=== PATIENT | female | born 1945 | race Caucasian/White ===

== ENCOUNTER 2023-09-01 14:15 | Inpatient (IN) | payer MEDICARE, SELFPAY ==
[2023-09-01] VITALS (35 sets, daily range): BP systolic 90–123; BP diastolic 51–78; PULSE 104–129; RESP 15–32; TEMP 36.8–37.9; O2SAT 91–100; BMI 27.5; BMI 28.1
--- NOTE | 2023-09-01 14:30 | ECG_ITS ---
[facility] Test Date: 2023-09-01 Pat Name: ADRIENNE MORALEZ Department: Room: [facility] [place] [facility] Gender: Female Call Out Clerk: : 1945 Requested By: 1030 Order Number: [id number] Reading MD: ARABELLA BOBBY Measurements Intervals [place] Rate: 125 P: 90 VA: 136 QRS: 92 QRSD: 90 T: 82 QT: 292 QTc: 366 Interpretive Statements 1120 Sinus tachycardia [address] depression, inferolateral ischemia can't be excluded 7102 Moderate right axis deviation 0102 ARTIFACT PRESENT 9150 abnormal ECG Electronically Signed On 09-02-2023 6:50:10 EST by ARABELLA BOBBY
--- NOTE | 2023-09-01 14:39 | XR_ITS ---
The [address] [address] Patient Name: ADRIENNE MORALEZ MRN: [id number] date: 1945 Sex: F Assigned Patient Location: ER Current Patient Location: ER Accession/Order Number: [id number] Exam Date: 09/01/2023 15:25 Report Date: 09/01/2023 15:47 At the request of: RAMANA LAN Procedure: XR chest 1V EXAMINATION: XR chest 1V 09/01/2023 12:44 PM PST HISTORY: Fever, shortness of breath TECHNIQUE: Single frontal view of the chest acquired. COMPARISONS: Chest CT 08/26/2022 and chest x-ray 04/10/2021 FINDINGS: Lines/tubes/other: Central venous catheter terminating in the mid one third of the SVC. Heart and mediastinum: Stable. Bones: No acute osseous abnormality. Lungs: Chronic cavitation in the left apex. Moderate opacification of the left mid to upper lung appears mildly worse. Pleura: There is no significant pleural effusion or pneumothorax. Other: None. XR/XR chest 1V IMPRESSION: 1. Suspected worsening moderate opacification of the left lung. Recommend CT of the chest with contrast for further evaluation. 2. Chronic left apical cavitation. Electronically authenticated by: LUPIS ALVES Date: 09/01/2023 15:47
--- NOTE | 2023-09-01 14:42 | ED.SOB1 ---
HPI - SOB/Dyspnea General Chief Complaint: Shortness of Breath/Dyspnea Stated Complaint: CHEST PRESSURE/FLUID Time Seen by Provider: 09/01/23 14:33 Source: patient Mode of arrival: Wheelchair Limitations: no limitations History of Present Illness HPI Narrative: 77-year-old female presents to the emergency department for shortness of breath. She has not felt well for a month but the past 3 days has been much worse. She developed a fever and a cough. She has been coughing up some white phlegm. No hemoptysis. She has a history of COPD and continues to smoke. She is not complaining of chest pain to me. Related Data Allergies Allergy/AdvReac Type Severity Reaction Status Date / Time No Known Drug Allergies Allergy Verified 09/01/23 14:30 Review of Systems ROS Narrative A ten point review of systems is negative except as noted above. PFSH PFSH Social History Smoking status: Heavy tobacco smoker Exam Narrative Exam Narrative: Nurses note and vital signs reviewed and patient is not hypoxic. General: The patient appears mildly dyspneic. Skin: Warm, dry, no pallor noted. There is no rash noted. Head: Normocephalic, atraumatic Eye: Normal conjunctiva, no drainage Ears, Nose, Mouth, and Throat: oral mucosa is moist. Nares patent. Cardiovascular: Regular Rate and Rhythm, tachycardia Respiratory: Bilateral rhonchi present, breath sounds are equal Back: non-tender GI: Soft and nontender Musculoskeletal: The patient has no evidence of calf tenderness, no pitting edema, symmetrical pulses noted bilaterally Neurological: A&O, normal speech Psychiatric: Cooperative Constitutional Vital Signs, click to edit/add: Last Vital Signs Temp 100.3 F 09/01/23 14:30 Pulse 113 H 09/01/23 15:30 Resp 27 H 09/01/23 15:30 BP 123/78 09/01/23 14:25 Pulse Ox 98 09/01/23 15:03 O2 Del Method Nasal Cannula 09/01/23 15:03 O2 Flow Rate 3 09/01/23 15:03 Course Vital Signs Vital signs: Vital Signs Pulse Rate 125 H 09/01/23 14:25 Respiratory Rate 32 H 09/01/23 14:25 Blood Pressure 123/78 09/01/23 14:25 Pulse Oximetry 91 L 09/01/23 14:25 Oxygen Delivery Method Nasal Cannula 09/01/23 14:25 Oxygen Delivery Flow Rate 2 09/01/23 14:25 Temperature 100.3 F 09/01/23 14:30 Pulse Rate 113 H 09/01/23 15:30 Respiratory Rate 27 H 09/01/23 15:30 Blood Pressure 123/78 09/01/23 14:25 Pulse Oximetry 98 09/01/23 15:03 Oxygen Delivery Method Nasal Cannula 09/01/23 15:03 Oxygen Delivery Flow Rate 3 09/01/23 15:03 MDM - SOB/Dyspnea MDM Narrative Medical decision making narrative: Chest x-ray per radiologist suggest pneumonia. She has an elevated WBC and negative COVID and influenza test. Blood cultures were obtained and she was given IV Rocephin and Zithromax. She is hemodynamically stable and is being admitted. Findings are discussed with the patient. Differential Diagnosis Differential diagnosis: Likely acute exacerbation of chronic obstructive airways disease, community acquired pneumonia and other (COVID, influenza) Lab Data Attestation: I reviewed the patient's lab results. Labs: Lab Results 09/01/23 09/01/23 Range/Units 14:58 15:02 WBC 20.6 H (4.0-11.0) 10^3/uL RBC 3.83 L (4.20-5.40) 10^6/uL Hgb 10.8 L (12.0-16.0) g/dL Hct 34.3 L (36.0-48.0) % MCV 89.6 (81.0-99.0) fL MCH 28.2 (26.7-34.0) pg MCHC 31.5 (29.9-35.2) g/dL RDW 13.6 (11.0-15.0) % Plt Count 317 (150-450) 10^3/uL MPV 9.9 (9.5-13.5) fL Neut % (Auto) 86.2 H (43.0-75.0) % Lymph % (Auto) 6.0 L (20.5-60.0) % [place] % (Auto) 6.6 (1.7-12.0) % Eos % (Auto) 0.2 L (0.9-7.0) % Baso % (Auto) 0.3 (0.2-2.0) % Neut # (Auto) 17.8 H (1.4-6.5) 10^3/uL Lymph # (Auto) 1.2 (1.2-3.8) 10^3/uL [place] # (Auto) 1.4 H (0.3-0.8) 10^3/uL Eos # (Auto) 0.0 (0.0-0.7) 10^3/uL Baso # (Auto) 0.1 (0.0-0.1) 10^3/uL Abs Immat Gran (auto) 0.14 H (0.00-0.03) 10^3/uL Imm/Tot Granulo (auto) 0.7 H (0.0-0.5) % Sodium 138 (136-145) mmol/L Potassium 3.8 (3.5-5.1) mmol/L Chloride 101 (98-107) mmol/L Carbon Dioxide 29.1 (21.0-32.0) mmol/L Anion Gap 11.7 BUN 15.0 (7.0-18.0) mg/dL Creatinine 0.59 (0.55-1.02) mg/dL Est GFR ( Amer) >60 (>=60) Est GFR (Non-Af Amer) >60 (>=60) BUN/Creatinine Ratio 25.4 Glucose 161 H (74-106) mg/dL Lactate 1.1 (0.4-2.0) mmol/L Calcium 8.8 (8.5-10.1) mg/dL Total Bilirubin 0.6 (0.2-1.0) mg/dL AST 20 (15-37) U/L ALT 24 (14-59) U/L Alkaline Phosphatase 106 (46-116) U/L Troponin I High Sens 9.5 (4.0-51.3) pg/mL Total Protein 7.3 (6.4-8.2) g/dL Albumin 2.7 L (3.4-5.0) g/dL Globulin 4.6 g/dL Albumin/Globulin Ratio 0.6 Procalcitonin 0.06 (0.00-0.50) ng/mL Adenovirus (PCR) Not detected (NOT DETECTE) C. pneumoniae DNA (PCR) Not detected (NOT DETECTE) Coronavirus Type OC43 Not detected (NOT DETECTE) Coronavirus Type HKU1 Not detected (NOT DETECTE) Coronavirus Type 229E Not detected (NOT DETECTE) Coronavirus Type NL63 Not detected (NOT DETECTE) Human Metapneumovir PCR Not detected (NOT DETECTE) M. pneumoniae (PCR) Not detected (NOT DETECTE) Parainfluenza PCR Not detected (NOT DETECTE) Parainfluenza 2 (PCR) Not detected (NOT DETECTE) Parainfluenza 3 (PCR) Not detected (NOT DETECTE) Parainfluenza 4 (PCR) Not detected (NOT DETECTE) RSV (RT-PCR) Not detected (NOT DETECTE) Entero/Rhino (PCR) Not detected (NOT DETECTE) SARS-CoV-2 (PCR) Not detected (NOT DETECTE) Bordetella pertussis (PCR) Not detected (NOT DETECTE) B parapertussis DNA PCR Not detected (NOT DETECTE) Influenza Type A (PCR) Not detected (NOT DETECTE) Influenza Type B (PCR) Not detected (NOT DETECTE) Imaging Data Chest x-ray: Radiologist's impression: ITS Impressions Chest X-Ray 09/01/23 14:39 IMPRESSION: 1. Suspected worsening moderate opacification of the left lung. Recommend CT of the chest with contrast for further evaluation. 2. Chronic left apical cavitation. Electronically authenticated by: LUPIS ALVES Date: 09/01/2023 15:47 Discharge Plan Discharge Chief Complaint: Shortness of Breath/Dyspnea Clinical Impression: Pneumonia Patient Disposition: Admitted As Inpatient Time of Disposition Decision: 16:28 Condition: Fair
[2023-09-01] MEDS: ALBUTEROL SULFATE 2.5 MG/3 ML VIAL NEB IH (14:58)
[2023-09-01 15:15] LABS: Adenovirus NOT DETECTED (NOT DETECTE); Bordetella parapertussis NOT DETECTED (NOT DETECTE); Coronavirus 229E NOT DETECTED (NOT DETECTE); Coronavirus HKU1 NOT DETECTED (NOT DETECTE); Coronavirus NL63 NOT DETECTED (NOT DETECTE); Coronavirus OC43 NOT DETECTED (NOT DETECTE); Human Metapneumovirus NOT DETECTED (NOT DETECTE); Human Rhinovirus/Enterovirus NOT DETECTED (NOT DETECTE); Influenza A NOT DETECTED (NOT DETECTE); Influenza B NOT DETECTED (NOT DETECTE); Parainfluenza Virus 1 NOT DETECTED (NOT DETECTE); Parainfluenza Virus 2 NOT DETECTED (NOT DETECTE); Parainfluenza Virus 3 NOT DETECTED (NOT DETECTE); Parainfluenza Virus 4 NOT DETECTED (NOT DETECTE); Respiratory Syncytial Virus NOT DETECTED (NOT DETECTE); SARS-CoV-2 NOT DETECTED (NOT DETECTE)
[2023-09-01 15:16] LABS: Mycoplasma pneumoniae NOT DETECTED (NOT DETECTE)
[2023-09-01 15:20] LABS: Basophils Absolute Auto 0.1 10^3/uL (0.0-0.1); Basophils Percent Auto 0.3 % (0.2-2.0); Eosinophils Percent Auto 0.2 % (0.9-7.0); Hematocrit 34.3 % (36.0-48.0); Hemoglobin 10.8 g/dL (12.0-16.0); Immature Granulocytes Abs Auto 0.14 10^3/uL (0.00-0.03); Immature Granulocytes Pct Auto 0.7 % (0.0-0.5); Lymphocytes Absolute Auto 1.2 10^3/uL (1.2-3.8); Mean Corpuscular HGB Conc 31.5 g/dL (29.9-35.2); Mean Corpuscular Hemoglobin 28.2 pg (26.7-34.0); Mean Corpuscular Volume 89.6 fL (81.0-99.0); Mean Platelet Volume 9.9 fL (9.5-13.5); Monocytes Absolute Auto 1.4 10^3/uL (0.3-0.8); Monocytes Percent Auto 6.6 % (1.7-12.0); Neutrophils Absolute Auto 17.8 10^3/uL (1.4-6.5); Neutrophils Percent Auto 86.2 % (43.0-75.0); Platelet Count 317 10^3/uL (150-450); Red Blood Count 3.83 10^6/uL (4.20-5.40); Red Cell Distribution Width 13.6 % (11.0-15.0); White Blood Count 20.6 10^3/uL (4.0-11.0)
[2023-09-01] MEDS: METHYLPREDNISOLONE SOD SUCC PF 125 MG/2 ML VIAL IVP (15:22)
[2023-09-01 15:40] LABS: Lactate/Lactic Acid 1.1 mmol/L (0.4-2.0)
[2023-09-01 15:46] LABS: Alanine Aminotransferase 24 U/L (14-59); Albumin Globulin Ratio 0.6; Albumin Level 2.7 g/dL (3.4-5.0); Alkaline Phosphatase 106 U/L (46-116); Anion Gap 11.7; Aspartate Amino Transferase 20 U/L (15-37); BUN Creatinine Ratio 25.4; Bilirubin Total 0.6 mg/dL (0.2-1.0); Calcium 8.8 mg/dL (8.5-10.1); Carbon Dioxide 29.1 mmol/L (21.0-32.0); Chloride 101 mmol/L (98-107); Estimated GFR (African America >60 (>=60); Estimated GFR (Non-African Ame >60 (>=60); Globulin 4.6 g/dL; Glucose 161 mg/dL (74-106); Potassium 3.8 mmol/L (3.5-5.1); Sodium 138 mmol/L (136-145); Total Protein 7.3 g/dL (6.4-8.2); Troponin I High Sensitivity 9.5 pg/mL (4.0-51.3)
[2023-09-01 16:22] LABS: PROCALCITONIN 0.06 ng/mL (0.00-0.50)
--- NOTE | 2023-09-01 17:03 | P.HP_ITS ---
<Statement entered by Tay Pierce MD - 09/02/23 19:00> This documentation has been reviewed and approved. Patient seen and examined this morning. Agree with input and findings provided by nurse practitioner. 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 She also reports low- grade temperatures with a Tmax of 100.3 on Thursday evening, 3 days of worsening cough productive of mostly clear sputum, and severe shortness of breath with activity. She reports she normally uses her home O2 only with activity and is able to maintain her sats at rest on room air 93 to 94%. Today when attempting to ambulate to the bathroom her O2 sat dropped to 86% even while on O2 supplementation at 2 L and she presented to the ED for further evaluation. Workup in the ED revealed leukocytosis (20.6 with a left shift), hyperglycemia (161), with all other labs unremarkable including lactic acid and and troponin I. A respiratory panel was negative. Chest x-ray revealed worsening moderate opacities of the left lung and a CT of the chest with contrast was recommended for further evaluation. It also noted a chronic left apical cavitary lesion. Despite breathing treatments the patient remains very dyspneic and she is being admitted as an inpatient to the hospitalist service for community-acquired pneumonia and acute COPD exacerbation with acute on chronic respiratory failure. At the time of my exam the patient is sitting up on the ED cart. She is essentially tripoding and her work of breathing is significant. She is able to complete 5 word sentences but abdominal accessory muscle use is noted as well as pursed lip breathing. On exam her lung sounds are very tight with extremely poor air exchange noted and some scattered and expiratory wheezing. We will continue to treat for CAP with Rocephin and azithromycin and for COPD exacerbation with Solu-Medrol, scheduled DuoNebs and Pulmicort nebs; guaifenesin, and OPEP for sputum mobilization. We will consult Dr. Morin as he is this patient's biomechanical engineer and we appreciate his assistance with her care. Review of Systems ROS Status of ROS 10 or more systems reviewed and unremark able except as noted in history and below PFSH PFS Medical History (Updated 09/01/23 @ 18:45 by Daja Chacko RN) Cataract ?H26.9 - Unspecified cataract (ICD-10) Hyperlipidemia ?E78.5 - Hyperlipidemia, unspecified (ICD-10) COPD (chronic obstructive pulmonary disease) ?J44.9 - Chronic obstructive pulmonary disease, unspecified (ICD-10) Hypertension ?I10 - Essential (primary) hypertension (ICD-10) Surgical History (Updated 09/01/23 @ 18:45 by Daja Chacko RN) Hx of cholecystectomy ?Z90.49 - Acquired absence of other specified parts of digestive tract (ICD- 10) History of heart artery stent ?Z95.5 - Presence of coronary angioplasty implant and graft (ICD-10) Family History (Updated 09/01/23 @ 18:46 by Daja Chacko RN) Grandfather Family history of cancer Grandmother Family history of diabetes mellitus Father Family history of hypertension Family history of stroke Social History (Updated 09/01/23 @ 18:47 by Daja Chacko RN) Within the past year, how often did you have a drink containing alcohol: never Score interpretation: A score less than 3 is consistent with normal alcohol consumption. Smoking status: Heavy tobacco smoker Non-prescribed substance use: denies use Highest level of school completed/degree received: high school graduate Meds Home Medications and Allergies Home Medications Medication Instructions Recorded Confirmed Type albuterol sulfate 2.5 mg/3 mL 2.5 mg inhalation Q6H PRN 09/01/23 09/01/23 History (0.083 %) solution for nebulization shortness of breath or wheezing albuterol sulfate 90 mcg/actuation 2 puff inhalation Q4H PRN 09/01/23 09/01/23 History aerosol inhaler shortness of breath or wheezing amlodipine 5 mg tablet 5 mg PO DAILY 09/01/23 09/01/23 History aspirin 81 mg tablet,delayed 81 mg PO DAILY 09/01/23 09/01/23 History release (Adult Low Dose Aspirin) budesonide 160 mcg-glycopyr 9 2 inh inhalation .twice daily 09/01/23 09/01/23 History mcg-formot 4.8 mcg/actuation HFA inhaler (Breztri Aerosphere) clopidogrel 75 mg tablet 75 mg PO DAILY 09/01/23 09/01/23 History fexofenadine 180 mg tablet 180 mg PO DAILY 09/01/23 09/01/23 History (Marcie Allergy) metoprolol tartrate 25 mg tablet 12.5 mg PO Q12H 09/01/23 09/01/23 History wefdjkqe-ndm-hwroj acid 0.4 1 tab PO DAILY 09/01/23 09/01/23 History mg-lycopene 300 mcg-lutein 250 mcg tablet (Centrum Silver) prednisone 10 mg tablet 10 mg PO DAILY 09/01/23 09/01/23 History simvastatin 20 mg tablet 20 mg PO .QHS 09/01/23 09/01/23 History Allergies Allergy/AdvReac Type Severity Reaction Status Date / Time No Known Drug Allergies Allergy Verified 09/01/23 14:30 Exam Constitutional Vital Signs, click to edit/add: Last Vital Signs Temp 99.6 F 09/01/23 16:49 Pulse 108 H 09/01/23 16:50 Resp 22 09/01/23 16:50 BP 117/69 09/01/23 16:30 Pulse Ox 95 09/01/23 16:50 O2 Del Method Nasal Cannula 09/01/23 15:03 O2 Flow Rate 3 09/01/23 15:03 Common normals: no apparent distress, oriented x3, alert and well nourished General appearance: cooperative Orientation/consciousness: Yes awake [facility] Common normals: normocephalic, head/scalp atraumatic, hearing grossly normal bilaterally, external nose normal and moist oral mucous membranes Eye Common normals: PERRL, EOMs intact bilaterally, conjunctivae normal and no scleral icterus Alignment: alignment normal Eyelid: eyelids normal Neck & C-Spine Common normals: full ROM, supple and no JVD Chest Common normals: inspection of chest normal Chest: symmetrical chest wall rise Respiratory Common normals: no retractions Effort & inspection: tachypneic, pursed lip breathing, labored, uses accessory muscles, tripod positioning and prolonged expiratory phase Auscultation: wheezes (Scattered throughout) expiratory wheezes and diminished lung sounds (Very tight; poor air exchange) Cardio Common normals: no JVD, regular rhythm, S1 normal heart sound, S2 normal heart sound, no gallops, no clicks, no murmurs, no rub and peripheral pulses 2+ throughout Rate: tachycardic (Mild, 100-110) GI Common normals: Normal to inspection, nondistended, normoactive bowel sounds present, soft to palpation, non-tender, no hepatosplenomegaly, no masses and no bruits Bladder/kidney exam: bladder normal to palpation Back & Pelvis Common normals: thoracic and lumbar spine normal to inspection Extremity Common normals: normal capillary refill General: normal exam except as noted and edema (Trace bilat insteps); no cyanosis Neuro Larissa Coma Scale: GCS not evaluated Common normals: CN's II-XII intact bilaterally, moves all extremities, no focal motor deficits and no sensory deficits noted Speech: speech normal Motor exam: strength 5/5 throughout Psych Common normals: mental status grossly normal, thought process normal, affect normal and activity/motor behavior normal Results Labs Labs: Short CBC 09/01/23 Range/Units 14:58 WBC 20.6 H (4.0-11.0) 10^3/uL Hgb 10.8 L (12.0-16.0) g/dL Hct 34.3 L (36.0-48.0) % Plt Count 317 (150-450) 10^3/uL BMP 09/01/23 14:58 Sodium 138 Potassium 3.8 Chloride 101 Carbon Dioxide 29.1 BUN 15.0 Creatinine 0.59 Glucose 161 H Calcium 8.8 Liver Function 09/01/23 Range/Units 14:58 Total Bilirubin 0.6 (0.2-1.0) mg/dL AST 20 (15-37) U/L ALT 24 (14-59) U/L Alkaline Phosphatase 106 (46-116) U/L Albumin 2.7 L (3.4-5.0) g/dL Pulse Oximetry Attestation: I have reviewed the pertinent pulse oximetry results. Assessment and Plan Assessment and Plan (1) Pneumonia: Assessment and Plan: ACUTE * Adm inpatient * I expect this patient's stay to cross 2 midnights and require medically necessary hospital care * L side opacity on CXR - suspect acute infiltrate * Continue IVPB Rocephin/Azithromycin for now for CAP coverage. * Low threshold to broaden coverage pending clinical course and pulmonology recommendations * Duonebs q4h scheduled, PRN albuterol nebs * Guaifenisen BID/OPEP for sputum mobilization * Obtain sputum culture sample if possible * CT chest per radiology recommendation to further characterize her worsening L opacification * C/S Dr Morin, biomechanical engineer - we appreciate his assistance with this pt's care * CBC, CMP daily (2) Acute exacerbation of chronic obstructive pulmonary disease (COPD): Assessment and Plan: ACUTE * Solumedrol 125 x 1 in ED, then 80 mg q6h * Defer to pulmonology if higher doses are indicated * Hold home PO prednisone for now * Scheduled and PRN breathing tx as above * Pulmicort nebs BID * O2 as needed to keep sats above 90%, low threshold to consider Vapotherm d/t pt's significantly increased WOB * Dr Morin c/s as above (3) Acute and chronic respiratory failure: Assessment and Plan: ACUTE * Pt uses O2 at 2L only w/ activity at baseline. On RA at rest * Requiring 2-3 L continuously in ED and pt's WOB remains exaggerated and dyspneic * O2 to keep sats above 90% - consider vapotherm pending clinical course (4) Hyperlipidemia: Assessment and Plan: CHRONIC * Continue home statin (5) Hypertension: Assessment and Plan: CHRONIC * Hold home amlodipine for now d/t soft BPs * Continue home metoprolol d/t mild tachycardia, but w/ parameters to hold for SBP < 110 or HR < 55
[2023-09-01] MEDS: ACETAMINOPHEN 325 MG TABLET 650 MG PO (17:19)
[2023-09-01] MEDS: CEFTRIAXONE 1,000 MG in 0.9 % SODIUM CHLORIDE 50 ML 100 MG IV (17:27)
[2023-09-01] MEDS: AZITHROMYCIN 500 MG in 0.9 % SODIUM CHLORIDE 250 ML 250 MG IV (18:56)
[2023-09-01] MEDS: IPRATROPIUM/ALBUTEROL SULFATE 3 ML AMPUL.NEB IH ×2 (19:54→23:31)
--- NOTE | 2023-09-01 19:54 | RESP.RT ---
decreased down to 2L. pt wears 2L at home.
[2023-09-01] MEDS: GUAIFENESIN 600 MG TAB.ER.12H PO (21:45)
[2023-09-01] MEDS: METHYLPREDNISOLONE SOD SUCC PF 125 MG/2 ML VIAL 80 MG IVP (21:45)
[2023-09-01] MEDS: ENOXAPARIN SODIUM 40 MG/0.4 ML SYRINGE SUBQ (21:45)
[2023-09-01] MEDS: BUDESONIDE 0.5 MG/2 ML AMPULE NEB IH (23:30)
[2023-09-01 23:39] LABS: Bilirubin Urine NEGATIVE (NEGATIVE); Blood Urine TRACE-I (NEGATIVE); Clarity Urine CLEAR (CLEAR); Color Urine YELLOW (YELLOW); Glucose Urine UA >=1000 mg/dL (NEGATIVE); Ketones Urine 15 mg/dL (NEGATIVE); Leukocyte Esterase Urine NEGATIVE (NEGATIVE); Nitrite Urine NEGATIVE (NEGATIVE); Protein Urine TRACE mg/dL (NEG/TRACE); Specific Gravity Urine 1.015 (1.005-1.025); Urobilinogen Urine 0.2 EU/dL (0.2-1.0); pH Urine 5.5 (5.0-9.0)
[2023-09-01 23:50] LABS: Urine Microscopic Indicated YES
--- NOTE | 2023-09-01 23:50 | RESP.RT ---
PEP not done at this time. Pt SOB and coughing.
[2023-09-01 23:54] LABS: Bacteria Urine NONE SEEN #/HPF (NONE SEEN); Mucus Urine NONE SEEN (NONE SEEN); RBC Urine 0-2 #/HPF (0-2); Squamous Epithelial Cell Urine NONE SEEN #/LPF (NONE/RARE); WBC Urine NONE SEEN #/HPF (NONE SEEN)
[2023-09-01 23:55] LABS: Cast Seen? NONE SEEN #/LPF (NONE SEEN); Crystals Seen? None Seen #/HPF (None Seen)
[2023-09-02] VITALS (22 sets, daily range): BP systolic 104–111; BP diastolic 57–67; PULSE 87–130; RESP 14–22; TEMP 36.3–36.5; O2SAT 92–97
[2023-09-02] MEDS: METHYLPREDNISOLONE SOD SUCC PF 125 MG/2 ML VIAL 80 MG IVP ×4 (01:30→21:03)
[2023-09-02] MEDS: IPRATROPIUM/ALBUTEROL SULFATE 3 ML AMPUL.NEB IH ×2 (03:16→08:22)
--- NOTE | 2023-09-02 05:36 | PC.NURSE ---
Radiologist on floor to take patient for MRI. Patient is refusing to have test done states I can not lay flat for that long, and Dr. Morin doesn't need it anyway:. Explained to patient about the importance of the test. Several attempts to get patient to do test with no success. Dr. Olivier notified.
[2023-09-02 06:04] LABS: Basophils Percent Auto 0.2 % (0.2-2.0); Hemoglobin 9.7 g/dL (12.0-16.0); Immature Granulocytes Abs Auto 0.07 10^3/uL (0.00-0.03); Immature Granulocytes Pct Auto 0.5 % (0.0-0.5); Lymphocytes Absolute Auto 0.3 10^3/uL (1.2-3.8); Lymphocytes Percent Auto 1.7 % (20.5-60.0); Mean Corpuscular HGB Conc 30.3 g/dL (29.9-35.2); Mean Corpuscular Hemoglobin 27.6 pg (26.7-34.0); Mean Corpuscular Volume 91.2 fL (81.0-99.0); Mean Platelet Volume 9.8 fL (9.5-13.5); Monocytes Absolute Auto 0.4 10^3/uL (0.3-0.8); Monocytes Percent Auto 2.5 % (1.7-12.0); Neutrophils Absolute Auto 14.4 10^3/uL (1.4-6.5); Neutrophils Percent Auto 95.1 % (43.0-75.0); Platelet Count 297 10^3/uL (150-450); Red Blood Count 3.51 10^6/uL (4.20-5.40); Red Cell Distribution Width 13.4 % (11.0-15.0); White Blood Count 15.1 10^3/uL (4.0-11.0)
[2023-09-02 06:17] LABS: Alanine Aminotransferase 25 U/L (14-59); Albumin Globulin Ratio 0.5; Albumin Level 2.4 g/dL (3.4-5.0); Alkaline Phosphatase 100 U/L (46-116); Anion Gap 14.1; Aspartate Amino Transferase 17 U/L (15-37); Bilirubin Total 0.3 mg/dL (0.2-1.0); Calcium 8.9 mg/dL (8.5-10.1); Chloride 105 mmol/L (98-107); Estimated GFR (African America >60 (>=60); Estimated GFR (Non-African Ame >60 (>=60); Globulin 4.5 g/dL; Glucose 220 mg/dL (74-106); Potassium 3.1 mmol/L (3.5-5.1); Sodium 143 mmol/L (136-145); Total Protein 6.9 g/dL (6.4-8.2)
--- NOTE | 2023-09-02 06:58 | P.PLCN_ITS ---
History of Present Illness History of Present Illness Consult date: 09/02/23 Requesting physician: Laura Barros Reason for consult: pneumonia Chief complaint: CHEST PRESSURE/FLUID, Pneumonia Narrative: 77yo female, well known to me, presents to [facility] ER 09/01/2023 after ~1 week of worsening dyspnea. CXR done in ER suggested infiltrates in the left lung. Chest CT was recommended, but patient initially refused. After I suggested getting t he chest CT, she had it done. She has a significant pulmonary history, with her last outpatient visit 06/16/2023. 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 Waldrop). The remnant mass degraded to a cavitary lesion, in which an Aspergilloma developed. She was started on itraconazole 07/23/2022, but despite treatment for nearly 5 months, the Asp ergilloma increased in size. She was referred to thoracic surgery (Dr. Segovia @ [facility]). The location was technically difficult, and given her poor pulmonary function, she was not a candidate for lobectomy. A Clagett window axillary approach was suggested, but that procedure would cause significant morbidity, requiring rib resection and likely chronic wound that would require daily wound care (e.g. packing, etc.). The patient felt the risks were too high and refused surgery. After a long discussion with her in the office 01/13/2023, she stated her main goals of treatment were to not to suffer. Alternative therapy with voriconazole was also discussed, but the she declined this option as well. She previously made her wishes known to me that if she were to decline rapidly, she was open to Hospice care. I completed an order for DNR-CCA No Intubation in the office that date (which is on file @ [facility]). Based on her goals and wishes, treatment was shifted more towards palliative treatment. With her severe centrilobular emphysema, we began daily prednisone therapy. It helped some @ 5mg, but it was later increased to 10mg based on symptom control. Review of Systems ROS Status of ROS 10 or more systems reviewed and unremark able except as noted in history and below (Fatigue, dyspnea, productive cough without hemoptysis) [facility] Medical History (Updated 09/01/23 @ 18:45 by Daja Chacko RN) Cataract ?H26.9 - Unspecified cataract (ICD-10) Hyperlipidemia ?E78.5 - Hyperlipidemia, unspecified (ICD-10) COPD (chronic obstructive pulmonary disease) ?J44.9 - Chronic obstructive pulmonary disease, unspecified (ICD-10) Hypertension ?I10 - Essential (primary) hypertension (ICD-10) Surgical History (Updated 09/01/23 @ 18:45 by Daja Chacko RN) Hx of cholecystectomy ?Z90.49 - Acquired absence of other specified parts of digestive tract (ICD- 10) History of heart artery stent ?Z95.5 - Presence of coronary angioplasty implant and graft (ICD-10) Family History (Updated 09/01/23 @ 18:46 by Daja Chacko, RN) Grandfather Family history of cancer Grandmother Family history of diabetes mellitus Father Family history of hypertension Family history of stroke Social History (Updated 09/01/23 @ 18:47 by Daja Chacko, RN) Within the past year, how often did you have a drink containing alcohol: never Score interpretation: A score less than 3 is consistent with normal alcohol consumption. Smoking status: Heavy tobacco smoker Non-prescribed substance use: denies use Highest level of school completed/degree received: high school graduate Meds Home Medications and Allergies Home Medications Medication Instructions Recorded Confirmed Type albuterol sulfate 2.5 mg/3 mL 2.5 mg inhalation Q6H PRN 09/01/23 09/01/23 History (0.083 %) solution for nebulization shortness of breath or wheezing albuterol sulfate 90 mcg/actuation 2 puff inhalation Q4H PRN 09/01/23 09/01/23 History aerosol inhaler shortness of breath or wheezing amlodipine 5 mg tablet 5 mg PO DAILY 09/01/23 09/01/23 History aspirin 81 mg tablet,delayed 81 mg PO DAILY 09/01/23 09/01/23 History release (Adult Low Dose Aspirin) budesonide 160 mcg-glycopyr 9 2 inh inhalation .twice daily 09/01/23 09/01/23 History mcg-formot 4.8 mcg/actuation HFA inhaler (Breztri Aerosphere) clopidogrel 75 mg tablet 75 mg PO DAILY 09/01/23 09/01/23 History fexofenadine 180 mg tablet 180 mg PO DAILY 09/01/23 09/01/23 History (Marcie Allergy) metoprolol tartrate 25 mg tablet 12.5 mg PO Q12H 09/01/23 09/01/23 History dtctwyfk-uge-[id number] acid 0.4 1 tab PO DAILY 09/01/23 09/01/23 History mg-lycopene 300 mcg-lutein 250 mcg tablet (Centrum Silver) prednisone 10 mg tablet 10 mg PO DAILY 09/01/23 09/01/23 History simvastatin 20 mg tablet 20 mg PO .QHS 09/01/23 09/01/23 History Allergies Allergy/AdvReac Type Severity Reaction Status Date / Time No Known Drug Allergies Allergy Verified 09/01/23 14:30 Exam Constitutional Vital Signs, click to edit/add: Last Vital Signs Temp 98.2 F 09/01/23 21:29 Pulse 87 09/02/23 06:00 Resp 20 09/02/23 04:58 BP 111/67 09/02/23 04:58 Pulse Ox 95 09/02/23 04:58 O2 Del Method Nasal Cannula 09/02/23 04:58 O2 Flow Rate 3 09/02/23 04:58 Documenting provider has reviewed patient's vital signs: yes General appearance: ill appearing chronically HENMT Other: Upper dentures, no candidiasis. Developing mild brumfield facies secondary to chronic prednisone use. Chest Other: Prominent dextroscoliosis Respiratory Other: Mildly increased work of breathing (which patient already has to a degree at baseline). Crackles in the left lung, more in the base. No significant wheezes. Cardio Rate: tachycardic Rhythm: regular rhythm GI Inspection: normal to inspection Extremity Common normals: no clubbing, cyanosis or edema Neuro Sensorium/orientation: awake and alert Psych Attitude: calm and engaged Activity/motor behavior: appropriate eye contact Results Laboratory Findings Abnormal lab findings: Abnormal Labs 09/01/23 09/01/23 09/02/23 14:58 23:25 05:40 WBC 20.6 H 15.1 H RBC 3.83 L 3.51 L Hgb 10.8 L 9.7 L Hct 34.3 L 32.0 L Neut % (Auto) 86.2 H 95.1 H Lymph % (Auto) 6.0 L 1.7 L Eos % (Auto) 0.2 L 0.0 L Neut # (Auto) 17.8 H 14.4 H Lymph # (Auto) 0.3 L Kenton # (Auto) 1.4 H Abs Immat Gran (auto) 0.14 H 0.07 H Imm/Tot Granulo (auto) 0.7 H Potassium 3.1 L Glucose 161 H 220 H Albumin 2.7 L 2.4 L Urine Glucose (UA) >=1000 A Urine Ketones [address] scan - chest: report reviewed and image reviewed Results Metabolic Panel: Sodium 143 mmol/L (136-145) 09/02/23 05:40 Potassium 3.1 mmol/L (3.5-5.1) L 09/02/23 05:40 Chloride 105 mmol/L (98-107) 09/02/23 05:40 Carbon Dioxide 27.0 mmol/L (21.0-32.0) 09/02/23 05:40 Anion Gap 14.1 09/02/23 05:40 Calcium 8.9 mg/dL (8.5-10.1) 09/02/23 05:40 Glucose 220 mg/dL (74-106) H 09/02/23 05:40 BUN 17.0 mg/dL (7.0-18.0) 09/02/23 05:40 Creatinine 0.63 mg/dL (0.55-1.02) 09/02/23 05:40 BUN/Creatinine Ratio 27.0 09/02/23 05:40 Total Protein 6.9 g/dL (6.4-8.2) 09/02/23 05:40 Albumin 2.4 g/dL (3.4-5.0) L 09/02/23 05:40 Globulin 4.5 g/dL 09/02/23 05:40 Albumin/Globulin Ratio 0.5 09/02/23 05:40 AST 17 U/L (15-37) 09/02/23 05:40 ALT 25 U/L (14-59) 09/02/23 05:40 Alkaline Phosphatase 100 U/L (46-116) 09/02/23 05:40 Total Bilirubin 0.3 mg/dL (0.2-1.0) 09/02/23 05:40 Assessment and Plan Assessment and Plan (1) Pneumonia: Assessment and Plan: 1. Pneumonia. No identifiable cause. Respiratory panel negative. I would treat her as simply community acquired pneumonia. I believe this is working as her WBC has decreased already. Suggest continuing current antibiotic regimen as prescribed. 2. Sepsis. Secondary to #1. WBC 20.6 and RR 32 on initial presentation to [facility] ER. 3. Acute exacerbation of COPD. Patient has centrilobular emphysema with moderate/severe obstruction (FEV1 50% based on PFT 01/17/2021). A daughter is a respiratory therapist and asking for Vapotherm for work of breathing. She does not require it for oxygenation. There is no evidence of hypercapnia (HCO3- 27). Can try it for now, but if patient voices discomfort, I have a low threshold to discontinue it. 4. OBIE cavitary lesion. Secondary to treated limited stage small cell lung carcinoma. Follows with Dr. Waldrop outpatient. The cavitary lesion is continuing to increase in size. Suspect more due to natural progression opposed to ongoing neoplasm. Biggest risk discussed would be massive hemoptysis if it invades vasculature. As in HPI, patient refused surgical option for treatment. 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 Failed itraconazole, refused voriconazole. Does not appear massively increased in size compared to prior imaging. 6. Chronic hypoxic respiratory failure. Baseline O2 is 2L/min ATC. Doing okay on 3L/min. 7 Bronchiectasis. Incidental finding in the past. 8. Tobacco abuse. Contributing factor to emphysema. Continues to smoke despite multiple pulmonary issues. She has voiced in the past no desire to stop despite acknowledging the risks. 9. Alpha-1 antitrypsin abnormal carrier. MS genotype - this does not contribute to emphysema. 10. Dextroscoliosis. Moderately severe deformity, may be contributing to a pulmonary restriction. 11. Coronary artery disease. Coronary stents: RCA x4 and LAD x1 on 07/16/2018. 12. Chronic oral steroid treatment. She has developed a left cataract, worsening with chronic prednisone. She voiced acceptance of risks of steroids as she breathes better with them. Developing brumfield facies with chronic use.
--- NOTE | 2023-09-02 08:00 | CT_ITS ---
[address] [address] Patient Name: ADRIENNE MORALEZ MRN: [id number] date: 1945 Sex: F Assigned Patient Location: [place] Current Patient Location: Accession/Order Number: [id number] Exam Date: 09/02/2023 08:48 Report Date: 09/02/2023 09:36 At the request of: ALEM BOYKIN Procedure: CT chest w con EXAM: CT chest w con HISTORY: SOB, poorly defined opacities on CXR COMPARISON: 08/26/2022 TECHNIQUE: Axial CT images were obtained of the chest with intravenous contrast. Multiplanar reconstructions were performed. CHEST FINDINGS: Lungs/Pleura: There has been an interval increase in size in the large thick walled cavitary lesion in the left lung apex which measures 8.5 x 5.3 cm and previously measured 6.6 x 5.4 cm. There are airspace opacities present surrounding the cavitary lesion throughout the left lower lobe. A small airspace opacity is present in the right lower lobe. There is a stable pulmonary nodule in the right lower lobe measuring 4 mm on image 49. Extensive emphysematous disease is present. No pleural effusion or pneumothorax. Cardiovascular: The heart is normal in size. Extensive coronary artery calcifications are present. A right chest port is present with the catheter tip in the superior vena cava. There are moderate to severe atherosclerotic calcifications in the visualized aorta. Pericardium: No effusion. Mediastinum: Unremarkable. Lymph Nodes: No lymph node enlargement by CT size criteria. Bones: No acute osseous abnormality. Significant dextroscoliosis is present in the thoracic spine. Soft tissues: Unremarkable. Upper Abdomen: Thickening of the left adrenal gland measuring 3.[address]/CT chest w con IMPRESSION: 1. A large known cavitary lesion in the left lung apex has increased in size, possibly due to pneumonia or malignancy. 2. Pulmonary airspace opacity centered about the cavitary lesion, likely due to pneumonia. 3. Small focal airspace opacity in the right lower lobe. 4. Severe emphysematous disease. 5. Stable pulmonary nodule in the right lower lobe. 6. Extensive coronary artery calcification. Electronically authenticated by: STUART ALEXIS Date: 09/02/2023 09:36
[2023-09-02] MEDS: LORAZEPAM 2 MG/ML 1 ML VIAL 0.5 MG IV (08:23)
[2023-09-02 09:08] LABS: Reticulocyte Pct Auto 1.63 % (0.60-3.10)
[2023-09-02 09:12] LABS: Percent Iron Saturation 2.7 %
--- NOTE | 2023-09-02 09:47 | CM.NOTE ---
Rounds made with Dr. Pierce, pt going down for CT chest this AM for further evaluation. Pt does use home oxygen @2L [place] through [facility].
[2023-09-02] MEDS: POTASSIUM CHLORIDE 10 MEQ ER TABLET 40 MEQ PO ×2 (09:55→16:47)
[2023-09-02] MEDS: PREDNISONE 10 MG TABLET PO (09:55)
[2023-09-02] MEDS: ASPIRIN 81 MG TABLET.DR PO (09:55)
[2023-09-02] MEDS: CLOPIDOGREL BISULFATE 75 MG TABLET PO (09:56)
[2023-09-02] MEDS: GUAIFENESIN 600 MG TAB.ER.12H PO ×2 (09:56→21:03)
--- NOTE | 2023-09-02 09:58 | CM.NOTE ---
Important Message From Medicare discussed with pt, pt verbalizes understanding and signs paper. Original given to pt and copy placed on pt's chart.
--- NOTE | 2023-09-02 10:17 | P.PN_ITS ---
<Statement entered by Tay Pierce MD - 09/02/23 19:04> This documentation has been reviewed and approved. Previous input and diagnoses provided by nurse practitioner. Patient was seen and evaluated in her room this morning. At the diagnosis Hypokalemia-monitor daily and supplement as necessary Iron deficiency anemia but significantly down today, consider occult blood Hyperglycemia-insulin sliding scale Moderate protein calorie malnutrition With significant dyspnea, check BNP Progress Note: Subjective Subjective Interval history: 09/12/23 1005 The patient is currently resting in bed visiting with family. Her work of breathing continues to be worse than baseline, but is improved since admission last night. The patient confirms that she feels a little better. She is able to complete 5-7 word sentences but continues to use abdominal accessory muscles. Her family is requesting the use of Vapotherm as it may alleviate her work of breathing some. After discussion with Dr. Morin, we will trial Vapotherm O2 delivery and monitor her response. The patient was able to tolerate a CT of the chest this morning after receiving an anxiolytic. CT chest reveals worsening cavitary lesion with surrounding opacifications suspicious for pneumonia. As the patient is improving with her current regimen, we will continue with CAP coverage, scheduled breathing treatments, and high-dose IV steroids. We will convert her breathing treatments to levalbuterol due to her persistent tachycardia. Exam Constitutional Vital Signs, click to edit/add: Last Vital Signs Temp 98.2 F 09/01/23 21:29 Pulse 120 H 09/02/23 10:01 Resp 20 09/02/23 04:58 BP 111/67 09/02/23 04:58 Pulse Ox 93 L 09/02/23 08:23 O2 Del Method Nasal Cannula 09/02/23 08:23 O2 Flow Rate 2 09/02/23 08:23 Common normals: no apparent distress, oriented x3 and alert General appearance: cooperative Orientation/consciousness: Yes awake HENMA Common normals: normocephalic, head/scalp atraumatic and hearing grossly normal bilaterally Eye Common normals: PERRL, EOMs intact bilaterally, conjunctivae normal and no scleral icterus General eye: normal appearance of both eyes Chest Common normals: inspection of chest normal Chest: symmetrical chest wall rise Respiratory Effort & inspection: tachypneic (mild), pursed lip breathing (intermittent), uses accessory muscles and prolonged expiratory phase Auscultation: wheezes (EE scattered throughout. Improved air exchange) and diminished lung sounds (BLL, R>L) Cardio Common normals: regular rhythm, S1 normal heart sound, S2 normal heart sound, no murmurs and peripheral pulses 2+ throughout Rate: tachycardic (100-120) GI Common normals: Normal to inspection, nondistended, normoactive bowel sounds present, soft to palpation, non-tender and no hepatosplenomegaly Bladder/kidney exam: bladder normal to palpation Extremity Common normals: normal to inspection and no calf tenderness General: no clubbing, no cyanosis and no edema Neuro Common normals: CN's II-XII intact bilaterally, moves all extremities, no focal motor deficits and no sensory deficits noted Psych Common normals: mental status grossly normal Progress Note: Objective Labs Labs: Short CBC 09/01/23 09/02/23 Range/Units 14:58 05:40 WBC 20.6 H 15.1 H (4.0-11.0) 10^3/uL Hgb 10.8 L 9.7 L (12.0-16.0) g/dL Hct 34.3 L 32.0 L (36.0-48.0) % Plt Count 317 297 (150-450) 10^3/uL BMP 09/01/23 09/02/23 14:58 05:40 Sodium 138 143 Potassium 3.8 3.1 L Chloride 101 105 Carbon Dioxide 29.1 27.0 BUN 15.0 17.0 Creatinine 0.59 0.63 Glucose 161 H 220 H Calcium 8.8 8.9 Liver Function 09/01/23 09/02/23 Range/Units 14:58 05:40 Total Bilirubin 0.6 0.3 (0.2-1.0) mg/dL AST 20 17 (15-37) U/L ALT 24 25 (14-59) U/L Alkaline Phosphatase 106 100 (46-116) U/L Albumin 2.7 L 2.4 L (3.4-5.0) g/dL Urine 09/01/23 Range/Units 23:25 Urine Color Yellow (YELLOW) Urine Clarity Clear (CLEAR) Urine pH 5.5 (5.0-9.0) Ur Specific Deane 1.015 (1.005-1.025) Urine Protein Trace (NEG/TRACE) mg/dL Urine Glucose (UA) >=1000 A (NEGATIVE) mg/dL Imaging CT scan - chest: Attestation: I have reviewed the pertinent imaging results. Radiologist's impression: IMPRESSION: 1. A large known cavitary lesion in the left lung apex has increased in size, possibly due to pneumonia or malignancy. 2. Pulmonary airspace opacity centered about the cavitary lesion, likely due to pneumonia. 3. Small focal airspace opacity in the right lower lobe. 4. Severe emphysematous disease. 5. Stable pulmonary nodule in the right lower lobe. 6. Extensive coronary artery calcification. Progress Note: A&P Assessment and Plan (1) Pneumonia: Assessment and Plan: ACUTE * Improving slowly * Remained afebrile overnight * O2 sats stable on 2L at rest this morning - 93% (Usually does not require O2 supplementation at rest) * L side opacity on CXR 09/01/23 - suspect acute infiltrate * Continue IVPB Rocephin/Azithromycin for CAP coverage. * Per Dr Morin, OK to continue CAP coverage * Change Duonebs q4h scheduled to levalbuterol/ipratropium, and PRN albuterol nebs to levalbuterol d/t tachycardia * Continue Guaifenisen BID/OPEP for sputum mobilization * Obtain sputum culture sample if possible - none to date * CT chest per radiology recommendation completed this morning * Worsening cavitary lesion noted w/ surrounding opacifications consistent w/ pneumonia * C/S Dr Morin, dairy supplies sales representative - we appreciate his assistance with this pt's care * CBC, CMP daily (2) Acute exacerbation of chronic obstructive pulmonary disease (COPD): Assessment and Plan: ACUTE * Continue Solumedrol 80 mg q6h * Defer to pulmonology if higher doses are indicated * Hold home PO prednisone for now * Scheduled and PRN breathing tx as above * Pulmicort nebs BID * O2 as needed to keep sats above 90%, * Trial Vapotherm to assist with pt's increased WOB * Dr Morin c/s as above (3) Acute and chronic respiratory failure: Assessment and Plan: ACUTE * Pt uses O2 at 2L only w/ activity at baseline. On RA at rest * Requiring 2L continuously today, increased WOB persists but is improving * O2 to keep sats above 90% - see above (4) Sinus tachycardia: Assessment and Plan: ACUTE * Likely multifactorial - dyspnea, hypoxia, albuterol tx stimulation effect, steroid administration, anxiety * Continue home BB as long as BP allows * Change albuterol breathing txs to levalbuterol * Tele monitoring (5) Hypokalemia: Assessment and Plan: ACUTE * K+ 3.1 today * Unclear etiology, but likely d/t frequent albuterol administration * Pt is not on any K+ wasting diuretic * KCL 40 meq PO q6h x 2 doses (6) Anemia: Assessment and Plan: ACUTE * Unclear etiology * Anemia at baseline, but slightly worse today * No evidence of active bleeding or hemoptysis * Check stool for occult bleeding * Iron studies - suspect baseline iron deficiency. * Pt is on a multivite w/ iron at home (7) Hyperlipidemia: Assessment and Plan: CHRONIC * Continue home statin (8) Hypertension: Assessment and Plan: CHRONIC * Hold home amlodipine for now d/t soft BPs * Continue home metoprolol d/t mild tachycardia, but w/ parameters to hold for SBP < 110 or HR < 55
[2023-09-02 11:40] LABS: Glucometer 264 mg/dL (74-106)
[2023-09-02] MEDS: INSULIN ASPART 300 UNIT/3 ML PEN SUBQ ×3 (11:48→22:15)
[2023-09-02] MEDS: IPRATROPIUM BROMIDE 0.5 MG/2.5 ML VIAL.NEB IH ×3 (11:58→23:26)
[2023-09-02] MEDS: LEVALBUTEROL HCL 1.25 MG/3 ML VIAL NEB IH ×3 (11:59→23:26)
[2023-09-02] MEDS: BUDESONIDE 0.5 MG/2 ML AMPULE NEB IH ×2 (12:00→23:26)
[2023-09-02 16:44] LABS: Glucometer 219 mg/dL (74-106)
[2023-09-02] MEDS: CEFTRIAXONE 1,000 MG in 0.9 % SODIUM CHLORIDE 50 ML 100 MG IV (16:48)
[2023-09-02] MEDS: AZITHROMYCIN 500 MG in 0.9 % SODIUM CHLORIDE 250 ML 250 MG IV (17:20)
[2023-09-02] MEDS: ATORVASTATIN CALCIUM 10 MG TABLET PO (21:03)
[2023-09-02] MEDS: ENOXAPARIN SODIUM 40 MG/0.4 ML SYRINGE SUBQ (21:05)
[2023-09-02 22:22] LABS: Glucometer 161 mg/dL (74-106)
[2023-09-03] VITALS (20 sets, daily range): BP systolic 99–130; BP diastolic 55–73; PULSE 89–124; RESP 15–24; TEMP 36.7–37; O2SAT 92–97
[2023-09-03] MEDS: METHYLPREDNISOLONE SOD SUCC PF 125 MG/2 ML VIAL 80 MG IVP ×4 (01:55→22:21)
[2023-09-03] MEDS: LEVALBUTEROL HCL 1.25 MG/3 ML VIAL NEB IH ×4 (04:21→22:51)
[2023-09-03] MEDS: IPRATROPIUM BROMIDE 0.5 MG/2.5 ML VIAL.NEB IH ×4 (04:22→22:51)
[2023-09-03 06:04] LABS: Basophils Percent Auto 0.2 % (0.2-2.0); Hematocrit 31.7 % (36.0-48.0); Hemoglobin 9.6 g/dL (12.0-16.0); Immature Granulocytes Abs Auto 0.19 10^3/uL (0.00-0.03); Immature Granulocytes Pct Auto 1.1 % (0.0-0.5); Lymphocytes Absolute Auto 0.4 10^3/uL (1.2-3.8); Mean Corpuscular HGB Conc 30.3 g/dL (29.9-35.2); Mean Corpuscular Hemoglobin 27.8 pg (26.7-34.0); Mean Corpuscular Volume 91.9 fL (81.0-99.0); Mean Platelet Volume 9.6 fL (9.5-13.5); Monocytes Absolute Auto 1.2 10^3/uL (0.3-0.8); Monocytes Percent Auto 6.6 % (1.7-12.0); Neutrophils Absolute Auto 16.1 10^3/uL (1.4-6.5); Neutrophils Percent Auto 90.1 % (43.0-75.0); Platelet Count 327 10^3/uL (150-450); Red Blood Count 3.45 10^6/uL (4.20-5.40); Red Cell Distribution Width 13.6 % (11.0-15.0); White Blood Count 17.8 10^3/uL (4.0-11.0)
[2023-09-03 06:25] LABS: Alanine Aminotransferase 27 U/L (14-59); Albumin Globulin Ratio 0.5; Albumin Level 2.2 g/dL (3.4-5.0); Alkaline Phosphatase 99 U/L (46-116); Anion Gap 11.3; Aspartate Amino Transferase 18 U/L (15-37); BUN Creatinine Ratio 38.9; Bilirubin Total 0.2 mg/dL (0.2-1.0); Calcium 8.9 mg/dL (8.5-10.1); Carbon Dioxide 29.7 mmol/L (21.0-32.0); Chloride 112 mmol/L (98-107); Estimated GFR (African America >60 (>=60); Estimated GFR (Non-African Ame >60 (>=60); Globulin 4.4 g/dL; Glucose 184 mg/dL (74-106); Sodium 149 mmol/L (136-145); Total Protein 6.6 g/dL (6.4-8.2)
--- NOTE | 2023-09-03 07:27 | PM.PLPN ---
Progress Note: A&P Assessment and Plan (1) Pneumonia: Assessment and Plan: 1. Pneumonia. Clinically appears to be improving. Continue current antibiotics. 2. Sepsis. Secondary to #1. Supportive care. 3. Acute exacerbation of COPD. Continue bronchodilators, steroids. I do not feel that Vapotherm is helping patient clinically. Patient herself does not feel any benefit. Will transition back to traditional nasal cannula and see how she does. She is not a known CO2 retainer, so it is not critical that she remain on it. 4. OBIE cavitary lesion. Secondary to treated limited stage small cell lung carcinoma. Continues to increase in size. Patient elected for no further treatment. 5. Aspergilloma. Patient elected no further treatment. 6. Chronic hypoxic respiratory failure. Continue O2. 7 Bronchiectasis. Incidental finding in the past. 8. Tobacco abuse. Patient does not wish to stop smoking despite years of counseling. 9. Alpha-1 antitrypsin abnormal carrier. MS genotype - this does not contribute to emphysema. 10. Dextroscoliosis. Moderately severe deformity, may be contributing to a pulmonary restriction. 11. Coronary artery disease. Coronary stents: RCA x4 and LAD x1 on 07/16/2018. 12. Chronic oral steroid treatment. Plan Patient may F/U with me outpatient after discharge. Subjective Subjective Interval history: States she feels slightly better than yesterday. Using PEP as directed. Still gets winded getting up and moving around. Was placed on Vapotherm as an attempt to improve work of breathing, but she does not feel it is of any benefit over a traditional nasal cannula. No new issues. Exam Constitutional Vital Signs, click to edit/add: Last Vital Signs Temp 98.4 F 09/03/23 04:36 Pulse 92 H 09/03/23 06:00 Resp 18 09/03/23 04:36 BP 130/70 09/03/23 04:36 Pulse Ox 95 09/03/23 04:22 O2 Del Method Vapotherm 09/03/23 04:36 O2 Flow Rate 40 09/03/23 04:36 FiO2 30 09/03/23 04:36 Documenting provider has reviewed patient's vital signs: yes HENMT Other: Wearing Vapotherm nasal cannula Chest Other: Dextroscoliosis Respiratory Other: Crackles, some wheezes. Does not appear as dyspneic as yesterday. Cardio Rate: regular rate Rhythm: regular rhythm GI Inspection: normal to inspection Extremity Common normals: no clubbing, cyanosis or edema Neuro Sensorium/orientation: awake and alert Psych Appearance: grossly normal Attitude: calm
[2023-09-03] MEDS: MULTIVITAMIN TABLET 1 TAB PO (09:01)
[2023-09-03] MEDS: METOPROLOL TARTRATE 25 MG TABLET 12.5 MG PO ×2 (09:01→22:22)
[2023-09-03] MEDS: ASPIRIN 81 MG TABLET.DR PO (09:01)
[2023-09-03] MEDS: CLOPIDOGREL BISULFATE 75 MG TABLET PO (09:02)
[2023-09-03] MEDS: GUAIFENESIN 600 MG TAB.ER.12H PO ×2 (09:02→22:21)
[2023-09-03] MEDS: CETIRIZINE HCL 10 MG TABLET PO (09:03)
[2023-09-03] MEDS: INSULIN ASPART 300 UNIT/3 ML PEN SUBQ ×3 (09:04→22:22)
--- NOTE | 2023-09-03 09:12 | RESP.RT ---
Placed on nasal cannula per Dr. Morin
[2023-09-03] MEDS: BUDESONIDE 0.5 MG/2 ML AMPULE NEB IH ×2 (10:45→22:51)
[2023-09-03 11:35] LABS: Glucometer 154 mg/dL (74-106)
--- NOTE | 2023-09-03 12:04 | CM.NOTE ---
Rounds made with Dr. Stanton. Still with [facility]ALL. No plan for discharge today.
--- NOTE | 2023-09-03 13:19 | P.PN_ITS ---
<Statement entered by Brad Stanton MD - 09/03/23 21:32> Patient seen and examined, agree with assessment and plan below. Continued SOB with exertion but slowly improving. Mild cough. Decreased BS. Afebrile. Diagnosis: 1. Pneumonia 2. Sepsis 3. Acute exacerbation of COPD 4. Acute on chronic hypoxic respiratory failure 5. HTN 6. CAD Progress Note: Subjective Subjective Interval history: 09/02/23 1012 The pt is resting in bed visiting with her spouse. She is able to lie flat today but continues to exhibit increased WOB from her baseline. Vapotherm did not substantially improve her work of breathing and has been d/c'd. Very slow improvement, not yet back to baseline O2 delivery or work of breathing. Disposition: Likely d/c in 24-48 hrs pending clinical course Exam Constitutional Vital Signs, click to edit/add: Last Vital Signs Temp 98.4 F 09/03/23 04:36 Pulse 110 H 09/03/23 11:59 Resp 18 09/03/23 08:00 BP 130/70 09/03/23 04:36 Pulse Ox 96 09/03/23 10:52 O2 Del Method Nasal Cannula 09/03/23 10:52 O2 Flow Rate 3 09/03/23 10:52 FiO2 30 09/03/23 04:36 Common normals: no apparent distress, oriented x3 and alert Orientation/consciousness: Yes awake HENNC Common normals: normocephalic, head/scalp atraumatic and hearing grossly normal bilaterally Head and scalp: normocephalic and atraumatic Eye Common normals: PERRL, EOMs intact bilaterally, conjunctivae normal and no scleral icterus General eye: normal appearance of both eyes Conjunctiva: conjunctiva(e) normal Pupil: PERRL Chest Common normals: inspection of chest normal Chest: symmetrical chest wall rise Respiratory Common normals: no retractions Effort & inspection: labored (Improving), uses accessory muscles (Mild) and prolonged expiratory phase Auscultation: diminished lung sounds (Diminished throughout, tight) Cardio Common normals: regular rhythm, S1 normal heart sound, S2 normal heart sound, no murmurs and peripheral pulses 2+ throughout Rate: tachycardic (100-105) Rhythm: regular rhythm Heart sounds: S1 normal and S2 normal Peripheral pulses: pulses 2+ throughout GI Common normals: soft to palpation, non-tender and no hepatosplenomegaly Bladder/kidney exam: bladder normal to palpation Extremity Common normals: normal to inspection and no calf tenderness General: no clubbing, no cyanosis and no edema Neuro [place] Coma Scale: GCS not evaluated Common normals: CN's II-XII intact bilaterally, moves all extremities, no focal motor deficits and no sensory deficits noted Psych Common normals: mental status grossly normal Progress Note: Objective Labs Labs: Short CBC 09/03/23 09/03/23 Range/Units 03:08 05:32 WBC Cancelled 17.8 H Hgb Cancelled 9.6 L Hct Cancelled 31.7 L Plt Count Cancelled 327 BMP 09/03/23 05:32 Sodium 149 H Potassium 4.0 Chloride 112 H Carbon Dioxide 29.7 BUN 21.0 H Creatinine 0.54 L Glucose 184 H Calcium 8.9 Liver Function 09/03/23 Range/Units 05:32 Total Bilirubin 0.2 (0.2-1.0) mg/dL AST 18 (15-37) U/L ALT 27 (14-59) U/L Alkaline Phosphatase 99 (46-116) U/L Albumin 2.2 L (3.4-5.0) g/dL Progress Note: A&P Assessment and Plan (1) Pneumonia: Assessment and Plan: ACUTE * Improving slowly * Remains afebrile * O2 sats stable on 3L at rest this morning - 93% (Usually does not require O2 supplementation at rest) * Continue IVPB Rocephin/Azithromycin for CAP coverage. * Per Dr Morin, ALEXANDRA to continue CAP coverage * Likely D/C on PO Levaquin (monotherapy) x 7 days (Total ~ 10 day course) * Leukocytosis trending up - suspect 2/2 high dose IVP steroid administration, clinically improving otherwise * Continue scheduled levalbuterol/ipratropium q6h, and PRN levalbuterol nebs * Continue Guaifenisen BID/OPEP for sputum mobilization * Obtain sputum culture sample if possible - pending * CT chest - 09/02/23 * Worsening cavitary lesion noted w/ surrounding opacifications consistent w/ pneumonia * C/S Dr Morin, clipper and turner - we appreciate his assistance with this pt's care * CBC, CMP daily (2) Acute exacerbation of chronic obstructive pulmonary disease (COPD): Assessment and Plan: ACUTE * Continue Solumedrol 80 mg q6h * Hold home PO prednisone for now, resume after discharge once prednisone taper is completed * Scheduled and PRN breathing tx as above * Pulmicort nebs BID * O2 as needed to keep sats above 90% * Vapotherm D/C'd per Dr Morin * Dr Morin c/s as above (3) Acute on chronic hypoxic respiratory failure: Assessment and Plan: ACUTE * Pt uses O2 at 2L only w/ activity at baseline. On RA at rest * Requiring 2-3L continuously, increased WOB and tachypnea persist but are slowly improving * O2 to keep sats above 90% - see above (4) Anemia: Assessment and Plan: ACUTE * Anemia at baseline, but slightly worse since admission * No evidence of active bleeding or hemoptysis * Check stool for occult bleeding - pending collection * Iron studies 09/02/23 * Retic - WNL * Iron - 7.0 (low) * TIBC - WNL * % Sat - 2.7 * Ferritin - WNL * Start ferrous sulfate 325mg TID (5) Hypokalemia: Assessment and Plan: ACUTE * Resolved (6) Sinus tachycardia: Assessment and Plan: ACUTE * Improving * Likely multifactorial - dyspnea, hypoxia, albuterol tx stimulation effect, steroid administration, anxiety * Continue home BB as long as BP allows * Continue levalbuterol breathing tx substitution for albuterol * Low dose xanax PRN for anxiety d/t dyspnea/nicotine cravings * Tele monitoring (7) Hyperlipidemia: Assessment and Plan: CHRONIC * Continue home statin (8) Hypertension: Assessment and Plan: CHRONIC * Continue to hold home amlodipine for now d/t soft BPs on admisson - slowly improving * Plan to resume at discharge * Continue home metoprolol d/t mild tachycardia, but w/ parameters to hold for SBP < 110 or HR < 55 (9) Tobacco abuse: Assessment and Plan: CHRONIC * Pt does not want to pursue tobacco cessation despite adverse respiratory effects * Refuses Nicoderm patch * PRN Xanax for nicotine cravings
--- NOTE | 2023-09-03 13:19 | PM.PN ---
Progress Note: Subjective Subjective Interval history: 09/02/23 1012 The pt is resting in bed visiting with her spouse. She is able to lie flat today but continues to exhibit increased WOB from her baseline. Vapotherm did not substantially improve her work of breathing and has been d/c'd. Very slow improvement, not yet back to baseline O2 delivery or work of breathing. Disposition: Likely d/c in 24-48 hrs pending clinical course Exam Constitutional Vital Signs, click to edit/add: Last Vital Signs Temp 98.4 F 09/03/23 04:36 Pulse 110 H 09/03/23 11:59 Resp 18 09/03/23 08:00 BP 130/70 09/03/23 04:36 Pulse Ox 96 09/03/23 10:52 O2 Del Method Nasal Cannula 09/03/23 10:52 O2 Flow Rate 3 09/03/23 10:52 FiO2 30 09/03/23 04:36 Common normals: no apparent distress, oriented x3 and alert Orientation/consciousness: Yes awake HENMT Common normals: normocephalic, head/scalp atraumatic and hearing grossly normal bilaterally Head and scalp: normocephalic and atraumatic Eye Common normals: PERRL, EOMs intact bilaterally, conjunctivae normal and no scleral icterus General eye: normal appearance of both eyes Conjunctiva: conjunctiva(e) normal Pupil: PERRL Chest Common normals: inspection of chest normal Chest: symmetrical chest wall rise Respiratory Common normals: no retractions Effort & inspection: labored (Improving), uses accessory muscles (Mild) and prolonged expiratory phase Auscultation: diminished lung sounds (Diminished throughout, tight) Cardio Common normals: regular rhythm, S1 normal heart sound, S2 normal heart sound, no murmurs and peripheral pulses 2+ throughout Rate: tachycardic (100-105) Rhythm: regular rhythm Heart sounds: S1 normal and S2 normal Peripheral pulses: pulses 2+ throughout GI Common normals: soft to palpation, non-tender and no hepatosplenomegaly Bladder/kidney exam: bladder normal to palpation Extremity Common normals: normal to inspection and no calf tenderness General: no clubbing, no cyanosis and no edema Neuro [place] Coma Scale: GCS not evaluated Common normals: CN's II-XII intact bilaterally, moves all extremities, no focal motor deficits and no sensory deficits noted Psych Common normals: mental status grossly normal Progress Note: Objective Labs Labs: Short CBC 09/03/23 09/03/23 Range/Units 03:08 05:32 WBC Cancelled 17.8 H Hgb Cancelled 9.6 L Hct Cancelled 31.7 L Plt Count Cancelled 327 BMP 09/03/23 05:32 Sodium 149 H Potassium 4.0 Chloride 112 H Carbon Dioxide 29.7 BUN 21.0 H Creatinine 0.54 L Glucose 184 H Calcium 8.9 Liver Function 09/03/23 Range/Units 05:32 Total Bilirubin 0.2 (0.2-1.0) mg/dL AST 18 (15-37) U/L ALT 27 (14-59) U/L Alkaline Phosphatase 99 (46-116) U/L Albumin 2.2 L (3.4-5.0) g/dL Progress Note: A&P Assessment and Plan (1) Pneumonia: Assessment and Plan: ACUTE Improving slowly Remains afebrile O2 sats stable on 3L at rest this morning - 93% (Usually does not require O2 supplementation at rest) Continue IVPB Rocephin/Azithromycin for CAP coverage. Per Dr Morin, [place] to continue CAP coverage Likely D/C on PO Levaquin (monotherapy) x 7 days (Total ~ 10 day course) Leukocytosis trending up - suspect 2/2 high dose IVP steroid administration, clinically improving otherwise Continue scheduled levalbuterol/ipratropium q6h, and PRN levalbuterol nebs Continue Guaifenisen BID/OPEP for sputum mobilization Obtain sputum culture sample if possible - pending CT chest - 09/02/23 Worsening cavitary lesion noted w/ surrounding opacifications consistent w/ pneumonia C/S Dr Morin, temporary administrative assistant - we appreciate his assistance with this pt's care CBC, CMP daily (2) Acute exacerbation of chronic obstructive pulmonary disease (COPD): Assessment and Plan: ACUTE Continue Solumedrol 80 mg q6h Hold home PO prednisone for now, resume after discharge once prednisone taper is completed Scheduled and PRN breathing tx as above Pulmicort nebs BID O2 as needed to keep sats above 90% Vapotherm D/C'd per Dr Patience Morin c/s as above (3) Acute on chronic hypoxic respiratory failure: Assessment and Plan: ACUTE Pt uses O2 at 2L only w/ activity at baseline. On RA at rest Requiring 2-3L continuously, increased WOB and tachypnea persist but are slowly improving O2 to keep sats above 90% - see above (4) Anemia: Assessment and Plan: ACUTE Anemia at baseline, but slightly worse since admission No evidence of active bleeding or hemoptysis Check stool for occult bleeding - pending collection Iron studies 09/02/23 Retic - WNL Iron - 7.0 (low) TIBC - WNL % Sat - 2.7 Ferritin - WNL Start ferrous sulfate 325mg TID (5) Hypokalemia: Assessment and Plan: ACUTE Resolved (6) Sinus tachycardia: Assessment and Plan: ACUTE Improving Likely multifactorial - dyspnea, hypoxia, albuterol tx stimulation effect, steroid administration, anxiety Continue home BB as long as BP allows Continue levalbuterol breathing tx substitution for albuterol Low dose xanax PRN for anxiety d/t dyspnea/nicotine cravings Tele monitoring (7) Hyperlipidemia: Assessment and Plan: CHRONIC Continue home statin (8) Hypertension: Assessment and Plan: CHRONIC Continue to hold home amlodipine for now d/t soft BPs on admisson - slowly improving Plan to resume at discharge Continue home metoprolol d/t mild tachycardia, but w/ parameters to hold for SBP < 110 or HR < 55 (9) Tobacco abuse: Assessment and Plan: CHRONIC Pt does not want to pursue tobacco cessation despite adverse respiratory effects Refuses Nicoderm patch PRN Xanax for nicotine cravings
[2023-09-03] MEDS: FERROUS SULFATE 325 MG TABLET PO ×2 (15:31→22:22)
[2023-09-03] MEDS: ALPRAZOLAM 0.25 MG TABLET PO ×2 (15:31→22:22)
[2023-09-03] MEDS: CEFTRIAXONE 1,000 MG in 0.9 % SODIUM CHLORIDE 50 ML 100 MG IV (16:11)
[2023-09-03 16:15] LABS: Glucometer 184 mg/dL (74-106)
[2023-09-03] MEDS: AZITHROMYCIN 500 MG in 0.9 % SODIUM CHLORIDE 250 ML 250 MG IV (17:32)
[2023-09-03 21:27] LABS: Glucometer 228 mg/dL (74-106)
[2023-09-03] MEDS: ENOXAPARIN SODIUM 40 MG/0.4 ML SYRINGE SUBQ (22:21)
[2023-09-03] MEDS: ATORVASTATIN CALCIUM 10 MG TABLET PO (22:22)
[2023-09-04] VITALS (20 sets, daily range): BP systolic 103–139; BP diastolic 61–75; PULSE 86–132; RESP 18–22; TEMP 36.6–36.8; O2SAT 90–96
[2023-09-04] MEDS: METHYLPREDNISOLONE SOD SUCC PF 125 MG/2 ML VIAL 80 MG IVP ×4 (03:03→21:55)
[2023-09-04] MEDS: LEVALBUTEROL HCL 1.25 MG/3 ML VIAL NEB IH ×4 (04:18→23:02)
[2023-09-04] MEDS: IPRATROPIUM BROMIDE 0.5 MG/2.5 ML VIAL.NEB IH ×4 (04:18→23:02)
[2023-09-04 05:13] LABS: Basophils Percent Auto 0.2 % (0.2-2.0); Hemoglobin 10.4 g/dL (12.0-16.0); Immature Granulocytes Abs Auto 0.08 10^3/uL (0.00-0.03); Immature Granulocytes Pct Auto 0.5 % (0.0-0.5); Lymphocytes Absolute Auto 0.7 10^3/uL (1.2-3.8); Lymphocytes Percent Auto 4.5 % (20.5-60.0); Mean Corpuscular HGB Conc 29.7 g/dL (29.9-35.2); Mean Corpuscular Hemoglobin 27.8 pg (26.7-34.0); Mean Corpuscular Volume 93.6 fL (81.0-99.0); Mean Platelet Volume 9.9 fL (9.5-13.5); Monocytes Absolute Auto 0.7 10^3/uL (0.3-0.8); Monocytes Percent Auto 4.3 % (1.7-12.0); Neutrophils Absolute Auto 13.8 10^3/uL (1.4-6.5); Neutrophils Percent Auto 90.5 % (43.0-75.0); Platelet Count 349 10^3/uL (150-450); Red Blood Count 3.74 10^6/uL (4.20-5.40); Red Cell Distribution Width 13.6 % (11.0-15.0); White Blood Count 15.3 10^3/uL (4.0-11.0)
[2023-09-04 05:58] LABS: Alanine Aminotransferase 32 U/L (14-59); Albumin Globulin Ratio 0.5; Albumin Level 2.5 g/dL (3.4-5.0); Alkaline Phosphatase 111 U/L (46-116); Anion Gap 12.4; Aspartate Amino Transferase 14 U/L (15-37); BUN Creatinine Ratio 47.5; Bilirubin Total 0.2 mg/dL (0.2-1.0); Calcium 9.3 mg/dL (8.5-10.1); Carbon Dioxide 29.2 mmol/L (21.0-32.0); Chloride 110 mmol/L (98-107); Estimated GFR (African America >60 (>=60); Estimated GFR (Non-African Ame >60 (>=60); Globulin 4.7 g/dL; Glucose 179 mg/dL (74-106); Potassium 3.6 mmol/L (3.5-5.1); Sodium 148 mmol/L (136-145); Total Protein 7.2 g/dL (6.4-8.2)
[2023-09-04] MEDS: FERROUS SULFATE 325 MG TABLET PO ×3 (06:15→22:08)
[2023-09-04 07:50] LABS: Glucometer 193 mg/dL (74-106)
[2023-09-04] MEDS: INSULIN ASPART 300 UNIT/3 ML PEN SUBQ ×4 (08:20→22:08)
[2023-09-04] MEDS: MULTIVITAMIN TABLET 1 TAB PO (08:23)
[2023-09-04] MEDS: METOPROLOL TARTRATE 25 MG TABLET 12.5 MG PO ×2 (08:23→20:35)
[2023-09-04] MEDS: CETIRIZINE HCL 10 MG TABLET PO (08:23)
[2023-09-04] MEDS: CLOPIDOGREL BISULFATE 75 MG TABLET PO (08:24)
[2023-09-04] MEDS: GUAIFENESIN 600 MG TAB.ER.12H PO ×2 (08:24→20:35)
[2023-09-04] MEDS: ASPIRIN 81 MG TABLET.DR PO (08:25)
--- NOTE | 2023-09-04 10:59 | CM.NOTE ---
Rounds made with Dr. Stanton, pt will have PT and OT evaluation today. No discharge today. Case Management will follow for discharge needs.
[2023-09-04 11:39] LABS: Glucometer 201 mg/dL (74-106)
[2023-09-04] MEDS: BUDESONIDE 0.5 MG/2 ML AMPULE NEB IH ×2 (11:40→23:02)
--- NOTE | 2023-09-04 12:26 | PM.PN ---
Progress Note: Subjective Subjective Interval history: Patient slowly improving. Continues to have SOB and fatigue with activity. Continues to get winded with exertion but recovering quicker. Continued cough and scant sputum. Afebrile. Normal appetite and no emesis or diarrhea. No chest pain or palpitations. Afebrile. Exam Constitutional Vital Signs, click to edit/add: Last Vital Signs Temp 97.8 F 09/04/23 06:00 Pulse 98 H 09/04/23 11:51 Resp 22 09/04/23 08:00 BP 103/61 09/04/23 06:00 Pulse Ox 96 09/04/23 11:42 O2 Del Method Nasal Cannula 09/04/23 11:42 O2 Flow Rate 2 09/04/23 11:42 FiO2 30 09/03/23 04:36 Documenting provider has reviewed patient's vital signs: yes Common normals: no apparent distress, oriented x3 and alert HENMT Common normals: normocephalic Eye Common normals: PERRL and EOMs intact bilaterally Respiratory Auscultation: wheezes and diminished lung sounds Cardio Common normals: regular rate, regular rhythm, no gallops, no murmurs and no rub GI Common normals: Normal to inspection, nondistended, normoactive bowel sounds present and non-tender Extremity Common normals: no pedal edema Progress Note: Objective Labs Labs: Short CBC 09/04/23 Range/Units 04:53 WBC 15.3 H (4.0-11.0) 10^3/uL Hgb 10.4 L (12.0-16.0) g/dL Hct 35.0 L (36.0-48.0) % Plt Count 349 (150-450) 10^3/uL BMP 09/04/23 04:53 Sodium 148 H Potassium 3.6 Chloride 110 H Carbon Dioxide 29.2 BUN 28.0 H Creatinine 0.59 Glucose 179 H Calcium 9.3 Liver Function 09/04/23 Range/Units 04:53 Total Bilirubin 0.2 (0.2-1.0) mg/dL AST 14 L (15-37) U/L ALT 32 (14-59) U/L Alkaline Phosphatase 111 (46-116) U/L Albumin 2.5 L (3.4-5.0) g/dL Progress Note: A&P Assessment and Plan (1) Pneumonia: (2) Sepsis: (3) Acute exacerbation of chronic obstructive pulmonary disease (COPD): (4) Acute on chronic hypoxic respiratory failure: (5) Hypertension: (6) CAD (coronary artery disease): Plan Patient slowly improving and continue antibiotics, steroids, and breathing treatments. Wean oxygen as tolerated and continue PEP. Increase ambulation. If continues to improve possibly home in next 1-2 days.
[2023-09-04 16:23] LABS: Glucometer 285 mg/dL (74-106)
--- NOTE | 2023-09-04 16:32 | CM.NOTE ---
Discussed with pt regarding PT recommendations and pt is in agreement for HH services. Pt given Medicare. Gov 5 star rating list and would like to try [address] services. Referral sent to [address]
[2023-09-04] MEDS: AZITHROMYCIN 500 MG in 0.9 % SODIUM CHLORIDE 250 ML 250 MG IV (17:03)
--- NOTE | 2023-09-04 17:11 | CM.NOTE ---
Called [facility] to see if they could accept pt, they will have to call back. [facility] given [facility] number to contact.
[2023-09-04] MEDS: CEFTRIAXONE 1,000 MG in 0.9 % SODIUM CHLORIDE 50 ML 100 MG IV (17:55)
[2023-09-04] MEDS: ENOXAPARIN SODIUM 40 MG/0.4 ML SYRINGE SUBQ (20:35)
[2023-09-04 21:46] LABS: Glucometer 196 mg/dL (74-106)
[2023-09-04] MEDS: ATORVASTATIN CALCIUM 10 MG TABLET PO (22:08)
[2023-09-05] VITALS (18 sets, daily range): BP systolic 108–137; BP diastolic 60–75; PULSE 74–138; RESP 16–24; TEMP 36.7–36.9; O2SAT 90–97
[2023-09-05] MEDS: METHYLPREDNISOLONE SOD SUCC PF 125 MG/2 ML VIAL 80 MG IVP ×4 (03:29→22:18)
[2023-09-05] MEDS: LEVALBUTEROL HCL 1.25 MG/3 ML VIAL NEB IH ×4 (04:02→22:00)
[2023-09-05] MEDS: IPRATROPIUM BROMIDE 0.5 MG/2.5 ML VIAL.NEB IH ×4 (04:03→22:00)
[2023-09-05] MEDS: FERROUS SULFATE 325 MG TABLET PO ×3 (05:22→21:01)
[2023-09-05 05:36] LABS: Basophils Percent Auto 0.2 % (0.2-2.0); Hemoglobin 9.7 g/dL (12.0-16.0); Immature Granulocytes Abs Auto 0.08 10^3/uL (0.00-0.03); Immature Granulocytes Pct Auto 0.6 % (0.0-0.5); Lymphocytes Absolute Auto 0.7 10^3/uL (1.2-3.8); Lymphocytes Percent Auto 4.8 % (20.5-60.0); Mean Corpuscular HGB Conc 30.3 g/dL (29.9-35.2); Mean Corpuscular Hemoglobin 28.2 pg (26.7-34.0); Mean Platelet Volume 9.9 fL (9.5-13.5); Monocytes Absolute Auto 0.8 10^3/uL (0.3-0.8); Monocytes Percent Auto 6.2 % (1.7-12.0); Neutrophils Absolute Auto 11.9 10^3/uL (1.4-6.5); Neutrophils Percent Auto 88.2 % (43.0-75.0); Platelet Count 323 10^3/uL (150-450); Red Blood Count 3.44 10^6/uL (4.20-5.40); Red Cell Distribution Width 13.6 % (11.0-15.0); White Blood Count 13.5 10^3/uL (4.0-11.0)
[2023-09-05 05:54] LABS: Alanine Aminotransferase 28 U/L (14-59); Albumin Globulin Ratio 0.5; Albumin Level 2.1 g/dL (3.4-5.0); Alkaline Phosphatase 94 U/L (46-116); Anion Gap 10.8; Aspartate Amino Transferase 15 U/L (15-37); BUN Creatinine Ratio 56.9; Bilirubin Total 0.2 mg/dL (0.2-1.0); Calcium 8.6 mg/dL (8.5-10.1); Carbon Dioxide 29.6 mmol/L (21.0-32.0); Chloride 108 mmol/L (98-107); Estimated GFR (African America >60 (>=60); Estimated GFR (Non-African Ame >60 (>=60); Globulin 4.1 g/dL; Glucose 187 mg/dL (74-106); Potassium 3.4 mmol/L (3.5-5.1); Sodium 145 mmol/L (136-145); Total Protein 6.2 g/dL (6.4-8.2)
[2023-09-05 07:28] LABS: Glucometer 203 mg/dL (74-106)
[2023-09-05] MEDS: INSULIN ASPART 300 UNIT/3 ML PEN SUBQ ×4 (08:24→21:01)
[2023-09-05] MEDS: METOPROLOL TARTRATE 25 MG TABLET 12.5 MG PO ×2 (08:25→21:00)
[2023-09-05] MEDS: CETIRIZINE HCL 10 MG TABLET PO (08:25)
[2023-09-05] MEDS: GUAIFENESIN 600 MG TAB.ER.12H PO ×2 (08:25→21:00)
[2023-09-05] MEDS: MULTIVITAMIN TABLET 1 TAB PO (08:25)
[2023-09-05] MEDS: ASPIRIN 81 MG TABLET.DR PO (08:25)
[2023-09-05] MEDS: CLOPIDOGREL BISULFATE 75 MG TABLET PO (08:25)
--- NOTE | 2023-09-05 10:03 | PT.DAILY ---
Physical Therapy Daily Note PT Daily Note/Assess Start: 09/05/23 09:50 Freq: Status: Active Protocol: Document 09/05/23 09:50 [id number] (Rec: 09/05/23 10:03 [id number]) Physical Therapy Daily Note/Assessment Time In/Time Out Time In 08:25 Time Out 08:47 Subjective Subjective Patient states she is not sure how much she will be able to do as she has been up for awhile and has worn herself out. Patient agreeable to participate as much as she can . Daughter present during treatment. Patient on 2L 02. Therapeutic Exercise Time Therapeutic Exercise Minutes (minutes) 10 Therapeutic Exercise Units 1 Therapeutic Exercise Treatment Therapeutic Exercise Treatment Patient performed seated ther ex to MESHA LE for AROM and isometrics to increase functional strength for FACT. Patient required 2 therapeutic rest breaks due to dyspenia. During ther ex 89% 02 with HR 117. Therapeutic Activity Time Therapeutic Activity Minutes (minutes) 11 Therapeutic Activity Units 1 Therapeutic Activity Treatment Chair Transfer Ability Contact Guard Assist Therapeutic Activity Comments Sit to stand CGA +1, patient ambulated ~20 feet to bathroom with MIGRANT LEADER, slow pace and flexed posture with 02 sat 81% & HR 121. Patient utilized bathroom AL. Patient ambulated ~20 with MIGRANT LEADER to chair, 02 sat 82% & HR 119. Patient postures with elbows leaning on knees when not walking. VC 's to breath in through the nose and out through the mouth . 02 sats recover to 90% & HR 17 after resting. Call garcia placed beside patient. Total Physical Therapy Time Total Therapy Minutes 21 Total Physical Therapy Units 2 Summary Daily Note Summary Patient with increased ambulation distance this date, 02 sats drop with functional mobility and recover. Patient would benefit from HH upon discharge.
[2023-09-05] MEDS: BUDESONIDE 0.5 MG/2 ML AMPULE NEB IH ×2 (11:07→22:00)
[2023-09-05 11:15] LABS: Glucometer 159 mg/dL (74-106)
[2023-09-05] MEDS: LEVOFLOXACIN IN DEXTROSE 5 % 750 MG/150 ML IV.SOLN 100 MG IV (11:29)
[2023-09-05] MEDS: 0.9 % SODIUM CHLORIDE 250 ML 10 ML IV (11:30)
--- NOTE | 2023-09-05 11:56 | PM.PN ---
Progress Note: Subjective Subjective Interval history: Patient slow to improve. Continues to have SOB and fatigue with activity. Continues to get winded with exertion but recovering quicker. Continued cough and sputum. At times appears to have labored breathing. Afebrile. Normal appetite and no emesis or diarrhea. No chest pain or palpitations. Sputum culture showed P. aeruginosa. Exam Constitutional Vital Signs, click to edit/add: Last Vital Signs Temp 98.1 F 09/05/23 05:24 Pulse 75 09/05/23 10:00 Resp 18 09/05/23 05:24 BP 108/60 09/05/23 05:24 Pulse Ox 96 09/05/23 11:09 O2 Del Method Nasal Cannula 09/05/23 11:09 O2 Flow Rate 3 09/05/23 11:09 FiO2 30 09/03/23 04:36 Documenting provider has reviewed patient's vital signs: yes Common normals: no apparent distress, oriented x3 and alert HENMT Common normals: normocephalic Eye Common normals: PERRL and EOMs intact bilaterally Respiratory Auscultation: wheezes and diminished lung sounds Cardio Common normals: regular rate, regular rhythm, no gallops, no murmurs and no rub GI Common normals: Normal to inspection, nondistended, normoactive bowel sounds present and non-tender Extremity Common normals: no pedal edema Progress Note: Objective Labs Labs: Short CBC 09/05/23 Range/Units 05:17 WBC 13.5 H (4.0-11.0) 10^3/uL Hgb 9.7 L (12.0-16.0) g/dL Hct 32.0 L (36.0-48.0) % Plt Count 323 (150-450) 10^3/uL BMP 09/05/23 05:17 Sodium 145 Potassium 3.4 L Chloride 108 H Carbon Dioxide 29.6 BUN 29.0 H Creatinine 0.51 L Glucose 187 H Calcium 8.6 Liver Function 09/05/23 Range/Units 05:17 Total Bilirubin 0.2 (0.2-1.0) mg/dL AST 15 (15-37) U/L ALT 28 (14-59) U/L Alkaline Phosphatase 94 (46-116) U/L Albumin 2.1 L (3.4-5.0) g/dL Progress Note: A&P Assessment and Plan (1) Pneumonia: (2) Sepsis: (3) Acute exacerbation of chronic obstructive pulmonary disease (COPD): (4) Acute on chronic hypoxic respiratory failure: (5) Hypertension: (6) CAD (coronary artery disease): Plan Sputum culture showed pneumonia due to P. aeruginosa and stop zithromax. Add levaquin and continue Rocephin. Continue steroids and breathing treatments. Wean O2 as tolerated and continue PEP. Increase ambulation. Possible discharge in am.
[2023-09-05 16:04] LABS: Glucometer 228 mg/dL (74-106)
[2023-09-05] MEDS: CEFTRIAXONE 1,000 MG in 0.9 % SODIUM CHLORIDE 50 ML 100 MG IV (16:45)
[2023-09-05] MEDS: ENOXAPARIN SODIUM 40 MG/0.4 ML SYRINGE SUBQ (21:00)
[2023-09-05] MEDS: ATORVASTATIN CALCIUM 10 MG TABLET PO (21:00)
[2023-09-05 21:03] LABS: Glucometer 167 mg/dL (74-106)
[2023-09-05] MEDS: ACETAMINOPHEN 500 MG TABLET 1000 MG PO (21:22)
[2023-09-06] VITALS (10 sets, daily range): BP systolic 115; BP diastolic 57; PULSE 67–102; RESP 18; TEMP 36.7; O2SAT 91–98
[2023-09-06] MEDS: IPRATROPIUM BROMIDE 0.5 MG/2.5 ML VIAL.NEB IH ×2 (04:21→11:27)
[2023-09-06] MEDS: LEVALBUTEROL HCL 1.25 MG/3 ML VIAL NEB IH ×2 (04:21→11:27)
[2023-09-06] MEDS: FERROUS SULFATE 325 MG TABLET PO ×2 (04:34→05:05)
[2023-09-06] MEDS: METHYLPREDNISOLONE SOD SUCC PF 125 MG/2 ML VIAL 80 MG IVP ×2 (04:34→08:49)
--- NOTE | 2023-09-06 05:00 | XR_ITS ---
The [address] [address] Patient Name: ADRIENNE MORALEZ MRN: [id number] date: 1945 Sex: F Assigned Patient Location: Current Patient Location: Accession/Order Number: [id number] Exam Date: 09/06/2023 04:45 Report Date: 09/06/2023 08:24 At the request of: SERVANDO MACEDO Procedure: XR chest 1V EXAM: XR chest 1V HISTORY: Pneumonia; technologist notes state severe shortness of breath this morning and history of COPD, hypertension and lung carcinoma. COMPARISON: Portable chest radiograph dated 09/01/2023. TECHNIQUE: AP erect portable chest radiograph. FINDINGS: Stable right jugular central venous Mediport extending into the superior vena cava. Stable mild enlargement of the cardiac silhouette and stable moderate atheromatous calcifications at the aortic arch. Stable volume loss left chest. Stable irregular densities extending from the left hilum to the left upper chest with associated pleural thickening and cavitation at the left lung apex most likely is secondary to the patient's known lung carcinoma. There is no new consolidation or infiltrate. There is mild atelectatic density at the left lung base and blunting of the left lateral costophrenic angle. There is no pulmonary vascular congestion. There is no pneumothorax. The bony structures are osteopenic. There is severe dextroscoliosis of the thoracic spine. XR/XR chest 1V IMPRESSION: Stable right jugular central venous Mediport extending into the superior vena cava. Stable volume loss left chest. Stable irregular densities extending from the left hilum to the left upper chest with associated pleural thickening and cavitation at the left lung apex which most likely is secondary to the patient's known lung carcinoma. There is no new consolidation or infiltrate. There is mild atelectatic density at the left lung base and blunting of the left lateral costophrenic angle. Electronically authenticated by: NINFA SHAH Date: 09/06/2023 08:24
[2023-09-06 06:09] LABS: Basophils Absolute Auto 0.1 10^3/uL (0.0-0.1); Basophils Percent Auto 0.3 % (0.2-2.0); Hematocrit 32.8 % (36.0-48.0); Immature Granulocytes Abs Auto 0.18 10^3/uL (0.00-0.03); Immature Granulocytes Pct Auto 1.2 % (0.0-0.5); Lymphocytes Absolute Auto 0.8 10^3/uL (1.2-3.8); Lymphocytes Percent Auto 5.2 % (20.5-60.0); Mean Corpuscular HGB Conc 30.5 g/dL (29.9-35.2); Mean Corpuscular Hemoglobin 27.6 pg (26.7-34.0); Mean Corpuscular Volume 90.6 fL (81.0-99.0); Mean Platelet Volume 10.2 fL (9.5-13.5); Monocytes Absolute Auto 0.6 10^3/uL (0.3-0.8); Monocytes Percent Auto 4.1 % (1.7-12.0); Neutrophils Absolute Auto 13.1 10^3/uL (1.4-6.5); Neutrophils Percent Auto 89.2 % (43.0-75.0); Platelet Count 314 10^3/uL (150-450); Red Blood Count 3.62 10^6/uL (4.20-5.40); Red Cell Distribution Width 13.5 % (11.0-15.0); White Blood Count 14.6 10^3/uL (4.0-11.0)
[2023-09-06 06:27] LABS: Alanine Aminotransferase 28 U/L (14-59); Albumin Globulin Ratio 0.5; Alkaline Phosphatase 89 U/L (46-116); Anion Gap 9.7; Aspartate Amino Transferase 13 U/L (15-37); BUN Creatinine Ratio 53.1; Bilirubin Total 0.2 mg/dL (0.2-1.0); Calcium 8.7 mg/dL (8.5-10.1); Carbon Dioxide 33.5 mmol/L (21.0-32.0); Chloride 106 mmol/L (98-107); Estimated GFR (African America >60 (>=60); Estimated GFR (Non-African Ame >60 (>=60); Glucose 197 mg/dL (74-106); Potassium 3.2 mmol/L (3.5-5.1); Sodium 146 mmol/L (136-145)
[2023-09-06 07:54] LABS: Glucometer 181 mg/dL (74-106)
[2023-09-06] MEDS: ASPIRIN 81 MG TABLET.DR PO (08:46)
[2023-09-06] MEDS: METOPROLOL TARTRATE 25 MG TABLET 12.5 MG PO (08:46)
[2023-09-06] MEDS: GUAIFENESIN 600 MG TAB.ER.12H PO (08:46)
[2023-09-06] MEDS: CLOPIDOGREL BISULFATE 75 MG TABLET PO (08:46)
[2023-09-06] MEDS: CETIRIZINE HCL 10 MG TABLET PO (08:46)
[2023-09-06] MEDS: MULTIVITAMIN TABLET 1 TAB PO (08:46)
[2023-09-06] MEDS: INSULIN ASPART 300 UNIT/3 ML PEN SUBQ ×2 (08:46→11:32)
[2023-09-06 11:08] LABS: Glucometer 191 mg/dL (74-106)
[2023-09-06] MEDS: BUDESONIDE 0.5 MG/2 ML AMPULE NEB IH (11:27)
--- NOTE | 2023-09-06 12:27 | PM.DS1 ---
DS: Providers Provider Date of admission: 09/01/23 17:34 Primary care physician: ANNIE SAL Consults: 09/02/23 06:00 Consult to Pulmonology Routine Consulting Provider: Jose De Jesus Morin Reason for consultation: COPD exac, CAP, Ac on Chron resp failure Has provider been notified: No 09/04/23 Occupational Therapy Eval and Treat Routine Reason for consultation: weakness Physical Therapy Eval and Treat Routine Reason for consultation: weakness DS: Diagnosis Discharge Diagnosis (1) Pneumonia: (2) Sepsis: (3) Acute exacerbation of chronic obstructive pulmonary disease (COPD): (4) Acute on chronic hypoxic respiratory failure: (5) Hypertension: (6) CAD (coronary artery disease): DS: Summary Hospital Course Hospital Course: Reason for admission: See ER note and H&P for details. 77 y/o female to ER with SOB. History of COPD and on home oxygen. Increased symptoms for several days. Frequent cough and sputum. SOB worse and to ER. WBC 20.6 and temp 100.3. CXR showed pneumonia and admitted. Hospital course: Starte rocphin and zithromax for pneumonia. Added solu-medrol and DuoNeb for COPD. Resumed home medication. Pulmonology consulted. Slowly improved in hospital. Remained on supplemental oxygen. Breath sounds slowly improved and WBC decreased. Sputum culture showed pneumonia due to pseudomonas and stopped zithromax. Started levaquin. Patient continued to improve and closer to baseline. Discharged home in stable condition. Take levaquin x 7 days and prednisone taper. Resume home medication as directed. Follow up with pulmonology as scheduled. Time Spent with Patient Time attestation: Total time spent providing and/or coordinating discharge services: Exam Constitutional Vital Signs, click to edit/add: Last Vital Signs Temp 98.0 F 09/06/23 04:35 Pulse 101 H 09/06/23 12:00 Resp 18 09/06/23 04:35 BP 115/57 09/06/23 04:35 Pulse Ox 94 L 09/06/23 11:28 O2 Del Method Nasal Cannula 09/06/23 11:28 O2 Flow Rate 3 09/06/23 11:28 FiO2 30 09/03/23 04:36 Documenting provider has reviewed patient's vital signs: yes Common normals: no apparent distress, oriented x3 and alert HENMT Common normals: normocephalic Eye Common normals: PERRL and EOMs intact bilaterally Respiratory Auscultation: wheezes and diminished lung sounds Cardio Common normals: regular rate, regular rhythm, no gallops, no murmurs and no rub GI Common normals: Normal to inspection, nondistended, normoactive bowel sounds present and non-tender Extremity Common normals: no pedal edema DS: Data Data Completed and Pending Labs on day of discharge: Labs from last 24 hours 09/06/23 09/06/23 09/06/23 11:07 07:53 05:55 WBC 14.6 H RBC 3.62 L Hgb 10.0 L Hct 32.8 L MCV 90.6 MCH 27.6 MCHC 30.5 RDW 13.5 Plt Count 314 MPV 10.2 Neut % (Auto) 89.2 H Lymph % (Auto) 5.2 L [place] % (Auto) 4.1 Eos % (Auto) 0.0 L Baso % (Auto) 0.3 Neut # (Auto) 13.1 H Lymph # (Auto) 0.8 L [place] # (Auto) 0.6 Eos # (Auto) 0.0 Baso # (Auto) 0.1 Abs Immat Gran (auto) 0.18 H Imm/Tot Granulo (auto) 1.2 H Sodium 146 H Potassium 3.2 L Chloride 106 Carbon Dioxide 33.5 H Anion Gap 9.7 BUN 26.0 H Creatinine 0.49 L Est GFR ( Amer) >60 Est GFR (Non-Af Amer) >60 BUN/Creatinine Ratio 53.1 Glucose 197 H Calcium 8.7 Total Bilirubin 0.2 AST 13 L ALT 28 Alkaline Phosphatase 89 Total Protein 6.0 L Albumin 2.0 L Globulin 4.0 Albumin/Globulin Ratio 0.5 POC Glucose 191 H 181 H 09/05/23 09/05/23 21:01 16:03 WBC RBC Hgb Hct MCV MCH MCHC RDW Plt Count MPV Neut % (Auto) Lymph % (Auto) [place] % (Auto) Eos % (Auto) Baso % (Auto) Neut # (Auto) Lymph # (Auto) [place] # (Auto) Eos # (Auto) Baso # (Auto) Abs Immat Gran (auto) Imm/Tot Granulo (auto) Sodium Potassium Chloride Carbon Dioxide Anion Gap BUN Creatinine Est GFR ( Amer) Est GFR (Non-Af Amer) BUN/Creatinine Ratio Glucose Calcium Total Bilirubin AST ALT Alkaline Phosphatase Total Protein Albumin Globulin Albumin/Globulin Ratio POC Glucose 167 H 228 H Preliminary micro results at discharge 09/01/23 15:06 - Preliminary Blood NO GROWTH AT 36-48 HOURS. FINAL TO FOLLOW. 09/01/23 15:00 Blood Culture Result 1 - Preliminary Blood NO GROWTH AT 36-48 HOURS. FINAL TO FOLLOW. Discharge Plan Discharge Disposition: Home, Self-Care Condition: Fair Discharge Medications: New prednisone 10 mg tablet See Rx Instructions .ROUTE .COMPLEX Qty: 63 0RF Rx Instructions: 4 tabs daily x 7 days, then 3 tabs daily x 7 days, then 2 tabs daily x 7 days, then STOP Resume usual daily prednisone levofloxacin 750 mg tablet 750 mg PO DAILY 7 Days Qty: 7 0RF Continued metoprolol tartrate 25 mg tablet 12.5 mg PO Q12H albuterol sulfate 2.5 mg /3 mL (0.083 %) solution for nebulization 2.5 mg inhalation Q6H PRN (Reason: shortness of breath or wheezing) clopidogrel 75 mg tablet 75 mg PO DAILY amlodipine 5 mg tablet 5 mg PO DAILY albuterol sulfate 90 mcg/actuation HFA aerosol inhaler 2 puff INHALATION Q4H PRN (Reason: shortness of breath or wheezing) Breztri Aerosphere 160-9-4.8 mcg/actuation HFA aerosol inhaler 2 inh INHALATION .twice daily simvastatin 20 mg tablet 20 mg PO .QHS aspirin [Adult Low Dose Aspirin] 81 mg tablet,delayed release (DR/EC) 81 mg PO DAILY fexofenadine [Marcie Allergy] 180 mg tablet 180 mg PO DAILY Centrum Silver 0.4 mg-300 mcg- 250 mcg tablet 1 tab PO DAILY Held prednisone 10 mg tablet 10 mg PO DAILY Hold Instructions: Hold until prednisone taper is completed, then resume daily Activity: increase activity as tolerated Diet: advance to your usual diet Forms: Portal Instructions
--- NOTE | 2023-09-17 10:33 | CM.DCFOLLOWU ---
Person spoke with: patient How are you feeling? much better How is your pain? no pain Did you understand your discharge instructions? yes Do you have any questions about your discharge instructions? no Were you given any prescriptions at discharge? yes Were you able to get your prescriptions filled? yes Do you understand how to take your medications as ordered? yes Do you have any questions about your follow up appointment and do you plan to keep your follow up appointment? no questions, left message for PCP, advised to continue to try and call Is there anything else that you would like to discuss? Did ask patient if she was sent home with home health, she stated she decided she did not want it. Questions/Comments/Concerns/Other: N/A
== END 2023-09-06 13:02 | disposition home or self-care (01) | DRG 871 ==
LOC: ER 16:30 → MS 17:44
PROVIDERS: Family Medicine; Admitting Provider Family Medicine; Emergency Provider Emergency Medicine; PCP Family Medicine; Visit Provider Nurse Practitioner
DX: A41.9 Sepsis, unspecified organism (principal); J15.1 Pneumonia due to Pseudomonas; J96.20 Acute and chronic respiratory failure, unspecified whether with hypoxia or hypercapnia; J44.0 Chronic obstructive pulmonary disease with (acute) lower respiratory infection; J44.1 Chronic obstructive pulmonary disease with (acute) exacerbation; E44.0 Moderate protein-calorie malnutrition; B44.1 Other pulmonary aspergillosis; C34.12 Malignant neoplasm of upper lobe, left bronchus or lung; Z66 Do not resuscitate; E87.6 Hypokalemia; J43.2 Centrilobular emphysema; I25.10 Atherosclerotic heart disease of native coronary artery without angina pectoris; M41.80 Other forms of scoliosis, site unspecified; R73.9 Hyperglycemia, unspecified; Z99.81 Dependence on supplemental oxygen; F17.210 Nicotine dependence, cigarettes, uncomplicated; Z20.822 Contact with and (suspected) exposure to COVID-19; E78.5 Hyperlipidemia, unspecified; I10 Essential (primary) hypertension; Z95.5 Presence of coronary angioplasty implant and graft; D64.9 Anemia, unspecified; Z83.3 Family history of diabetes mellitus; Z82.49 Family history of ischemic heart disease and other diseases of the circulatory system; Z82.3 Family history of stroke; Z79.82 Long term (current) use of aspirin; Z79.899 Other long term (current) drug therapy; Z79.02 Long term (current) use of antithrombotics/antiplatelets; Z79.52 Long term (current) use of systemic steroids; Z14.8 Genetic carrier of other disease; Z68.28 Body mass index [BMI] 28.0-28.9, adult
CPT/HCPCS: 0202U; 36415; 71045; 71260; 80053; 81001; 82728; 82948; 83540; 83550; 83605; 83880; 84145; 84484; 85025; 87040; 87070; 87150; 87186; 87205; 87804; 87811; 93005; 94640; 94667; 94668; 94761; 94799; 96365; 96366; 96367; 96368; 96372; 96375; 96376; 97110; 97161; 97165; 97530; 99285; J0456; J2930; Q9967

== ENCOUNTER 2024-01-05 13:40 | Inpatient (IN) | payer MEDICARE, SELFPAY ==
[2024-01-05] VITALS (41 sets, daily range): BP systolic 98–149; BP diastolic 50–89; PULSE 89–110; TEMP 36.3–36.9; O2SAT 92–100; BMI 28.3
--- NOTE | 2024-01-05 13:56 | ED.SOB1 ---
HPI - SOB/Dyspnea General Chief Complaint: Shortness of Breath/Dyspnea Stated Complaint: SHORTNESS OF BREATH/ BACK PAIN Time Seen by Provider: 01/05/24 13:44 Source: patient and family Mode of arrival: Wheelchair Limitations: no limitations History of Present Illness HPI Narrative: This patient is here for shortness of breath. She has chronic hypoxemia and end-stage COPD. She is a DNR. 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 She said she was too fatigued to use a nebulizer at home. She takes prednisone 10 mg daily. She has not been on any antibiotics. She does not think she is running a fever at home. She has not had any left-sided chest pain nausea vomiting or diarrhea for. She does have coronary stents. She was admitted to this hospital in August with pneumonia. She has not had any purulent sputum. She states she always has a little bit of swelling of her legs. Has not had nausea vomiting or diaphoresis. Related Data Home Medications ?Medication ?Instructions ?Recorded ?Confirmed albuterol sulfate 2.5 mg/3 mL 2.5 mg inhalation Q6H PRN 09/01/23 09/01/23 (0.083 %) solution for nebulization shortness of breath or wheezing albuterol sulfate 90 mcg/actuation 2 puff inhalation Q4H PRN 09/01/23 09/01/23 aerosol inhaler shortness of breath or wheezing amlodipine 5 mg tablet 5 mg PO DAILY 09/01/23 09/01/23 aspirin 81 mg tablet,delayed 81 mg PO DAILY 09/01/23 09/01/23 release (Adult Low Dose Aspirin) budesonide 160 mcg-glycopyr 9 2 inh inhalation .twice daily 09/01/23 09/01/23 mcg-formot 4.8 mcg/actuation HFA inhaler (Breztri Aerosphere) clopidogrel 75 mg tablet 75 mg PO DAILY 09/01/23 09/01/23 fexofenadine 180 mg tablet 180 mg PO DAILY 09/01/23 09/01/23 (Marcie Allergy) metoprolol tartrate 25 mg tablet 12.5 mg PO Q12H 09/01/23 09/01/23 [id number] acid 0.4 1 tab PO DAILY 09/01/23 09/01/23 mg-lycopene 300 mcg-lutein 250 mcg tablet (Centrum Silver) prednisone 10 mg tablet 10 mg PO DAILY 09/01/23 09/01/23 simvastatin 20 mg tablet 20 mg PO .QHS 09/01/23 09/01/23 Previous Rx's ?Medication ?Instructions ?Recorded levofloxacin 750 mg tablet 750 mg PO DAILY 7 days #7 tabs 09/03/23 prednisone 10 mg tablet See Rx Instructions .Route 09/03/23 .COMPLEX #63 tabs Allergies Allergy/AdvReac Type Severity Reaction Status Date / Time No Known Drug Allergies Allergy Verified 09/01/23 14:30 [facility] Medical History (Updated 01/05/24 @ 16:36 by Rene Oscar MD) CAD (coronary artery disease) ?I25.10 - Atherosclerotic heart disease of [place] coronary artery without angina pectoris (ICD-10) Acute on chronic hypoxic respiratory failure ?J96.21 - Acute and chronic respiratory failure with hypoxia (ICD-10) Hypertension ?I10 - Essential (primary) hypertension (ICD-10) Anemia ?D64.9 - Anemia, unspecified (ICD-10) Hypokalemia ?E87.6 - Hypokalemia (ICD-10) Sinus tachycardia ?R00.0 - Tachycardia, unspecified (ICD-10) Steroid-dependent chronic obstructive pulmonary disease ?J44.9 - Chronic obstructive pulmonary disease, unspecified (ICD-10) ?Z92.241 - Personal history of systemic steroid therapy (ICD-10) Dextroscoliosis ?M41.80 - Other forms of scoliosis, site unspecified (ICD-10) Tobacco abuse ?Z72.0 - Tobacco use (ICD-10) Bronchiectasis ?J47.9 - Bronchiectasis, uncomplicated (ICD-10) 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 - Other pulmonary aspergillosis (ICD-10) Pulmonary cavitary lesion ?J98.4 - Other disorders of lung (ICD-10) Acute and chronic respiratory failure ?J96.20 - Acute and chronic respiratory failure, unspecified whether with hypoxia or hypercapnia (ICD-10) Cataract ?H26.9 - Unspecified cataract (ICD-10) Hyperlipidemia ?E78.5 - Hyperlipidemia, unspecified (ICD-10) COPD (chronic obstructive pulmonary disease) ?J44.9 - Chronic obstructive pulmonary disease, unspecified (ICD-10) Surgical History (Updated 09/01/23 @ 18:45 by Daja Chacko RN) Hx of cholecystectomy ?Z90.49 - Acquired absence of other specified parts of digestive tract (ICD-10) History of heart artery stent ?Z95.5 - Presence of coronary angioplasty implant and graft (ICD-10) Family History (Updated 09/01/23 @ 18:46 by Daja Chacko RN) Grandfather Family history of cancer Grandmother Family history of diabetes mellitus Father Family history of hypertension Family history of stroke Social History (Updated 09/01/23 @ 18:47 by Daja Chacko RN) Within the past year, how often did you have a drink containing alcohol: never Score interpretation: A score less than 3 is consistent with normal alcohol consumption. Smoking status: Heavy tobacco smoker Non-prescribed substance use: denies use Highest level of school completed/degree received: high school graduate Exam Narrative Exam Narrative: She is awake alert modestly dyspneic very stoic moderately tachypneic. 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 Her lungs had scattered rhonchi bilaterally with some expiratory bronchial spasm. Heart rate and rhythm were regular borderline tachycardia with a rate approximately 90-93. Did not hear a heart murmur. She is not having any chest heaviness or discomfort just shortness of breath. Skin and integument were normal with no petechiae or purpura. Neck shows no evidence of JVD. ENT examination shows no focus of infection. She has no abdominal pain or discomfort. She does have chronic 1-2+ lower leg edema that is not new. There is no erythema or evidence of phlebitis. Constitutional Vital Signs, click to edit/add: Last Vital Signs Temp 98.5 F 01/05/24 13:48 Pulse 99 H 01/05/24 13:48 Resp 28 H 01/05/24 13:48 BP 149/89 H 01/05/24 13:48 Pulse Ox 95 01/05/24 13:48 O2 Del Method Nasal Cannula 01/05/24 13:48 O2 Flow Rate 3 01/05/24 13:48 Course Vital Signs Vital signs: Vital Signs Temperature 98.5 F 01/05/24 13:48 Pulse Rate 99 H 01/05/24 13:48 Respiratory Rate 28 H 01/05/24 13:48 Blood Pressure 149/89 H 01/05/24 13:48 Pulse Oximetry 95 01/05/24 13:48 Oxygen Delivery Method Nasal Cannula 01/05/24 13:48 Oxygen Delivery Flow Rate 3 01/05/24 13:48 Temperature 98.5 F 01/05/24 13:48 Pulse Rate 99 H 01/05/24 13:48 Respiratory Rate 28 H 01/05/24 13:48 Blood Pressure 149/89 H 01/05/24 13:48 Pulse Oximetry 95 01/05/24 13:48 Oxygen Delivery Method Nasal Cannula 01/05/24 13:48 Oxygen Delivery Flow Rate 3 01/05/24 13:48 MDM - SOB/Dyspnea MDM Narrative Medical decision making narrative: This patient was treated aggressively with [id number] nebulizers and intravenous Solu-Medrol. The patient's white blood cell count is elevated. The initial chest x-ray interpretation suggest new infiltrates. All of her because her D-dimer was elevated we did a CT scan and it was not suggestive of infectious infiltrates on the radiologist report. The radiologist is no longer present to have a discussion with this. So at this time the patient feels substantially better but with her history of severe COPD and possible new infiltrates I felt to be prudent to have her stay overnight. We will start her on some Rocephin blood cultures have been done. I believe lactate levels have been done as well. Case will be discussed with the hospitalist Discharge Plan Discharge Chief Complaint: Shortness of Breath/Dyspnea Clinical Impression: Acute infective exacerbation of chronic obstructive airway disease Patient Disposition: Admitted as Observation Time of Disposition Decision: 16:36 Prescriptions / Home Meds: No Action metoprolol tartrate 25 mg tablet 12.5 mg PO Q12H prednisone 10 mg tablet 10 mg PO DAILY Hold Instructions: Hold until prednisone taper is completed, then resume daily albuterol sulfate 2.5 mg /3 mL (0.083 %) solution for nebulization 2.5 mg inhalation Q6H PRN (Reason: shortness of breath or wheezing) clopidogrel 75 mg tablet 75 mg PO DAILY amlodipine 5 mg tablet 5 mg PO DAILY albuterol sulfate 90 mcg/actuation HFA aerosol inhaler 2 puff INHALATION Q4H PRN (Reason: shortness of breath or wheezing) Breztri Aerosphere 160-9-4.8 mcg/actuation HFA aerosol inhaler 2 inh INHALATION .twice daily simvastatin 20 mg tablet 20 mg PO .QHS aspirin [Adult Low Dose Aspirin] 81 mg tablet,delayed release (DR/EC) 81 mg PO DAILY fexofenadine [Marcie Allergy] 180 mg tablet 180 mg PO DAILY Centrum Silver 0.4 mg-300 mcg- 250 mcg tablet 1 tab PO DAILY prednisone 10 mg tablet See Rx Instructions .ROUTE .COMPLEX Qty: 63 0RF Rx Instructions: 4 tabs daily x 7 days, then 3 tabs daily x 7 days, then 2 tabs daily x 7 days, then STOP Resume usual daily prednisone levofloxacin 750 mg tablet 750 mg PO DAILY 7 Days Qty: 7 0RF Print Language: Pashto Referrals: ANNIE SAL [Primary Care Provider] - 1 week
--- NOTE | 2024-01-05 14:03 | ECG_ITS ---
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
--- NOTE | 2024-01-05 14:03 | XR_ITS ---
The [address] [address] Patient Name: ADRIENNE MORALEZ MRN: [id number] date: 1945 Sex: F Assigned Patient Location: ED.MAIN Current Patient Location: ER Accession/Order Number: [id number] Exam Date: 01/05/2024 14:30 Report Date: 01/05/2024 15:03 At the request of: CLIFF EISENBERG Procedure: XR chest 1V EXAMINATION: XR chest 1V HISTORY: Dyspnea COMPARISON: XR chest 09/06/2023 FINDINGS: LUNGS: Stable left lung volume loss and scarring/mass within upper left hemithorax. New opacities and stranding within right lung base, left lung apex, and right midlung. VASCULATURE: No increased pulmonary vasculature. PLEURA: No pneumothorax, effusion, or pleural thickening. CARDIAC: Stable cardiomegaly. Marked atherosclerotic disease of aortic arch. MEDIASTINUM: No visible mass or adenopathy. BONES: No appreciable bone lesion. Stable scoliosis. OTHER: Stable Port-A-Cath. XR/XR chest 1V IMPRESSION: 1. New, moderate bilateral pulmonary infiltrates; pulmonary edema versus atelectasis versus multifocal pneumonia. 2. Grossly stable left upper lung changes/scarring/neoplasm. Electronically authenticated by: LOU STYLES Date: 01/05/2024 15:03
[2024-01-05] MEDS: IPRATROPIUM/ALBUTEROL SULFATE 3 ML AMPUL.NEB IH ×2 (14:14→23:12)
[2024-01-05 14:24] LABS: PCO2 VBG 42.4 mmHg (40.0-52.0); pH VBG 7.481 (7.330-7.430)
[2024-01-05 14:25] LABS: Basophils Absolute Auto 0.1 10^3/uL (0.0-0.1); Basophils Percent Auto 0.3 % (0.2-2.0); Eosinophils Percent Auto 0.1 % (0.9-7.0); Hematocrit 37.5 % (36.0-48.0); Hemoglobin 11.7 g/dL (12.0-16.0); Immature Granulocytes Pct Auto 0.5 % (0.0-0.5); Lymphocytes Absolute Auto 1.4 10^3/uL (1.2-3.8); Lymphocytes Percent Auto 6.2 % (20.5-60.0); Mean Corpuscular HGB Conc 31.2 g/dL (29.9-35.2); Mean Corpuscular Hemoglobin 27.9 pg (26.7-34.0); Mean Corpuscular Volume 89.3 fL (81.0-99.0); Mean Platelet Volume 9.7 fL (9.5-13.5); Monocytes Absolute Auto 1.3 10^3/uL (0.3-0.8); Monocytes Percent Auto 5.7 % (1.7-12.0); Neutrophils Absolute Auto 19.1 10^3/uL (1.4-6.5); Neutrophils Percent Auto 87.2 % (43.0-75.0); Platelet Count 364 10^3/uL (150-450); Red Cell Distribution Width 13.8 % (11.0-15.0); White Blood Count 21.9 10^3/uL (4.0-11.0)
[2024-01-05] MEDS: METHYLPREDNISOLONE SOD SUCC PF 125 MG/2 ML VIAL IVP (14:25)
[2024-01-05 14:48] LABS: Alanine Aminotransferase 21 U/L (14-59); Albumin Globulin Ratio 0.8; Albumin Level 3.3 g/dL (3.4-5.0); Alkaline Phosphatase 120 U/L (46-116); Anion Gap 9.6; Aspartate Amino Transferase 12 U/L (15-37); BUN Creatinine Ratio 29.5; Bilirubin Total 0.3 mg/dL (0.2-1.0); Calcium 9.7 mg/dL (8.5-10.1); Carbon Dioxide 32.2 mmol/L (21.0-32.0); Chloride 103 mmol/L (98-107); Estimated GFR (African America >60 (>=60); Estimated GFR (Non-African Ame >60 (>=60); Globulin 4.2 g/dL; Glucose 154 mg/dL (74-106); Potassium 3.8 mmol/L (3.5-5.1); Sodium 141 mmol/L (136-145); Total Protein 7.5 g/dL (6.4-8.2); Troponin I High Sensitivity 9.8 pg/mL (4.0-51.3)
[2024-01-05 14:51] LABS: D Dimer 1.75 mg/L FEU (<=0.59)
--- NOTE | 2024-01-05 14:54 | CT_ITS ---
[address] [address] Patient Name: ADRIENNE MORALEZ MRN: [id number] date: 1945 Sex: F Assigned Patient Location: ER Current Patient Location: ER Accession/Order Number: [id number] Exam Date: 01/05/2024 15:14 Report Date: 01/05/2024 15:53 At the request of: CLIFF EISENBERG Procedure: CT angio chest EXAMINATION: CT angio chest HISTORY: Shortness of breath elevated D-dimer COMPARISON: CT chest 09/02/2023 TECHNIQUE: Multi-planar CT images were created with IV contrast. Axial, Coronal, and Sagittal images. Dose reduction techniques were achieved by using automated exposure control and/or adjustment of mA and/or kV according to patient size and/or use of iterative reconstruction technique. 3-D reconstruction was performed on a separate workstation. FINDINGS: VASCULATURE: No pulmonary embolism or abnormal opacity. LUNGS: Stable large left apical cavitary lesion in fibrotic/scarring changes within left upper lobe. Left lung volume loss with shift of mediastinum into the left hemithorax. Marked emphysematous changes bilaterally. PLEURA: No mass, effusion, or pneumothorax. ALTAF: No mass or adenopathy. MEDIASTINUM: No mass or adenopathy. CARDIAC: No enlargement, pericardial effusion, or pericardial thickening. AORTA: No aneurysm or dissection. CHEST WALL: No mass or axillary adenopathy. BONES: No bone lesion or fracture. LIMITED ABDOMEN: Left Adreniform hypertrophy. Limited images of the upper abdomen. OTHER: Negative. CT/CT angio chest IMPRESSION: 1. No pulmonary embolism. 2. Stable chronic left lung changes and bilateral marked emphysematous changes. 3. Suspect mild bilateral atelectasis versus pulmonary edema. Electronically authenticated by: LOU STYLES Date: 01/05/2024 15:53
[2024-01-05] MEDS: ALBUTEROL SULFATE 2.5 MG/3 ML VIAL NEB IH ×2 (15:29→19:47)
[2024-01-05] MEDS: CEFTRIAXONE 1,000 MG in 0.9 % SODIUM CHLORIDE 50 ML 100 MG IV (16:18)
[2024-01-05 16:32] LABS: Lactate/Lactic Acid 1.2 mmol/L (0.4-2.0)
--- OUTSIDE RECORDS SUMMARY | 2024-01-05 18:13 | XMS_ITS | CCD ---
Author Organization [facility] Care Team Providers Care Charge Nurse Name Role Phone PHYSICIAN, DEFAULT Unavailable Unavailable PHYSICIAN, DEFAULT Unavailable Unavailable TRABOULMISSY MOURHAF Unavailable Unavailable FARAS, ANNIE Unavailable Unavailable KIRNUS, ROMMEL Unavailable Unavailable KIRNUS, ROMMEL Unavailable Unavailable FARAS ANNIE Unavailable Unavailable Annie Sal Primary Care Provider Nate Roldan Attending Provider Mckenna Waldrop Attending Provider Annie Sal Primary Care Provider [phone] Annie Sal Attending Provider Mckenna Waldrop Attending Provider Isi Saltt Unavailable Annie Sal R Unavailable Timothy PETERSON, Maki Olivares Unavailable [phone] Mckenna Waldrop MD Unavailable Meera Snigh PA-C Unavailable Annie Sal Primary Care Provider DO Annie Sal Primary Care Provider DO Annie aSl Attending Provider Unavailable Unavailable Von Mart II Referring Unavailable Von Mart II Attending Unavailable Annie Sal Primary Care Unavailable Timothy PETERSON, Maki Olivares Unavailable [phone] Mckenna Waldrop MD Unavailable [phone] Samantha PA-C, Meera M Unavailable [phone] Annie Sal Primary Care Provider Timothy PETERSON, Maki Olivares Unavailable Benjie JUNG, Mckenna Unavailable Samantha WILLOUGHBY, Meera M Unavailable [phone] Annie Sal Primary Care Provider Samsa DO, Ollie P Unavailable [phone] Antwon Law Unavailable SAMSA ., OLLIE Attending Unavailable JONELLE, DR VALENCIA Primary Care Unavailable SAMSA ., OLLIE Consulting Unavailable SAMSA ., OLLIE Admitting Unavailable SAMSA ., OLLIE Attending Unavailable JONELLE, DR VALENCIA Primary Care Unavailable SAMSA ., OLLIE Consulting Unavailable SAMSA ., OLLIE Admitting Unavailable NNAMDI REDDY Consulting Unavailable DOMENICO CHOWDHURY Consulting Unavailable SAMSA ., OLLIE Admitting Unavailable SAMSA ., OLLIE Attending Unavailable JONELLE, DR VALENCIA Primary Care Unavailable SAMSA ., OLLIE Consulting Unavailable Samsa DO, Ollie P Unavailable DO Annie Sal Primary Care Provider DO Annie Sal Attending Provider Timothy PETERSON, Maki Olivares Unavailable Antwon Law MD Unavailable Annie Sal DO Primary Care Provider [phone] VON MART Attending Unavailable ANNIE SAL Primary Care Unavailable Jonelle, DO Valencia Primary Care Provider [phone] DO Annie Sal Attending Provider ANNIE SAL Primary Care Unavailable DOMENICO HARDING Referring Unavailable FARASANNIE Primary Care Unavailable DOMENICO HARDING Attending Unavailable DOMENICO HARDING Referring Unavailable FARASANNIE Primary Care Unavailable MCKENNA WALDROP Referring Unavailable KARAMLOU, MCKENNA Referring Unavailable KUNS, ANNIE SMILEY Primary Care Unavailable KUNS, ANNIE SMILEY Primary Care Unavailable KARAMLOU, MCKENNA Attending Unavailable KARAMLOU, MCKENNA Referring Unavailable KUNS, ANNIE SMILEY Primary Care Unavailable KARAMLOU, MCKENNA Referring Unavailable KUNS, ANNIE SMILEY Primary Care Unavailable KARAMLOU, MCKENNA Attending Unavailable KARAMLOU, MCKENNA Referring Unavailable KUNS, ANNIE SMILEY Primary Care Unavailable DOMENICO HARDING Referring Unavailable Kuns, Annie Admitting Unavailable Kuns, Annie Primary Care Unavailable Kuns, Annie Attending Unavailable Kuns, Annie Primary Care Unavailable Kuns, Annie Attending Unavailable Kuns, Annie Admitting Unavailable Kuns, Annei Primary Care Unavailable Kuns, Annie Attending Unavailable Kuns, Annie Admitting Unavailable Kuns, DO Annie Primary Care Provider Kuns, DO Annie Attending Provider Kuns, DO Annie Primary Care Provider Kuns, DO Annie Attending Provider Unavailable Unavailable Unavailable Allergies Allergy Classification Reported Allergen(s) Allergy Type Date of Onset Reaction(s) Facility (4 sources) Pollen Propensity to adverse reactions Unknown Text A Cab Other (2 sources) Pollen; Translations: [POLLEN EXTRACTS] Propensity to adverse reactions to drug (disorder) 0 [facility] Repository Medications Current Medications Medication Drug Class(es) Dates Sig (Normalized) Sig (Original) [id number] 200 actuat albuterol 0.09 mg/actuat metered dose inhaler (20 sources) beta2-Adrenergic Agonist Start: 10-05-2023 take 1 puff(s) by inhalation every six hours Albuterol Sulfate Active 2 PUFF INHALATION Every 6 hours October 05, 2023 12:00am Start: 06-22-2018 take 2.5 mg by inhal ation every four hours Albuterol Sulfate Active 2.5 MG INHALATION Q4H June 22, 2018 1:00am Start: 08-13-2012 Albuterol Sulf ate (2.5 MG/3ML) 0.083% 3 ml as needed Inhalation every 4 hrs prn Jul, Active take 2.5 mg by inhal ation every six hours as needed albuterol 2.5 mg /3 mL (0.083 %) nebulizer solution Take 3 mL (2.5 mg) by nebulization every 6 hours if needed. 0 Active Albuterol Sulfat e (2.5 MG/3ML) 0.083% Inhalation Nebulization Solution USE 1 UNIT DOSE EVERY 4-6 HOURS NEEDED FOR WHEEZING . Quantity: 0 Refills: 0 Ordered: 07-Apr-2022 DO Active take 2 puff(s) by in halation every six hours as needed Albuterol Sulfate HFA 108 (90 Base) MCG/ACT 2 puffs as needed Inhalation every 6 hrs Active Albuterol Sulfat e (2.5 MG/3ML) 0.083% Inhalation Nebulization Solution Quantity: 0 Refills: 0 Ordered: 30-Jun-2018 DO Active take 2 puff(s) by in halation every six hours as needed Albuterol Sulfate HFA 108 (90 Base) MCG/ACT 2 puffs as needed Inhalation every 6 hrs Active Comment on above: 2.5 mg. amLODIPine 5 mg oral tablet (20 sources) Dihydropyridine Calcium Channel Daniella Start: take 5 mg by mouth once daily Amlodipine Active 5 MG PO Daily June 22, 2018 1:00am Norvasc TABS Arjun ntity: 0 Refills: 0 Ordered: 30-Jun-2018 DO Active Comment on above: Take 5 mg by mouth o nce daily. Aspir-81 81 MG (4 sources) take 1 tablet by mouth once daily Aspir-81 81 MG 1 tablet Orally Once a day Active aspirin 81 mg delayed release oral tablet (20 sources) Platelet Aggregation Inhibitor, Nonsteroidal Anti-inflammatory Drug Start: 10-05-2023 take 81 mg by mouth once daily Aspirin Active 81 MG PO Daily October 05, 2023 12:00am Start: 06-22-2018 aspirin, enter ic coated (ASPIRIN, ENTERIC COATED) 81 mg EC tablet Take by mouth at bedtime as needed. 0 06/22/2018 Active Start: 06-22-2018 End: 10-05-2023 take 81 mg by mouth once daily Aspirin Discontinued 81 MG PO Daily June 22, 2018 1:00am October 05, 2023 5:28pm Aspirin TABS Arjun ntity: 0 Refills: 0 Ordered: 30-Jun-2018 DO Active Comment on above: Take by mouth at bed time as needed. clopidogrel 75 mg oral tablet (20 sources) P2Y12 Platelet Inhibitor Start: 06-22-2018 take 75 mg by mouth once daily Clopidogrel Active 75 MG PO Daily June 22, 2018 1:00am Plavix TABS Stephen tity: 0 Refills: 0 Ordered: 30-Jun-2018 DO Active Comment on above: Take 75 mg by mouth once daily. enteric contrast (will be provided with radiology test) (1 source) Start: 02-05-20 End: 02-06-20 enteric contrast (will be provided with radiology test) For CT CHESTABD/PEL W IVCON Routine order Administer, As Directed One Time Only, via Oral, Rectal, both Oral and Rectal, Enteric Tube, Stoma or Indwelling Catheter, Enteric Contrast as designated per enteric contrast guidelines 1 Each 0 02/04/2022 02/05/2022 Active Comment on above: For CT CHESTABD/PEL W IVCON Routine order Administer, As Directed One Time Only, via Oral, Rectal, both Oral and Rectal, Enteric Tube, Stoma or Indwelling Catheter, Enteric Contrast as designated per enteric contrast guidelines ferrous sulfate 324 mg delayed release oral tablet (3 sources) Start: 10-06-19 24 take 324 mg by mouth once daily Ferrous Sulfate Active 324 MG PO Daily October 06, 2023 12:00am fexofenadine hydrochloride 180 mg oral tablet (20 sources) Histamine-1 Receptor Antagonist Start: 10-24-19 10 take 1 tablet by mouth once daily Fexofenadine (Marcie Allergy) 180 mg Tablet Active 180 MG PO Daily June 22, 2018 1:00am Comment on above: 180 mg. LORazepam 0.5 mg oral tablet (3 sources) Benzodiazepine Start: 10-06-19 24 take 1 tablet by mouth three times daily Lorazepam (Ativan) 0.5 mg tablet Active 0.5 MG PO Three times daily 24 7 October 06, 2023 12:00am Rqiscuvr-Lda-Jpcb-Fa- Lutein (Centrum Silver Women) 8 mg iron-400 mcg-300 mcg Tablet (4 sources) Start: 06-22-20 18 take 1 tablet by mouth once daily Szkubmpb-Uvo-Isfn-Fa -Lutein (Centrum Silver Women) 8 mg iron-400 mcg-300 mcg Tablet Active 1 TAB PO Daily June 22, 2018 8:40am Start: 06-22-2018 take 1 tablet by chayito th once daily Usnlvupl-Auz-Fqsz-Fa-Lutein (Centrum Sylvie anthony Women) 8 mg iron-400 mcg-300 mcg Tablet Active 1 TAB PO Daily June 22, 2018 7:40am Start: 06-22-2018 take 1 tablet by chayito th once daily Klmvomfh-Zzs-Ogeb-Fa-Lutein (Centrum Sylvie anthony Women) 8 mg iron-400 mcg-300 mcg Tablet Active 1 TAB PO Daily June 22, 2018 1:00am Rzbubbhw-Ivv-Pmhv-Fa-Vit K-Lut (Centrum Silver Women) 8 mg iron-400 mcg-300 mcg Tablet (5 sources) Start: 06-22-2018 take 1 tablet by mouth once daily Xmepbmbl-Jmx-Yyaf-Fa-Vit K-Lut (Centrum Silver Women) 8 mg iron-400 mcg-300 mcg Tablet Active 1 TAB PO Daily June 22, 2018 12:00am Start: 06-22-2018 take 1 tablet by chayito th once daily Meqekjye-Akz-Hqmq-Fa-Vit K-Lut (Centrum Silver Women) 8 mg iron-400 mcg-300 mcg Tablet Active 1 TAB PO Daily June 22, 2018 1:00am Multivitamin preparation (4 sources) Multivitamin Ora lly Active Oxygen (3 sources) Start: 4 Oxygen Active 0 .ROUTE October 05, 2023 12:00am 2L PM and PRN during the day Oxygen 2 liters pm and prn day (4 sources) Oxygen 2 liters pm and prn day at night and during the day prn Active prednisoLONE 10 mg disintegrating oral tablet (1 source) Corticosteroid prednisoLONE ODT (OrapRED ODT) 10 mg disintegrating tablet Take 5 mg by mouth once daily. 0 Active predniSONE 5 mg oral tablet (20 sources) Start: 4 take 1 tablet by mouth once daily Prednisone Active 10 MG PO Daily October 06, 2023 2:10pm FreeTextSi tablet Orally Once a day; Note: Source Status: Continue; Provider: Dr. Morin Start: 10-05-2023 End: 10-06-2023 take 1 tablet by mouth once daily Prednisone Discontinued 5 MG PO Daily October 05, 2023 12:00am October 06, 2023 2:10pm FreeTextSi tablet Orally Once a day; Note: Source Status: Continue; Provider: Dr. Morin Start: 05-23-2021 predniSONE (DE LTASONE) 5 mg tablet simvastatin 20 mg oral tablet (20 sources) HMG-CoA Reductase Inhibitor Start: 06-22-2018 take 20 mg by mouth once daily Simvastatin Active 20 MG PO Daily June 22, 2018 1:00am take 1 tablet by chayito th once daily at bedtime simvastatin (ZOCOR) 10 mg tablet Take 10 mg by mouth daily at bedtime. 0 Active Zocor TABS Quant ity: 0 Refills: 0 Ordered: 30-Jun-2018 DO Active Comment on above: Take 20 mg by mouth once daily. Take 10 mg by mouth daily at bedtime. Completed/Discontinued Medications Medication Drug Class(es) Dates Sig (Normalized) Sig (Original) acetaminophen 300 mg / codeine phosphate 30 mg oral tablet (9 sources) Opioid Agonist Start: 09-27-2019 End: 10-05-2023 take 1 tablet by mouth every six hours Acetaminophen-Code ine (Tylenol-Codeine #3) 300-30 mg tablet Discontinued 1 TAB PO Q6H 10 3 September 27, 2019 12:00am October 05, 2023 5:28pm Budesonide / formoterol (19 sources) Corticosteroid, beta2-Adrenergic Agonist Start: 06-22-2018 budesonide-formote rol (SYMBICORT) 160-4.5 mcg/actuation inhaler Budesonide-Formote rol Active 2 PUFF INHALATION Twice daily June 22, 2018 8:40am 0 06/22/2018 Active Start: 06-22-2018 take 1 puff(s) by in halation twice daily Budesonide-Formoterol Active 2 PUFF INHALATION Twice daily June 22, 2018 8:40am Start: 06-22-2018 take 1 puff(s) by in halation twice daily Budesonide-Formoterol Active 2 PUFF INHALATION Twice daily June 22, 2018 7:40am Start: 06-22-2018 take 1 puff(s) by in halation twice daily Budesonide-Formoterol Active 2 PUFF INHALATION Twice daily June 22, 2018 12:00am Start: 06-22-2018 take 1 puff(s) by in halation twice daily Budesonide-Formoterol Active 2 PUFF INHALATION Twice daily June 22, 2018 1:00am Symbicort 160-4. 5 MCG/ACT Inhalation Aerosol Quantity: 0 Refills: 0 Ordered: 30-Jun-2018 DO Active Comment on above: Budesonide-Formotero l Active 2 PUFF INHALATION Twice daily June 22, 2018 8:40am 120 actuat budesonide 0.16 mg/actuat / formoterol fumarate 0.0048 mg/actuat / glycopyrrolate 0.009 mg/actuat metered dose inhaler (20 sources) Corticosteroid, beta2-Adrenergic Agonist Start: BREZTRI AEROSPHERE 160-9-4.8 mcg/actuation HFA aerosol inhaler take 2 puff(s) by in halation twice daily yhgtdinefx-brvuxjsv-nczycwrbrg (Breztri Aerosphere) 160-9-4.8 mcg/actuation HFA aerosol inhaler Inhale 2 puffs 2 times a day. 0 Active take 2 puff(s) by in halation twice daily Breztri Aerosphere 160-9-4.8 MCG/ACT 2 p uffs Inhalation Twice a day Active Centrum TABS (9 sources) Centrum TABS LLOYD E 1 TABLET DAILY. Quantity: 0 Refills: 0 Ordered: 07-Apr-2022 DO Active Centrum TABS Arjun ntity: 0 Refills: 0 Ordered: 30-Jun-2018 DO Active itraconazole 100 mg oral capsule (5 sources) Azole Antifungal Start: 08-19-2022 End: 04-15-2023 itraconazole (SPORANOX) 100 mg capsule take 2 capsules by m outh every twelve hours Itraconazole 100 MG 2 capsule after a me al Orally BID Active iv contrast (will be provide d with radiology test) (13 sources) Start: 04-15-2023 End: 04-16-2023 iv contrast (will be provide d with radiology test) Indications: History of lung cancer , Aspergilloma (HCC) CT Chest W -Inject, intravenously, once for 1 dose.No IV access, insert saline lock prior to the beginning of sedation, infusion, injection of imaging exam. Discontinue saline lock post exam. If Pt. has a central line or IVAD, may access for administration according to line specific nursing protocol. Once exam is complete flush line and de-access according to line specific nursing protocol in the CT contrast administration guidelines link. 1 Each 0 04/15/2023 04/16/2023 Start: 09-02-2022 End: 09-03-2022 iv contrast (will be provide d with radiology test) Indications: Malignant neoplasm of unspecified part of unspecified bronchus or lung (HCC) CT Chest W -Inject, intravenously, once for 1 dose.No IV access, insert saline lock prior to the beginning of sedation, infusion, injection of imaging exam. Discontinue saline lock post exam. If Pt. has a central line or IVAD, may access for administration according to line specific nursing protocol. Once exam is complete flush line and de-access according to line specific nursing protocol in the CT contrast administration guidelines link. 1 Each 0 09/02/2022 09/03/2022 Active Start: 06-10-2022 End: 06-11-2022 iv contrast (will be provide d with radiology test) CT Chest W -Inject, intravenously, once for 1 dose.No IV access, insert saline lock prior to the beginning of sedation, infusion, injection of imaging exam. Discontinue saline lock post exam. If Pt. has a central line or IVAD, may access for administration according to line specific nursing protocol. Once exam is complete flush line and de-access according to line specific nursing protocol in the CT contrast administration guidelines link. 1 Each 0 06/10/2022 06/11/2022 Active Start: 10-01-2021 iv contrast (w ill be provided with radiology test) CT ABD/PEL -Inject, intravenously, once for 1 dose.No IV access, insert saline lock prior to the beginning of sedation, infusion, injection of imaging exam. Discontinue saline lock post exam. If Pt. has a central line or IVAD, may access for administration according to line specific nursing protocol. Once exam is complete flush line and de-access according to line specific nursing protocol in the CT contrast administration guidelines link. 1 Each 0 10/01/2021 Active Start: 10-01-2021 iv contrast (w ill be provided with radiology test) CT Chest W -Inject, intravenously, once for 1 dose.No IV access, insert saline lock prior to the beginning of sedation, infusion, injection of imaging exam. Discontinue saline lock post exam. If Pt. has a central line or IVAD, may access for administration according to line specific nursing protocol. Once exam is complete flush line and de-access according to line specific nursing protocol in the CT contrast administration guidelines link. 1 Each 0 10/01/2021 Active Comment on above: CT ABD/PEL -Inject, intravenously, once for 1 dose.No IV access, insert saline lock prior to the beginning of sedation, infusion, injection of imaging exam. Discontinue saline lock post exam. If Pt. has a central line or IVAD, may access for administration according to line specific nursing protocol. Once exam is complete flush line and de-access according to line specific nursing protocol in the CT contrast administration guidelines link. CT Chest W -Inject, intravenously, once for 1 dose.No IV access, insert saline lock prior to the beginning of sedation, infusion, injection of imaging exam. Discontinue saline lock post exam. If Pt. has a central line or IVAD, may access for administration according to line specific nursing protocol. Once exam is complete flush line and de-access according to line specific nursing protocol in the CT contrast administration guidelines link. metoprolol tartrate 25 mg oral tablet (20 sources) beta-Adrenergic Daniella Start: 4 End: 4 take 37.5 mg by mouth twice daily Metoprolol Tartrate Discontinued 37.5 MG PO Twice daily October 05, 2023 5:28pm October 06, 2023 2:07pm Start: 01-27-2022 take 0.5 tablet by m outh twice daily metoprolol tartrate (Lopressor) 25 mg tablet Take 0.5 tablets (12.5 mg) by mouth 2 times a day. 0 01/27/2022 Active Start: 08-29-2019 metoprolol tar trate, short acting, (LOPRESSOR) 25 mg tablet TAKE 1 2 (ONE HALF) TABLET BY MOUTH TWICE DAILY 0 08/29/2019 Active Start: 06-22-2018 End: 10-05-2023 take 12.5 mg by mouth twice daily Metoprolol Tartrate Active 12.5 MG PO Twice daily October 06, 2023 2:07pm take 5.5 tablets by mouth twice daily at mealtime Metoprolol Tartrate 25 MG 11/ tablet with food Orally Twice a day Active Metoprolol Tartr ate TABS Quantity: 0 Refills: 0 Ordered: 30-Jun-2018 DO Active Comment on above: TAKE 1 2 (ONE HALF) TABLET BY MOUTH TWICE DAILY Problems Active Problems Problem Classification Problem Date Documented Da te Episodic/Chronic Anxiety disorders (6 sources) Anxiety; Translations: [Anxiety disorder, unspecified] 10-06-2023 Chronic Cancer of bronchus; lung (20 sources) Primary malignant neoplasm of lung; Translations: [Malignant neoplasm of unspecified part of unspecified bronchus or lung] Onset: 09-28-2019 Chronic Cancer of bronchus; lung (2 sources) Personal history of other malignant neoplasm of bronchus and lung; Translations: [History of malignant neoplasm of thoracic cavity structure] Onset: 06-29-2022 04-15-2023 Episodic Chronic obstructive pulmonary disease and bronchiectasis (20 sources) Chronic obstructive lung disease; Translations: [Chronic obstructive pulmonary disease, unspecified] Onset: 01-15-2022 Resolved: 01-15-2022 Chronic Coronary atherosclerosis and other heart disease (14 sources) Coronary arteriosclerosis; Translations: [Coronary atherosclerosis of unspecified type of vessel, [place] or graft] Onset: 06-29-2022 04-22-2023 Chronic Coronary atherosclerosis and other heart disease (2 sources) Coronary angioplasty status; Translations: [Coronary angioplasty status] Onset: 03-13-2023 Episodic Coronary atherosclerosis and other heart disease (1 source) Coronary atherosclerosis and other heart disease Onset: 04-21-2018 Deficiency and other anemia (5 sources) Anemia, unspecified; Translations: [Anemia, unspecified] Onset: 10-07-2023 10-06-2023 Episodic Deficiency and other anemia (3 sources) Anemia; Translations: [Anemia, unspecified] 10-06-2023 Episodic Disorders of lipid metabolism (18 sources) Hyperlipidemia; Translations: [Hyperlipidemia, unspecified] Onset: 01-15-2022 Resolved: 01-15-2022 Chronic Diverticulosis and diverticulitis (7 sources) Diverticular disease of colon; Translations: [Diverticulosis of intestine, part unspecified, without perforation or abscess without bleeding] 10-05-2023 Chronic Essential hypertension (16 sources) Hypertensive disorder; Translations: [Essential (primary) hypertension] Onset: 03-13-2023 04-22-2023 Chronic Essential hypertension (1 source) Essential hypertension Onset: 04-21-2018 Occlusion or stenosis of precerebral arteries (14 sources) Carotid artery stenosis; Translations: [Occlusion and stenosis of unspecified carotid artery] Onset: 01-15-2022 Resolved: 01-15-2022 Chronic Other acquired deformities (1 source) Other forms of scoliosis, site unspecified; Translations: [OTHER FORMS SCOLIOSIS SITE UNS] Onset: 06-29-2022 Chronic Other and ill-defined heart disease (3 sources) Heart disease; Translations: [Heart disease, unspecified] 10-05-2023 Chronic Other and ill-defined heart disease (1 source) Heart disease, unspecified; Translations: [Heart disease, unspecified] 12-09-2023 Chronic Other and unspecified benign neoplasm (1 source) Benign neoplasm, unspecified site; Translations: [Benign neoplasm of unspecified site] Episodic Other and unspecified benign neoplasm (1 source) Adenoma of left adrenal gland; Translations: [Benign neoplasm of left adrenal gland] Episodic Other circulatory disease (6 sources) Carotid bruit; Translations: [Other symptoms involving cardiovascular system] Onset: 03-13-2023 03-13-2023 Episodic Other gastrointestinal disorders (8 sources) Stool DNA-based colorectal cancer screening positive; Translations: [Other fecal abnormalities] 11-29-2018 Episodic Other lower respiratory disease (1 source) Shortness of breath; Translations: [Shortness of breath] Onset: 04-21-2018 Episodic Other lower respiratory disease (6 sources) Dyspnea on exertion; Translations: [Shortness of breath] Onset: 03-13-2023 03-13-2023 Episodic Other nutritional; endocrine; and metabolic disorders (5 sources) Overweight in adulthood with body mass index of 25 or more but less than 30; Translations: [Overweight] Episodic Respiratory failure; insufficiency; arrest (adult) (16 sources) Dependence on supplemental oxygen; Translations: [Dependence on supplemental oxygen] Onset: 06-29-2022 2022 Chronic Substance-related disorders (17 sources) Nicotine dependence; Translations: [Nicotine dependence, unspecified, uncomplicated] Onset: 06-29-2022 04-22-2023 Chronic Comment on above: 5 cigarettes per day ; Thyroid disorders (7 sources) Hypothyroidism; Translations: [Hypothyroidism, unspecified] 10-05-2023 Chronic Unclassified (2 sources) Abnormal result of other cardiovascular function study / R94.39(ICD-9) Onset: 05-25-2018 Unclassified (2 sources) Shortness of breath / R06.02(ICD-9) Onset: 04-21-2018 Unclassified (1 source) Occlusion and stenosis of bilateral carotid arteries / I65.23(ICD-9) Onset: 04-21-2018 Unclassified (1 source) Tobacco use / Z72.0(ICD-9) Onset: 04-21-2018 Unclassified (1 source) CONTACT W/AND (SUSP) EXPOS COVID-19; Translations: [CONTACT W/AND (SUSP) EXPOS COVID-19] Onset: 06-21-2022 Past or Other Problems Problem Classification Problem Date Documented Date Episodic/Chronic Mycoses (10 sources) Aspergillosis, unspecified; Translations: [Aspergilloma] Onset: 10-01-2022 Episodic Other aftercare (1 source) longterm (current) use of anticoagulants; Translations: [PENITENTIARY CURRNT USE ANTICOAGULANTS] Onset: 06-29-2022 Episodic Other aftercare (1 source) Other running instructor (current) drug therapy; Translations: [OTH PENITENTIARY CURRENT DRUG THERAPY] Onset: 06-29-2022 Episodic Other aftercare (1 source) 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) use of inhaled steroids; Translations: [PENITENTIARY USE OF INHALED STEROIDS] Onset: 06-29-2022 Episodic Other lower respiratory disease (5 sources) Other disorders of lung; Translations: [OTHER DISORDERS OF LUNG] Onset: 06-19-2022 Episodic Other lower respiratory disease (3 sources) Cavitation of lung; Translations: [Other disorders of lung] Onset: 2022 2022 Episodic Other screening for suspected conditions (not mental disorders or infectious disease) (3 sources) Abnormal result of other cardiovascular function study; Translations: [Stool DNA-based colorectal cancer screening positive] Onset: 05-25-2018 Resolved: 01-15-2022 Episodic Other upper respiratory disease (1 source) Other specified disorders of nose and nasal sinuses Onset: 03-25-2022 Resolved: 03-25-2022 Episodic Other upper respiratory disease (1 source) Other diseases of larynx; Translations: [OTHER DISEASES OF LARYNX] Onset: 06-29-2022 Episodic Residual codes; unclassified (1 source) Asymptomatic menopausal state Onset: 01-15-2022 Resolved: 01-15-2022 Episodic Unclassified (1 source) Onset: 04-22-2023 04-22-2023 Results Test Name Value Interpretation Reference Range Facility Alanine aminotransferase [En zymatic activity/volume] in Serum or PlasmaOrdered By: Annie Sal on 10-07-2023 ALT [Catalytic activity/Vol] 16 U/L 7-52 [facility] Albumin [Mass/volume] in Ser um or Plasma by Bromocresol green (BCG) dye binding methoOrdered By: Annie Sal on 10-07-2023 Albumin BCG dye [Mass/Vol] 4.1 g/dL 3.5-5.7 [facility] Alkaline phosphatase [Enzyma tic activity/volume] in Serum or PlasmaOrdered By: Annie Sal on 10-07-2023 ALP [Catalytic activity/Vol] 86 U/L 34-104 [facility] Aspartate aminotransferase [ Enzymatic activity/volume] in Serum or PlasmaOrdered By: Annie Sal on 10-07-2023 AST [Catalytic activity/Vol] 16 U/L 13-39 [facility] Basophils Auto (Bld) [#/Vol] Ordered By: Annie Sal on 10-07-2023 Basophils (Bld) [#/Vol] 0.1 10*3/uL 0.0-0.2 [facility] Basophils/100 WBC Auto (Bld) Ordered By: Annie Sal on 10-07-2023 Basophils/100 WBC (Bld) 0.5 % . F [facility] Bilirubin.total [Mass/volume ] in Serum or PlasmaOrdered By: Annie Sal on 10-07-2023 Bilirubin [Mass/Vol] 0.5 mg/dL 0.3-1.0 [facility] Calcium [Mass/volume] in Ser um or PlasmaOrdered By: Annie Sal on 10-07-2023 Calcium [Mass/Vol] 9.0 mg/dL 8.6-10.3 [facility] Carbon dioxide, total [Moles /volume] in Serum or PlasmaOrdered By: Annie Sal on 10-07-2023 CO2 [Moles/Vol] 32.8 mmol/L 21.0-31.0 [facility] Chloride [Moles/volume] in S radha or PlasmaOrdered By: Annie Sal on 10-07-2023 Chloride [Moles/Vol] 100 mmol/L 98-107 [facility] Complete Blood Count Auto Di ffon 10-07-2023 Basophils (Bld) [#/Vol] 0.1 10*3/uL Normal 0.0-0.2 [facility] Comment on above: Result Comment: PERF ORMED BY: [place] [address] PATHOLOGIST CHEMICAL PROCESS OPERATOR KIAH COOPER M.D. Performed By: #### F ER, CMP, CBC #### [facility] [address] Basophils/100 WBC (Bld) 0.5 % Normal . F [facility] Comment on above: Performed By: #### F ER, CMP, CBC #### [facility] [address] Eosinophils (Bld) [#/Vol] 0.0 10*3/uL Normal 0.0-0.45 [facility] Comment on above: Performed By: #### F ER, CMP, CBC #### [facility] [address] [place] [address] [place] Eosinophils/100 WBC (Bld) 0.4 % Normal . [facility] Comment on above: Performed By: #### F ER, CMP, CBC #### [facility] [address] [place] [address] [place] Erythrocyte distribution width (RBC) [Ratio] 16.6 % High 11.9-15.3 [facility] Comment on above: Performed By: #### F ER, CMP, CBC #### [facility] [address] [place] [address] [place] Hematocrit (Bld) [Volume fraction] 36.0 % Normal 34.0-46.4 [facility] Comment on above: Performed By: #### F ER, CMP, CBC #### [facility] [address] [place] [address] [place] Hemoglobin (Bld) [Mass/Vol] 11.6 g/dL Low 11.8-15.4 [facility] Comment on above: Performed By: #### F ER, CMP, CBC #### [facility] [address] [place] [address] [place] Lymphocytes (Bld) [#/Vol] 4.1 10*3/uL Normal 1.00-4.8 [facility] Comment on above: Performed By: #### F ER, CMP, CBC #### [facility] [address] Lymphocytes/100 WBC (Bld) 35.0 % Normal . [facility] Comment on above: Performed By: #### F ER, CMP, CBC #### [facility] [address] MCH (RBC) [Entitic mass] 28.1 pg Normal 24.7-34.3 [facility] Comment on above: Performed By: #### F ER, CMP, CBC #### [facility] [address] MCV (RBC) [Entitic vol] 87.3 fL Normal 80-100 [facility] Comment on above: Performed By: #### F ER, CMP, CBC #### [facility] [address] Mean Corpuscular HGB Conc 32.2 g/dL Normal 32.0-35.0 [facility] Comment on above: Performed By: #### F ER, CMP, CBC #### [facility] [address] [place] [address] [place] Monocytes (Bld) [#/Vol] 1.0 10*3/uL High 0.0-0.8 [facility] Comment on above: Performed By: #### F ER, CMP, CBC #### [facility] [address] [place] [address] [place] Monocytes/100 WBC (Bld) 8.9 % Normal . [facility] Comment on above: Performed By: #### F ER, CMP, CBC #### [facility] [address] [place] [address] [place] Neutrophils (Bld) [#/Vol] 6.5 10*3/uL Normal 1.8-7.7 [facility] Comment on above: Performed By: #### F ER, CMP, CBC #### [facility] [address] Neutrophils/100 WBC (Bld) 55.2 % Normal . [facility] Comment on above: Performed By: #### F ER, CMP, CBC #### [facility] [address] NRBC% 0.1 /100{WBC} Normal 0-0.5 [facility] Comment on above: Performed By: #### F ER, CMP, CBC #### [facility] [address] Platelet mean volume (Bld) [Entitic vol] 7.6 fL Normal 6.3-10.7 [facility] Comment on above: Performed By: #### F ER, CMP, CBC #### [address] Platelets (Bld) [#/Vol] 370 10*3/uL Normal 150-450 [facility] Comment on above: Performed By: #### F ER, CMP, CBC #### [address] RBC (Bld) [#/Vol] 4.12 10*6/uL Normal 3.60-5.00 [facility] Comment on above: Performed By: #### F ER, CMP, CBC #### [address] WBC (Bld) [#/Vol] 11.7 10*3/uL High 3.8-11.6 [facility] Comment on above: Performed By: #### F ER, CMP, CBC #### [address] Comprehensive Metabolic Pane trixie 10-07-2023 Albumin [Mass/Vol] 4.1 g/dL Normal 3.5-5.7 [facility] Comment on above: Performed By: #### F ER, CMP, CBC #### [address] Albumin/Globulin [Mass ratio] 1.7 {ratio} Normal [facility] Comment on above: Performed By: #### F ER, CMP, CBC #### [facility] [address] ALP [Catalytic activity/Vol] 86 U/L Normal 34-104 [facility] Comment on above: Performed By: #### F ER, CMP, CBC #### [facility] [address] ALT [Catalytic activity/Vol] 16 U/L Normal 7-52 [facility] Comment on above: Performed By: #### F ER, CMP, CBC #### [facility] [address] Anion gap [Moles/Vol] 11.3 mmol/L Normal 6.0-15.0 [facility] Comment on above: Performed By: #### F ER, CMP, CBC #### [facility] [address] AST [Catalytic activity/Vol] 16 U/L Normal 13-39 [facility] Comment on above: Performed By: #### F ER, CMP, CBC #### [facility] [address] Bilirubin [Mass/Vol] 0.5 mg/dL Normal 0.3-1.0 [facility] Comment on above: Performed By: #### F ER, CMP, CBC #### [facility] [address] Calcium [Mass/Vol] 9.0 mg/dL Normal 8.6-10.3 [facility] Comment on above: Performed By: #### F ER, CMP, CBC #### [facility] [address] [place] [address] [place] Chloride [Moles/Vol] 100 mmol/L Normal 98-107 [facility] Comment on above: Performed By: #### F ER, CMP, CBC #### [facility] [address] CO2 [Moles/Vol] 32.8 mmol/L High 21.0-31.0 [facility] Comment on above: Performed By: #### F ER, CMP, CBC #### [facility] [address] Creatinine [Mass/Vol] 0.51 mg/dL Low 0.60-1.20 [facility] Comment on above: Performed By: #### F ER, CMP, CBC #### [facility] [address] [place] [address] [place] GFR/1.73 sq M.predicted MDRD (S/P/Bld) [Vol rate/Area] mL/min/{1.73_m2} Normal [facility] Comment on above: Performed By: #### F ER, CMP, CBC #### [facility] [address] Globulin (S) [Mass/Vol] 2.4 g/dL Normal [facility] Comment on above: Performed By: #### F ER, CMP, CBC #### [facility] [address] Glucose [Mass/Vol] 91 mg/dL Normal 70-100 [facility] Comment on above: Result Comment: [place] Glucose Reference Range is dependent on time and content of last meal. Glucose of more than 200 mg/dL in a nonstressed, ambulatory subject supports the diagnosis of Diabetes Mellitus. ADA recommended reference range Performed By: #### F ER, CMP, CBC #### [facility] [address] [place] [address] [place] Potassium [Moles/Vol] 4.1 mmol/L Normal 3.5-5.1 [facility] Comment on above: Performed By: #### F ER, CMP, CBC #### [facility] [address] [place] [id number] [place] Protein [Mass/Vol] 6.5 g/dL Normal 6.4-8.9 [facility] Comment on above: Performed By: #### F ER, CMP, CBC #### [facility] [address] [place] [address] [place] Sodium [Moles/Vol] 140 mmol/L Normal 136-145 [facility] Comment on above: Performed By: #### F ER, CMP, CBC #### [facility] [address] Urea nitrogen [Mass/Vol] 13 mg/dL Normal 7-25 [facility] Comment on above: Performed By: #### F ER, CMP, CBC #### [facility] [address] [place] [address] [place] Creatinine [Mass/volume] in Serum or PlasmaOrdered By: Annie Sal on 10-07-2023 Creatinine [Mass/Vol] 0.51 mg/dL 0.60-1.20 [facility] Eosinophils Auto (Bld) [#/Vo l]Ordered By: nAnie Sal on 10-07-2023 Eosinophils (Bld) [#/Vol] 0.0 10*3/uL 0.0-0.45 [facility] Eosinophils/100 WBC Auto (Bl d)Ordered By: Annie Sal on 10-07-2023 Eosinophils/100 WBC (Bld) 0.4 % . [facility] Erythrocyte distribution wid th Auto (RBC) [Ratio]Ordered By: Annie Sal on 10-07-2023 Erythrocyte distribution width (RBC) [Ratio] 16.6 % 11.9-15.3 [facility] Ferritinon 10-07-2023 Ferritin [Mass/Vol] 71.6 ng/mL Normal 11.0-306.8 [facility] Comment on above: Result Comment: PERF ORMED BY: [place] [address] PATHOLOGIST CHEMICAL PROCESS OPERATOR KIAH COOPER M.D. Performed By: #### F ER, CMP, CBC #### [facility] [address] [place] [address] [place] Ferritin [Mass/volume] in Se rum or PlasmaOrdered By: Annie Sal on 10-07-2023 Ferritin [Mass/Vol] 71.6 ng/mL 11.0-306.8 [facility] Globulin Calc (S) [Mass/Vol] Ordered By: Annie Sal on 10-07-2023 Globulin (S) [Mass/Vol] 2.4 g/dL F [facility] Glucose [Mass/volume] in Ser um or PlasmaOrdered By: Annie Sal on 10-07-2023 Glucose [Mass/Vol] 91 mg/dL 70-100 [facility] Comment on above: ADA recommended refe rence rangeRandom Glucose Reference Range is dependent on time and content of last meal. Glucose of more than 200 mg/dL in a nonstressed, ambulatory subject supports the diagnosis of Diabetes Mellitus. Hematocrit Auto (Bld) [Volum e fraction]Ordered By: Annie Sal on 10-07-2023 Hematocrit (Bld) [Volume fraction] 36.0 % 34.0-46.4 [facility] Hemoglobin [Mass/volume] in BloodOrdered By: Annie Sal on 10-07-2023 Hemoglobin (Bld) [Mass/Vol] 11.6 g/dL 11.8-15.4 [facility] Leukocytes [#/volume] correc adriel for nucleated erythrocytes in Blood by Automated counOrdered By: Annie Sal on 10-07-2023 WBC corrected for nucl RBC Auto (Bld) [#/Vol] 11.7 10*3/uL 3.8-11.6 [facility] Lymphocytes Auto (Bld) [#/Vo l]Ordered By: Annie Sal on 10-07-2023 Lymphocytes (Bld) [#/Vol] 4.1 10*3/uL 1.00-4.8 [facility] Lymphocytes/100 WBC Auto (Bl d)Ordered By: Annie Sal on 10-07-2023 Lymphocytes/100 WBC (Bld) 35.0 % . [facility] MCH Auto (RBC) [Entitic mass ]Ordered By: Annie Sal on 10-07-2023 MCH (RBC) [Entitic mass] 28.1 pg 24.7-34.3 [facility] MCHC Auto (RBC) [Mass/Vol]Or dered By: Annie Sal on 10-07-2023 MCHC (RBC) [Mass/Vol] 32.2 g/dL 32.0-35.0 [facility] MCV Auto (RBC) [Entitic vol] Ordered By: Annie Sal on 10-07-2023 MCV (RBC) [Entitic vol] 87.3 fL 80-100 [facility] Monocytes Auto (Bld) [#/Vol] Ordered By: Annie Sal on 10-07-2023 Monocytes (Bld) [#/Vol] 1.0 10*3/uL 0.0-0.8 [facility] Monocytes/100 WBC Auto (Bld) Ordered By: Annie Sal on 10-07-2023 Monocytes/100 WBC (Bld) 8.9 % . F [facility] Neutrophils Auto (Bld) [#/Vo l]Ordered By: Annie Sal on 10-07-2023 Neutrophils (Bld) [#/Vol] 6.5 10*3/uL 1.8-7.7 [facility] Neutrophils/100 WBC Auto (Bl d)Ordered By: Annie Sal on 10-07-2023 Neutrophils/100 WBC (Bld) 55.2 % . [facility] No Panel InformationOrdered By: Annie Sal on 10-07-2023 Estimated GFR (CKD-EPI) > 60.0 mL/Min [facility] Creatinine Clearance (Chem N/A [facility] Nucleated erythrocytes [Pres ence] in Blood by Automated countOrdered By: Annie Sal on 10-07-2023 Nucleated RBC Auto Ql (Bld) 0.1 /100{WBC} 0-0.5 [facility] Platelet mean volume Auto (B ld) [Entitic vol]Ordered By: Annie Sal on 10-07-2023 Platelet mean volume (Bld) [Entitic vol] 7.6 fL 6.3-10.7 [facility] Platelets Auto (Bld) [#/Vol] Ordered By: Annie Sal on 10-07-2023 Platelets (Bld) [#/Vol] 370 10*3/uL 150-450 [facility] Potassium [Moles/volume] in Serum or PlasmaOrdered By: Annie Sal on 10-07-2023 Potassium [Moles/Vol] 4.1 mmol/L 3.5-5.1 [facility] Protein [Mass/volume] in Ser um or PlasmaOrdered By: Annie Sal on 10-07-2023 Protein [Mass/Vol] 6.5 g/dL 6.4-8.9 [facility] RBC Auto (Bld) [#/Vol]Ordere d By: Annie Sal on 10-07-2023 RBC (Bld) [#/Vol] 4.12 10*6/uL 3.60-5.00 [facility] Serum or plasma albumin/glob ulin mass ratioOrdered By: Annie Sal on 10-07-2023 Albumin/Globulin [Mass ratio] 1.7 {ratio} [facility] Serum or plasma anion gap de terminationOrdered By: Annie Sal on 10-07-2023 Anion gap [Moles/Vol] 11.3 mmol/L 6.0-15.0 [facility] Sodium [Moles/volume] in Ser um or PlasmaOrdered By: Annie Sal on 10-07-2023 Sodium [Moles/Vol] 140 mmol/L 136-145 [facility] Urea nitrogen [Mass/volume] in Serum or PlasmaOrdered By: Annie Sal on 10-07-2023 Urea nitrogen [Mass/Vol] 13 mg/dL 7-25 [facility] WBC Auto (Bld) [#/Vol]Ordere d By: Annie Sal on 10-07-2023 WBC (Bld) [#/Vol] 11.7 10*3/uL 3.8-11.6 [facility] CNPTrinh 09-17-2023 NIKKY Telephone (HEMASA) DAYLIN BURTON ([id number]) 1945 F Date Time Provider Department 09/17/23 MAKI AGUIRRE During your visit today, we recorded the following information about you: Maki Aguirre RN 09/17/2023 1:47 PM Signed Call received from pt stating she would like to cancel all of her upcoming appointments. Pt states she'd just like to ride it out from here and not do any more treatments. PSS: please cancel appointments KRISTEN Morris Pss, Nora 09/17/2023 1:54 PM Signed Patients appointments have been cancelled. Nora Ray Pss Allergies As of Date: 09/17/2023 Noted Allergy Reaction POLLEN EXTRACTS 09/12/2019 16 - Unknown Date Reviewed: 04/15/2023 Reviewed by: Mckenna Waldrop MD - Fully Assessed Reason for Visit: Care Coordination [9606] Cmt: Clinical update Prescriptions as of 09/29/2023 - simvastatin (ZOCOR) 10 mg tablet Take 10 mg by mouth daily at bedtime. - aspirin, enteric coated (ASPIRIN, ENTERIC COATED) 81 mg EC tablet Take by mouth at bedtime as needed. - budesonide-formoterol (SYMBICORT) 160-4.5 mcg/actuation inhaler Budesonide-Formoterol Active 2 PUFF INHALATION Twice daily June 22, 2018 8:40am - predniSONE (DELTASONE) 5 mg tablet - BREZTRI AEROSPHERE 160-9-4.8 mcg/actuation HFA aerosol inhaler - albuterol (PROVENTIL) 2.5 mg /3 mL (0.083 %) nebulizer solution 2.5 mg. - fexofenadine ER (MARCIE) 180 mg tablet 180 mg. - amLODIPine (NORVASC) 5 mg tablet Take 5 mg by mouth once daily. - clopidogrel (PLAVIX) 75 mg tablet Take 75 mg by mouth once daily. 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 Bronchiectasis without complication (HCC) [J47.*2022 Chronic hypoxemic respiratory failure (HCC) [J9*2022 Encounter Status:Closed by MAKI AGUIRRE on 09/29/23 Normal [facility] Basophils Auto (Bld) [#/Vol] on 09-06-2023 Basophils (Bld) [#/Vol] 0.1 10 3/uL 0.0-0.1 [facility] Basophils/100 WBC Auto (Bld) on 09-06-2023 Basophils/100 WBC (Bld) 0.3 % 0.2-2.0 F [facility] Eosinophils/100 WBC Auto (Bl d)on 09-06-2023 Eosinophils/100 WBC (Bld) 0.0 % 0.9-7.0 [facility] Erythrocyte distribution wid th Auto (RBC) [Ratio]on 09-06-2023 Erythrocyte distribution width (RBC) [Ratio] 13.5 % 11.0-15.0 [facility] Estimated glomerular filtrat ion rate (GFR) non- Americanon 09-06-2023 GFR/1.73 sq M.predicted among non-blacks MDRD (S/P/Bld) [Vol rate/Area] mL/min/{1.73_m2} >=60 [facility] Globulin Calc (S) [Mass/Vol] on 09-06-2023 Globulin (S) [Mass/Vol] 4.0 g/dL F [facility] Hematocrit Auto (Bld) [Volum e fraction]on 09-06-2023 Hematocrit (Bld) [Volume fraction] 32.8 % 36.0-48.0 [facility] Hemoglobin [Mass/volume] in Bloodon 09-06-2023 Hemoglobin (Bld) [Mass/Vol] 10.0 g/dL 12.0-16.0 [facility] Laboratory - Chemistry and C hemistry - challengeon 09-06-2023 Albumin [Mass/Vol] 2.0 g/dL 3.4-5.0 [facility] ALP [Catalytic activity/Vol] 89 U/L 46-116 [facility] ALT [Catalytic activity/Vol] 28 U/L 14-59 [facility] AST [Catalytic activity/Vol] 13 U/L 15-37 [facility] Bilirubin [Mass/Vol] 0.2 mg/dL 0.2-1.0 [facility] Calcium [Mass/Vol] 8.7 mg/dL 8.5-10.1 [facility] Chloride [Moles/Vol] 106 mmol/L 98-107 [facility] CO2 [Moles/Vol] 33.5 mmol/L 21.0-32.0 [facility] Creatinine [Mass/Vol] 0.49 mg/dL 0.55-1.02 [facility] GFR/1.73 sq M.predicted MDRD (S/P/Bld) [Vol rate/Area] mL/min/{1.73_m2} >=60 [facility] Glucose [Mass/Vol] 197 mg/dL 74-106 [facility] Potassium [Moles/Vol] 3.2 mmol/L 3.5-5.1 [facility] Protein [Mass/Vol] 6.0 g/dL 6.4-8.2 [facility] Sodium [Moles/Vol] 146 mmol/L 136-145 [facility] Urea nitrogen [Mass/Vol] 26.0 mg/dL 7.0-18.0 [facility] Urea nitrogen/Creatinine [Mass ratio] 53.1 mg/mg [facility] - Hematology and Cell countson 09-06-2023 Immature granulocytes/100 WBC (Bld) 1.2 % 0.0-0.5 [facility] Leukocytes [#/volume] correc adriel for nucleated erythrocytes in Blood by Automated counon 09-06-2023 WBC corrected for nucl RBC Auto (Bld) [#/Vol] 14.6 10 3/uL 4.0-11.0 [facility] Lymphocytes Auto (Bld) [#/Vo l]on 09-06-2023 Lymphocytes (Bld) [#/Vol] 0.8 10 3/uL 1.2-3.8 [facility] Lymphocytes/100 WBC Auto (Bl d)on 09-06-2023 Lymphocytes/100 WBC (Bld) 5.2 % 20.5-60.0 [facility] MCH Auto (RBC) [Entitic mass ]on 09-06-2023 MCH (RBC) [Entitic mass] 27.6 pg 26.7-34.0 [facility] MCHC Auto (RBC) [Mass/Vol]on 09-06-2023 MCHC (RBC) [Mass/Vol] 30.5 g/dL 29.9-35.2 [facility] MCV Auto (RBC) [Entitic vol] on 09-06-2023 MCV (RBC) [Entitic vol] 90.6 fL 81.0-99.0 [facility] Monocytes Auto (Bld) [#/Vol] on 09-06-2023 Monocytes (Bld) [#/Vol] 0.6 10 3/uL 0.3-0.8 [facility] Monocytes/100 WBC Auto (Bld) on 09-06-2023 Monocytes/100 WBC (Bld) 4.1 % 1.7-12.0 [facility] Neutrophils Auto (Bld) [#/Vo l]on 09-06-2023 Neutrophils (Bld) [#/Vol] 13.1 10 3/uL 1.4-6.5 [facility] Neutrophils/100 WBC Auto (Bl d)on 09-06-2023 Neutrophils/100 WBC (Bld) 89.2 % 43.0-75.0 [facility] No Panel Informationon 09-06 Eosinophils # (Auto) 0.0 10 3/uL 0.0-0.7 [facility] Immature Granulocyte # (Auto) 0.18 10 3/uL 0.00-0.03 [facility] Platelet mean volume Auto (B ld) [Entitic vol]on 09-06-2023 Platelet mean volume (Bld) [Entitic vol] 10.2 fL 9.5-13.5 [facility] Platelets Auto (Bld) [#/Vol] on 09-06-2023 Platelets (Bld) [#/Vol] 314 10 3/uL 150-450 [facility] RBC Auto (Bld) [#/Vol]on RBC (Bld) [#/Vol] 3.62 10 6/uL 4.20-5.40 [facility] Serum or plasma albumin/glob ulin mass ratioon 09-06-2023 Albumin/Globulin [Mass ratio] 0.5 {ratio} [facility] Serum or plasma anion gap de terminationon 09-06-2023 Anion gap [Moles/Vol] 9.7 mmol/L [facility] Basophils Auto (Bld) [#/Vol] on 09-05-2023 Basophils (Bld) [#/Vol] 0.0 10 3/uL 0.0-0.1 [facility] Basophils/100 WBC Auto (Bld) on 09-05-2023 Basophils/100 WBC (Bld) 0.2 % 0.2-2.0 [facility] Eosinophils/100 WBC Auto (Bl d)on 09-05-2023 Eosinophils/100 WBC (Bld) 0.0 % 0.9-7.0 [facility] Erythrocyte distribution wid th Auto (RBC) [Ratio]on 09-05-2023 Erythrocyte distribution width (RBC) [Ratio] 13.6 % 11.0-15.0 [facility] Estimated glomerular filtrat ion rate (GFR) non- Americanon 09-05-2023 GFR/1.73 sq M.predicted among non-blacks MDRD (S/P/Bld) [Vol rate/Area] mL/min/{1.73_m2} >=60 [facility] Globulin Calc (S) [Mass/Vol] on 09-05-2023 Globulin (S) [Mass/Vol] 4.1 g/dL F [facility] Hematocrit Auto (Bld) [Volum e fraction]on 09-05-2023 Hematocrit (Bld) [Volume fraction] 32.0 % 36.0-48.0 [facility] Hemoglobin [Mass/volume] in Bloodon 09-05-2023 Hemoglobin (Bld) [Mass/Vol] 9.7 g/dL 12.0-16.0 [facility] - Chemistry and C hemistry - challengeon 09-05-2023 Albumin [Mass/Vol] 2.1 g/dL 3.4-5.0 [facility] ALP [Catalytic activity/Vol] 94 U/L 46-116 [facility] ALT [Catalytic activity/Vol] 28 U/L 14-59 [facility] AST [Catalytic activity/Vol] 15 U/L 15-37 [facility] Bilirubin [Mass/Vol] 0.2 mg/dL 0.2-1.0 [facility] Calcium [Mass/Vol] 8.6 mg/dL 8.5-10.1 [facility] Chloride [Moles/Vol] 108 mmol/L 98-107 [facility] CO2 [Moles/Vol] 29.6 mmol/L 21.0-32.0 [facility] Creatinine [Mass/Vol] 0.51 mg/dL 0.55-1.02 [facility] GFR/1.73 sq M.predicted MDRD (S/P/Bld) [Vol rate/Area] mL/min/{1.73_m2} >=60 [facility] Glucose [Mass/Vol] 187 mg/dL 74-106 [facility] Potassium [Moles/Vol] 3.4 mmol/L 3.5-5.1 [facility] Protein [Mass/Vol] 6.2 g/dL 6.4-8.2 [facility] Sodium [Moles/Vol] 145 mmol/L 136-145 [facility] Urea nitrogen [Mass/Vol] 29.0 mg/dL 7.0-18.0 [facility] Urea nitrogen/Creatinine [Mass ratio] 56.9 mg/mg [facility] - Hematology and Cell countson 09-05-2023 Immature granulocytes/100 WBC (Bld) 0.6 % 0.0-0.5 [facility] Leukocytes [#/volume] correc adriel for nucleated erythrocytes in Blood by Automated counon 09-05-2023 WBC corrected for nucl RBC Auto (Bld) [#/Vol] 13.5 10 3/uL 4.0-11.0 [facility] Lymphocytes Auto (Bld) [#/Vo l]on 09-05-2023 Lymphocytes (Bld) [#/Vol] 0.7 10 3/uL 1.2-3.8 [facility] Lymphocytes/100 WBC Auto (Bl d)on 09-05-2023 Lymphocytes/100 WBC (Bld) 4.8 % 20.5-60.0 [facility] MCH Auto (RBC) [Entitic mass ]on 09-05-2023 MCH (RBC) [Entitic mass] 28.2 pg 26.7-34.0 [facility] MCHC Auto (RBC) [Mass/Vol]on 09-05-2023 MCHC (RBC) [Mass/Vol] 30.3 g/dL 29.9-35.2 [facility] MCV Auto (RBC) [Entitic vol] on 09-05-2023 MCV (RBC) [Entitic vol] 93.0 fL 81.0-99.0 [facility] Monocytes Auto (Bld) [#/Vol] on 09-05-2023 Monocytes (Bld) [#/Vol] 0.8 10 3/uL 0.3-0.8 [facility] Monocytes/100 WBC Auto (Bld) on 09-05-2023 Monocytes/100 WBC (Bld) 6.2 % 1.7-12.0 [facility] [facility] Neutrophils Auto (Bld) [#/Vo l]on 09-05-2023 Neutrophils (Bld) [#/Vol] 11.9 10 3/uL 1.4-6.5 [facility] Neutrophils/100 WBC Auto (Bl d)on 09-05-2023 Neutrophils/100 WBC (Bld) 88.2 % 43.0-75.0 [facility] No Panel Informationon 09-05 Eosinophils # (Auto) 0.0 10 3/uL 0.0-0.7 [facility] Immature Granulocyte # (Auto) 0.08 10 3/uL 0.00-0.03 [facility] Platelet mean volume Auto (B ld) [Entitic vol]on 09-05-2023 Platelet mean volume (Bld) [Entitic vol] 9.9 fL 9.5-13.5 [facility] Platelets Auto (Bld) [#/Vol] on 09-05-2023 Platelets (Bld) [#/Vol] 323 10 3/uL 150-450 [facility] RBC Auto (Bld) [#/Vol]on RBC (Bld) [#/Vol] 3.44 10 6/uL 4.20-5.40 [facility] Serum or plasma albumin/glob ulin mass ratioon 09-05-2023 Albumin/Globulin [Mass ratio] 0.5 {ratio} [facility] Serum or plasma anion gap de terminationon 09-05-2023 Anion gap [Moles/Vol] 10.8 mmol/L [facility] Basophils Auto (Bld) [#/Vol] on 09-04-2023 Basophils (Bld) [#/Vol] 0.0 10 3/uL 0.0-0.1 [facility] Basophils/100 WBC Auto (Bld) on 09-04-2023 Basophils/100 WBC (Bld) 0.2 % 0.2-2.0 F [facility] Eosinophils/100 WBC Auto (Bl d)on 09-04-2023 Eosinophils/100 WBC (Bld) 0.0 % 0.9-7.0 [facility] Erythrocyte distribution wid th Auto (RBC) [Ratio]on 09-04-2023 Erythrocyte distribution width (RBC) [Ratio] 13.6 % 11.0-15.0 [facility] Estimated glomerular filtrat ion rate (GFR) non- Americanon 09-04-2023 GFR/1.73 sq M.predicted among non-blacks MDRD (S/P/Bld) [Vol rate/Area] mL/min/{1.73_m2} >=60 [facility] Globulin Calc (S) [Mass/Vol] on 09-04-2023 Globulin (S) [Mass/Vol] 4.7 g/dL F [facility] Hematocrit Auto (Bld) [Volum e fraction]on 09-04-2023 Hematocrit (Bld) [Volume fraction] 35.0 % 36.0-48.0 [facility] Hemoglobin [Mass/volume] in Bloodon 09-04-2023 Hemoglobin (Bld) [Mass/Vol] 10.4 g/dL 12.0-16.0 [facility] Laboratory - Chemistry and C hemistry - challengeon 09-04-2023 Albumin [Mass/Vol] 2.5 g/dL 3.4-5.0 [facility] ALP [Catalytic activity/Vol] 111 U/L 46-116 [facility] ALT [Catalytic activity/Vol] 32 U/L 14-59 [facility] AST [Catalytic activity/Vol] 14 U/L 15-37 [facility] Bilirubin [Mass/Vol] 0.2 mg/dL 0.2-1.0 [facility] Calcium [Mass/Vol] 9.3 mg/dL 8.5-10.1 [facility] Chloride [Moles/Vol] 110 mmol/L 98-107 [facility] CO2 [Moles/Vol] 29.2 mmol/L 21.0-32.0 [facility] Creatinine [Mass/Vol] 0.59 mg/dL 0.55-1.02 [facility] GFR/1.73 sq M.predicted MDRD (S/P/Bld) [Vol rate/Area] mL/min/{1.73_m2} >=60 [facility] Glucose [Mass/Vol] 179 mg/dL 74-106 [facility] Natriuretic peptide B (Bld) [Mass/Vol] 2230.0 pg/mL <=1800.0 [facility] Comment on above: RESULTS CALLED TO RACHNA KHANNA RN @BY Monica Bowens at 0646 Potassium [Moles/Vol] 3.6 mmol/L 3.5-5.1 [facility] Protein [Mass/Vol] 7.2 g/dL 6.4-8.2 [facility] Sodium [Moles/Vol] 148 mmol/L 136-145 [facility] Urea nitrogen [Mass/Vol] 28.0 mg/dL 7.0-18.0 [facility] Urea nitrogen/Creatinine [Mass ratio] 47.5 mg/mg [facility] Laboratory - Hematology and Cell countson 09-04-2023 Immature granulocytes/100 WBC (Bld) 0.5 % 0.0-0.5 [facility] Leukocytes [#/volume] correc adriel for nucleated erythrocytes in Blood by Automated counon 09-04-2023 WBC corrected for nucl RBC Auto (Bld) [#/Vol] 15.3 10 3/uL 4.0-11.0 [facility] Lymphocytes Auto (Bld) [#/Vo l]on 09-04-2023 Lymphocytes (Bld) [#/Vol] 0.7 10 3/uL 1.2-3.8 [facility] Lymphocytes/100 WBC Auto (Bl d)on 09-04-2023 Lymphocytes/100 WBC (Bld) 4.5 % 20.5-60.0 [facility] MCH Auto (RBC) [Entitic mass ]on 09-04-2023 MCH (RBC) [Entitic mass] 27.8 pg 26.7-34.0 [facility] MCHC Auto (RBC) [Mass/Vol]on 09-04-2023 MCHC (RBC) [Mass/Vol] 29.7 g/dL 29.9-35.2 [facility] MCV Auto (RBC) [Entitic vol] on 09-04-2023 MCV (RBC) [Entitic vol] 93.6 fL 81.0-99.0 F [facility] Monocytes Auto (Bld) [#/Vol] on 09-04-2023 Monocytes (Bld) [#/Vol] 0.7 10 3/uL 0.3-0.8 [facility] Monocytes/100 WBC Auto (Bld) on 09-04-2023 Monocytes/100 WBC (Bld) 4.3 % 1.7-12.0 F [facility] Neutrophils Auto (Bld) [#/Vo l]on 09-04-2023 Neutrophils (Bld) [#/Vol] 13.8 10 3/uL 1.4-6.5 [facility] Neutrophils/100 WBC Auto (Bl d)on 09-04-2023 Neutrophils/100 WBC (Bld) 90.5 % 43.0-75.0 [facility] No Panel Informationon 09-04 Eosinophils # (Auto) 0.0 10 3/uL 0.0-0.7 [facility] Immature Granulocyte # (Auto) 0.08 10 3/uL 0.00-0.03 [facility] Platelet mean volume Auto (B ld) [Entitic vol]on 09-04-2023 Platelet mean volume (Bld) [Entitic vol] 9.9 fL 9.5-13.5 [facility] Platelets Auto (Bld) [#/Vol] on 09-04-2023 Platelets (Bld) [#/Vol] 349 10 3/uL 150-450 [facility] RBC Auto (Bld) [#/Vol]on RBC (Bld) [#/Vol] 3.74 10 6/uL 4.20-5.40 [facility] Serum or plasma albumin/glob ulin mass ratioon 09-04-2023 Albumin/Globulin [Mass ratio] 0.5 {ratio} [facility] Serum or plasma anion gap de terminationon 09-04-2023 Anion gap [Moles/Vol] 12.4 mmol/L [facility] Basophils Auto (Bld) [#/Vol] on 09-03-2023 Basophils (Bld) [#/Vol] 0.0 10 3/uL 0.0-0.1 [facility] Basophils/100 WBC Auto (Bld) on 09-03-2023 Basophils/100 WBC (Bld) 0.2 % 0.2-2.0 F [facility] Eosinophils/100 WBC Auto (Bl d)on 09-03-2023 Eosinophils/100 WBC (Bld) 0.0 % 0.9-7.0 [facility] Erythrocyte distribution wid th Auto (RBC) [Ratio]on 09-03-2023 Erythrocyte distribution width (RBC) [Ratio] 13.6 % 11.0-15.0 [facility] Estimated glomerular filtrat ion rate (GFR) non- Americanon 09-03-2023 GFR/1.73 sq M.predicted among non-blacks MDRD (S/P/Bld) [Vol rate/Area] mL/min/{1.73_m2} >=60 [facility] Globulin Calc (S) [Mass/Vol] on 09-03-2023 Globulin (S) [Mass/Vol] 4.4 g/dL F [facility] Hematocrit Auto (Bld) [Volum e fraction]on 09-03-2023 Hematocrit (Bld) [Volume fraction] 31.7 % 36.0-48.0 [facility] Hemoglobin [Mass/volume] in Bloodon 09-03-2023 Hemoglobin (Bld) [Mass/Vol] 9.6 g/dL 12.0-16.0 [facility] Laboratory - Chemistry and C hemistry - challengeon 09-03-2023 Albumin [Mass/Vol] 2.2 g/dL 3.4-5.0 [facility] ALP [Catalytic activity/Vol] 99 U/L 46-116 [facility] ALT [Catalytic activity/Vol] 27 U/L 14-59 [facility] AST [Catalytic activity/Vol] 18 U/L 15-37 [facility] Bilirubin [Mass/Vol] 0.2 mg/dL 0.2-1.0 [facility] Calcium [Mass/Vol] 8.9 mg/dL 8.5-10.1 [facility] Chloride [Moles/Vol] 112 mmol/L 98-107 [facility] CO2 [Moles/Vol] 29.7 mmol/L 21.0-32.0 [facility] Creatinine [Mass/Vol] 0.54 mg/dL 0.55-1.02 [facility] GFR/1.73 sq M.predicted MDRD (S/P/Bld) [Vol rate/Area] mL/min/{1.73_m2} >=60 [facility] Glucose [Mass/Vol] 184 mg/dL 74-106 [facility] Natriuretic peptide B (Bld) [Mass/Vol] 1838.0 pg/mL <=1800.0 [facility] Comment on above: RESULTS CALLED TO REBEKAH GLASER RN @BY Monica Bowens at 0640 Potassium [Moles/Vol] 4.0 mmol/L 3.5-5.1 [facility] Protein [Mass/Vol] 6.6 g/dL 6.4-8.2 [facility] Sodium [Moles/Vol] 149 mmol/L 136-145 [facility] Urea nitrogen [Mass/Vol] 21.0 mg/dL 7.0-18.0 [facility] Urea nitrogen/Creatinine [Mass ratio] 38.9 mg/mg [facility] Laboratory - Hematology and Cell countson 09-03-2023 Immature granulocytes/100 WBC (Bld) 1.1 % 0.0-0.5 [facility] - Microbiology an d Antimicrobial susceptibilityOrdered By: Annie Sal on 09-03-2023 Microscopic observation Gram stain Nom (Unsp spec) [facility] Leukocytes [#/volume] correc adriel for nucleated erythrocytes in Blood by Automated counon 09-03-2023 WBC corrected for nucl RBC Auto (Bld) [#/Vol] 17.8 10 3/uL 4.0-11.0 [facility] Lymphocytes Auto (Bld) [#/Vo l]on 09-03-2023 Lymphocytes (Bld) [#/Vol] 0.4 10 3/uL 1.2-3.8 [facility] Lymphocytes/100 WBC Auto (Bl d)on 09-03-2023 Lymphocytes/100 WBC (Bld) 2.0 % 20.5-60.0 [facility] MCH Auto (RBC) [Entitic mass ]on 09-03-2023 MCH (RBC) [Entitic mass] 27.8 pg 26.7-34.0 [facility] MCHC Auto (RBC) [Mass/Vol]on 09-03-2023 MCHC (RBC) [Mass/Vol] 30.3 g/dL 29.9-35.2 [facility] MCV Auto (RBC) [Entitic vol] on 09-03-2023 MCV (RBC) [Entitic vol] 91.9 fL 81.0-99.0 F [facility] Monocytes Auto (Bld) [#/Vol] on 09-03-2023 Monocytes (Bld) [#/Vol] 1.2 10 3/uL 0.3-0.8 [facility] Monocytes/100 WBC Auto (Bld) on 09-03-2023 Monocytes/100 WBC (Bld) 6.6 % 1.7-12.0 F [facility] Neutrophils Auto (Bld) [#/Vo l]on 09-03-2023 Neutrophils (Bld) [#/Vol] 16.1 10 3/uL 1.4-6.5 [facility] Neutrophils/100 WBC Auto (Bl d)on 09-03-2023 Neutrophils/100 WBC (Bld) 90.1 % 43.0-75.0 [facility] No Panel Informationon 09-03 Eosinophils # (Auto) 0.0 10 3/uL 0.0-0.7 [facility] Immature Granulocyte # (Auto) 0.19 10 3/uL 0.00-0.03 [facility] Platelet mean volume Auto (B ld) [Entitic vol]on 09-03-2023 Platelet mean volume (Bld) [Entitic vol] 9.6 fL 9.5-13.5 [facility] Platelets Auto (Bld) [#/Vol] on 09-03-2023 Platelets (Bld) [#/Vol] 327 10 3/uL 150-450 [facility] RBC Auto (Bld) [#/Vol]on RBC (Bld) [#/Vol] 3.45 10 6/uL 4.20-5.40 [facility] Serum or plasma albumin/glob ulin mass ratioon 09-03-2023 Albumin/Globulin [Mass ratio] 0.5 {ratio} [facility] Serum or plasma anion gap de terminationon 09-03-2023 Anion gap [Moles/Vol] 11.3 mmol/L Fi [facility] Basophils Auto (Bld) [#/Vol] on 09-02-2023 Basophils (Bld) [#/Vol] 0.0 10 3/uL 0.0-0.1 [facility] Basophils/100 WBC Auto (Bld) on 09-02-2023 Basophils/100 WBC (Bld) 0.2 % 0.2-2.0 [facility] Eosinophils/100 WBC Auto (Bl d)on 09-02-2023 Eosinophils/100 WBC (Bld) 0.0 % 0.9-7.0 [facility] Erythrocyte distribution wid th Auto (RBC) [Ratio]on 09-02-2023 Erythrocyte distribution width (RBC) [Ratio] 13.4 % 11.0-15.0 [facility] Estimated glomerular filtrat ion rate (GFR) non- Americanon 09-02-2023 GFR/1.73 sq M.predicted among non-blacks MDRD (S/P/Bld) [Vol rate/Area] mL/min/{1.73_m2} >=60 [facility] Globulin Calc (S) [Mass/Vol] on 09-02-2023 Globulin (S) [Mass/Vol] 4.5 g/dL F [facility] Hematocrit Auto (Bld) [Volum e fraction]on 09-02-2023 Hematocrit (Bld) [Volume fraction] 32.0 % 36.0-48.0 [facility] Hemoglobin [Mass/volume] in Bloodon 09-02-2023 Hemoglobin (Bld) [Mass/Vol] 9.7 g/dL 12.0-16.0 [facility] Laboratory - Chemistry and C hemistry - challengeon 09-02-2023 Albumin [Mass/Vol] 2.4 g/dL 3.4-5.0 [facility] ALP [Catalytic activity/Vol] 100 U/L 46-116 [facility] ALT [Catalytic activity/Vol] 25 U/L 14-59 [facility] AST [Catalytic activity/Vol] 17 U/L 15-37 [facility] Bilirubin [Mass/Vol] 0.3 mg/dL 0.2-1.0 [facility] Calcium [Mass/Vol] 8.9 mg/dL 8.5-10.1 [facility] Chloride [Moles/Vol] 105 mmol/L 98-107 [facility] CO2 [Moles/Vol] 27.0 mmol/L 21.0-32.0 [facility] Creatinine [Mass/Vol] 0.63 mg/dL 0.55-1.02 [facility] GFR/1.73 sq M.predicted MDRD (S/P/Bld) [Vol rate/Area] mL/min/{1.73_m2} >=60 [facility] Glucose [Mass/Vol] 220 mg/dL 74-106 [facility] Natriuretic peptide B (Bld) [Mass/Vol] 994.0 pg/mL <=1800.0 [facility] Potassium [Moles/Vol] 3.1 mmol/L 3.5-5.1 [facility] Protein [Mass/Vol] 6.9 g/dL 6.4-8.2 [facility] Sodium [Moles/Vol] 143 mmol/L 136-145 [facility] Urea nitrogen [Mass/Vol] 17.0 mg/dL 7.0-18.0 [facility] Urea nitrogen/Creatinine [Mass ratio] 27.0 mg/mg [facility] Laboratory - Hematology and Cell countson 09-02-2023 Immature granulocytes/100 WBC (Bld) 0.5 % 0.0-0.5 [facility] Leukocytes [#/volume] correc adriel for nucleated erythrocytes in Blood by Automated counon 09-02-2023 WBC corrected for nucl RBC Auto (Bld) [#/Vol] 15.1 10 3/uL 4.0-11.0 [facility] Lymphocytes Auto (Bld) [#/Vo l]on 09-02-2023 Lymphocytes (Bld) [#/Vol] 0.3 10 3/uL 1.2-3.8 [facility] Lymphocytes/100 WBC Auto (Bl d)on 09-02-2023 Lymphocytes/100 WBC (Bld) 1.7 % 20.5-60.0 [facility] MCH Auto (RBC) [Entitic mass ]on 09-02-2023 MCH (RBC) [Entitic mass] 27.6 pg 26.7-34.0 [facility] MCHC Auto (RBC) [Mass/Vol]on 09-02-2023 MCHC (RBC) [Mass/Vol] 30.3 g/dL 29.9-35.2 [facility] MCV Auto (RBC) [Entitic vol] on 09-02-2023 MCV (RBC) [Entitic vol] 91.2 fL 81.0-99.0 F [facility] Monocytes Auto (Bld) [#/Vol] on 09-02-2023 Monocytes (Bld) [#/Vol] 0.4 10 3/uL 0.3-0.8 [facility] Monocytes/100 WBC Auto (Bld) on 09-02-2023 Monocytes/100 WBC (Bld) 2.5 % 1.7-12.0 F [facility] Neutrophils Auto (Bld) [#/Vo l]on 09-02-2023 Neutrophils (Bld) [#/Vol] 14.4 10 3/uL 1.4-6.5 [facility] Neutrophils/100 WBC Auto (Bl d)on 09-02-2023 Neutrophils/100 WBC (Bld) 95.1 % 43.0-75.0 [facility] No Panel Informationon 09-02 Eosinophils # (Auto) 0.0 10 3/uL 0.0-0.7 [facility] Immature Granulocyte # (Auto) 0.07 10 3/uL 0.00-0.03 [facility] Platelet mean volume Auto (B ld) [Entitic vol]on 09-02-2023 Platelet mean volume (Bld) [Entitic vol] 9.8 fL 9.5-13.5 [facility] Platelets Auto (Bld) [#/Vol] on 09-02-2023 Platelets (Bld) [#/Vol] 297 10 3/uL 150-450 [facility] RBC Auto (Bld) [#/Vol]on RBC (Bld) [#/Vol] 3.51 10 6/uL 4.20-5.40 [facility] Reticulocytes/100 RBC Auto ( Bld)on 09-02-2023 Reticulocytes/100 RBC (Bld) 1.63 % 0.60-3.10 [facility] Serum or plasma albumin/glob ulin mass ratioon 09-02-2023 Albumin/Globulin [Mass ratio] 0.5 {ratio} [facility] Serum or plasma anion gap de terminationon 09-02-2023 Anion gap [Moles/Vol] 14.1 mmol/L Fi [facility] Automated epithelial cells c ount in urine sediment (number/area)on 09-01-2023 Epithelial cells Auto (Urine sed) [#/Area] NONE SEEN #/LPF NONE/RARE [facility] Automated leukocytes count i n urine sediment (number/area)on 09-01-2023 WBC Auto (Urine sed) [#/Area] 0-2 #/HPF 0-2 [facility] Automated urine specific gra vity by refractometryon 09-01-2023 Specific gravity Refractometry automated (U) [Rel density] 1.015 1.005-1.025 [facility] Basophils Auto (Bld) [#/Vol] on 09-01-2023 Basophils (Bld) [#/Vol] 0.1 10 3/uL 0.0-0.1 [facility] Basophils/100 WBC Auto (Bld) on 09-01-2023 Basophils/100 WBC (Bld) 0.3 % 0.2-2.0 F [facility] Bilirubin Auto test strip (U ) [Mass/Vol]on 09-01-2023 Bilirubin (U) [Mass/Vol] Negative NEGATIVE [facility] Casts typing in urine sedime nt by light microscopyon 09-01-2023 Casts LM Nom (Urine sed) NONE SEEN #/LPF NONE SEEN [facility] Color Auto (U)on 09-01-2023 Color (U) YELLOW YELLOW [facility] Eosinophils/100 WBC Auto (Bl d)on 09-01-2023 Eosinophils/100 WBC (Bld) 0.2 % 0.9-7.0 [facility] Erythrocyte distribution wid th Auto (RBC) [Ratio]on 09-01-2023 Erythrocyte distribution width (RBC) [Ratio] 13.6 % 11.0-15.0 [facility] Estimated glomerular filtrat ion rate (GFR) non- Americanon 09-01-2023 GFR/1.73 sq M.predicted among non-blacks MDRD (S/P/Bld) [Vol rate/Area] mL/min/{1.73_m2} >=60 [facility] Globulin Calc (S) [Mass/Vol] on 09-01-2023 Globulin (S) [Mass/Vol] 4.6 g/dL F [facility] Hematocrit Auto (Bld) [Volum e fraction]on 09-01-2023 Hematocrit (Bld) [Volume fraction] 34.3 % 36.0-48.0 [facility] Hemoglobin [Mass/volume] in Bloodon 09-01-2023 Hemoglobin (Bld) [Mass/Vol] 10.8 g/dL 12.0-16.0 [facility] Iron binding capacity [Mass/ volume] in Serum or Plasmaon 09-01-2023 Iron binding capacity [Mass/Vol] 257.0 ug/dL 250.0-450.0 [facility] Iron saturation [Mass Fracti on] in Serum or Plasmaon 09-01-2023 Iron saturation [Mass fraction] 2.7 % [facility] Ketones Auto test strip (U) [Mass/Vol]on 09-01-2023 Ketones (U) [Mass/Vol] 15 mg/dL NEGATIVE Fi [facility] Laboratory - Chemistry and C hemistry - challengeon 09-01-2023 Albumin [Mass/Vol] 2.7 g/dL 3.4-5.0 [facility] ALP [Catalytic activity/Vol] 106 U/L 46-116 [facility] ALT [Catalytic activity/Vol] 24 U/L 14-59 [facility] AST [Catalytic activity/Vol] 20 U/L 15-37 [facility] Bilirubin [Mass/Vol] 0.6 mg/dL 0.2-1.0 [facility] Calcium [Mass/Vol] 8.8 mg/dL 8.5-10.1 [facility] Chloride [Moles/Vol] 101 mmol/L 98-107 [facility] CO2 [Moles/Vol] 29.1 mmol/L 21.0-32.0 [facility] Creatinine [Mass/Vol] 0.59 mg/dL 0.55-1.02 [facility] Ferritin [Mass/Vol] 191.0 ng/mL 8.0-252.0 [facility] GFR/1.73 sq M.predicted MDRD (S/P/Bld) [Vol rate/Area] mL/min/{1.73_m2} >=60 [facility] Glucose [Mass/Vol] 161 mg/dL 74-106 [facility] Iron [Mass/Vol] 7.0 ug/dL 50.0-170.0 [facility] Lactate [Moles/Vol] 1.1 mmol/L 0.4-2.0 [facility] Potassium [Moles/Vol] 3.8 mmol/L 3.5-5.1 [facility] Protein [Mass/Vol] 7.3 g/dL 6.4-8.2 [facility] Sodium [Moles/Vol] 138 mmol/L 136-145 [facility] Urea nitrogen [Mass/Vol] 15.0 mg/dL 7.0-18.0 [facility] Urea nitrogen/Creatinine [Mass ratio] 25.4 mg/mg [facility] Laboratory - Hematology and Cell countson 09-01-2023 Immature granulocytes/100 WBC (Bld) 0.7 % 0.0-0.5 [facility] - Microbiology an d Antimicrobial susceptibilityon 09-01-2023 SARS-CoV-2 (COVID-19) RNA ALE+probe Ql (Unsp spec) Not detected NOT DETECTE [facility] Leukocytes [#/volume] correc adriel for nucleated erythrocytes in Blood by Automated counon 09-01-2023 WBC corrected for nucl RBC Auto (Bld) [#/Vol] 20.6 10 3/uL 4.0-11.0 [facility] Lymphocytes Auto (Bld) [#/Vo l]on 09-01-2023 Lymphocytes (Bld) [#/Vol] 1.2 10 3/uL 1.2-3.8 [facility] Lymphocytes/100 WBC Auto (Bl d)on 09-01-2023 Lymphocytes/100 WBC (Bld) 6.0 % 20.5-60.0 [facility] MCH Auto (RBC) [Entitic mass ]on 09-01-2023 MCH (RBC) [Entitic mass] 28.2 pg 26.7-34.0 [facility] MCHC Auto (RBC) [Mass/Vol]on 09-01-2023 MCHC (RBC) [Mass/Vol] 31.5 g/dL 29.9-35.2 [facility] MCV Auto (RBC) [Entitic vol] on 09-01-2023 MCV (RBC) [Entitic vol] 89.6 fL 81.0-99.0 F [facility] Monocytes Auto (Bld) [#/Vol] on 09-01-2023 Monocytes (Bld) [#/Vol] 1.4 10 3/uL 0.3-0.8 [facility] Monocytes/100 WBC Auto (Bld) on 09-01-2023 Monocytes/100 WBC (Bld) 6.6 % 1.7-12.0 F [facility] Mucus LM Ql (Urine sed)on Mucus Ql (Urine sed) NONE SEEN NONE SEEN [facility] Neutrophils Auto (Bld) [#/Vo l]on 09-01-2023 Neutrophils (Bld) [#/Vol] 17.8 10 3/uL 1.4-6.5 [facility] Neutrophils/100 WBC Auto (Bl d)on 09-01-2023 Neutrophils/100 WBC (Bld) 86.2 % 43.0-75.0 [facility] No Panel Informationon 09-01 Urine Microscopic Review YES [facility] Adenovirus (PCR) Not detected NOT DETECTE [facility] Bordetella parapertussis DNA (PCR) Not detected NOT DETECTE [facility] Bordetella pertussis (PCR)(Misc) Not detected NOT DETECTE [facility] Chlamydia pneumoniae DNA (PCR) Not detected NOT DETECTE [facility] Coronavirus Type 229E (PCR) Not detected NOT DETECTE [facility] Coronavirus Type HKU1 (PCR) Not detected NOT DETECTE [facility] Coronavirus Type NL63 (PCR) Not detected NOT DETECTE [facility] Coronavirus Type OC43 (PCR) Not detected NOT DETECTE [facility] Enterovirus/Rhinovirus (PCR) Not detected NOT DETECTE [facility] Human Metapneumovirus (PCR) Not detected NOT DETECTE [facility] Influenza A (PCR) Not detected NOT DETECTE [facility] Influenza Type B (RT-PCR) Not detected NOT DETECTE [facility] Mycoplasma pneumoniae (PCR) Not detected NOT DETECTE [facility] Parainfluenza Type 1 (PCR) Not detected NOT DETECTE [facility] Parainfluenza Type 2 (PCR) Not detected NOT DETECTE [facility] Parainfluenza Type 3 (PCR) Not detected NOT DETECTE [facility] Parainfluenza Type 4 (PCR) Not detected NOT DETECTE [facility] Respiratory Syncytial Virus (PCR) Not detected NOT DETECTE [facility] Eosinophils # (Auto) 0.0 10 3/uL 0.0-0.7 [facility] Immature Granulocyte # (Auto) 0.14 10 3/uL 0.00-0.03 [facility] Troponin I High Sensitivity 9.5 pg/mL 4.0-51.3 [facility] Comment on above: CUT-OFF POINTS HAVE BEEN ESTABLISHED BASED ON THE FOURTHUNIVERSAL DEFINITION OF MYOCARDIAL INFARCTION. THE UPPERREFERENCE LIMIT (URL) OF TROPONIN, DEFINED THE 99THPERCENTILE OF cTnI DISTRIBUTION IN A REFERENCE POPULATION,HAS BEEN CONFIRMED THE DECISION THRESHOLD FOR MIDIAGNOSIS.99TH PERCENTILE = 51.4 PG/MLNOTE: HIGH-SENSITIVITY TROPONIN ASSAY IS NOT INTENDED TO BEUSED IN ISOLATION BUT SHOULD BE INTERPRETED IN CONJUNCTIONWITH OTHER DIAGNOSTIC AND CLINICAL INFORMATION. No Panel InformationOrdered By: Annie Sal on 09-01-2023 Blood Culture 2 [facility] Blood Culture 1 [facility] Platelet mean volume Auto (B ld) [Entitic vol]on 09-01-2023 Platelet mean volume (Bld) [Entitic vol] 9.9 fL 9.5-13.5 [facility] Platelets Auto (Bld) [#/Vol] on 09-01-2023 Platelets (Bld) [#/Vol] 317 10 3/uL 150-450 [facility] Protein Auto test strip (U) [Mass/Vol]on 09-01-2023 Protein (U) [Mass/Vol] TRACE mg/dL NEG/TRACE F [facility] RBC Auto (Bld) [#/Vol]on RBC (Bld) [#/Vol] 3.83 10 6/uL 4.20-5.40 [facility] Serum or plasma albumin/glob ulin mass ratioon 09-01-2023 Albumin/Globulin [Mass ratio] 0.6 {ratio} [facility] Serum or plasma anion gap de terminationon 09-01-2023 Anion gap [Moles/Vol] 11.7 mmol/L [facility] Serum procalcitonin measurem enton 09-01-2023 Procalcitonin [Mass/Vol] 0.06 ng/mL 0.00-0.50 [facility] Specific gravity Auto test s trip (U) [Rel density]on 09-01-2023 Specific gravity (U) [Rel density] CLEAR CLEAR [facility] Urine bacteria detection by automated methodon 09-01-2023 Bacteria Auto Ql (U) NONE SEEN #/HPF NONE SEEN [facility] Urine glucose measurement by test strip (mass/volume)on 09-01-2023 Glucose Test strip (U) [Mass/Vol] >=1000 mg/dL NEGATIVE [facility] Urine hemoglobin detection b y automated test stripon 09-01-2023 Hemoglobin Auto test strip Ql (U) TRACE-I NEGATIVE [facility] Urine nitrite detection by a utomated test stripon 09-01-2023 Nitrite Auto test strip Ql (U) Negative NEGATIVE [facility] Urine sediment crystal ident ification by light microscopyon 09-01-2023 Crystals LM Nom (Urine sed) None Seen #/HPF None Seen [facility] Urine sediment leukocyte cou nt by microscopy (number/high power field)on 09-01-2023 WBC LM.HPF (Urine sed) [#/Area] NONE SEEN #/HPF NONE SEEN [facility] Urobilinogen Auto test strip (U) [Mass/Vol]on 09-01-2023 Urobilinogen Qn (U) 0.2 {Aranza'U}/dL 0.2-1.0 [facility] pH Auto test strip (U)on pH (U) 5.5 [pH] 5.0-9.0 [facility] Alanine aminotransferase [En zymatic activity/volume] in Serum or PlasmaOrdered By: Annie Sal on 08-13-2023 ALT [Catalytic activity/Vol] 15 U/L 7-52 [facility] Albumin [Mass/volume] in Ser um or Plasma by Bromocresol green (BCG) dye binding methoOrdered By: Annie Sal on 08-13-2023 Albumin BCG dye [Mass/Vol] 3.9 g/dL 3.5-5.7 [facility] Alkaline phosphatase [Enzyma tic activity/volume] in Serum or PlasmaOrdered By: Annie Sal on 08-13-2023 ALP [Catalytic activity/Vol] 102 U/L 34-104 [facility] Aspartate aminotransferase [ Enzymatic activity/volume] in Serum or PlasmaOrdered By: Annie Sal on 08-13-2023 AST [Catalytic activity/Vol] 13 U/L 13-39 [facility] Basophils Auto (Bld) [#/Vol] Ordered By: Annie Sal on 08-13-2023 Basophils (Bld) [#/Vol] 0.1 10*3/uL 0.0-0.2 [facility] Basophils/100 WBC Auto (Bld) Ordered By: Annie Sal on 08-13-2023 Basophils/100 WBC (Bld) 0.6 % . [facility] Bilirubin.total [Mass/volume ] in Serum or PlasmaOrdered By: Annie Sal on 08-13-2023 Bilirubin [Mass/Vol] 0.4 mg/dL 0.3-1.0 [facility] Calcium [Mass/volume] in Ser um or PlasmaOrdered By: Annie Sal on 08-13-2023 Calcium [Mass/Vol] 9.4 mg/dL 8.6-10.3 [facility] Carbon dioxide, total [Moles /volume] in Serum or PlasmaOrdered By: Annie Sal on 08-13-2023 CO2 [Moles/Vol] 34.3 mmol/L 21.0-31.0 [facility] Chloride [Moles/volume] in S radha or PlasmaOrdered By: Annie Sal on 08-13-2023 Chloride [Moles/Vol] 98 mmol/L 98-107 [facility] Cholesterol [Mass/volume] in Serum or PlasmaOrdered By: Annie Sal on 08-13-2023 Cholesterol [Mass/Vol] 172 mg/dL 140-200 [facility] Comment on above: Chol less than 200 m g/dl low riskChol 201-239 mg/dl borderline riskChol 240 mg/dl and greater high risk Cholesterol in LDL Calc [Mas s/Vol]Ordered By: Annie Sal on 08-13-2023 Cholesterol in LDL [Mass/Vol] 67 mg/dL 0-100 [facility] Comment on above: LDL ATP III CLASSIFI CATIONLDL less than 100 mg/dL OptimalLDL 100-129 mg/dL Near or above optimalLDL 130-159 mg/dL Borderline highLDL 160-189 mg/dL HighLDL greater than 189 mg/dL Very high Cholesterol in VLDL Calc [Ma ss/Vol]Ordered By: Annie Sal on 08-13-2023 Cholesterol in VLDL [Mass/Vol] 19 mg/dL [facility] Complete Blood Count Auto Di ffon 08-13-2023 Basophils (Bld) [#/Vol] 0.1 10*3/uL Normal 0.0-0.2 [facility] Comment on above: Order Comment: Reaso n for Exam Hyperlipidemia Result Comment: PERF ORMED BY: [place] [address] PATHOLOGIST CHEMICAL PROCESS OPERATOR KIAH COOPER M.D. Performed By: #### C BC #### [facility] [address] [place] [address] Basophils/100 WBC (Bld) 0.6 % Normal . [facility] Comment on above: Order Comment: Reaso n for Exam Hyperlipidemia Performed By: #### C BC #### [facility] [address] [place] [address] [place] Eosinophils (Bld) [#/Vol] 0.1 10*3/uL Normal 0.0-0.45 [facility] Comment on above: Order Comment: Reaso n for Exam Hyperlipidemia Performed By: #### C BC #### [facility] [address] [place] [address] Eosinophils/100 WBC (Bld) 0.6 % Normal . [facility] Comment on above: Order Comment: Reaso n for Exam Hyperlipidemia Performed By: #### C BC #### [facility] [address] [place] [address] [place] Erythrocyte distribution width (RBC) [Ratio] 13.5 % Normal 11.9-15.3 [facility] Comment on above: Order Comment: Reaso n for Exam Hyperlipidemia Performed By: #### C BC #### [facility] [address] [place] [address] [place] Hematocrit (Bld) [Volume fraction] 35.8 % Normal 34.0-46.4 [facility] Comment on above: Order Comment: Reaso n for Exam Hyperlipidemia Performed By: #### C BC #### [address] Hemoglobin (Bld) [Mass/Vol] 11.7 g/dL Low 11.8-15.4 [facility] Comment on above: Order Comment: Reaso n for Exam Hyperlipidemia Performed By: #### C BC #### [address] Lymphocytes (Bld) [#/Vol] 3.1 10*3/uL Normal 1.00-4.8 [facility] Comment on above: Order Comment: Reaso n for Exam Hyperlipidemia Performed By: #### C BC #### [address] Lymphocytes/100 WBC (Bld) 18.5 % Normal . [facility] Comment on above: Order Comment: Reaso n for Exam Hyperlipidemia Performed By: #### C BC #### [address] MCH (RBC) [Entitic mass] 28.1 pg Normal 24.7-34.3 [facility] Comment on above: Order Comment: Reaso n for Exam Hyperlipidemia Performed By: #### C BC #### [address] MCV (RBC) [Entitic vol] 86.3 fL Normal 80-100 [facility] Comment on above: Order Comment: Reaso n for Exam Hyperlipidemia Performed By: #### C BC #### [address] Mean Corpuscular HGB Conc 32.6 g/dL Normal 32.0-35.0 [facility] Comment on above: Order Comment: Reaso n for Exam Hyperlipidemia Performed By: #### C BC #### [address] Monocytes (Bld) [#/Vol] 1.4 10*3/uL High 0.0-0.8 [facility] Comment on above: Order Comment: Reaso n for Exam Hyperlipidemia Performed By: #### C BC #### [address] [place] [address] [place] Monocytes/100 WBC (Bld) 8.6 % Normal . F [facility] Comment on above: Order Comment: Reaso n for Exam Hyperlipidemia Performed By: #### C BC #### [facility] [address] [id number] [place] Neutrophils (Bld) [#/Vol] 11.8 10*3/uL High 1.8-7.7 [facility] Comment on above: Order Comment: Reaso n for Exam Hyperlipidemia Performed By: #### C BC #### [facility] [address] [id number] [place] Neutrophils/100 WBC (Bld) 71.7 % Normal . [facility] Comment on above: Order Comment: Reaso n for Exam Hyperlipidemia Performed By: #### C BC #### [facility] [address] NRBC% 0.0 /100{WBC} Normal 0-0.5 [facility] Comment on above: Order Comment: Reaso n for Exam Hyperlipidemia Performed By: #### C BC #### [facility] [address] [place] [id number] [place] Platelet mean volume (Bld) [Entitic vol] 8.0 fL Normal 6.3-10.7 [facility] Comment on above: Order Comment: Reaso n for Exam Hyperlipidemia Performed By: #### C BC #### [facility] [address] [place] [address] [place] Platelets (Bld) [#/Vol] 439 10*3/uL Normal 150-450 [facility] Comment on above: Order Comment: Reaso n for Exam Hyperlipidemia Performed By: #### C BC #### [facility] [address] [place] [id number] [place] RBC (Bld) [#/Vol] 4.16 10*6/uL Normal 3.60-5.00 [facility] Comment on above: Order Comment: Reaso n for Exam Hyperlipidemia Performed By: #### C BC #### [facility] [address] [place] [id number] [place] WBC (Bld) [#/Vol] 16.5 10*3/uL High 3.8-11.6 [facility] Comment on above: Order Comment: Reaso n for Exam Hyperlipidemia Performed By: #### C BC #### [facility] [address] Comprehensive Metabolic Pane trixie 08-13-2023 Albumin [Mass/Vol] 3.9 g/dL Normal 3.5-5.7 [facility] Comment on above: Order Comment: Reaso n for Exam Hyperlipidemia;Abnormal kidney function Reason for Exam Hyperlipidemia Performed By: #### C MP, LIPID, TSH3 #### [facility] [address] Albumin/Globulin [Mass ratio] 1.3 {ratio} Normal [facility] Comment on above: Order Comment: Reaso n for Exam Hyperlipidemia;Abnormal kidney function Reason for Exam Hyperlipidemia Performed By: #### C MP, LIPID, TSH3 #### [facility] [address] ALP [Catalytic activity/Vol] 102 U/L Normal 34-104 [facility] Comment on above: Order Comment: Reaso n for Exam Hyperlipidemia;Abnormal kidney function Reason for Exam Hyperlipidemia Performed By: #### C MP, LIPID, TSH3 #### [facility] [address] ALT [Catalytic activity/Vol] 15 U/L Normal 7-52 [facility] Comment on above: Order Comment: Reaso n for Exam Hyperlipidemia;Abnormal kidney function Reason for Exam Hyperlipidemia Performed By: #### C MP, LIPID, TSH3 #### [facility] [address] Anion gap [Moles/Vol] 12.9 mmol/L Normal 6.0-15.0 [facility] Comment on above: Order Comment: Reaso n for Exam Hyperlipidemia;Abnormal kidney function Reason for Exam Hyperlipidemia Performed By: #### C MP, LIPID, TSH3 #### [facility] [address] [place] [id number] [facility] AST [Catalytic activity/Vol] 13 U/L Normal 13-39 [facility] Comment on above: Order Comment: Reaso n for Exam Hyperlipidemia;Abnormal kidney function Reason for Exam Hyperlipidemia Performed By: #### C MP, LIPID, TSH3 #### [facility] [address] Bilirubin [Mass/Vol] 0.4 mg/dL Normal 0.3-1.0 [facility] Comment on above: Order Comment: Reaso n for Exam Hyperlipidemia;Abnormal kidney function Reason for Exam Hyperlipidemia Performed By: #### C MP, LIPID, TSH3 #### [facility] [address] Calcium [Mass/Vol] 9.4 mg/dL Normal 8.6-10.3 [facility] Comment on above: Order Comment: Reaso n for Exam Hyperlipidemia;Abnormal kidney function Reason for Exam Hyperlipidemia Performed By: #### C MP, LIPID, TSH3 #### [facility] [address] Chloride [Moles/Vol] 98 mmol/L Normal 98-107 [facility] Comment on above: Order Comment: Reaso n for Exam Hyperlipidemia;Abnormal kidney function Reason for Exam Hyperlipidemia Performed By: #### C MP, LIPID, TSH3 #### [facility] [address] CO2 [Moles/Vol] 34.3 mmol/L High 21.0-31.0 [facility] Comment on above: Order Comment: Reaso n for Exam Hyperlipidemia;Abnormal kidney function Reason for Exam Hyperlipidemia Performed By: #### C MP, LIPID, TSH3 #### [facility] [address] [place] [address] [place] Creatinine [Mass/Vol] 0.57 mg/dL Low 0.60-1.20 [facility] Comment on above: Order Comment: Reaso n for Exam Hyperlipidemia;Abnormal kidney function Reason for Exam Hyperlipidemia Performed By: #### C MP, LIPID, TSH3 #### [facility] [address] [place] [id number] [place] GFR/1.73 sq M.predicted MDRD (S/P/Bld) [Vol rate/Area] mL/min/{1.73_m2} [facility] Comment on above: Order Comment: Reaso n for Exam Hyperlipidemia;Abnormal kidney function Reason for Exam Hyperlipidemia Performed By: #### C MP, LIPID, TSH3 #### [facility] [address] Globulin (S) [Mass/Vol] 3.1 g/dL Normal [facility] Comment on above: Order Comment: Reaso n for Exam Hyperlipidemia;Abnormal kidney function Reason for Exam Hyperlipidemia Performed By: #### C MP, LIPID, TSH3 #### [facility] [address] Glucose [Mass/Vol] 121 mg/dL High 70-100 [facility] Comment on above: Order Comment: Reaso n for Exam Hyperlipidemia;Abnormal kidney function Reason for Exam Hyperlipidemia Result Comment: [place] Glucose Reference Range is dependent on time and content of last meal. Glucose of more than 200 mg/dL in a nonstressed, ambulatory subject supports the diagnosis of Diabetes Mellitus. ADA recommended reference range Performed By: #### C MP, LIPID, TSH3 #### [address] Potassium [Moles/Vol] 4.2 mmol/L Normal 3.5-5.1 [facility] Comment on above: Order Comment: Reaso n for Exam Hyperlipidemia;Abnormal kidney function Reason for Exam Hyperlipidemia Performed By: #### C MP, LIPID, TSH3 #### [address] Protein [Mass/Vol] 7.0 g/dL Normal 6.4-8.9 [facility] Comment on above: Order Comment: Reaso n for Exam Hyperlipidemia;Abnormal kidney function Reason for Exam Hyperlipidemia Performed By: #### C MP, LIPID, TSH3 #### [facility] [address] [place] [address] [place] Sodium [Moles/Vol] 141 mmol/L Normal 136-145 [facility] Comment on above: Order Comment: Reaso n for Exam Hyperlipidemia;Abnormal kidney function Reason for Exam Hyperlipidemia Performed By: #### C MP, LIPID, TSH3 #### [address] Urea nitrogen [Mass/Vol] 11 mg/dL Normal 7-25 [facility] Comment on above: Order Comment: Reaso n for Exam Hyperlipidemia;Abnormal kidney function Reason for Exam Hyperlipidemia Performed By: #### C MP, LIPID, TSH3 #### [facility] [address] Creatinine [Mass/volume] in Serum or PlasmaOrdered By: Annie Sal on 08-13-2023 Creatinine [Mass/Vol] 0.57 mg/dL 0.60-1.20 [facility] Eosinophils Auto (Bld) [#/Vo l]Ordered By: Annie Sal on 08-13-2023 Eosinophils (Bld) [#/Vol] 0.1 10*3/uL 0.0-0.45 [facility] Eosinophils/100 WBC Auto (Bl d)Ordered By: Annie Sal on 08-13-2023 Eosinophils/100 WBC (Bld) 0.6 % . [facility] Erythrocyte distribution wid th Auto (RBC) [Ratio]Ordered By: Annie Sal on 08-13-2023 Erythrocyte distribution width (RBC) [Ratio] 13.5 % 11.9-15.3 [facility] Globulin Calc (S) [Mass/Vol] Ordered By: Annie Sal on 08-13-2023 Globulin (S) [Mass/Vol] 3.1 g/dL [facility] Glucose [Mass/volume] in Ser um or PlasmaOrdered By: Annie Sal on 08-13-2023 Glucose [Mass/Vol] 121 mg/dL 70-100 [facility] Comment on above: ADA recommended refe rence rangeRandom Glucose Reference Range is dependent on time and content of last meal. Glucose of more than 200 mg/dL in a nonstressed, ambulatory subject supports the diagnosis of Diabetes Mellitus. Hematocrit Auto (Bld) [Volum e fraction]Ordered By: Annie Sal on 08-13-2023 Hematocrit (Bld) [Volume fraction] 35.8 % 34.0-46.4 [facility] Hemoglobin [Mass/volume] in BloodOrdered By: Annie Sal on 08-13-2023 Hemoglobin (Bld) [Mass/Vol] 11.7 g/dL 11.8-15.4 [facility] Leukocytes [#/volume] correc adriel for nucleated erythrocytes in Blood by Automated counOrdered By: Annie Sal on 08-13-2023 WBC corrected for nucl RBC Auto (Bld) [#/Vol] 16.5 10*3/uL 3.8-11.6 [facility] Lipid Panelon 08-13-2023 Cholesterol [Mass/Vol] 172 mg/dL Normal 140-200 [facility] Comment on above: Order Comment: Reaso n for Exam Hyperlipidemia;Abnormal kidney function Reason for Exam Hyperlipidemia Result Comment: Chol less than 200 mg/dl low risk Chol 201-239 mg/dl borderline risk Chol 240 mg/dl and greater high risk Performed By: #### C MP, LIPID, TSH3 #### [facility] [address] [place] [id number] [facility] Cholesterol in HDL [Mass/Vol] 86 mg/dL Normal 23-92 [facility] Comment on above: Order Comment: Reaso n for Exam Hyperlipidemia;Abnormal kidney function Reason for Exam Hyperlipidemia Result Comment: HDL CHOL ATP-III CLASSIFICATION Cardiovascular Risk HDL > or equal to 60 mg/dL LOW HDL < 40 mg/dL HIGH Performed By: #### C MP, LIPID, TSH3 #### [facility] [address] [place] [id number] [place] Cholesterol.total/Diann sterol in HDL [Mass ratio] 2.0 {ratio} Normal <5.0 [facility] Comment on above: Order Comment: Reaso n for Exam Hyperlipidemia;Abnormal kidney function Reason for Exam Hyperlipidemia Performed By: #### C MP, LIPID, TSH3 #### [facility] [address] [place] [address] [place] LDL Cholesterol,Calculated 67 mg/dL Normal 0-100 [facility] Comment on above: Order Comment: Reaso n for Exam Hyperlipidemia;Abnormal kidney function Reason for Exam Hyperlipidemia Result Comment: LDL ATP III CLASSIFICATION LDL less than 100 mg/dL Optimal LDL 100-129 mg/dL Near or above optimal LDL 130-159 mg/dL Borderline high LDL 160-189 mg/dL High LDL greater than 189 mg/dL Very high Performed By: #### C MP, LIPID, TSH3 #### [facility] [address] Triglyceride w/Reflex 95 mg/dL Normal 0-149 [facility] Comment on above: Order Comment: Reaso n for Exam Hyperlipidemia;Abnormal kidney function Reason for Exam Hyperlipidemia Result Comment: TRIG ATP III CLASSIFICATION TRIG less than 150 mg/dL Normal TRIG 150-199 mg/dL Borderline high TRIG 200-500 mg/dL High TRIG greater than 500 mg/dL Very high Standard traceable to the Center for Disease Conrtrol and Prevention (CDC) test method. Performed By: #### C MP, LIPID, TSH3 #### [facility] [address] VLDL CHOLESTEROL 19 mg/dL Normal [facility] Comment on above: Order Comment: Reaso n for Exam Hyperlipidemia;Abnormal kidney function Reason for Exam Hyperlipidemia Performed By: #### C MP, LIPID, TSH3 #### [facility] [address] Lymphocytes Auto (Bld) [#/Vo l]Ordered By: Annie Sal on 08-13-2023 Lymphocytes (Bld) [#/Vol] 3.1 10*3/uL 1.00-4.8 [facility] Lymphocytes/100 WBC Auto (Bl d)Ordered By: Annie Sal on 08-13-2023 Lymphocytes/100 WBC (Bld) 18.5 % . [facility] MCH Auto (RBC) [Entitic mass ]Ordered By: Annie Sal on 08-13-2023 MCH (RBC) [Entitic mass] 28.1 pg 24.7-34.3 [facility] MCHC Auto (RBC) [Mass/Vol]Or dered By: Annie Sal on 08-13-2023 MCHC (RBC) [Mass/Vol] 32.6 g/dL 32.0-35.0 [facility] MCV Auto (RBC) [Entitic vol] Ordered By: Annie Sal on 08-13-2023 MCV (RBC) [Entitic vol] 86.3 fL 80-100 [facility] Monocytes Auto (Bld) [#/Vol] Ordered By: Annie Sal on 08-13-2023 Monocytes (Bld) [#/Vol] 1.4 10*3/uL 0.0-0.8 [facility] Monocytes/100 WBC Auto (Bld) Ordered By: Annie Sal on 08-13-2023 Monocytes/100 WBC (Bld) 8.6 % . [facility] Neutrophils Auto (Bld) [#/Vo l]Ordered By: Annie Sal on 08-13-2023 Neutrophils (Bld) [#/Vol] 11.8 10*3/uL 1.8-7.7 [facility] Neutrophils/100 WBC Auto (Bl d)Ordered By: Annie Sal on 08-13-2023 Neutrophils/100 WBC (Bld) 71.7 % . [facility] No Panel InformationOrdered By: Annie Sal on 08-13-2023 Estimated GFR (CKD-EPI) > 60.0 mL/Min [facility] Creatinine Clearance (Chem N/A [facility] Nucleated erythrocytes [Pres ence] in Blood by Automated countOrdered By: Annie Sal on 08-13-2023 Nucleated RBC Auto Ql (Bld) 0.0 /100{WBC} 0-0.5 [facility] Platelet mean volume Auto (B ld) [Entitic vol]Ordered By: Annie Sal on 08-13-2023 Platelet mean volume (Bld) [Entitic vol] 8.0 fL 6.3-10.7 [facility] Platelets Auto (Bld) [#/Vol] Ordered By: Annie Sal on 08-13-2023 Platelets (Bld) [#/Vol] 439 10*3/uL 150-450 [facility] Potassium [Moles/volume] in Serum or PlasmaOrdered By: Annie Sal on 08-13-2023 Potassium [Moles/Vol] 4.2 mmol/L 3.5-5.1 [facility] Protein [Mass/volume] in Ser um or PlasmaOrdered By: Annie Sal on 08-13-2023 Protein [Mass/Vol] 7.0 g/dL 6.4-8.9 [facility] RBC Auto (Bld) [#/Vol]Ordere d By: Annie Sal on 08-13-2023 RBC (Bld) [#/Vol] 4.16 10*6/uL 3.60-5.00 [facility] Serum or plasma albumin/glob ulin mass ratioOrdered By: Annie Sal on 08-13-2023 Albumin/Globulin [Mass ratio] 1.3 {ratio} [facility] Serum or plasma anion gap de terminationOrdered By: Annie Sal on 08-13-2023 Anion gap [Moles/Vol] 12.9 mmol/L 6.0-15.0 [facility] Serum or plasma high density lipoprotein (HDL) cholesterol measurementOrdered By: Annie Sal on 08-13-2023 Cholesterol in HDL [Mass/Vol] 86 mg/dL 23- [facility] Comment on above: HDL CHOL ATP-III CLA SSIFICATION Cardiovascular RiskHDL > or equal to 60 mg/dL LOWHDL < 40 mg/dL HIGH Serum or plasma total choles terol/high density lipoprotein (HDL) cholesterol mass ratOrdered By: Annie Sal on 08-13-2023 Cholesterol.total/Diann sterol in HDL [Mass ratio] 2.0 {ratio} <5.0 [facility] Sodium [Moles/volume] in Ser um or PlasmaOrdered By: Annie Sal on 08-13-2023 Sodium [Moles/Vol] 141 mmol/L 136-145 [facility] Thyroid Stimulating Hormoneo n 08-13-2023 TSH Qn 2.54 m[IU]/L Normal 0.45-5.33 [facility] Comment on above: Order Comment: Reaso n for Exam Hyperlipidemia;Abnormal kidney function Reason for Exam Hyperlipidemia Result Comment: PERF ORMED BY: [place] [address] PATHOLOGIST CHEMICAL PROCESS OPERATOR KIAH COOPER M.D. Performed By: #### F ER, CMP, CBC #### [address] Thyrotropin [Units/volume] i n Serum or PlasmaOrdered By: Annie Sal on 08-13-2023 TSH Qn 2.54 m[IU]/L 0.45-5.33 [facility] Triglyceride [Mass/volume] i n Serum or PlasmaOrdered By: Annie Sal on 08-13-2023 Triglyceride [Mass/Vol] 95 mg/dL 0-149 [facility] Comment on above: TRIG ATP III CLASSIF ICATIONTRIG less than 150 mg/dL NormalTRIG 150-199 mg/dL Borderline highTRIG 200-500 mg/dL High TRIG greater than 500 mg/dL Very highStandard traceable to the Center for Disease Conrtrol and Prevention (CDC) test method. Urea nitrogen [Mass/volume] in Serum or PlasmaOrdered By: Annie Sal on 08-13-2023 Urea nitrogen [Mass/Vol] 11 mg/dL 02-10 [facility] WBC Auto (Bld) [#/Vol]Ordere d By: Annie Sal on 08-13-2023 WBC (Bld) [#/Vol] 16.5 10*3/uL 3.8-11.6 [facility] CNOVSPon 04-15-2023 CNOVSP Visit (SP) Office ([place]) DAYLIN BURTON ([id number]) 1945 F Date Time Provider Department 04/15/23 2:30 PM MCKENNA WALDROP During your visit today, we recorded the following information about you: Temperature Pulse Respiration Blood pressure 98.1 degrees 92/minute 22/minute 145/66 Weight Height 70.7 kg 1.6 m Mckenna Waldrop MD 04/16/2023 3:04 PM Signed PATIENT NAME: Daylin Burton CLINIC NO.: [id number] ATTENDING PHYSICIAN: Mckenna Waldrop MD DATE OF SERVICE: April 15, 2023 Some of the elements of this note have been copied from my previous progress note dated 12/10/2022. All the information has been reviewed carefully. Dear Dr. Law, 0 here is an update on a follow up visit on female Daylin Burton at the clinic April 15, 2023 Diagnosis: 1. Limited stage small cell lung cancer diagnosed September 06, 2019 Treatment History: 1. Concurrent chemotherapy with carboplatin plus etoposide and radiation. Chemotherapy started October 03, 2019. Radiation started October 24, 2019 to December 06, 2019. Total 4 cycles of carboplatin and etoposide last on December 08, 2019. HPI: Daylin Burton is a 77 year old year old female here for follow up. Doing ok but baseline SOB and ongoing cough. Denies any hemoptysis. 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 PAST MEDICAL HISTORY Diagnosis Date COPD (chronic obstructive pulmonary disease) (HCC) Hypertension Lung cancer (HCC) 08/[address] Law Lung mass 08/[address] [place]-A-[address] in [address] 09/27/2019 Social History Tobacco Use Smoking status: Every Day Years: 56 Types: Cigarettes Smokeless tobacco: Never Tobacco comments: Pt smokes 4-6 a day Vaping Use Vaping Use: Never used Substance Use Topics Alcohol use: Never Drug use: Never FAMILY HISTORY Problem Relation Age of Onset Hypertension Mother Hypertension Father Stroke Father Breast Cancer Sister breast cancer at 50's other (Bladder Cancer) Sister other (Lung cancer) Brother Breast Cancer Sister breast cancer at 70's Cancer Sister Cervical Cancer Sister Cervical Cancer Sister other (Lymphoma) Brother Past medical, social and family history reviewed without any changes. REVIEW OF SYSTEMS GENERAL: No weight loss, malaise or fevers. No night sweats. HEENT: Negative for headaches, No changes in hearing or vision, no nose bleeds or other nasal problems. RESPIRATORY: Negative for cough, wheezing and shortness of breath CARDIOVASCULAR: Negative for chest pain, leg swelling and palpitations GI: Negative for abdominal discomfort, blood in stools or black stools and change in bowel habits : Negative for dysuria, frequency and incontinence MUSCULOSKELETAL: Negative for joint pain or swelling, back pain, and muscle pain. SKIN: Negative for lesions, rash, and itching. HEMATOLOGY/LYMPHOLOGY Negative for prolonged bleeding, bruising easily, and swollen nodes. NEURO: Negative for numbness or tingling of hands/feet. No weakness. PHYSICAL EXAMINATION: BP 145/66 Pulse 92 Temp (Src) 98.1 (Temporal) Resp 22 Ht 5' 2.992 (1.60m) Wt 155 lb 12.8 oz (70.7kg) SpO2 100% BMI 27.61 kg/(m2). Wt 68.5 kg (151 lb) BMI 25.91 kg/m2 Last 3 Encounter Wt Readings: Date: Wt: 09/28/2019 68.9 kg (151 lb 12.8 oz) 09/28/2019 68.5 kg (151 lb) 09/19/2019 68 kg (150 lb) General appearance:ECOG PERFORMANCE STATUS: 0- Fully active, able to carry on all pre-disease performance w/o restriction. Patient in NAD. Skin: Skin color, texture, turgor normal. No rashes or lesions. Eyes: Anicteric sclera. Pupils are equally round and reactive to light. Extraocular movements are intact. Lymph Nodes: No cervical, supraclavicular, axillary or inguinal adenopathy. Oropharynx: Lips, mucosa, and tongue normal. Back: No pain to percussion. Negative SLR test Lungs clear to auscultation, No wheezing or rhonchi Heart: RRR without murmur, gallop, or rubs. Abdomen soft, non-tender. No masses, organomegaly Extremities: No deformities. No edema Neuro: Gait and speech normal. Reflexes normal and symmetric. Muscular strength intact. Sensation grossly intact. Rectal: Deferred : Deferred LABS: Glucose (mg/dL) Date Value 12/03/2022 224 05/28/2021 126 Potassium (mmol/L) Date Value 12/03/2022 3.0 05/28/2021 4.2 Sodium (mmol/L) Date Value 12/03/2022 138 05/28/2021 137 Chloride (mmol/L) Date Value 12/03/2022 95 05/28/2021 102 CO2 (mmol/L) Date Value 12/03/2022 32 05/28/2021 25 Creatinine (mg/dL) Date Value 12/03/2022 0.47 05/28/2021 0.48 BUN (mg/dL) Date Value 12/03/2022 12 05/28/2021 11 Anion Gap (mmol/L) Date Value 12/03/2022 11 05/28/2021 10 Calcium (mg/dL) Date Value 05/28/2021 9.2 Calcium, Total (mg/dL) Date Value 12/03/2022 9.4 Protein, Total (g/d (more content not included)... Normal [facility] CT ABD/PEL W IVCONon 023 CT ABD/PEL W IVCON * * *Final Report* * * DATE OF EXAM: Apr 08 2023 1:07PM [facility] 0530 - CT ABD/PEL W IVCON / PROCEDURE REASON: Malignant neoplasm of unspecified part of unspecified bronchus or lung (HCC) * * * * Physician Interpretation * * * * RESULT: EXAMINATION: CT ABDOMEN AND PELVIS WITH IV CONTRAST CLINICAL HISTORY: History of small cell lung cancer. TECHNIQUE: CT of the abdomen and pelvis was performed using standard technique, scanning from just above the dome of the diaphragm to the symphysis pubis. MQ: CTAP_3 Contrast: IV: 145 ml of Omnipaque 300 Oral: 500 ml of Omni 240 10-25ml diluted with water CT Radiation dose: Integrated Dose-length product (DLP) for this visit = 841 mGy*cm. CT Dose Reduction Employed: Automated exposure control (AEC) COMPARISON: CT abdomen pelvis dated 05/27/2022 RESULT: Liver: Unremarkable. No mass. Biliary: Surgically absent gallbladder. In this setting, dilation of the common bile duct up to 1.3 cm and mild intrahepatic biliary ductal dilation is likely physiologic. The degree of dilation is unchanged from May 2022. Spleen: No mass. No splenomegaly. Pancreas: No mass or duct dilation. Adrenals: A 3.5 x 1.7 cm left adrenal nodule is not significantly changed from the previous CT. This nodule measures noncontrast CT density criteria for adrenal adenoma on a PET CT performed in September 2019. Mild thickening of the right adrenal gland is unchanged from previously. No new adrenal nodule identified. Kidneys: Unremarkable. GI tract: No dilation or wall thickening. A normal appendix is visualized. Lymph nodes: No abdominal or pelvic lymphadenopathy. Mesentery/Peritoneum: No ascites or mass. Retroperitoneum: No mass. Vasculature: - Abdominal aorta and iliac arteries: Significant calcified atherosclerotic disease noted involving a normal caliber abdominal aorta and the bilateral common iliac arteries. No aneurysm. - Celiac and SMA: Atherosclerotic calcifications at the origins. - Portal venous system (SMV, splenic vein, portal vein and branches): Patent. - Hepatic veins: Patent. Pelvis: No mass, ascites or fluid collection. The uterus and bilateral adnexa are unremarkable in CT appearance. Bones/Soft Tissues: No destructive skeletal lesion is present. Lower thorax: Please see the separate report for the concurrently obtained CT of the chest. Polishing Machine Operator Helper (topogram) images: No significant findings. IMPRESSION: 1. No CT evidence of metastatic disease in the abdomen or pelvis. Transcribe Date/Time: Apr 08 2023 3:37P Dictated by: JOAQUÍN BONILLA MD This examination was interpreted and the report reviewed and electronically signed by: JOAQUÍN BONILLA MD on Apr 08 2023 3:47PM EST Thank you for allowing us to participate in the care of your patient. Should there be any questions regarding this interpretation, please call [phone]. If you are unable to reach us at the number above, please feel free to contact [facility] at [phone]. [id number] N Normal [facility] CT CHEST W IVCONon 3 CT CHEST W IVCON * * *Final Report* * * DATE OF EXAM: Apr 08 2023 1:07PM [facility] 0539 - CT CHEST W IVCON / PROCEDURE REASON: Malignant neoplasm of unspecified part of unspecified bronchus or lung (HCC) * * * * Physician Interpretation * * * * RESULT: EXAMINATION: CHEST CT WITH CONTRAST CLINICAL HISTORY: Small cell lung cancer Technique: Spiral CT acquisition of the chest from the thoracic inlet to the upper abdomen following IV contrast. MQ: CTCW_6 Contrast: 145 mL Omnipaque [address] Radiation dose: Integrated Dose-length product (DLP) for this visit = 841 mGy*cm CT Dose Reduction Employed: Automated exposure control (AEC) Comparison: Previous chest CT dated 12/03/2022 RESULT: Limitations: None. Lines, tubes, and devices: Right-sided chest port terminates in the lower SVC. Lung parenchyma and airways: There is redemonstration of a dense sharply marginated opacity in the left upper lobe that is contiguous with the left hilum and directly abuts the pleural margin laterally and superiorly. This is compatible with stable posttreatment change. Within this area of posttreatment change, there is an unchanged 5.2 x 3.6 cm area of cavitation that contains lobulated intermediate density material dependently, for example see series 4 image 44. The appearance is unchanged from November 2022. A 1.0 x 0.7 cm nodule in the left upper lobe anteriorly on series 4 image 47 is unchanged. There is redemonstration of a few additional small solid nodules as follows: Vague 4 mm solid nodule in the right middle lobe on series 4 image 113. 3 mm solid nodule in the right lower lobe on series 4 image 118. 4 mm subpleural nodule along the left major fissure on series 4 image 123. No new pulmonary nodules or masses are identified. Unchanged moderate upper lung predominant emphysema noted. The central airways are patent. Pleural space: No pleural effusion. No pleural thickening. Lower neck, lymph nodes, and mediastinum: The imaged thyroid gland is normal. No lymphadenopathy in the supraclavicular, axillary, mediastinal, or hilar regions. Heart, pericardium, and thoracic vessels: The thoracic aorta and main pulmonary artery are normal in caliber. The cardiac chambers are normal in size. No coronary artery atherosclerotic calcifications are noted, although the study is not optimized for coronary assessment. No pericardial effusion or thickening. Bones and soft tissues: No destructive bone lesion. Chest wall is unremarkable. Moderate right convex thoracic scoliosis. Upper abdomen: See the separate report for the concurrently obtained CT of the abdomen/pelvis. Polishing Machine Operator Helper (topogram) images: No significant findings. IMPRESSION: 1. Stable-appearing posttreatment changes in the left upper lobe. Within the treated area of lung, there is again a 5.2 x 3.6 cm area of cavitation that contains nonspecific lobulated intermediate density material within it. The possibility of superinfection including fungal infection would remain a consideration. 2. A few solid nodules in the lungs measuring up to 1 cm in size are unchanged from November 2022. No new pulmonary nodules or masses are identified. 3. No CT evidence of new metastatic disease in the chest. Transcribe Date/Time: Apr 08 2023 3:24P Dictated by: JOAQUÍN BONILLA MD This examination was interpreted and the report reviewed and electronically signed by: JOAQUÍN BONILLA MD on Apr 08 2023 3:36PM EST Thank you for allowing us to participate in the care of your patient. Should there be any questions regarding this interpretation, please call [phone]. If you are unable to reach us at the number above, please feel free to contact [facility] at [phone]. [id number] N Normal [facility] Alanine aminotransferase [En zymatic activity/volume] in Serum or PlasmaOrdered By: Annie Sal on 02-17-2023 ALT [Catalytic activity/Vol] 11 U/L 7-52 [facility] Albumin [Mass/volume] in Ser um or Plasma by Bromocresol green (BCG) dye binding methoOrdered By: Annie Sal on 02-17-2023 Albumin BCG dye [Mass/Vol] 3.9 g/dL 3.5-5.7 [facility] Alkaline phosphatase [Enzyma tic activity/volume] in Serum or PlasmaOrdered By: Annie Sal on 02-17-2023 ALP [Catalytic activity/Vol] 106 U/L 34-104 [facility] Aspartate aminotransferase [ Enzymatic activity/volume] in Serum or PlasmaOrdered By: Annie Sal on 02-17-2023 AST [Catalytic activity/Vol] 14 U/L 13-39 [facility] Basophils Auto (Bld) [#/Vol] Ordered By: Annie Sal on 02-17-2023 Basophils (Bld) [#/Vol] 0.1 10*3/uL 0.0-0.2 [facility] Basophils/100 WBC Auto (Bld) Ordered By: Annie Sal on 02-17-2023 Basophils/100 WBC (Bld) 0.7 % . F [facility] Bilirubin.total [Mass/volume ] in Serum or PlasmaOrdered By: Annie Sal on 02-17-2023 Bilirubin [Mass/Vol] 0.4 mg/dL 0.3-1.0 [facility] Calcium [Mass/volume] in Ser um or PlasmaOrdered By: Annie Sal on 02-17-2023 Calcium [Mass/Vol] 9.2 mg/dL 8.6-10.3 [facility] Carbon dioxide, total [Moles /volume] in Serum or PlasmaOrdered By: Annie Sal on 02-17-2023 CO2 [Moles/Vol] 33.0 mmol/L 21.0-31.0 [facility] Chloride [Moles/volume] in S radha or PlasmaOrdered By: Annie Sal on 02-17-2023 Chloride [Moles/Vol] 102 mmol/L 98-107 [facility] Cholesterol [Mass/volume] in Serum or PlasmaOrdered By: Annie Sal on 02-17-2023 Cholesterol [Mass/Vol] 170 mg/dL 140-200 [facility] Comment on above: Chol less than 200 m g/dl low riskChol 201-239 mg/dl borderline riskChol 240 mg/dl and greater high risk Cholesterol in LDL Calc [Mas s/Vol]Ordered By: Annie Sal on 02-17-2023 Cholesterol in LDL [Mass/Vol] 59 mg/dL 0-100 [facility] Comment on above: LDL ATP III CLASSIFI CATIONLDL less than 100 mg/dL OptimalLDL 100-129 mg/dL Near or above optimalLDL 130-159 mg/dL Borderline highLDL 160-189 mg/dL HighLDL greater than 189 mg/dL Very high Cholesterol in VLDL Calc [Ma ss/Vol]Ordered By: Annie Sal on 02-17-2023 Cholesterol in VLDL [Mass/Vol] 16 mg/dL [facility] Complete Blood Count Auto Di ffon 02-17-2023 Basophils (Bld) [#/Vol] 0.1 10*3/uL Normal 0.0-0.2 [facility] Comment on above: Order Comment: Reaso n for Exam Hyperlipidemia Result Comment: PERF ORMED BY: [place] [address] PATHOLOGIST CHEMICAL PROCESS OPERATOR KIAH COOPER M.D. Performed By: #### C BC #### [facility] [address] [place] [address] [place] Basophils/100 WBC (Bld) 0.7 % Normal . F [facility] Comment on above: Order Comment: Reaso n for Exam Hyperlipidemia Performed By: #### C BC #### [facility] [address] [place] [address] [place] Eosinophils (Bld) [#/Vol] 0.1 10*3/uL Normal 0.0-0.45 [facility] Comment on above: Order Comment: Reaso n for Exam Hyperlipidemia Performed By: #### C BC #### [facility] [address] Eosinophils/100 WBC (Bld) 1.0 % Normal . [facility] Comment on above: Order Comment: Reaso n for Exam Hyperlipidemia Performed By: #### C BC #### [address] Erythrocyte distribution width (RBC) [Ratio] 14.2 % Normal 11.9-15.3 [facility] Comment on above: Order Comment: Reaso n for Exam Hyperlipidemia Performed By: #### C BC #### [address] Hematocrit (Bld) [Volume fraction] 36.3 % Normal 34.0-46.4 [facility] Comment on above: Order Comment: Reaso n for Exam Hyperlipidemia Performed By: #### C BC #### [address] Hemoglobin (Bld) [Mass/Vol] 11.9 g/dL Normal 11.8-15.4 [facility] Comment on above: Order Comment: Reaso n for Exam Hyperlipidemia Performed By: #### C BC #### [address] Lymphocytes (Bld) [#/Vol] 3.0 10*3/uL Normal 1.00-4.8 [facility] Comment on above: Order Comment: Reaso n for Exam Hyperlipidemia Performed By: #### C BC #### [place] [address] [place] Lymphocytes/100 WBC (Bld) 28.5 % Normal . [facility] Comment on above: Order Comment: Reaso n for Exam Hyperlipidemia Performed By: #### C BC #### [place] [address] [place] MCH (RBC) [Entitic mass] 28.3 pg Normal 24.7-34.3 [facility] Comment on above: Order Comment: Reaso n for Exam Hyperlipidemia Performed By: #### C BC #### [place] [address] [place] MCV (RBC) [Entitic vol] 86.4 fL Normal 80-100 [facility] Comment on above: Order Comment: Reaso n for Exam Hyperlipidemia Performed By: #### C BC #### [facility] [address] Mean Corpuscular HGB Conc 32.7 g/dL Normal 32.0-35.0 [facility] Comment on above: Order Comment: Reaso n for Exam Hyperlipidemia Performed By: #### C BC #### [facility] [address] [place] [address] [place] Monocytes (Bld) [#/Vol] 0.9 10*3/uL High 0.0-0.8 [facility] Comment on above: Order Comment: Reaso n for Exam Hyperlipidemia Performed By: #### C BC #### [place] [address] [place] Monocytes/100 WBC (Bld) 8.2 % Normal . F [facility] Comment on above: Order Comment: Reaso n for Exam Hyperlipidemia Performed By: #### C BC #### [facility] [address] [place] [address] [place] Neutrophils (Bld) [#/Vol] 6.4 10*3/uL Normal 1.8-7.7 [facility] Comment on above: Order Comment: Reaso n for Exam Hyperlipidemia Performed By: #### C BC #### [place] [address] [place] Neutrophils/100 WBC (Bld) 61.6 % Normal . [facility] Comment on above: Order Comment: Reaso n for Exam Hyperlipidemia Performed By: #### C BC #### [place] [address] [place] NRBC% 0.0 /100{WBC} Normal 0-0.5 [facility] Comment on above: Order Comment: Reaso n for Exam Hyperlipidemia Performed By: #### C BC #### [place] [address] [place] Platelet mean volume (Bld) [Entitic vol] 7.8 fL Normal 6.3-10.7 [facility] Comment on above: Order Comment: Reaso n for Exam Hyperlipidemia Performed By: #### C BC #### [facility] [address] [place] [address] [place] Platelets (Bld) [#/Vol] 360 10*3/uL Normal 150-450 [facility] Comment on above: Order Comment: Reaso n for Exam Hyperlipidemia Performed By: #### C BC #### [facility] [address] [place] [id number] [facility] RBC (Bld) [#/Vol] 4.20 10*6/uL Normal 3.60-5.00 [facility] Comment on above: Order Comment: Reaso n for Exam Hyperlipidemia Performed By: #### C BC #### [facility] [address] [place] [id number] [facility] WBC (Bld) [#/Vol] 10.4 10*3/uL Normal 3.8-11.6 [facility] Comment on above: Order Comment: Reaso n for Exam Hyperlipidemia Performed By: #### C BC #### [facility] [address] Comprehensive Metabolic Pane trixie 02-17-2023 Albumin [Mass/Vol] 3.9 g/dL Normal 3.5-5.7 [facility] Comment on above: Order Comment: Reaso n for Exam Hyperlipidemia Performed By: #### L IPID, TSH3, CMP #### [facility] [address] [place] [id number] [facility] Albumin/Globulin [Mass ratio] 1.6 {ratio} Normal [facility] Comment on above: Order Comment: Reaso n for Exam Hyperlipidemia Performed By: #### L IPID, TSH3, CMP #### [facility] [address] [place] [id number] [place] ALP [Catalytic activity/Vol] 106 U/L High 34-104 [facility] Comment on above: Order Comment: Reaso n for Exam Hyperlipidemia Performed By: #### L IPID, TSH3, CMP #### [facility] [address] [place] [id number] [facility] ALT [Catalytic activity/Vol] 11 U/L Normal 7-52 [facility] Comment on above: Order Comment: Reaso n for Exam Hyperlipidemia Performed By: #### L IPID, TSH3, CMP #### [facility] [address] Anion gap [Moles/Vol] 10.3 mmol/L Normal 6.0-15.0 [facility] Comment on above: Order Comment: Reaso n for Exam Hyperlipidemia Performed By: #### L IPID, TSH3, CMP #### [facility] [address] AST [Catalytic activity/Vol] 14 U/L Normal 13-39 [facility] Comment on above: Order Comment: Reaso n for Exam Hyperlipidemia Performed By: #### L IPID, TSH3, CMP #### [facility] [address] Bilirubin [Mass/Vol] 0.4 mg/dL Normal 0.3-1.0 [facility] Comment on above: Order Comment: Reaso n for Exam Hyperlipidemia Performed By: #### L IPID, TSH3, CMP #### [facility] [address] Calcium [Mass/Vol] 9.2 mg/dL Normal 8.6-10.3 [facility] Comment on above: Order Comment: Reaso n for Exam Hyperlipidemia Performed By: #### L IPID, TSH3, CMP #### [facility] [address] [place] [address] [place] Chloride [Moles/Vol] 102 mmol/L Normal 98-107 [facility] Comment on above: Order Comment: Reaso n for Exam Hyperlipidemia Performed By: #### L IPID, TSH3, CMP #### [facility] [address] [place] [address] [place] CO2 [Moles/Vol] 33.0 mmol/L High 21.0-31.0 [facility] Comment on above: Order Comment: Reaso n for Exam Hyperlipidemia Performed By: #### L IPID, TSH3, CMP #### [facility] [address] [place] [address] [place] Creatinine [Mass/Vol] 0.46 mg/dL Low 0.60-1.20 [facility] Comment on above: Order Comment: Reaso n for Exam Hyperlipidemia Performed By: #### L IPID, TSH3, CMP #### [facility] [address] [place] [address] [place] GFR/1.73 sq M.predicted MDRD (S/P/Bld) [Vol rate/Area] mL/min/{1.73_m2} Normal [facility] Comment on above: Order Comment: Reaso n for Exam Hyperlipidemia Performed By: #### L IPID, TSH3, CMP #### [facility] [address] Globulin (S) [Mass/Vol] 2.5 g/dL Normal [facility] Comment on above: Order Comment: Reaso n for Exam Hyperlipidemia Performed By: #### L IPID, TSH3, CMP #### [facility] [address] Glucose [Mass/Vol] 84 mg/dL Normal 70-100 [facility] Comment on above: Order Comment: Reaso n for Exam Hyperlipidemia Result Comment: [place] Glucose Reference Range is dependent on time and content of last meal. Glucose of more than 200 mg/dL in a nonstressed, ambulatory subject supports the diagnosis of Diabetes Mellitus. ADA recommended reference range Performed By: #### L IPID, TSH3, CMP #### [facility] [address] [place] [address] [place] Potassium [Moles/Vol] 4.3 mmol/L Normal 3.5-5.1 [facility] Comment on above: Order Comment: Reaso n for Exam Hyperlipidemia Performed By: #### L IPID, TSH3, CMP #### [facility] [address] [place] [id number] [place] Protein [Mass/Vol] 6.4 g/dL Normal 6.4-8.9 [facility] Comment on above: Order Comment: Reaso n for Exam Hyperlipidemia Performed By: #### L IPID, TSH3, CMP #### [facility] [address] [place] [address] [place] Sodium [Moles/Vol] 141 mmol/L Normal 136-145 [facility] Comment on above: Order Comment: Reaso n for Exam Hyperlipidemia Performed By: #### L IPID, TSH3, CMP #### [facility] [address] [place] [address] [place] Urea nitrogen [Mass/Vol] 11 mg/dL Normal 7-25 [facility] Comment on above: Order Comment: Reaso n for Exam Hyperlipidemia Performed By: #### L IPID, TSH3, CMP #### [facility] [address] Creatinine [Mass/volume] in Serum or PlasmaOrdered By: Annie Sal on 02-17-2023 Creatinine [Mass/Vol] 0.46 mg/dL 0.60-1.20 [facility] Eosinophils Auto (Bld) [#/Vo l]Ordered By: Annie Sal on 02-17-2023 Eosinophils (Bld) [#/Vol] 0.1 10*3/uL 0.0-0.45 [facility] Eosinophils/100 WBC Auto (Bl d)Ordered By: Annie Sal on 02-17-2023 Eosinophils/100 WBC (Bld) 1.0 % . [facility] Erythrocyte distribution wid th Auto (RBC) [Ratio]Ordered By: Annie Sal on 02-17-2023 Erythrocyte distribution width (RBC) [Ratio] 14.2 % 11.9-15.3 [facility] Globulin Calc (S) [Mass/Vol] Ordered By: Annie Sal on 02-17-2023 Globulin (S) [Mass/Vol] 2.5 g/dL [facility] Glucose [Mass/volume] in Ser um or PlasmaOrdered By: Annie Sal on 02-17-2023 Glucose [Mass/Vol] 84 mg/dL 70-100 [facility] Comment on above: ADA recommended refe rence rangeRandom Glucose Reference Range is dependent on time and content of last meal. Glucose of more than 200 mg/dL in a nonstressed, ambulatory subject supports the diagnosis of Diabetes Mellitus. Hematocrit Auto (Bld) [Volum e fraction]Ordered By: Annie Sal on 02-17-2023 Hematocrit (Bld) [Volume fraction] 36.3 % 34.0-46.4 [facility] Hemoglobin [Mass/volume] in BloodOrdered By: Annie Sal on 02-17-2023 Hemoglobin (Bld) [Mass/Vol] 11.9 g/dL 11.8-15.4 [facility] Leukocytes [#/volume] correc adriel for nucleated erythrocytes in Blood by Automated counOrdered By: Annie Sal on 02-17-2023 WBC corrected for nucl RBC Auto (Bld) [#/Vol] 10.4 10*3/uL 3.8-11.6 [facility] Lipid Panelon 02-17-2023 Cholesterol [Mass/Vol] 170 mg/dL Normal 140-200 [facility] Comment on above: Order Comment: Reaso n for Exam Hyperlipidemia Result Comment: Chol less than 200 mg/dl low risk Chol 201-239 mg/dl borderline risk Chol 240 mg/dl and greater high risk Performed By: #### L IPID, TSH3, CMP #### [facility] [address] [place] [id number] [place] Cholesterol in HDL [Mass/Vol] 95 mg/dL High 23-92 [facility] Comment on above: Order Comment: Reaso n for Exam Hyperlipidemia Result Comment: HDL CHOL ATP-III CLASSIFICATION Cardiovascular Risk HDL > or equal to 60 mg/dL LOW HDL < 40 mg/dL HIGH Performed By: #### L IPID, TSH3, CMP #### [facility] [address] [place] [address] [place] Cholesterol.total/Diann sterol in HDL [Mass ratio] 1.8 {ratio} Normal <5.0 [facility] Comment on above: Order Comment: Reaso n for Exam Hyperlipidemia Performed By: #### L IPID, TSH3, CMP #### [facility] [address] [place] [address] [place] LDL Cholesterol,Calculated 59 mg/dL Normal 0-100 [facility] Comment on above: Order Comment: Reaso n for Exam Hyperlipidemia Result Comment: LDL ATP III CLASSIFICATION LDL less than 100 mg/dL Optimal LDL 100-129 mg/dL Near or above optimal LDL 130-159 mg/dL Borderline high LDL 160-189 mg/dL High LDL greater than 189 mg/dL Very high Performed By: #### L IPID, TSH3, CMP #### [facility] [address] Triglyceride w/Reflex 81 mg/dL Normal 0-149 [facility] Comment on above: Order Comment: Reaso n for Exam Hyperlipidemia Result Comment: TRIG ATP III CLASSIFICATION TRIG less than 150 mg/dL Normal TRIG 150-199 mg/dL Borderline high TRIG 200-500 mg/dL High TRIG greater than 500 mg/dL Very high Standard traceable to the Center for Disease Conrtrol and Prevention (CDC) test method. Performed By: #### L IPID, TSH3, CMP #### [facility] [address] VLDL CHOLESTEROL 16 mg/dL Normal [facility] Comment on above: Order Comment: Reaso n for Exam Hyperlipidemia Performed By: #### L IPID, TSH3, CMP #### [facility] [address] Lymphocytes Auto (Bld) [#/Vo l]Ordered By: Annie Sal on 02-17-2023 Lymphocytes (Bld) [#/Vol] 3.0 10*3/uL 1.00-4.8 [facility] Lymphocytes/100 WBC Auto (Bl d)Ordered By: Annie Sal on 02-17-2023 Lymphocytes/100 WBC (Bld) 28.5 % . [facility] MCH Auto (RBC) [Entitic mass ]Ordered By: Annie Sal on 02-17-2023 MCH (RBC) [Entitic mass] 28.3 pg 24.7-34.3 [facility] MCHC Auto (RBC) [Mass/Vol]Or dered By: Annie Sal on 02-17-2023 MCHC (RBC) [Mass/Vol] 32.7 g/dL 32.0-35.0 [facility] MCV Auto (RBC) [Entitic vol] Ordered By: Annie Sal on 02-17-2023 MCV (RBC) [Entitic vol] 86.4 fL 80-100 F [facility] Monocytes Auto (Bld) [#/Vol] Ordered By: Annie Sal on 02-17-2023 Monocytes (Bld) [#/Vol] 0.9 10*3/uL 0.0-0.8 [facility] Monocytes/100 WBC Auto (Bld) Ordered By: Annie Sal on 02-17-2023 Monocytes/100 WBC (Bld) 8.2 % . F [facility] Neutrophils Auto (Bld) [#/Vo l]Ordered By: Annie Sal on 02-17-2023 Neutrophils (Bld) [#/Vol] 6.4 10*3/uL 1.8-7.7 [facility] Neutrophils/100 WBC Auto (Bl d)Ordered By: Annie Sal on 02-17-2023 Neutrophils/100 WBC (Bld) 61.6 % . [facility] No Panel InformationOrdered By: Annie Sal on 02-17-2023 Estimated GFR (CKD-EPI) > 60.0 mL/Min [facility] Creatinine Clearance (Chem N/A [facility] Nucleated erythrocytes [Pres ence] in Blood by Automated countOrdered By: Annie Sal on 02-17-2023 Nucleated RBC Auto Ql (Bld) 0.0 /100{WBC} 0-0.5 [facility] Platelet mean volume Auto (B ld) [Entitic vol]Ordered By: Annie Sal on 02-17-2023 Platelet mean volume (Bld) [Entitic vol] 7.8 fL 6.3-10.7 [facility] Platelets Auto (Bld) [#/Vol] Ordered By: Annie Sal on 02-17-2023 Platelets (Bld) [#/Vol] 360 10*3/uL 150-450 [facility] Potassium [Moles/volume] in Serum or PlasmaOrdered By: Annie Sal on 02-17-2023 Potassium [Moles/Vol] 4.3 mmol/L 3.5-5.1 [facility] Protein [Mass/volume] in Ser um or PlasmaOrdered By: Annie Sal on 02-17-2023 Protein [Mass/Vol] 6.4 g/dL 6.4-8.9 [facility] RBC Auto (Bld) [#/Vol]Ordere d By: Annie Sal on 02-17-2023 RBC (Bld) [#/Vol] 4.20 10*6/uL 3.60-5.00 [facility] Serum or plasma albumin/glob ulin mass ratioOrdered By: Annie Sal on 02-17-2023 Albumin/Globulin [Mass ratio] 1.6 {ratio} [facility] Serum or plasma anion gap de terminationOrdered By: Annie Sal on 02-17-2023 Anion gap [Moles/Vol] 10.3 mmol/L 6.0-15.0 [facility] Serum or plasma high density lipoprotein (HDL) cholesterol measurementOrdered By: Annie Sal on 02-17-2023 Cholesterol in HDL [Mass/Vol] 95 mg/dL 23-92 [facility] Comment on above: HDL CHOL ATP-III CLA SSIFICATION Cardiovascular RiskHDL > or equal to 60 mg/dL LOWHDL < 40 mg/dL HIGH Serum or plasma total choles terol/high density lipoprotein (HDL) cholesterol mass ratOrdered By: Annie Sal on 02-17-2023 Cholesterol.total/Diann sterol in HDL [Mass ratio] 1.8 {ratio} <5.0 [facility] Sodium [Moles/volume] in Ser um or PlasmaOrdered By: Annie Sal on 02-17-2023 Sodium [Moles/Vol] 141 mmol/L 136-145 [facility] Thyroid Stimulating Hormoneo n 02-17-2023 TSH Qn 2.52 m[IU]/L Normal 0.45-5.33 [facility] Comment on above: Order Comment: Reaso n for Exam Hyperlipidemia Result Comment: PERF ORMED BY: [place] [address] PATHOLOGIST CHEMICAL PROCESS OPERATOR KIAH COOPER M.D. Performed By: #### L IPID, TSH3, CMP #### [address] Thyrotropin [Units/volume] i n Serum or PlasmaOrdered By: Annie Sal on 02-17-2023 TSH Qn 2.52 m[IU]/L 0.45-5.33 [facility] Triglyceride [Mass/volume] i n Serum or PlasmaOrdered By: Annie Sal on 02-17-2023 Triglyceride [Mass/Vol] 81 mg/dL 0-149 F [facility] Comment on above: TRIG ATP III CLASSIF ICATIONTRIG less than 150 mg/dL NormalTRIG 150-199 mg/dL Borderline highTRIG 200-500 mg/dL High TRIG greater than 500 mg/dL Very highStandard traceable to the Center for Disease Conrtrol and Prevention (CDC) test method. Urea nitrogen [Mass/volume] in Serum or PlasmaOrdered By: Annie Sal on 02-17-2023 Urea nitrogen [Mass/Vol] 11 mg/dL 7-25 [facility] WBC Auto (Bld) [#/Vol]Ordere d By: Annie Sal on 02-17-2023 WBC (Bld) [#/Vol] 10.4 10*3/uL 3.8-11.6 [facility] CNOVon 12-26-2022 CNOV Office Visit (THORMN ) DAYLIN BURTON ([id number]) 1945 F Date Time Provider Department 12/26/22 11:00 AM DOMENICO HARDING During your visit today, we recorded the following information about you: Temperature Pulse Respiration Blood pressure 98 degrees 85/minute 18/minute 122/54 Weight Height 71.2 kg 1.6 m Domenico Harding MD 2022 11:31 AM Signed [facility] THORACIC SURGERY OUTPATIENT CONSULT NOTE Daylin Burton [id number] Requesting Provider: Dr. 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 She unfortunately has fairly severe underlying lung disease, (FEV1=0.62; 31%) and thus surgical options for addressing her OBIE are limited. I do not think she would be an acceptable candidate for resection thus we are left with the possibility of a Clagett window. Unfortunately her cavity is in a challenging location, adjacent, to the scapula and thus there is a very narrow window for access through the axilla to manage this problem. We have discussed the conduct of a Clagett window formation, the risks/benefits and the expected postop course. We have discussed the lifetime nature of the wound and the need for daily dressing changes for management. We have further discussed the risks of resp failure after surgery. This is a lesser surgery than a formal lung resection but still carries risk of pulmonary complications given her borderline status. I have further spoken with her Electrical Engineering Intern who agrees that her medical therapy options have been exhausted at this point. PLAN: 1) TCI 2) Cards clearance 3) left axillary open thoracostomy I have reviewed the documentation obtained and documented by the Resident and I have personally performed a face to face assessment of the patient and have personally participated in the briones components of the visit which includes medical decision making.. I have discussed the case and management of the patient's care. 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 Sal for an opinion regarding management of Aspergillosis. 1. Limited stage small cell lung cancer. Patient completed concurrent chemotherapy with carboplatin and etoposide, last cycle of chemotherapy December 08, 2019. Doing well and continued remission CT with post radiation vs inflammatory changes in the OBIE, ? Debris vs. Aspergilloma . 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 COPD -stable 3. 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 Started antifungal in July stopped 2 weeks ago (5 months of tx) Chemo and radiation in 09/25/[address] morin (document at least 4 of these elements) Location: left Quality: chronic Severity: moderate Duration: 1 time per day ECOG Score: 0 Living arrangement: Lives with family/friend Functional status: Independent Unintentional weight loss over last 3 months: No PAST MEDICAL HISTORY: PAST MEDICAL HISTORY Diagnosis Date COPD (chronic obstructive pulmonary disease) (HCC) Hypertension Lung cancer (HCC) 08/[address] Law Lung mass 08/2019 Port-A-Cath in place 09/27/2019 PAST SURGICAL HISTORY: PAST SURGICAL HISTORY Procedure Laterality Date BRONCHOSCOPY 08/2019 CATARACT EXTRACTION HX 2009 CHOLECYSTECTOMY 1980 PAST SURGICAL HISTORY OF 05/2018 right coronary artery stent placement (4) S PORT-A-CATH [id number] 09/27/2019 FAMILY HISTORY: FAMILY HISTORY Problem Relation Age of Onset Hypertension Mother Hypertension Father Stroke Father Breast Cancer Sister breast cancer at 50's other (Bladder Cancer) Sister other (Lung cancer) Brother Breast Cancer Sister breast cancer at 70's Cancer Sister Cervical Cancer Sister Cervical Cancer Sister other (Lymphoma) Brother SOCIAL HISTORY: Social History Tobacco Use Smoking status: Every Day Years: 55.00 Types: Cigarettes Smokeless tobacco: Never Vaping Use Vaping Use: Never (more content not included)... Normal [facility] [place] 12-16-2022 CNPN Telephone (MAGO) DAYLIN BURTON ([id number]) 1945 F Date Time Provider Department 12/16/22 HVI THORACIC SURG CONSULT THORMN During your visit today, we recorded the following information about you: Shweta Blancas RN 12/16/2022 9:39 AM Signed Duplicate entry Disregard Allergies As of Date: 12/16/2022 Noted Allergy Reaction POLLEN EXTRACTS 09/12/2019 16 - Unknown Date Reviewed: 12/10/2022 Reviewed by: Mckenna Waldrop MD - Fully Assessed Reason for Visit: Consult [173] Prescriptions as of 12/16/2022 - itraconazole (SPORANOX) 100 mg capsule - aspirin, enteric coated (ASPIRIN, ENTERIC COATED) 81 mg EC tablet Take by mouth at bedtime as needed. - budesonide-formoterol (SYMBICORT) 160-4.5 mcg/actuation inhaler Budesonide-Formoterol Active 2 PUFF INHALATION Twice daily June 22, 2018 8:40am - predniSONE (DELTASONE) 5 mg tablet - BREZTRI AEROSPHERE 160-9-4.8 mcg/actuation HFA aerosol inhaler - albuterol (PROVENTIL) 2.5 mg /3 mL (0.083 %) nebulizer solution 2.5 mg. - fexofenadine ER (MARCIE) 180 mg tablet 180 mg. - amLODIPine (NORVASC) 5 mg tablet Take 5 mg by mouth once daily. - clopidogrel (PLAVIX) 75 mg tablet Take 75 mg by mouth once daily. - metoprolol tartrate, short acting, (LOPRESSOR) 25 mg tablet TAKE 1 2 (ONE HALF) TABLET BY MOUTH TWICE DAILY Problem List As Of Date 12/16/2022 Noted Resolved Malignant neoplasm of unspecified part of unspe*09/28/2019 Encounter Status:Closed by SHWETA BLANCAS RN on 12/16/22 [facility] 12-11-2022 [facility] DAYLIN BURTON ([id number]) 1945 F Date Time Provider Department 12/11/22 I THORACIC SURG CONSULT THORMN During your visit today, we recorded the following information about you: Lucy Wheeler RN 12/11/2022 9:28 AM Signed Thoracic Surgery Consultation - review of records for appointment scheduling Received medical records from the office of Mckenna Waldrop [address] [place], [place] [id number] Patient is being referred to Unspecified/First Available by Self Referred for Aspergillosis of Lung Left hx of small cell lung cancer 1. Concurrent chemotherapy with carboplatin plus etoposide and radiation. Chemotherapy started October 03, 2019. Radiation started October 24, 2019 to December 06, 2019. Total 4 cycles of carboplatin and etoposide last on December 08, 2019. Pathology: Procedures: bronch 06/19/2022 - see scanned docs Imaging CT (chest ) 12/03/2022 1. Consolidative opacities in the left lung apex, most likely a combination of post radiation change, other infectious/inflammato ry etiologies and neoplasm, stable in overall size since 08/26/22. The cavitary component has increased in size. Persistent heterogeneous opacities within the cavitary component may represent debris or aspergilloma. 2. Nodular opacities measuring up to 1 cm, stable. 3. Moderately severe emphysematous changes of the lungs. Cardiopulmonary Testing PFT's/Six: requested Cardiac: Office Notes/Consults 12/10/2022 benjie Assessment and Plan: Daylin Burton is a 76 year old year old female here for follow up. 1. Limited stage small cell lung cancer. Patient completed concurrent chemotherapy with carboplatin and etoposide, last cycle of chemotherapy December 08, 2019. Doing well and continued remission CT with post radiation vs inflammatory changes in the OBIE, ? Debris vs. Aspergilloma . 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 COPD -stable 3. 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 See back in 4 months and repeat imaging 09/25/[address] morin History of: FAMILY HISTORY Problem Relation Age of Onset Hypertension Mother Hypertension Father Stroke Father Breast Cancer Sister breast cancer at 50's other (Bladder Cancer) Sister other (Lung cancer) Brother Breast Cancer Sister breast cancer at 70's Cancer Sister Cervical Cancer Sister Cervical Cancer Sister other (Lymphoma) Brother PAST MEDICAL HISTORY Diagnosis Date COPD (chronic obstructive pulmonary disease) (HCC) Hypertension Lung cancer (HCC) 08/[address] Law Lung mass 08/2019 Port-A-Cath in place 09/27/2019 PAST SURGICAL HISTORY Procedure Laterality Date BRONCHOSCOPY 08/2019 CATARACT EXTRACTION HX 2009 CHOLECYSTECTOMY 1980 PAST SURGICAL HISTORY OF 05/2018 right coronary artery stent placement (4) S PORT-A-CATH [id number] 09/27/2019 Social History Tobacco Use Smoking status: Every Day Years: 55.00 Types: Cigarettes Smokeless tobacco: Never Vaping Use Vaping Use: Never used Substance Use Topics Alcohol use: Never Drug use: Never Request consult with dr harding pft/dlco KRISTEN Singh 12/18/2022 10:15 AM Signed Pt was scheduled for the requested consult w/Dr Harding w/pfts per Lucy's Tele for the 1st available date of 12/26/22. Confirmed appt date/time/location w/pt via phone. Pt active on [employer] for appt reminder details. Referring Provider: MCKENNA WALDROP [[id number]] Allergies As of Date: 12/11/2022 Noted Allergy Reaction POLLEN EXTRACTS 09/12/2019 16 - Unknown Date Reviewed: 12/10/2022 Reviewed by: Mckenna Waldrop MD - Fully Assessed Reason for Visit: Consult [173] Appointment Confirmation [[id number]] Primary Visit Diagnosis:Malignant neoplasm of unspecified part of unspecified bronchus or lung ([facility]) [C34.90] Other Visit Diagnosis:Aspergillos is ([facility]) [B44.9] Order(s):SPIROMETRY BASELINE ONLY [4029008] Order #: [id number]: 1 FUTURE LUNG DIFFUSION CAPACITY (DLCO) [1627611] Order #: [id number]: 1 FUTURE Prescriptions as of 12/18/2022 - itraconazole (SPORANOX) 100 mg capsule - aspirin, enteric coated (ASPIRIN, ENTERIC COATED) 81 mg EC tablet Take by mouth at bedtime as needed. - budesonide-formoterol (SYMBICORT) 160-4.5 mcg/actuation inhaler Budesonide-Formoterol Active 2 PUFF INHALATION Twice daily June 22, 2018 8:40am - predniSONE (DELTASONE) 5 mg tablet - BREZTRI AEROSPHERE 160-9-4.8 mcg/actuation HFA aerosol inhaler - albuterol (PROVENTIL) 2.5 mg /3 mL (0.083 %) nebulizer solution 2.5 mg. - fexofenadine ER (MARCIE) 180 mg tablet 180 mg. - amLODIPine (NORVASC) 5 mg tablet Take 5 mg by mouth once daily. (more content not included)... Normal [facility] CNOVSPon 12-10-2022 CNOVSP Visit (SP) Office (HEMASA) DAYLIN BURTON ([id number]) 1945 F Date Time Provider Department 12/10/22 3:15 PM MCKENNA WALDROP During your visit today, we recorded the following information about you: Temperature Pulse Respiration Blood pressure 97.4 degrees 81/minute 20/minute 142/67 Weight Height 71.2 kg 1.6 m cMkenna Waldrop MD 12/10/2022 3:39 PM Signed PATIENT NAME: Daylin Burton CLINIC NO.: [id number] ATTENDING PHYSICIAN: Mckenna Waldrop MD DATE OF SERVICE: December 10, 2022 Some of the elements of this note have been copied from my previous progress note dated 09/02/2022. All the information has been reviewed carefully. Dear Dr. Law, 0 here is an update on a follow up visit on female Daylin Burton at the clinic December 10, 2022 Diagnosis: 1. Limited stage small cell lung cancer diagnosed September 06, 2019 Treatment History: 1. Concurrent chemotherapy with carboplatin plus etoposide and radiation. Chemotherapy started October 03, 2019. Radiation started October 24, 2019 to December 06, 2019. Total 4 cycles of carboplatin and etoposide last on December 08, 2019. HPI: Daylin Burton is a 76 year old year old female here for follow up. Doing ok but baseline SOB and ongoing cough. Denies any hemoptysis. Continues on the Itraconazole based on Pulm and also steroids for her COPD. Denies any fevers and or weight loss PAST MEDICAL HISTORY Diagnosis Date COPD (chronic obstructive pulmonary disease) (HCC) Hypertension Lung cancer (HCC) 08/[address] Law Lung mass 08/2019 Port-A-Cath in place 09/27/2019 Social History Tobacco Use Smoking status: Every Day Years: 55.00 Types: Cigarettes Smokeless tobacco: Never Vaping Use Vaping Use: Never used Substance Use Topics Alcohol use: Never Drug use: Never FAMILY HISTORY Problem Relation Age of Onset Hypertension Mother Hypertension Father Stroke Father Breast Cancer Sister breast cancer at 50's other (Bladder Cancer) Sister other (Lung cancer) Brother Breast Cancer Sister breast cancer at 70's Cancer Sister Cervical Cancer Sister Cervical Cancer Sister other (Lymphoma) Brother Past medical, social and family history reviewed without any changes. REVIEW OF SYSTEMS GENERAL: No weight loss, malaise or fevers. No night sweats. HEENT: Negative for headaches, No changes in hearing or vision, no nose bleeds or other nasal problems. RESPIRATORY: Negative for cough, wheezing and shortness of breath CARDIOVASCULAR: Negative for chest pain, leg swelling and palpitations GI: Negative for abdominal discomfort, blood in stools or black stools and change in bowel habits : Negative for dysuria, frequency and incontinence MUSCULOSKELETAL: Negative for joint pain or swelling, back pain, and muscle pain. SKIN: Negative for lesions, rash, and itching. HEMATOLOGY/LYMPHOLOGY Negative for prolonged bleeding, bruising easily, and swollen nodes. NEURO: Negative for numbness or tingling of hands/feet. No weakness. PHYSICAL EXAMINATION: BP 142/67 Pulse 81 Temp (Src) 97.4 (Temporal) Resp 20 Ht 5' 2.992 (1.60m) Wt 157 lb (71.2kg) SpO2 100% BMI 27.82 kg/(m2). Wt 68.5 kg (151 lb) BMI 25.91 kg/m2 Last 3 Encounter Wt Readings: Date: Wt: 09/28/2019 68.9 kg (151 lb 12.8 oz) 09/28/2019 68.5 kg (151 lb) 09/19/2019 68 kg (150 lb) General appearance:ECOG PERFORMANCE STATUS: 0- Fully active, able to carry on all pre-disease performance w/o restriction. Patient in NAD. Skin: Skin color, texture, turgor normal. No rashes or lesions. Eyes: Anicteric sclera. Pupils are equally round and reactive to light. Extraocular movements are intact. Lymph Nodes: No cervical, supraclavicular, axillary or inguinal adenopathy. Oropharynx: Lips, mucosa, and tongue normal. Back: No pain to percussion. Negative SLR test Lungs clear to auscultation, No wheezing or rhonchi Heart: RRR without murmur, gallop, or rubs. Abdomen soft, non-tender. No masses, organomegaly Extremities: No deformities. No edema Neuro: Gait and speech normal. Reflexes normal and symmetric. Muscular strength intact. Sensation grossly intact. Rectal: Deferred : Deferred LABS: Glucose (mg/dL) Date Value 12/03/2022 224 05/28/2021 126 Potassium (mmol/L) Date Value 12/03/2022 3.0 05/28/2021 4.2 Sodium (mmol/L) Date Value 12/03/2022 138 05/28/2021 137 Chloride (mmol/L) Date Value 12/03/2022 95 05/28/2021 102 CO2 (mmol/L) Date Value 12/03/2022 32 05/28/2021 25 Creatinine (mg/dL) Date Value 12/03/2022 0.47 05/28/2021 0.48 BUN (mg/dL) Date Value 12/03/2022 12 05/28/2021 11 Anion Gap (mmol/L) Date Value 12/03/2022 11 05/28/2021 10 Calcium (mg/dL) Date Value 05/28/2021 9.2 Calcium, Total (mg/dL) Date Value 12/03/2022 9.4 Protein, Total (g/dL) Date Value 12/03/2022 6.6 05/28/2021 7.0 Albu (more content not included)... Normal [facility] CNPTrinh 12-10-2022 CNPN Telephone (NCCAP) DAYLIN BURTON ([id number]) 1945 F Date Time Provider Department 12/10/22 MCKENNA WALDROP During your visit today, we recorded the following information about you: Malou Olson 12/10/2022 4:02 PM Signed Consult for Thoracic Surgery. Thank you! Aspergilloma (HCC) [B44.9] Malou Olson Allergies As of Date: 12/10/2022 Noted Allergy Reaction POLLEN EXTRACTS 09/12/2019 16 - Unknown Date Reviewed: 12/10/2022 Reviewed by: Mckenna Waldrop MD - Fully Assessed Reason for Visit: Consult [173] Prescriptions as of 12/16/2022 - itraconazole (SPORANOX) 100 mg capsule - aspirin, enteric coated (ASPIRIN, ENTERIC COATED) 81 mg EC tablet Take by mouth at bedtime as needed. - budesonide-formoterol (SYMBICORT) 160-4.5 mcg/actuation inhaler Budesonide-Formoterol Active 2 PUFF INHALATION Twice daily June 22, 2018 8:40am - predniSONE (DELTASONE) 5 mg tablet - BREZTRI AEROSPHERE 160-9-4.8 mcg/actuation HFA aerosol inhaler - albuterol (PROVENTIL) 2.5 mg /3 mL (0.083 %) nebulizer solution 2.5 mg. - fexofenadine ER (MARCIE) 180 mg tablet 180 mg. - amLODIPine (NORVASC) 5 mg tablet Take 5 mg by mouth once daily. - clopidogrel (PLAVIX) 75 mg tablet Take 75 mg by mouth once daily. - metoprolol tartrate, short acting, (LOPRESSOR) 25 mg tablet TAKE 1 2 (ONE HALF) TABLET BY MOUTH TWICE DAILY Problem List As Of Date 12/10/2022 Noted Resolved Malignant neoplasm of unspecified part of unspe*09/28/2019 Encounter Status:Closed by MALOU OLSON on 12/16/22 Normal [facility] CBC W Auto Differential pane l (Bld)on 12-03-2022 Basophils (Bld) [#/Vol] 0.07 10*3/uL Normal <0.11 [facility] Comment on above: Order Comment: Speci men Type: BLOOD SPECIMENOrdering Facility: [facility] Address: [address] [place] [address] [place] [address] Performed By: #### 5 7021-8 ####[facility] LABCLIA [id number] [place] [address] Basophils/100 WBC (Bld) 0.4 % Normal [facility] Comment on above: Order Comment: Speci men Type: BLOOD SPECIMENOrdering Facility: [facility] Address: [address] [place] [address] Performed By: #### 5 7021-8 ####[facility] LABCLIA [id number] [place] [address] Differential cell count method Nom (Bld) Auto Normal [facility] Comment on above: Order Comment: Speci men Type: BLOOD SPECIMENOrdering Facility: [facility] Address: [address] [place] [address] Performed By: #### 5 7021-8 ####[facility] LABCLIA [id number] [place] [address] Eosinophils (Bld) [#/Vol] 0.08 10*3/uL Normal <0.46 [facility] Comment on above: Order Comment: Speci men Type: BLOOD SPECIMENOrdering Facility: [facility] Address: [address] [place] [address] Performed By: #### 5 7021-8 ####[facility] LABCLIA [id number] [place] [address] Eosinophils/100 WBC (Bld) 0.5 % Normal [facility] Comment on above: Order Comment: Speci men Type: BLOOD SPECIMENOrdering Facility: [facility] Address: [address] [place] [address] Performed By: #### 5 7021-8 ####[facility] LABIA [id number] [place] [address] Erythrocyte distribution width (RBC) [Ratio] 15.2 % High 11.5-15.0 [facility] Comment on above: Order Comment: Speci men Type: BLOOD SPECIMENOrdering Facility: [facility] Address: [address] [address] Performed By: #### 5 7021-8 ####[facility] LABIA [id number] [place] [address] Hematocrit (Bld) [Volume fraction] 38.2 % Normal 36.0-46.0 [facility] Comment on above: Order Comment: Speci men Type: BLOOD SPECIMENOrdering Facility: [facility] Address: [address] [place] [address] Performed By: #### 5 7021-8 ####[facility] LABIA [id number] [place] [address] Hemoglobin (Bld) [Mass/Vol] 12.1 g/dL Normal 11.5-15.5 [facility] Comment on above: Order Comment: Speci men Type: BLOOD SPECIMENOrdering Facility: [facility] Address: [address] [place] [address] Performed By: #### 5 7021-8 ####[facility] LABIA [id number] [place] [address] Immature granulocytes (Bld) [#/Vol] 0.10 10*3/uL High <0.10 [facility] Comment on above: Order Comment: Speci men Type: BLOOD SPECIMENOrdering Facility: [facility] Address: [address] [place] [address] Performed By: #### 5 7021-8 ####[facility] LABCLIA [id number] [place] [address] Immature granulocytes/100 WBC (Bld) 0.6 % Normal [facility] Comment on above: Order Comment: Speci men Type: BLOOD SPECIMENOrdering Facility: [facility] Address: [address] [place] [address] Performed By: #### 5 7021-8 ####[facility] LABCLIA [id number] [place] [address] Lymphocytes (Bld) [#/Vol] 1.76 10*3/uL Normal 1.00-4.00 [facility] Comment on above: Order Comment: Speci men Type: BLOOD SPECIMENOrdering Facility: [facility] Address: [address] [place] [address] Performed By: #### 5 7021-8 ####[facility] LABCLIA [id number] [place] [address] Lymphocytes/100 WBC (Bld) 11.2 % Normal [facility] Comment on above: Order Comment: Speci men Type: BLOOD SPECIMENOrdering Facility: [facility] Address: [address] [place] [address] Performed By: #### 5 7021-8 ####[facility] LABCLIA [id number] [place] [address] MCH (RBC) [Entitic mass] 27.6 pg Normal 26.0-34.0 [facility] Comment on above: Order Comment: Speci men Type: BLOOD SPECIMENOrdering Facility: [facility] Address: [address] [place] [address] Performed By: #### 5 7021-8 ####[facility] LABCLIA [id number] [place] [address] MCHC (RBC) [Mass/Vol] 31.7 g/dL Normal 30.5-36.0 [facility] Comment on above: Order Comment: Speci men Type: BLOOD SPECIMENOrdering Facility: [facility] Address: [address] [place] [address] Performed By: #### 5 7021-8 ####[facility] LABIA [id number] [place] [address] MCV (RBC) [Entitic vol] 87.2 fL Normal 80.0-100.0 [facility] Comment on above: Order Comment: Speci men Type: BLOOD SPECIMENOrdering Facility: [facility] Address: [address] [address] Performed By: #### 5 7021-8 ####[facility] LABCLIA [id number] [place] [address] Monocytes (Bld) [#/Vol] 0.85 10*3/uL Normal <0.87 [facility] Comment on above: Order Comment: Speci men Type: BLOOD SPECIMENOrdering Facility: [facility] Address: [address] [address] Performed By: #### 5 7021-8 ####[facility] LABCLIA [id number] [place] [address] Monocytes/100 WBC (Bld) 5.4 % Normal [facility] Comment on above: Order Comment: Speci men Type: BLOOD SPECIMENOrdering Facility: [facility] Address: [address] [place] [address] Performed By: #### 5 7021-8 ####[facility] LABCLIA [id number] [place] [address] Neutrophils (Bld) [#/Vol] 12.79 10*3/uL High 1.45-7.50 [facility] Comment on above: Order Comment: Speci men Type: BLOOD SPECIMENOrdering Facility: [facility] Address: [address] [place] [address] Performed By: #### 5 7021-8 ####[facility] LABCLIA [id number] [place] [address] Neutrophils/100 WBC (Bld) 81.9 % Normal [facility] Comment on above: Order Comment: Speci men Type: BLOOD SPECIMENOrdering Facility: [facility] Address: [address] [place] [address] Performed By: #### 5 7021-8 ####[facility] LABCLIA [id number] [place] [address] Nucleated RBC (Bld) [#/Vol] 10*3/uL Normal <0.01 [facility] Comment on above: Order Comment: Speci men Type: BLOOD SPECIMENOrdering Facility: [facility] Address: [address] [address] Performed By: #### 5 7021-8 ####[facility] LABCLIA [id number] [place] [address] Nucleated RBC/100 WBC (Bld) [Ratio] 0.0 /100 WBC Normal [facility] Comment on above: Order Comment: Speci men Type: BLOOD SPECIMENOrdering Facility: [facility] Address: [address] [address] Performed By: #### 5 7021-8 ####[facility] LABIA [id number] [place] [address] Platelet mean volume (Bld) [Entitic vol] 10.2 fL Normal 9.0-12.7 [facility] Comment on above: Order Comment: Speci men Type: BLOOD SPECIMENOrdering Facility: [facility] Address: [address] [address] Performed By: #### 5 7021-8 ####[facility] LABIA [id number] [place] [address] Platelets (Bld) [#/Vol] 319 10*3/uL Normal 150-400 [facility] Comment on above: Order Comment: Speci men Type: BLOOD SPECIMENOrdering Facility: [facility] Address: [address] Performed By: #### 5 7021-8 ####[facility] LABIA [id number] [place] [address] RBC (Bld) [#/Vol] 4.38 10*6/uL Normal 3.90-5.20 [facility] Comment on above: Order Comment: Speci men Type: BLOOD SPECIMENOrdering Facility: [facility] Address: [address] Performed By: #### 5 7021-8 ####[facility] LABCLIA [id number] [place] [address] WBC (Bld) [#/Vol] 15.65 10*3/uL High 3.70-11.00 [facility] Comment on above: Order Comment: Speci men Type: BLOOD SPECIMENOrdering Facility: [facility] Address: [place] [address] Performed By: #### 5 7021-8 ####[facility] LABCLIA [id number] [place] [address] CT CHEST W IVCONon 3 CT CHEST W IVCON * * *Final Report* * * DATE OF EXAM: Dec 03 2022 2:41PM [facility] 0539 - CT CHEST W IVCON / PROCEDURE REASON: Malignant neoplasm of unspecified part of unspecified bronchus or lung (HCC) * * * * Physician Interpretation * * * * RESULT: EXAMINATION: CHEST CT WITH CONTRAST CLINICAL HISTORY: Small cell lung cancer (SCLC), assess treatment response Technique: Spiral CT acquisition of the chest from the thoracic inlet to the upper abdomen following IV contrast. MQ: CTCW_6 Contrast: 50 mL Omnipaque [address] Radiation dose: Integrated Dose-length product (DLP) for this visit = 252 mGy*cm CT Dose Reduction Employed: Automated exposure control (AEC) Comparison: CT chest dated 08/26/22 and PET/CT scan dated 10/06/19 RESULT: Limitations: None. Lines, tubes, and devices: Right Port-A-Cath. Lung parenchyma and airways: Moderately severe emphysematous changes of the lungs. Consolidative opacities in the left lung apex, most likely a combination of post radiation change, other infectious/inflammato ry etiologies and neoplasm, stable. The cavitary component has increased in size. Persistent heterogeneous opacities within the cavitary area may represent debris or aspergilloma. 1.0 x 0.8 cm left upper lobe nodular opacity (4:46), currently 1.0 x 0.9 cm, stable. Other subcentimeter nodular opacities measuring up to 5 mm, stable. For example: Right middle lobe (4:117) Right lower lobe (4: 119) Left upper lobe (4: 124) Pleural space: No pleural effusion. No pleural thickening. Lower neck, lymph nodes, and mediastinum: The imaged thyroid gland is normal. No lymphadenopathy in the supraclavicular, axillary, mediastinal, or hilar regions. Heart, pericardium, and thoracic vessels: The thoracic aorta and main pulmonary artery are normal in caliber. The cardiac chambers are normal in size. Atherosclerotic coronary artery calcifications are noted. No pericardial effusion or thickening. Bones and soft tissues: Scoliosis of the thoracolumbar spine is again noted. No new osseous abnormalities. Upper abdomen: 3.5 x 1.6 cm left adrenal nodule, compatible with a previously described adrenal adenoma, stable since 09/26/19. Polishing Machine Operator Helper (topogram) images: No additional findings. IMPRESSION: 1. Consolidative opacities in the left lung apex, most likely a combination of post radiation change, other infectious/inflammato ry etiologies and neoplasm, stable in overall size since 08/26/22. The cavitary component has increased in size. Persistent heterogeneous opacities within the cavitary component may represent debris or aspergilloma. 2. Nodular opacities measuring up to 1 cm, stable. 3. Moderately severe emphysematous changes of the lungs. Transcribe Date/Time: Dec 04 2022 11:42A Dictated by: LATONYA YLMAN MD This examination was interpreted and the report reviewed and electronically signed by: LATONYA LYMAN MD on Dec 04 2022 12:01PM EST Thank you for allowing us to participate in the care of your patient. Should there be any questions regarding this interpretation, please call [phone]. If you are unable to reach us at the number above, please feel free to contact [facility] eRadiology at [phone]. [id number] N Normal [facility] Comprehensive metabolic 2000 panelon 12-03-2022 Albumin [Mass/Vol] 4.0 g/dL Normal 3.9-4.9 [facility] Comment on above: Order Comment: Speci men Type: BLOOD SPECIMENOrdering Facility: [facility] Address: [address] [place] [address] [place] [address] Performed By: #### 2 4323-8 ####[facility] LABCLIA [id number] [place] [address] ALP [Catalytic activity/Vol] 129 U/L High 34-123 [facility] Comment on above: Order Comment: Speci men Type: BLOOD SPECIMENOrdering Facility: [facility] Address: [address] [place] [address] Performed By: #### 2 4323-8 ####[facility] LABCLIA [id number] [place] [address] ALT [Catalytic activity/Vol] 20 U/L Normal 7-38 [facility] Comment on above: Order Comment: Speci men Type: BLOOD SPECIMENOrdering Facility: [facility] Address: [address] [place] [address] Performed By: #### 2 4323-8 ####[facility] LABCLIA [id number] [place] [address] Anion gap [Moles/Vol] 11 mmol/L Normal 9-18 [facility] Comment on above: Order Comment: Speci men Type: BLOOD SPECIMENOrdering Facility: [facility] Address: [address] [place] [address] Performed By: #### 2 4323-8 ####[facility] LABCLIA [id number] [place] [address] AST [Catalytic activity/Vol] 17 U/L Normal 13-35 [facility] Comment on above: Order Comment: Speci men Type: BLOOD SPECIMENOrdering Facility: [facility] Address: [address] [place] [address] Performed By: #### 2 4323-8 ####[facility] LABCLIA [id number] [place] [address] Bilirubin [Mass/Vol] 0.4 mg/dL Normal 0.2-1.3 [facility] Comment on above: Order Comment: Speci men Type: BLOOD SPECIMENOrdering Facility: [facility] Address: [address] [address] Performed By: #### 2 4323-8 ####[facility] LABCLIA [id number] [place] [address] Calcium [Mass/Vol] 9.4 mg/dL Normal 8.5-10.2 [facility] Comment on above: Order Comment: Speci men Type: BLOOD SPECIMENOrdering Facility: [facility] Address: [address] [address] Performed By: #### 2 4323-8 ####[facility] LABCLIA [id number] [place] [address] Chloride [Moles/Vol] 95 mmol/L Low 97-105 [facility] Comment on above: Order Comment: Speci men Type: BLOOD SPECIMENOrdering Facility: [facility] Address: [address] [address] Performed By: #### 2 4323-8 ####[facility] LABCLIA [id number] [place] [address] CO2 [Moles/Vol] 32 mmol/L High 22-30 [facility] Comment on above: Order Comment: Speci men Type: BLOOD SPECIMENOrdering Facility: [facility] Address: [address] [address] Performed By: #### 2 4323-8 ####[facility] LABCLIA [id number] [place] [address] Creatinine [Mass/Vol] 0.47 mg/dL Low 0.58-0.96 [facility] Comment on above: Order Comment: Speci men Type: BLOOD SPECIMENOrdering Facility: [facility] Address: [address] [place] [address] Performed By: #### 2 4323-8 ####[facility] LABCLIA [id number] [place] [address] ESTIMATED GLOMERULAR FILTRATION RATE 99 mL/min/1.73m??? Normal >=60 [facility] Comment on above: Order Comment: [place] Type: BLOOD SPECIMENOrdering Facility: [facility] Address: [address] [id number] Result Comment: Caitlyn mated Glomerular Filtration Rate (eGFR) is calculated using the 2020 CKD-EPI creatinine equation. This equation utilizes serum creatinine, sex, and age as parameters. The creatinine assay has traceable calibration to isotope dilution-mass spectrometry. Refer to KDIGO guidelines for clinical interpretation. In patients with unstable renal function, e.g. those with acute kidney injury, the eGFR may not accurately reflect actual GFR. Performed By: #### 2 4323-8 ####[facility] LABCLIA [id number] [place] [address] Glucose [Mass/Vol] 224 mg/dL High 74-99 [facility] Comment on above: Order Comment: [place] Type: BLOOD SPECIMENOrdering Facility: [facility] Address: [address] [id number] Result Comment: The [place] Diabetes Association (ADA) provides guidance for cutoff values for fasting glucose and random glucose. The ADA defines fasting as no caloric intake for at least 8 hours. Fasting plasma glucose results between 100 to 125 mg/dL indicate increased risk for diabetes (prediabetes). Fasting plasma glucose results greater than or equal to 126 mg/dL meet the criteria for diagnosis of diabetes. In the absence of unequivocal hyperglycemia, results should be confirmed by repeat testing. In a patient with classic symptoms of hyperglycemia or hyperglycemic crisis, random plasma glucose results greater than or equal to 200 mg/dL meet the criteria for diagnosis of diabetes. Reference: Standards of Medical Care in Diabetes 2016, [place] Diabetes Association. Diabetes Care. 2016.39(Suppl 1). Performed By: #### 2 4323-8 ####[facility] LABCLIA [id number] [place] [address] Potassium [Moles/Vol] 3.0 mmol/L Low 3.7-5.1 [facility] Comment on above: Order Comment: [place] Type: BLOOD SPECIMENOrdering Facility: [facility] Address: [address] [address] Performed By: #### 2 4323-8 ####[facility] LABCLIA [id number] [place] [address] Protein [Mass/Vol] 6.6 g/dL Normal 6.3-8.0 [facility] Comment on above: Order Comment: Speci men Type: BLOOD SPECIMENOrdering Facility: [facility] Address: [address] [address] Performed By: #### 2 4323-8 ####[facility] LABCLIA [id number] [place] [address] Sodium [Moles/Vol] 138 mmol/L Normal 136-144 [facility] Comment on above: Order Comment: Speci men Type: BLOOD SPECIMENOrdering Facility: [facility] Address: [address] [address] Performed By: #### 2 4323-8 ####[facility] LABCLIA [id number] [place] [address] Urea nitrogen [Mass/Vol] 12 mg/dL Normal 7-21 [facility] Comment on above: Order Comment: Speci men Type: BLOOD SPECIMENOrdering Facility: [facility] Address: [address] [address] Performed By: #### 2 4323-8 ####[facility] LABCLIA [id number] [place] [address] ITRACONAZOLEon 10-04-2022 Hydroxyitraconazole 3.3 ug/mL Normal [facility] Comment on above: Result Comment: Ther apeutic range has not been established. Hydroxyitraconazole is an active metabolite of itraconazole; the activity and serum concentrations are similar to parent drug. Performed By: #### I TRACON #### [facility] [address] [place] [address] Dr. Lisa Jiménez Itraconazole 2.3 ug/mL Normal [facility] Comment on above: Result Comment: Refe rence value: Localized infection: > 0.5 ug/mL Systemic infection: > 1.0 ug/mL Performed By: #### I TRACON #### [facility] [address] [place] [address] Dr. Lisa Jiménez ASPERGILLUS FUMIGATUS AB, IG Kenneth 10-03-2022 Aspergillus fumigatus IgG >200.0 Critically high 0.0-66.5 [facility] Comment on above: Performed By: #### A SPIGG #### [facility] [address] [place] [address] Dr. Lisa Jiménez FUNGAL CULTUREon 07-21-2022 Fungus (Mycology) Culture Final report Abnormal [facility] Comment on above: Performed By: #### C XFUN #### [facility] [address] [place] [address] Dr. Lisa Jiménez Fungus Stain Final report Normal [facility] Comment on above: Performed By: #### C XFUN #### [facility] [address] [place] [address] Dr. Lisa Jiménez Result 1 Comment Normal [facility] Comment on above: Result Comment: EUGENE/ Calcofluor preparation: no fungus observed. Performed By: #### C XFUN #### [facility] [address] [place] [address] Dr. Lisa Jiménez Result 1 Aspergillus fumigatus Abnormal [facility] Comment on above: Result Comment: Adrienne us isolated, identification in progress. Performed By: #### C XFUN #### [facility] [address] [place] [address] Dr. Lisa Jiménez CBC AUTO DIFFon 06-17-2022 BASO # 0.1 103/ul Normal 0.0-0.1 [facility] Comment on above: Performed By: #### C BC #### [facility] [address] [place] [address] Dr. Lisa Jiménez Basophils/100 WBC (Bld) 0.3 % Normal 0.2-2.0 [facility] Comment on above: Performed By: #### C BC #### [facility] [address] [place] [address] Dr. Lisa Jiménez EO # 0.0 103/ul Normal 0.0-0.7 [facility] Comment on above: Performed By: #### C BC #### [facility] [address] [place] [address] Dr. Lisa Jiménez Eosinophils/100 WBC (Bld) 0.2 % Critically low 0.9-7.0 [facility] Comment on above: Performed By: #### C BC #### [facility] [address] [place] [address] Dr. Lisa Jiménez Erythrocyte distribution width (RBC) [Ratio] 13.9 % Normal 11.0-15.0 [facility] Comment on above: Performed By: #### C BC #### [facility] [address] [place] [address] Dr. Lisa Jiménez Hematocrit (Bld) [Volume fraction] 38.2 % Normal 36.0-48.0 [facility] Comment on above: Performed By: #### C BC #### [facility] [address] [place] [address] Dr. Lisa Jiménez Hemoglobin (Bld) [Mass/Vol] 12.3 g/dL Normal 12.0-16.0 [facility] Comment on above: Performed By: #### C BC #### [facility] [address] [place] [address] Dr. Lisa Jiménez IG # 0.06 10e3/ul Critically high 0.00-0.03 [facility] Comment on above: Performed By: #### C BC #### [facility] [address] [place] [address] Dr. Lisa Jiménez IG % 0.3 % Normal 0.0-0.5 [facility] Comment on above: Performed By: #### C BC #### [facility] [address] [place] [address] Dr. Lisa Jiménez LYMPH # 1.2 103/ul Normal 1.2-3.8 [facility] Comment on above: Performed By: #### C BC #### [facility] [address] [place] [address] Dr. Lisa Jiménez Lymphocytes/100 WBC (Bld) 6.8 % Critically low 20.5-60.0 [facility] Comment on above: Performed By: #### C BC #### [facility] [address] [place] [address] Dr. Lisa Jiménez MANUAL DIFF REQ NO Normal [facility] Comment on above: Performed By: #### C BC #### [facility] [address] [place] [address] Dr. Lisa Jiménez MCH (RBC) [Entitic mass] 27.8 pg Normal 26.7-34.0 [facility] Comment on above: Performed By: #### C BC #### [facility] [address] [place] [address] Dr. Lisa Jiménez MCHC (RBC) [Mass/Vol] 32.2 g/dL Normal 29.9-35.2 [facility] Comment on above: Performed By: #### C BC #### [facility] [address] [place] [address] Dr. Lisa Jiménez MCV (RBC) [Entitic vol] 86.4 fL Normal 81.0-99.0 [facility] Comment on above: Performed By: #### C BC #### [facility] [address] [place] [address] Dr. Lisa Jiménez MONO # 0.5 103/ul Normal 0.3-0.8 [facility] Comment on above: Performed By: #### C BC #### [facility] [address] [place] [address] Dr. Lisa Jiménez Monocytes/100 WBC (Bld) 2.6 % Normal 1.7-12.0 [facility] Comment on above: Performed By: #### C BC #### [facility] [address] [place] [address] Dr. Lisa Jiménez NEUT # 15.4 103/ul Critically high 1.4-6.5 [facility] Comment on above: Performed By: #### C BC #### [facility] [address] [place] [address] Dr. Lisa Jiménez Neutrophils/100 WBC (Bld) 89.8 % Critically high 43.0-75.0 [facility] Comment on above: Performed By: #### C BC #### [facility] [address] [address] [address] Lisa Jiménez Platelet mean volume (Bld) [Entitic vol] 9.3 fL Critically low 9.5-13.5 [facility] Comment on above: Performed By: #### C BC #### [facility] [address] [address] [address] Lisa Jiménez PLT 397 103/ul Normal 150-450 [facility] Comment on above: Performed By: #### C BC #### [facility] [address] [address] [address] Lisa Jiménez RBC 4.42 106/ul Normal 4.20-5.40 [facility] Comment on above: Performed By: #### C BC #### [facility] [address] [address] [address] Lisa Jiménez WBC 17.2 103/ul Critically high 4.0-11.0 [facility] Comment on above: Performed By: #### C BC #### [facility] [address] [address] [address] Lisa Jiménez Covid-19 PCR ([facility])on 05-21 SARS-CoV-2 (COVID-19) RNA ALE+probe Ql (Unsp spec) Not detected Normal NOT DETECTED [facility] Comment on above: Result Comment: When diagnostic testing is negative, the possibility of a false negative should be considered in the context of a patient's recent exposures and the presence of clinical signs and symptoms consistent with SARS-CoV-2. This test is not yet approved or cleared by the [place] FDA. When there are no FDA-approved or cleared tests available, and other criteria are met, FDA can make tests available under an emergency access mechanism called an Emergency Use Authorization (EUA). The EUA for this test is supported by the [place] of Health and Human Service's declaration that circumstances exist to justify the emergency use of in vitro diagnostics for the detection and/or diagnosis of the virus that causes COVID-19. This EUA will remain in effect for the duration of the COVID-19 declaration justifying emergency of IVDs, unless it is terminated or revoked by the FDA (after which the test may no longer be used). Performed By: #### [facility] #### [facility] [address] [address] [address] Lisa Jiménez PROF CHEM 8 (BAS METB)on Anion gap [Moles/Vol] 9.7 mmol/L Normal [facility] Comment on above: Performed By: #### B MP #### [facility] [address] [place] [address] Dr. Lisa Jiménez Calcium [Mass/Vol] 9.3 mg/dL Normal 8.5-10.1 [facility] Comment on above: Performed By: #### B MP #### [facility] [address] [place] [address] Dr. Lisa Jiménez Chloride [Moles/Vol] 98 mmol/L Normal 98-107 [facility] Comment on above: Performed By: #### B MP #### [facility] [address] [place] [address] Dr. Lisa Jiménez CO2 [Moles/Vol] 32.9 mmol/L Critically high 21.0-32.0 [facility] Comment on above: Performed By: #### B MP #### [facility] [address] [place] [address] Dr. Lisa Jiménez Creatinine [Mass/Vol] 0.61 mg/dL Normal 0.55-1.02 [facility] Comment on above: Performed By: #### B MP #### [facility] [address] [place] [address] Dr. Lisa Jiménez EGFR-AF SWEDISH >60 Normal >=60 [facility] Comment on above: Performed By: #### B MP #### [facility] [address] [place] [address] Dr. Lisa Jiménez EGFR-NON AF SWEDISH >60 Normal >=60 [facility] Comment on above: Performed By: #### B MP #### [facility] [address] [place] [address] Dr. Lisa Jiménez Glucose [Mass/Vol] 127 mg/dL Critically high 74-106 [facility] Comment on above: Performed By: #### B MP #### [facility] [address] [place] [address] Dr. Lisa Jiménez Potassium [Moles/Vol] 3.6 mmol/L Normal 3.5-5.1 [facility] Comment on above: Performed By: #### B MP #### [facility] [address] [address] [address] Lisa Jiménez Sodium [Moles/Vol] 137 mmol/L Normal 136-145 [facility] Comment on above: Performed By: #### B MP #### [facility] [address] [place] [address] Dr. Lisa Jiménez Urea nitrogen [Mass/Vol] 12.0 mg/dL Normal 7.0-18.0 [facility] Comment on above: Performed By: #### B MP #### [facility] [address] [place] [address] Dr. Lisa Jiménez Urea nitrogen/Creatinine [Mass ratio] 19.7 mg/mg Normal [facility] Comment on above: Performed By: #### B MP #### [facility] [address] [place] [address] Dr. Lisa Jiménez PROTIMEon 06-17-2022 INR Coag (PPP) [Relative time] {INR} Normal [facility] Comment on above: Performed By: #### P TT, PT #### [facility] [address] [place] [address] Dr. Lisa Jiménez INR GUIDELINES SEE BELOW Normal [facility] Comment on above: Result Comment: EDUARDO RED INR: 2.0 - 3.0 CONDITIONS NOT LISTED BELOW 2.5 - 3.5 FOR PROSTHETIC HEART VALVE REPLACEMENT 2.5 - 3.5 RECURRENT THROMBOSIS Performed By: #### P TT, PT #### [facility] [address] [place] [address] Dr. Lisa Jiménez PT Coag (PPP) [Time] 9.8 s Normal 9.0-11.6 [facility] Comment on above: Performed By: #### P TT, PT #### [facility] [address] [place], [place] [address] Dr. Lisa Jiménez PTTon 06-17-2022 aPTT Coag (Bld) [Time] 24.5 s Normal 22.3-36.2 [facility] Comment on above: Performed By: #### P TT, PT #### [facility] [address], [place] [address] Dr. Lisa Jiménez Office Visit (Cardiology)on 04-07-2022 Follow-up visit Diagnoses/Problems Assessed History of PTCA (V45.82) (Z98.61) Essential hypertension (401.9) (I10) Current every day smoker (305.1) (F17.200) 5 cigarettes per day Coronary artery disease (414.00) (I25.10) Hyperlipidemia (272.4) (E78.5) SOB (shortness of breath) on exertion (786.05) (R06.02) Chronic obstructive pulmonary disease, unspecified COPD type (496) (J44.9) Overweight with body mass index (BMI) of 27 to 27.9 in adult (278.02,V85.23) (E66.3,Z68.27) Orders Coronary artery disease, Hyperlipidemia Start: Aspirin 81 MG Oral Tablet Delayed Release; TAKE 1 TABLET DAILY Overweight with body mass index (BMI) of 27 to 27.9 in adult Healthy Weight Tips; Status:Complete - Retrospective Authorization; Done: [id number] Some eating tips that can help you lose weight.; Status:Complete - Retrospective Authorization; Done: [id number] SocHx: Current every day smoker You need to quit smoking.; Status:Complete - Retrospective Authorization; Done: [id number] Tobacco Use Screening; Status:Complete; Done: [id number] You need to stop smoking. Though it is not easy, more than half of all adult smokers have quit. We encourage you to write down all the reasons you should quit smoking and set a quit date for yourself. Ask us how we can help. You may also call 1-469-HNZMNOW for free resources and assistance.; Status:Complete - Retrospective Authorization; Done: [id number] Patient Instructions Please bring all medicines, vitamins, and herbal supplements with you when you come to the office. Prescriptions will not be filled unless you are compliant with your follow up appointments or have a follow up appointment scheduled as per instruction of your physician. Refills should be requested at the time of your visit. Follow up in 1 year Chief Complaint DAYLIN BURTON is being seen for an annual follow-up of. History of Present Illness Patient returns in follow-up of problems as noted. In the interim she is done well. She has some baseline and her chronic shortness of breath which appears to be on the basis of her COPD. She states this is constant and unchanging. Its different than the symptoms she had 4 years ago prior to her angioplasty and stenting. That was a different symptom complex and she believes she can tell the symptoms of coronary disease that preceded her diagnosis and subsequent PTCA. Management and control of her lipids and blood pressure is reviewed and felt to be adequate and appropriate. She was counseled on the importance of smoking cessation as well as diet exercise and weight loss. Surgical History Problems History of Cholecystectomy History of Complete colonoscopy 2005 Current Meds Medication NameInstruction Albuterol Sulfate (2.5 MG/3ML) 0.083% Inhalation Nebulization SolutionUSE 1 UNIT DOSE EVERY 4-6 HOURS NEEDED FOR WHEEZING . amLODIPine Besylate 5 MG Oral TabletTAKE 1 TABLET EVERY DAY Breztri Aerosphere 160-9-4.8 MCG/ACT Inhalation AerosolINHALE 2 PUFFS Twice daily Centrum TABSTAKE 1 TABLET DAILY. Clopidogrel Bisulfate 75 MG Oral TabletTAKE 1 TABLET EVERY DAY Metoprolol Tartrate 25 MG Oral TabletTAKE 1/2 TABLET TWICE DAILY Simvastatin 20 MG Oral TabletTAKE 1 TABLET EVERY DAY Allergies Medication No Known Drug Allergies Recorded By: Lucy Eastman; 07/01/2018 8:24:11 AM Social History Problems Caffeine use (V49.89) (Z78.9) Diet Pepsi - 5 glasses per day Current every day smoker (305.1) (F17.200) 5 cigarettes per day No alcohol use No illicit drug use Review of Systems Constitutional: not feeling tired. Eyes: no eyesight problems. ENT: no hearing loss and no nosebleeds. Cardiovascular: no intermittent leg claudication and as noted in HPI. Respiratory: no chronic cough and no shortness of breath. Gastrointestinal: no change in bowel habits and no blood in stools. Genitourinary: no urinary frequency. Skin: no skin rashes. Neurological: no seizures and no frequent falls. Psychiatric: no depression and not suicidal. All other systems have been reviewed and are negative for complaint. Vitals Vital Signs Recorded: 07Apr2022 10:49AM Heart Rate78, R Radial [id number], RUE, Sitting [id number], RUE, Sitting Height5 ft 3 in Olqpqv688 lb BMI Jazvzwfpoe43.81 kg/m2 BSA Calculated1.74 Tobacco Usea) Yes Patient encouraged to stop using tobacco productsYes PHQ-2 #1. Over the last 2 weeks have you felt down, depressed or hopeless? (If yes, answer PHQ-9 below)No PHQ-2 #2. Over the last 2 weeks have you felt little interest or pleasure in doing things? (If yes, answer PHQ-9 below)No Falls Screening (Age 18+)a) No falls within the last year Physical Exam Constitutional: alert and in no acute distress. Eyes: no erythema, swelling or discharge from the eye . Neck: neck is supple, symmetric, trachea midline, no masses and no thyromegaly . Pulmonary: no increased work of breathing or signs of respiratory distress and lungs clear to auscultat (more content not included)... Normal [employer] Tobacco Screening.on 022 Adult depression screening assessment No [facility] 250 DO Work Phone: Fall risk assessment a) No falls within the last year [facility] 250 DO Work Phone: Tobacco use status [facility] a) Yes [facility] 250 DO Work Phone: Tobacco Screening. Yes [facility] 250 DO Work Phone: COVID Quick Testingon 2021 Result Negative Text [employer] Cab Other Basophils Auto (Bld) [#/Vol] Ordered By: Annie Sal on 01-07-2022 Basophils (Bld) [#/Vol] 0.1 10*3/uL 0.0-0.2 [facility] Basophils/100 WBC Auto (Bld) Ordered By: Annie Sal on 01-07-2022 Basophils/100 WBC (Bld) 0.7 % . [facility] Blood hemoglobin measurement (mass/volume)Ordered By: Annie Sal on 01-07-2022 Hemoglobin (Bld) [Mass/Vol] 12.8 g/dL 11.8-15.4 [facility] Blood leukocytes automated c ount (number/volume)Ordered By: Annie Sal on 01-07-2022 WBC (Bld) [#/Vol] 8.7 10*3/uL 4.5-11.0 [facility] Body fluid albumin measureme nt (mass/volume)Ordered By: Annie Sal on 01-07-2022 Albumin (Body fld) [Mass/Vol] 3.7 g/dL 3.2-5.5 [facility] Cholesterol [Mass/volume] in Serum or PlasmaOrdered By: Annie Sal on 01-07-2022 Cholesterol [Mass/Vol] 168 mg/dL 140-200 [facility] Comment on above: Chol less than 200 m g/dl low risk Chol 201-239 mg/dl borderline risk Chol 240 mg/dl and greater high risk Cholesterol in LDL Calc [Mas s/Vol]Ordered By: Annie Sal on 01-07-2022 Cholesterol in LDL [Mass/Vol] 60 mg/dL 0-100 [facility] Comment on above: LDL ATP III CLASSIFI CATION LDL less than 100 mg/dL Optimal LDL 100-129 mg/dL Near or above optimal LDL 130-159 mg/dL Borderline high LDL 160-189 mg/dL High LDL greater than 189 mg/dL Very high Cholesterol in VLDL Calc [Ma ss/Vol]Ordered By: Annie Sal on 01-07-2022 Cholesterol in VLDL [Mass/Vol] 19 mg/dL [facility] Creatinine and Glomerular fi ltration rate.predicted panel (S/P/Bld)Ordered By: Annie Sal on 01-07-2022 Creatinine [Mass/Vol] 0.59 mg/dL 0.44-1.03 [facility] Eosinophils Auto (Bld) [#/Vo l]Ordered By: Annie Sal on 01-07-2022 Eosinophils (Bld) [#/Vol] 0.2 10*3/uL 0.0-0.45 [facility] Eosinophils/100 WBC Auto (Bl d)Ordered By: Annie Sal on 01-07-2022 Eosinophils/100 WBC (Bld) 2.3 % . [facility] Erythrocyte distribution wid th Auto (RBC) [Ratio]Ordered By: Annie Sal on 01-07-2022 Erythrocyte distribution width (RBC) [Ratio] 13.3 % 11.9-15.3 [facility] Estimated glomerular filtrat ion rate (GFR) non- AmericanOrdered By: Annie Sal on 01-07-2022 GFR/1.73 sq M.predicted among non-blacks MDRD (S/P/Bld) [Vol rate/Area] > 60 mL/Min [facility] Globulin Calc (S) [Mass/Vol] Ordered By: Annie Sal on 01-07-2022 Globulin (S) [Mass/Vol] 2.5 g/dL F [facility] Hematocrit Auto (Bld) [Volum e fraction]Ordered By: Annie Sal on 01-07-2022 Hematocrit (Bld) [Volume fraction] 38.4 % 34.0-46.4 [facility] - Hematology and Cell countsOrdered By: Annie Sla on 01-07-2022 Nucleated RBC/100 WBC (Bld) [Ratio] 0.0 % 0-0.5 [facility] Lymphocytes Auto (Bld) [#/Vo l]Ordered By: Annie Sal on 01-07-2022 Lymphocytes (Bld) [#/Vol] 2.2 10*3/uL 1.00-4.8 [facility] Lymphocytes/100 WBC Auto (Bl d)Ordered By: Annie Sal on 01-07-2022 Lymphocytes/100 WBC (Bld) 25.4 % . [facility] MCH Auto (RBC) [Entitic mass ]Ordered By: Annie Sal on 01-07-2022 MCH (RBC) [Entitic mass] 29.4 pg 24.7-34.3 [facility] MCHC Auto (RBC) [Mass/Vol]Or dered By: Annie Sal on 01-07-2022 MCHC (RBC) [Mass/Vol] 33.3 g/dL 32.0-35.0 [facility] MCV Auto (RBC) [Entitic vol] Ordered By: Annie Sal on 01-07-2022 MCV (RBC) [Entitic vol] 88.4 fL 80-100 [facility] Monocytes Auto (Bld) [#/Vol] Ordered By: Annie Sal on 01-07-2022 Monocytes (Bld) [#/Vol] 0.7 10*3/uL 0.0-0.8 [facility] Monocytes/100 WBC Auto (Bld) Ordered By: Annie Sal on 01-07-2022 Monocytes/100 WBC (Bld) 8.6 % . [facility] Neutrophils Auto (Bld) [#/Vo l]Ordered By: Annie Sal on 01-07-2022 Neutrophils (Bld) [#/Vol] 5.5 10*3/uL 1.8-7.7 [facility] Neutrophils/100 WBC Auto (Bl d)Ordered By: Annie Sal on 01-07-2022 Neutrophils/100 WBC (Bld) 63.0 % . [facility] No Panel InformationOrdered By: Annie Sal on 01-07-2022 Estimated GFR () > 60 mL/Min [facility] Comment on above: GFR estimated refere nce range: According to KDOQI guidelines, <60 ml/min/1.73m2 is sufficient to diagnose a patient with chronic kidney disease. Pharmacy Creatinine Clearance (Chem N/A [facility] Platelet mean volume Auto (B ld) [Entitic vol]Ordered By: Annie Sal on 01-07-2022 Platelet mean volume (Bld) [Entitic vol] 7.8 fL 6.3-10.7 [facility] Platelets Auto (Bld) [#/Vol] Ordered By: Annie Sal on 01-07-2022 Platelets (Bld) [#/Vol] 350 10*3/uL 150-450 [facility] Protein [Mass/volume] in Ser um or PlasmaOrdered By: Annie Sal on 01-07-2022 Protein [Mass/Vol] 6.2 g/dL 6.1-7.9 [facility] RBC Auto (Bld) [#/Vol]Ordere d By: Annie Sal on 01-07-2022 RBC (Bld) [#/Vol] 4.35 10*6/uL 3.60-5.00 [facility] Serum or plasma alanine vigil otransferase measurement without P-5'-P (enzymatic activiOrdered By: Annie Sal on 01-07-2022 ALT No additional P-5'-P [Catalytic activity/Vol] 15 U/L 10-60 [facility] Serum or plasma albumin/glob ulin mass ratioOrdered By: Annie Sal on 01-07-2022 Albumin/Globulin [Mass ratio] 1.5 {ratio} [facility] Serum or plasma alkaline jose elias sphatase measurement (enzymatic activity/volume)Ordered By: Annie Sal on 01-07-2022 ALP [Catalytic activity/Vol] 106 U/L 32-92 [facility] Serum or plasma aspartate am inotransferase measurement (enzymatic activity/volume)Ordered By: Annie Sal on 01-07-2022 AST [Catalytic activity/Vol] 16 U/L 10-42 [facility] Serum or plasma calcium brett urement (mass/volume)Ordered By: Annie Sal on 01-07-2022 Calcium [Mass/Vol] 9.2 mg/dL 8.2-10.2 [facility] Serum or plasma chloride arnulfo surement (moles/volume)Ordered By: Annie Sal on 01-07-2022 Chloride [Moles/Vol] 98 mmol/L 95-114 [facility] Serum or plasma glucose brett urement (mass/volume)Ordered By: Annie Sal on 01-07-2022 Glucose [Mass/Vol] 88 mg/dL 70-100 [facility] Comment on above: ADA recommended refe rence range Random Glucose Reference Range is dependent on time and content of last meal. Glucose of more than 200 mg/dL in a nonstressed, ambulatory subject supports the diagnosis of Diabetes Mellitus. Serum or plasma high density lipoprotein (HDL) cholesterol measurementOrdered By: Annie Sal on 01-07-2022 Cholesterol in HDL [Mass/Vol] 89 mg/dL 35-85 [facility] Comment on above: HDL CHOL ATP-III CLA SSIFICATION Cardiovascular Risk HDL > or equal to 60 mg/dL LOW HDL < 40 mg/dL HIGH Serum or plasma potassium me asurement (moles/volume)Ordered By: Annie Sal on 01-07-2022 Potassium [Moles/Vol] 3.9 mmol/L 3.5-5.1 [facility] Serum or plasma sodium measu rement (moles/volume)Ordered By: Annie Sal on 01-07-2022 Sodium [Moles/Vol] 136 mmol/L 136-146 [facility] Serum or plasma total biliru bin measurement (mass/volume)Ordered By: Annie Sal on 01-07-2022 Bilirubin [Mass/Vol] 0.3 mg/dL 0.3-1.2 [facility] Serum or plasma total carbon dioxide measurement (moles/volume)Ordered By: Annie Sal on 01-07-2022 CO2 [Moles/Vol] 27.1 mmol/L 22.0-30.0 [facility] Serum or plasma total choles terol/high density lipoprotein (HDL) cholesterol mass ratOrdered By: Annie Sal on 01-07-2022 Cholesterol.total/Diann sterol in HDL [Mass ratio] 1.9 {ratio} <5.0 [facility] Serum or plasma urea nitroge n measurement (mass/volume)Ordered By: Annie Sal on 01-07-2022 Urea nitrogen [Mass/Vol] 7 mg/dL 9-23 [facility] TSH DL <= 0.005 mIU/L QnOrde red By: Annie Sal on 01-07-2022 TSH Qn 3.35 m[IU]/L 0.45-5.33 [facility] Triglyceride [Mass/volume] i n Serum or PlasmaOrdered By: Annie Sal on 01-07-2022 Triglyceride [Mass/Vol] 97 mg/dL 35-149 [facility] Comment on above: TRIG ATP III CLASSIF ICATION TRIG less than 150 mg/dL Normal TRIG 150-199 mg/dL Borderline high TRIG 200-500 mg/dL High TRIG greater than 500 mg/dL Very high Standard traceable to the Center for Disease Conrtrol and Prevention (CDC) test method. Albumin [Mass/volume] in Ser um or Plasmaon 12-31-2020 Albumin [Mass/Vol] 3.6 g/dL 3.2-5.5 [facility] Basophils Auto (Bld) [#/Vol] on 12-31-2020 Basophils (Bld) [#/Vol] 0.1 10*3/uL 0.0-0.[address] [facility] Basophils/100 WBC Auto (Bld) on 12-31-2020 Basophils/100 WBC (Bld) 1.0 % F [facility] Blood hemoglobin measurement (mass/volume)on 12-31-2020 Hemoglobin (Bld) [Mass/Vol] 12.5 g/dL 11.8-15.[address] [facility] Blood leukocytes automated c ount (number/volume)on 12-31-2020 WBC (Bld) [#/Vol] 8.4 10*3/uL 4.5-11.0 [facility] Cholesterol [Mass/volume] in Serum or Plasmaon 12-31-2020 Cholesterol [Mass/Vol] 161 mg/dL 140-200 [facility] Comment on above: Chol less than 200 m g/dl low riskChol 201-239 mg/dl borderline riskChol 240 mg/dl and greater high risk Cholesterol in LDL Calc [Mas s/Vol]on 12-31-2020 Cholesterol in LDL [Mass/Vol] 72 mg/dL 0-[address] [facility] Comment on above: LDL ATP III CLASSIFI CATIONLDL less than 100 mg/dL OptimalLDL 100-129 mg/dL Near or above optimalLDL 130-159 mg/dL Borderline highLDL 160-189 mg/dL HighLDL greater than 189 mg/dL Very high Cholesterol in VLDL Calc [Ma ss/Vol]on 12-31-2020 Cholesterol in VLDL [Mass/Vol] 17 mg/dL [facility] Creatinine and Glomerular fi ltration rate.predicted panel (S/P/Bld)on 12-31-2020 Creatinine [Mass/Vol] 0.52 mg/dL 0.44-1.03 [facility] Eosinophils Auto (Bld) [#/Vo l]on 12-31-2020 Eosinophils (Bld) [#/Vol] 0.4 10*3/uL 0.0-0.[address] [facility] Eosinophils/100 WBC Auto (Bl d)on 12-31-2020 Eosinophils/100 WBC (Bld) 4.9 % [facility] Erythrocyte distribution wid th Auto (RBC) [Ratio]on 12-31-2020 Erythrocyte distribution width (RBC) [Ratio] 14.4 % 11.9-15.[address] [facility] Estimated glomerular filtrat ion rate (GFR) non- Americanon 12-31-2020 GFR/1.73 sq M.predicted among non-blacks MDRD (S/P/Bld) [Vol rate/Area] > 60 mL/Min [facility] Globulin Calc (S) [Mass/Vol] on 12-31-2020 Globulin (S) [Mass/Vol] 2.8 g/dL F [facility] Hematocrit Auto (Bld) [Volum e fraction]on 12-31-2020 Hematocrit (Bld) [Volume fraction] 37.5 % 34.0-46.[address] [facility] - Hematology and Cell countson 12-31-2020 Nucleated RBC/100 WBC (Bld) [Ratio] 0.1 % 0-0.[address] [facility] Lymphocytes Auto (Bld) [#/Vo l]on 12-31-2020 Lymphocytes (Bld) [#/Vol] 2.1 10*3/uL 1.00-4.[address] [facility] Lymphocytes/100 WBC Auto (Bl d)on 12-31-2020 Lymphocytes/100 WBC (Bld) 25.5 % [facility] MCH Auto (RBC) [Entitic mass ]on 12-31-2020 MCH (RBC) [Entitic mass] 28.7 pg 24.7-34.[address] [facility] MCHC Auto (RBC) [Mass/Vol]on 12-31-2020 MCHC (RBC) [Mass/Vol] 33.4 g/dL 32.0-35.0 [facility] MCV Auto (RBC) [Entitic vol] on 12-31-2020 MCV (RBC) [Entitic vol] 85.9 fL 80-100 [facility] Monocytes Auto (Bld) [#/Vol] on 06-14-2021 Monocytes (Bld) [#/Vol] 0.7 10*3/uL 0.0-0.[address] [facility] Monocytes/100 WBC Auto (Bld) on 12-31-2020 Monocytes/100 WBC (Bld) 8.5 % F [facility] Neutrophils Auto (Bld) [#/Vo l]on 12-31-2020 Neutrophils (Bld) [#/Vol] 5.0 10*3/uL 1.8-7.[address] [facility] Neutrophils/100 WBC Auto (Bl d)on 12-31-2020 Neutrophils/100 WBC (Bld) 60.1 % [facility] No Panel Informationon 12-31 Estimated GFR () > 60 mL/Min [facility] Comment on above: GFR estimated refere nce range: According to KDOQI guidelines, <60 ml/min/1.73m2 is sufficient to diagnose a patient with chronic kidney disease. Pharmacy Creatinine Clearance (Chem N/A [facility] Platelet mean volume Auto (B ld) [Entitic vol]on 12-31-2020 Platelet mean volume (Bld) [Entitic vol] 8.0 fL 6.3-10.[address] [facility] Platelets Auto (Bld) [#/Vol] on 12-31-2020 Platelets (Bld) [#/Vol] 313 10*3/uL 150-[address] [facility] Protein [Mass/volume] in Ser um or Plasmaon 12-31-2020 Protein [Mass/Vol] 6.4 g/dL 6.1-7.9 [facility] RBC Auto (Bld) [#/Vol]on RBC (Bld) [#/Vol] 4.37 10*6/uL 3.60-5.00 [facility] Serum or plasma alanine vigil otransferase measurement without P-5'-P (enzymatic activion 12-31-2020 ALT No additional P-5'-P [Catalytic activity/Vol] 15 U/L 10-[address] [facility] Serum or plasma albumin/glob ulin mass ratioon 12-31-2020 Albumin/Globulin [Mass ratio] 1.3 {ratio} [facility] Serum or plasma alkaline jose elias sphatase measurement (enzymatic activity/volume)on 12-31-2020 ALP [Catalytic activity/Vol] 123 U/L 32-[address] [facility] Serum or plasma aspartate am inotransferase measurement (enzymatic activity/volume)on 12-31-2020 AST [Catalytic activity/Vol] 16 U/L 10-[address] [facility] Serum or plasma calcium brett urement (mass/volume)on 12-31-2020 Calcium [Mass/Vol] 9.4 mg/dL 8.2-10.2 [facility] Serum or plasma chloride arnulfo surement (moles/volume)on 12-31-2020 Chloride [Moles/Vol] 103 mmol/L 95-114 [facility] Serum or plasma glucose brett urement (mass/volume)on 12-31-2020 Glucose [Mass/Vol] 88 mg/dL 70-100 [facility] Comment on above: ADA recommended refe rence rangeRandom Glucose Reference Range is dependent on time and content of last meal. Glucose of more than 200 mg/dL in a nonstressed, ambulatory subject supports the diagnosis of Diabetes Mellitus. Serum or plasma high density lipoprotein (HDL) cholesterol measurementon 12-31-2020 Cholesterol in HDL [Mass/Vol] 72 mg/dL 35-[address] [facility] Comment on above: HDL CHOL ATP-III CLA SSIFICATION Cardiovascular RiskHDL > or equal to 60 mg/dL LOWHDL < 40 mg/dL HIGH Serum or plasma potassium me asurement (moles/volume)on 12-31-2020 Potassium [Moles/Vol] 3.9 mmol/L 3.5-5.1 [facility] Serum or plasma sodium measu rement (moles/volume)on 12-31-2020 Sodium [Moles/Vol] 141 mmol/L 136-146 [facility] Serum or plasma total biliru bin measurement (mass/volume)on 12-31-2020 Bilirubin [Mass/Vol] 0.5 mg/dL 0.3-1.2 [facility] Serum or plasma total carbon dioxide measurement (moles/volume)on 12-31-2020 CO2 [Moles/Vol] 28.3 mmol/L 22.0-30.0 [facility] Serum or plasma total choles terol/high density lipoprotein (HDL) cholesterol mass hortencia 12-31-2020 Cholesterol.total/Diann sterol in HDL [Mass ratio] 2.2 {ratio} [facility] Serum or plasma urea nitroge n measurement (mass/volume)on 12-31-2020 Urea nitrogen [Mass/Vol] 7 mg/dL 9-[address] [facility] TSH DL <= 0.005 mIU/L Qnon 0 - TSH Qn 2.76 m[IU]/L 0.45-5.[address] [facility] Triglyceride [Mass/volume] i n Serum or Plasmaon 12-31-2020 Triglyceride [Mass/Vol] 86 mg/dL 35-149 F [facility] Comment on above: TRIG ATP III CLASSIF ICATIONTRIG less than 150 mg/dL NormalTRIG 150-199 mg/dL Borderline highTRIG 200-500 mg/dL High TRIG greater than 500 mg/dL Very highStandard traceable to the Center for Disease Conrtrol and Prevention (CDC) test method. Otheron 07-31-2020 POC Estimated GFR > [address] [facility] Comment on above: GFR estimated refere nce range: According to KDOQI guidelines, <60 ml/min/1.73m2 is sufficient to diagnose a patient with chronic kidney disease. POC Estimated GFR Non- Amer > [address] [facility] Whole blood creatinine measu rementon 07-31-2020 Creatinine [Mass/Vol] 0.5 mg/dL 0.6-1.3 [facility] Comment on above: ER/ESD physician is notified/shown all ISTAT results.Critical values may be confirmed by laboratory testing ifdeemed necessary by ER attending doctor. Estimated glomerular filtrat ion rate (GFR) non- Americanon 05-03-2020 GFR/1.73 sq M predicted among non-blacks MDRD (S/P/Bld) [Vol rate/Area] mL/min/{1.73_m2} [facility] Otheron 05-03-2020 GFR/1.73 sq M.predicted MDRD (S/P/Bld) [Vol rate/Area] mL/min/{1.73_m2} [facility] Comment on above: GFR estimated refere nce range: According to KDOQI guidelines, <60 ml/min/1.73m2 is sufficient to diagnose a patient with chronic kidney disease. Pharmacy Creatinine Clearance (Chem N/A [facility] Serum or plasma creatinine m easurement with calculation of estimated glomerular filtron 05-03-2020 Creatinine [Mass/Vol] 0.58 mg/dL 0.44-1.03 [facility] Serum or plasma urea nitroge n measurement (mass/volume)on 05-03-2020 Urea nitrogen [Mass/Vol] 8 mg/dL 04-11 [facility] Creatinineon 05-25-2018 Creatinine mass conc 0.50 mg/dL Normal 0.50-1.05 [facility] Comment on above: Performed By: #### [id number] ####[facility] [id number] [place] [address] GFR/1.73 sq M.predicted MDRD vol rate/area mL/min/{1.73_m2} Normal [facility] Comment on above: Result Comment: Inte rpretation for Chronic Kidney Disease:Stages 1&2 >60 Healthy or potential kidney damage.Mild decrease of GFR.Stage 3 30-59 Moderate decrease of GFR.Stage 4 15-29 Severe decrease of GFR.Stage 5 <15 Kidney failure or on dialysis. Performed By: #### [id number] ####[facility] [id number] [place] [id number] OVER READ - NCon 05-25-2018 OVER READ - NC DATE OF EXAM: May 25 2018 1:24PMCLINICAL HISTORY/ Name: SAMUEL BURTONADAM:OVER READ - NC; 05/25/2018 1:24 pmINDICATION:CHEST PAIN.COMPARISON:None. RASHAWNERING CLINICIAN:ROMMEL MEHTA:The following is to serve as an over-read for a coronary artery CTA to evaluate the extra arterial structures.Contiguous axial CT sections are performed from the level of the main pulmonary artery to the upper abdomen following the bolus administration of 80 cc of intravenous Isovue 370.FINDINGS:There are bilateral emphysematous changes with scattered bulla formation. A 4 mm noncalcified nodules identified in the posterolateral right lower lobe (image 35). There is no airspace consolidation the visualized portions of both lungs.There is no sign of pathologic lymph node enlargement. There is no pericardial or pleural effusion.Images through the upper most abdomen are unremarkable.The visualized osseous and soft tissue structures of the chest wall are intact.CONCLUSION: IMPRESSION:Bilateral emphysematous changes.4 mm noncalcified nodule in the posterolateral right lower lobe.The remaining extra arterial structures are unremarkable. Normal [facility] Healthcare Vital Signs Date Time Vital Sign Value Performing Clinician Facility 12-09-2023 13:37-0400 Body height 165.1 cm DO Annie Kuns Work Phone: [facility] 12-09-2023 13:37-0400 Body mass index (BMI) [Ratio] 26.9 kg/m2 DO Annie Kuns Work Phone: [facility] 12-09-2023 13:37-0400 Body weight 73.48 kg DO Annie Kuns Work Phone: [facility] 12-09-2023 13:37-0400 Diastolic blood pressure 64 mm[Hg] DO Annie Kuns Work Phone: [facility] 12-09-2023 13:37-0400 Heart rate 95 /min DO Annie Kuns Work Phone: [facility] 12-09-2023 13:37-0400 Inhaled oxygen flow rate 2 L/min DO Annie Kuns Work Phone: [facility] 12-09-2023 13:37-0400 Respiratory rate 24 /min DO Annie Kuns Work Phone: [facility] 12-09-2023 13:37-0400 SaO2% (BldA) [Mass fraction] 96 % DO Annie Kuns Work Phone: [facility] 12-09-2023 13:37-0400 Systolic blood pressure 104 mm[Hg] DO Annie Kuns Work Phone: [facility] 10-06-2023 14:33-0400 Body height 165.1 cm DO Annie Kuns Work Phone: [facility] 10-06-2023 14:33-0400 Body mass index (BMI) [Ratio] 26.4 kg/m2 DO Annie Kuns Work Phone: [facility] 10-06-2023 14:33-0400 Body weight 72.12 kg DO Annie Kuns Work Phone: [facility] 10-06-2023 14:33-0400 Diastolic blood pressure 60 mm[Hg] DO Annie Kuns Work Phone: [facility] 10-06-2023 14:33-0400 Inhaled oxygen flow rate 2 L/min DO Annie Kuns Work Phone: [facility] 10-06-2023 14:33-0400 SaO2% (BldA) [Mass fraction] 97 % DO Annie Kuns Work Phone: [facility] 10-06-2023 14:33-0400 Systolic blood pressure 116 mm[Hg] DO Annie Kuns Work Phone: [facility] 04-22-2023 13:15-0400 Body height 160 cm Von Mart MD Work Phone: [facility] 04-22-2023 13:15-0400 Body mass index (BMI) [Ratio] 27.63 kg/m2 Von Mart MD Work Phone: [facility] 04-22-2023 13:15-0400 Body weight 70.76 kg Von Mart MD Work Phone: [facility] 04-22-2023 13:15-0400 Diastolic blood pressure 70 mm[Hg] Von Mart MD Work Phone: [facility] 04-22-2023 13:15-0400 Heart rate 80 /min Von Mart MD Work Phone: [facility] 04-22-2023 13:15-0400 Systolic blood pressure 118 mm[Hg] Von Mart MD Work Phone: [facility] 04-15-2023 14:25-0400 Body height 160 cm Mckenna Waldrop MD Work Phone: [facility] 04-15-2023 14:25-0400 Body temperature 98.1 [degF] Mckenna Waldrop MD Work Phone: [facility] 04-15-2023 14:25-0400 Body weight 70.67 kg Mckenna Waldrop MD Work Phone: [facility] 04-15-2023 14:25-0400 Diastolic blood pressure 66 mm[Hg] Mckenna Waldrop MD Work Phone: [facility] 04-15-2023 14:25-0400 Heart rate 92 /min Mckenna Waldrop MD Work Phone: [facility] 04-15-2023 14:25-0400 Respiratory rate 22 /min Mckenna Waldrop MD Work Phone: [facility] 04-15-2023 14:25-0400 SaO2% (BldA) [Mass fraction] 100 % Mckenna Waldrop MD Work Phone: [facility] 04-15-2023 14:25-0400 Systolic blood pressure 145 mm[Hg] Mckenna Waldrop MD Work Phone: [facility] 09-02-2022 15:33-0500 Diastolic blood pressure 66 mm[Hg] Mckenna Waldrop MD Work Phone: [facility] 09-02-2022 15:33-0500 Systolic blood pressure 131 mm[Hg] Mckenna Waldrop MD Work Phone: [facility] 09-02-2022 15:32-0500 Body temperature 97.5 [degF] Mckenna Waldrop MD Work Phone: [facility] 09-02-2022 15:32-0500 Body weight 70.85 kg Mckenna Waldrop MD Work Phone: [facility] 09-02-2022 15:32-0500 Heart rate 84 /min Mckenna Waldrop MD Work Phone: [facility] 09-02-2022 15:32-0500 SaO2% (BldA) [Mass fraction] 94 % Mckenna Waldrop MD Work Phone: [facility] 07-24-2022 14:00-0500 Body height 165.1 cm Annie Sal Other [facility] [employer] Other 07-24-2022 14:00-0500 Body mass index (BMI) [Ratio] 25.29 kg/m2 Anniestephanie Wilds Other [facility] [employer] Other 07-24-2022 14:00-0500 Body weight 68.95 kg Anniestephanie Wilds Other [employer] [facility] [employer] Other 07-24-2022 14:00-0500 Diastolic blood pressure 65 mm[Hg] Annie Faras Other [facility] [employer] Other 07-24-2022 14:00-0500 Respiratory rate 18 /min Annie Faras Other [employer] Other 07-24-2022 14:00-0500 SaO2% (BldA) [Mass fraction] 96 % Anniestephanie Wilds Other [employer] Other 07-24-2022 14:00-0500 Systolic blood pressure 120 mm[Hg] Annie Kuns Other [employer] Other 04-07-2022 10:49-0400 Body height 160.02 cm [facility] Work Phone: 04-07-2022 10:49-0400 Body mass index (BMI) [Ratio] 27.81 kg/m2 Annie Sal Work Phone: [facility] 250 DO Work Phone: 04-07-2022 10:49-0400 Body surface area Derived from formula 1.74 m2 Annie Sal Work Phone: [facility] 250 DO Work Phone: 04-07-2022 10:49-0400 Body weight 71.22 kg Annie Sal Work Phone: [facility] 250 DO Work Phone: 04-07-2022 10:49-0400 Diastolic blood pressure 64 mm[Hg] Annie Sal Work Phone: [facility] 250 DO Work Phone: 04-07-2022 10:49-0400 Heart rate 78 /min Annie Sal Work Phone: [facility] 250 DO Work Phone: 04-07-2022 10:49-0400 Systolic blood pressure 126 mm[Hg] Annie Sal Work Phone: [facility] 250 DO Work Phone: 02-04-2022 15:01-0400 Body height 160 cm Meera Alvarezer PA-C Work Phone: [facility] 02-04-2022 15:01-0400 Body temperature 98.2 [degF] Meera Alvarezer PA-C Work Phone: [facility] 02-04-2022 15:01-0400 Body weight 71.12 kg Meera Alvarezer PA-C Work Phone: [facility] 02-04-2022 15:01-0400 Diastolic blood pressure 70 mm[Hg] Meera Samantha PA-C Work Phone: [facility] 02-04-2022 15:01-0400 Heart rate 103 /min Meera Samantha PA-C Work Phone: [facility] 02-04-2022 15:01-0400 Respiratory rate 16 /min Meera Samantha PA-C Work Phone: [facility] 02-04-2022 15:01-0400 SaO2% (BldA) [Mass fraction] 91 % Meera Samantha PA-C Work Phone: [facility] 02-04-2022 15:01-0400 Systolic blood pressure 151 mm[Hg] Meera Samantha PA-C Work Phone: [facility] 01-15-2022 16:15-0400 Body height 165.1 cm [employer] Other [employer] Other 01-15-2022 16:15-0400 Body mass index (BMI) [Ratio] 26.22 kg/m2 [employer] Other [employer] Other 01-15-2022 16:15-0400 Body weight 71.49 kg [employer] Other [employer] Other 01-15-2022 16:15-0400 Diastolic blood pressure 64 mm[Hg] Annie Branch[employer] Other [employer] Other 01-15-2022 16:15-0400 Respiratory rate 20 /min [employer]class[employer] Other [employer] Other 01-15-2022 16:15-0400 SaO2% (BldA) [Mass fraction] 97 % [employer] Other [employer] Other 01-15-2022 16:15-0400 Systolic blood pressure 126 mm[Hg] Annie Kuns Other [facility] [employer] Other Encounters Encounter Date Encounter Type Care Provider Facility Start: 12-09-2023 End: 12-09-2023 ambulatory DO Annie Kuns Work Phone: [facility] Work Phone: Start: 12-09-2023 End: 12-09-2023 Patient encounter procedure DO Annie Kuns Work Phone: [facility] Work Phone: Start: 10-07-2023 End: 10-07-2023 ambulatory Annie Kuns Facility:[facility] Start: 10-07-2023 End: 10-07-2023 ambulatory DO Annie Kuns Work Phone: [facility] Work Phone: Start: 10-07-2023 End: 10-07-2023 Patient encounter procedure DO Annie Kuns Work Phone: [facility] [place] Work Phone: Start: 10-06-2023 End: 10-06-2023 ambulatory DO Annie Kuns Work Phone: [facility] Work Phone: Start: 10-06-2023 End: 10-06-2023 Patient encounter procedure DO Annie Kuns Work Phone: [facility] Work Phone: Start: 09-17-2023 Telephone encounter Maki Aguirre RN Work Phone: Hematology/Oncology Comment on above: Care Coordination (C linical update) Start: 09-06-2023 Non-patient / Non-visit DO Isi tt Kuns Work Phone: [facility] Work Phone: Start: 09-05-2023 Non-patient / Non-visit DO Isi tt Kuns Work Phone: [facility] Work Phone: Start: 09-04-2023 Non-patient / Non-visit DO Isi tt Kuns Work Phone: [facility] Work Phone: Start: 09-03-2023 Non-patient / Non-visit DO Isi tt Kuns Work Phone: [facility] Work Phone: Start: 09-02-2023 Non-patient / Non-visit DO Isi tt Kuns Work Phone: [facility] Work Phone: Start: 09-01-2023 Non-patient / Non-visit DO Isi tt Kuns Work Phone: [facility] Work Phone: Start: 08-13-2023 End: 08-13-2023 ambulatory Annie Kuns Facility:[facility] Start: 08-13-2023 End: 08-13-2023 ambulatory DO Annie Kuns Work Phone: [facility] Work Phone: Start: 08-13-2023 End: 08-13-2023 Patient encounter procedure DO Annie Kuns Work Phone: [facility] Work Phone: Start: 04-22-2023 End: 04-22-2023 ambulatory VON MART [facility] Start: 04-22-2023 End: 04-22-2023 Office outpatient visit 15 minutes Von Mart MD Work Phone: [facility] Comment on above: Coronary artery dise ase involving [place] coronary artery of [place] heart without angina pectoris (Primary Dx); Essential hypertension; Current every day smoker; Other emphysema (CMS/HCC); Mixed hyperlipidemia; History of PTCA Start: 04-15-2023 End: 04-15-2023 ambulatory ANNIE SAL Facility:[facility] Start: 04-15-2023 End: 04-15-2023 ambulatory Mckenna Waldrop MD Work Phone: Hematology/Oncology Comment on above: History of lung canc er (Primary Dx); Malignant neoplasm of unspecified part of unspecified bronchus or lung (HCC); Aspergilloma (HCC) Start: 04-15-2023 End: 04-15-2023 Patient encounter procedure Mckenna Waldrop MD Work Phone: [employer] Start: 04-08-2023 End: 04-08-2023 ambulatory MCKENNA WALDROP Facility:[facility] Start: 02-17-2023 End: 02-17-2023 ambulatory Annie Sal Facility:[facility] Start: 02-17-2023 End: 02-17-2023 ambulatory DO Anniestephanie Sal Work Phone: [facility] Work Phone: Start: 02-17-2023 End: 02-17-2023 Patient encounter procedure DO Annie Sal Work Phone: [facility] Work Phone: Start: 01-21-2023 Rx Renewal Annie R Jonelle Work Phone: [facility] 250 DO Work Phone: Start: 01-14-2023 End: 01-14-2023 ambulatory [facility] [place] Work Phone: Hematology/Oncology Comment on above: Malignant neoplasm o f unspecified part of unspecified bronchus or lung (HCC) (Primary Dx) Start: 12-26-2022 End: 12-26-2022 ambulatory ANNIE SAL Facility:[facility] Start: 12-16-2022 Telephone encounter Hvi Thorac ic Surg [facility] Comment on above: Consult Start: 12-10-2022 End: 12-10-2022 ambulatory ANNIE SAL Facility:[facility] Start: 12-03-2022 End: 12-03-2022 ambulatory ANNIE SAL Facility:[facility] Start: 10-17-2022 Rx Renewal [facility] Work Phone: Start: 10-01-2022 End: 10-02-2022 ambulatory OLLIE SAMSA . Facility: Start: 09-02-2022 End: 09-02-2022 ambulatory Mckenna Waldrop MD Work Phone: Hematology/Oncology Comment on above: Malignant neoplasm o f unspecified part of unspecified bronchus or lung (HCC) (Primary Dx) Start: 09-02-2022 End: 09-02-2022 Patient encounter procedure Mckenna Waldrop MD Work Phone: [employer] Start: 07-24-2022 End: 07-24-2022 ambulatory Annie Sal Other [facility] [employer] Other Start: 07-24-2022 Office outpatient vi sit 25 minutes Annie Sal [facility] Start: 07-16-2022 Rx Renewal Annie Sal Work Phone: [facility] [place] 250 DO Work Phone: Start: 06-21-2022 Encounter for preprocedural laboratory examination OLLIE SAMSA . [facility] Start: 06-19-2022 End: 06-19-2022 ambulatory OLLIE SAMSA . Facility:[facility] Start: 06-17-2022 End: 06-18-2022 ambulatory OLLIE SAMSA . Facility:[facility] Start: 06-17-2022 End: 06-18-2022 Encounter for preprocedural laboratory examination OLLIE SAMSA . Facility:[facility] Start: 06-10-2022 Telephone encounter Maki Aguirre RN Work Phone: Hematology/Oncology Comment on above: Care Coordination (I mage request) Start: 05-30-2022 Telephone encounter Maki Aguirre RN Work Phone: Hematology/Oncology Comment on above: Care Coordination (C T results) Start: 04-30-2022 Telephone encounter Ciara Rivera RN R adiology Pet CT Comment on above: Orders Start: 04-07-2022 Office outpatient vi sit 25 minutes Annie Sal Work Phone: [facility] 250 DO Work Phone: Start: 04-07-2022 ambulatory Von Mart II Faci lity: Start: 03-25-2022 End: 03-25-2022 ambulatory Annie Sal Other [facility] [employer] Other Start: 03-25-2022 Nursing evaluation o f patient and report Annie Sal [facility] [place] Start: 03-25-2022 Telephone encounter Annie Sal [facility] [place] Start: 02-20-2022 Telephone encounter Maki Aguirre RN Work Phone: Hematology/Oncology Comment on above: Care Coordination (e ndocrinology cancellation) Start: 02-18-2022 End: 02-18-2022 Patient encounter procedure DO Annie Sal [facility] Start: 02-04-2022 End: 02-04-2022 ambulatory Meera JOINERC Work Phone: Hematology/Oncology Comment on above: Adenoma (Primary Dx) ; Adrenal adenoma, left; Malignant neoplasm of unspecified part of unspecified bronchus or lung (HCC); Small cell lung cancer in adult (HCC) Start: 02-04-2022 End: 02-04-2022 Patient encounter procedure Meera JOINERC Work Phone: [facility] Start: 02-04-2022 Telephone encounter Meera issa PA-C Work Phone: [facility] Comment on above: Referral Information (Endocrinology) Start: 01-27-2022 Rx Renewal Annie Sal Work Phone: [facility] [employer] [address] DO Work Phone: Start: 01-22-2022 Rx Renewal Annie R Faras Work Phone: [facility] 250 DO Work Phone: Start: 01-15-2022 End: 01-15-2022 ambulatory Annie Jonelle Other [facility] [employer] Other Start: 01-15-2022 Patient encounter procedure Anniestephanie Sal [facility] Start: 01-07-2022 End: 01-07-2022 Patient encounter procedure DO Anniestephanie Sal Work Phone: [facility] Start: 01-10-2021 End: 01-10-2021 Patient encounter procedure Annie Jonelle Work Phone: -[facility] [address] Start: 12-31-2020 End: 12-31-2020 Patient encounter procedure Anniestephanie Sal Work Phone: -[facility] [place] Start: 07-31-2020 End: 07-31-2020 Patient encounter procedure Annie Faras -[facility] [address] Start: 05-03-2020 End: 05-03-2020 Patient encounter procedure Annie Faras -[facility] [address] Start: 05-25-2018 Patient encounter procedure ROMMEL JONES Facility:3 Start: 04-21-2018 Patient encounter procedure DESTINEE VICENTE Facility:[id number] Start: 11-03-2017 End: 11-04-2017 Ambulatory DEFAULT PHYSICIAN Facility:[facility] Procedures Date Procedure Procedure Detail Performing Clinician Start: 09-03-2023 Microscopic observat ion [Identifier] in Unspecified specimen by Gram stain DO Annie Faras Work Phone: Start: 09-01-2023 Blood Culture 1 DO Homero Sal Work Phone: Start: 09-01-2023 Blood Culture 2 DO Homero t Kuns Work Phone: Start: 03-13-2023 History of percutane ous transluminal coronary angioplasty History of PTCA Von Mart MD Work Phone: Start: 02-18-2022 Dual energy X-ray absorptiometry DO Anniestephanie Wilds Work Phone: Start: 02-18-2022 Screening mammograph y of bilateral breasts DO Annie Kuns Work Phone: Start: 02-04-2022 Adult depression scr eening assessment Meera Singh PA-C Work Phone: Start: 01-10-2021 MRI of head Annie Kuns Work Phone: Start: 07-31-2020 MRI of head Annie Kuns Start: 05-03-2020 MRI of head Annie Kuns Cholecystectomy Annie R Kuns Work Phone: History of percutane ous transluminal coronary angioplasty History of PTCA Annie R Kuns Work Phone: History of percutane ous transluminal coronary angioplasty History of PTCA Von Mart MD Work Phone: Screening for malign ant neoplasm of breast Anniestephanie Wilds Other Total colonoscopy Annie R Ku ns Work Phone: Comment on above: 2005; Plan of Treatment Date Care Activity Detail Author Start: 09-25-2026 DTaP/Tdap/Td Vaccine s (2 - Td or Tdap) DTaP/Tdap/Td Vaccines (2 - Td or Tdap) [facility] Start: 09-25-2026 Urine microalbumin profile [facility] Start: 12-03-2025 DIABETES SCREEN DIABETES SCREEN [facility] Start: 12-03-2025 Diabetes Screening Diabetes Screenin g [facility] Start: 08-26-2025 DIABETES SCREEN DIABETES SCREEN [facility] Start: 06-10-2025 DIABETES SCREEN DIABETES SCREEN [facility] Start: 01-28-2025 DIABETES SCREEN DIABETES SCREEN [facility] Start: 04-27-2024 End: 04-27-2024 Patient encounter procedure 04/27/2024 3:00 PM EDT Office Visit [facility] [address] [place] [id number] Von Mart MD [address] [place] [address] [facility] Start: 10-14-2023 End: 12-14-2023 CBC W Auto Differential panel - Blood CBC + DIFF Lab Routine History of lung cancer Aspergilloma (HCC) Expected: 10/14/2023 (Approximate), Expires: 12/14/2023 [facility] Work Phone: Comment on above: Expected: 10/14/2023 (Approximate), Expires: 12/14/2023 Start: 10-14-2023 End: 12-14-2023 Comprehensive metabolic 2000 panel - Serum or Plasma COMP METABOLIC PANEL Lab Routine History of lung cancer Aspergilloma (HCC) Expected: 10/14/2023 (Approximate), Expires: 12/14/2023 [facility] Work Phone: Comment on above: Expected: 10/14/2023 (Approximate), Expires: 12/14/2023 Start: 10-14-2023 End: 12-14-2023 CREATININE BLD CREATININE BLD Lab Routine History of lung cancer Aspergilloma (HCC) Expected: 10/14/2023 (Approximate), Expires: 12/14/2023 [facility] Work Phone: Comment on above: Expected: 10/14/2023 (Approximate), Expires: 12/14/2023 Start: 10-14-2023 End: 05-14-2024 CT CHEST W IVCON CT CHEST W IVCON Radiology Routine History of lung cancer Aspergilloma (HCC) Expected: 10/14/2023 (Approximate), Expires: 05/14/2024 [facility] Work Phone: Comment on above: Expected: 10/14/2023 (Approximate), Expires: 05/14/2024 Start: 09-03-2023 Bacteria identified in Sputum by Respiratory culture Sputum Culture [facility] Start: 07-20-2023 Advance Directive Discussion Advance Directive Discussion [facility] Start: 07-20-2023 Depression Assessment Depression Ass essment [facility] Start: 04-22-2023 FUV, Provider: Von Mart, Status: Pen, Time: 1:10 PM FUV, Provider: Von Mart, Status: Pen, Time: 1:10 PM -[facility] [place] 250 DO Work Phone: Start: 03-20-2023 Covid-19 Vaccine () Covid-19 Vaccine () [facility] Start: 03-20-2023 Influenza vaccination Influenza Vacc ine (#1) [facility] Start: 02-04-2023 Adult depression screening assessment DEPRESSION SCREENING [facility] Start: 11-30-2022 End: 01-30-2023 CBC W Auto Differential panel - Blood CBC + DIFF Lab Routine Malignant neoplasm of unspecified part of unspecified bronchus or lung (HCC) Expected: 11/30/2022 (Approximate), Expires: 01/30/2023 [facility] Work Phone: Comment on above: Expected: 11/30/2022 (Approximate), Expires: 01/30/2023 Start: 11-30-2022 End: 01-30-2023 Comprehensive metabolic 2000 panel - Serum or Plasma COMP METABOLIC PANEL Lab Routine Malignant neoplasm of unspecified part of unspecified bronchus or lung (HCC) Expected: 11/30/2022 (Approximate), Expires: 01/30/2023 [facility] Work Phone: Comment on above: Expected: 11/30/2022 (Approximate), Expires: 01/30/2023 Start: 11-30-2022 End: 10-02-2023 CT CHEST W IVCON CT CHEST W IVCON Radiology Routine Malignant neoplasm of unspecified part of unspecified bronchus or lung (HCC) Expected: 11/30/2022 (Approximate), Expires: 10/02/2023 [facility] Work Phone: Comment on above: Expected: 11/30/2022 (Approximate), Expires: 10/02/2023 Start: 07-20-2022 ADVANCE DIRECTIVE DISCUSSION ADVANCE DIRECTIVE DISCUSSION [facility] Start: 07-20-2022 DEPRESSION ASSESSMENT DEPRESSION ASS ESSMENT [facility] Start: 07-10-2022 COVID-19 Vaccine (5 - Moderna series) COVID-19 Vaccine (5 - Moderna series) [facility] Start: 06-07-2022 End: 08-07-2022 CBC W Auto Differential panel - Blood CBC + DIFF Lab Routine Adenoma Adrenal adenoma, left Malignant neoplasm of unspecified part of unspecified bronchus or lung (HCC) Small cell lung cancer in adult (HCC) Expected: 06/07/2022 (Approximate), Expires: 08/07/2022 [facility] Work Phone: Comment on above: Expected: 06/07/2022 (Approximate), Expires: 08/07/2022 Start: 06-07-2022 End: 08-07-2022 Comprehensive metabolic 2000 panel - Serum or Plasma COMP METABOLIC PANEL Lab Routine Adenoma Adrenal adenoma, left Malignant neoplasm of unspecified part of unspecified bronchus or lung (HCC) Small cell lung cancer in adult (HCC) Expected: 06/07/2022 (Approximate), Expires: 08/07/2022 [facility] Work Phone: Comment on above: Expected: 06/07/2022 (Approximate), Expires: 08/07/2022 Start: 06-07-2022 End: 03-06-2023 Ct abdomen & pelvis w/contrast material CT ABD/PEL W IVCON Radiology Routine Malignant neoplasm of unspecified part of unspecified bronchus or lung (HCC) Expected: 06/07/2022 (Approximate), Expires: 03/06/2023 [facility] Work Phone: Comment on above: Expected: 06/07/2022 (Approximate), Expires: 03/06/2023 Start: 06-07-2022 End: 03-06-2023 CT CHEST W IVCON CT CHEST W IVCON Radiology Routine Malignant neoplasm of unspecified part of unspecified bronchus or lung (HCC) Expected: 06/07/2022 (Approximate), Expires: 03/06/2023 [facility] Work Phone: Comment on above: Expected: 06/07/2022 (Approximate), Expires: 03/06/2023 Start: 05-27-2022 End: 07-27-2022 CREATININE BLD CREATININE BLD Lab Routine Malignant neoplasm of unspecified part of unspecified bronchus or lung (HCC) Expected: 05/27/2022, Expires: 07/27/2022 [facility] Work Phone: Comment on above: Expected: 05/27/2022 , Expires: 07/27/2022 Start: 03-20-2022 Influenza vaccination INFLUENZA (#1) [facility] Start: 03-03-2022 FUV, Provider: Von Mart, Status: Pen, Time: 8:00 AM FUV, Provider: Von Mart, Status: Pen, Time: 8:00 AM [place] [id number] DO Work Phone: Start: 01-02-2022 COVID-19 VACCINE (5 - Booster) COVID-19 VACCINE (5 - Booster) [facility] Start: 07-20-2021 ADVANCE DIRECTIVE DISCUSSION ADVANCE DIRECTIVE DISCUSSION [facility] Start: 07-20-2021 DEPRESSION ASSESSMENT DEPRESSION ASS ESSMENT [facility] Start: 12-31-2011 BONE DENSITY BONE DENSITY [facility] Start: 12-31-2011 Bone Density Screening Bone Density Screening [facility] Start: 12-31-2011 Screening for osteoporosis Bone Density Screening [facility] Start: 2006 RSV Vaccine (1 - 1-d ose 60+ series) RSV Vaccine (1 - 1-dose 60+ series) [facility] Start: 1996 SHINGRIX VACCINE (1 of 2) SHINGRIX VACCINE (1 of 2) [facility] Start: 1996 Zoster Vaccines (1 of 2) Zoste r Vaccines (1 of 2) [facility] Start: 12-31-1991 COLOGUARD (FIT-DNA) COLOGUARD (FIT-D NA) [facility] Start: 12-31-1991 Colonoscopy COLONOSCOPY [facility] Start: 12-31-1991 COLORECTAL CANCER SCREENING COLORECTAL CANCER SCREENING [facility] Start: 12-31-[address] COLONOGRAPHY [facility] Start: 12-31-1991 FECAL OCCULT BLOOD FECAL OCCULT BLOO D [facility] Start: 12-31-1991 LIPID SCREEN LIPID SCREEN [facility] Start: 12-31-1991 SIGMOIDOSCOPY [facility]OSCOPY [facility] Start: 1964 HEPATITIS C SCREENING HEPATITIS C SC [facility] Start: 1964 Hepatitis C screening Hepatitis C Sc [facility] Start: 1945 Lipid panel Lipid Panel [facility] Start: 1945 Medicare Annual Well ness Visit Medicare Annual Wellness Visit (AWV) [facility] Start: 1945 Screening for osteoporosis Bone Density Scan [facility] Comprehensive metabo lic 1999 panel - Serum or Plasma [facility] Comprehensive metabo lic 1999 panel - Serum or Plasma [facility] Immunizations Immunization Date Immunization Notes Care Provider Fa cili 05-11-2023 COVID-19 (MODERNA) 12Y and older DO [employer] Work Phone: [facility] 05-11-2023 Influenza vaccine, quadrivalent, adjuvanted DO [employer] Work Phone: [facility] 04-27-2023 RSV, preF3, adj, pf DO [employer] Work Phone: [facility] 05-15-2022 influenza, high-dose , quadrivalent vaccine (FLUZONE HIGH DOSE QUADRIVALENT) Maki Aguirre RN Work Phone: [facility] 05-15-2022 Moderna COVID-19 vaccine, bivalent, blue cap/rivera label *Check age/dose* Von Mart MD Work Phone: [facility] Work Phone: 05-15-2022 influenza virus vacc ine, unspecified formulation Mckenna Waldrop MD Work Phone: [facility] 11-07-2021 COVID-19 Vaccine Mod lizy - Documentation Purposes Only Annie Kuns Other [facility] 05-13-2021 COVID-19 Moderna Annie Kuns Other [facility] 05-13-2021 COVID-19 vaccine (UNSPECIFIED) Meera Samantha PA-C Work Phone: [facility] 05-13-2021 influenza (aIIV4) vaccine, age 65+ yr, quadrivalent, PF (FLUAD QUADRIVALENT) Meera Alvarezer PA-C Work Phone: [facility] 05-13-2021 influenza, seasonal, injectable Annie Kuns Other [facility] 10-10-2020 COVID-19 vaccine (UNSPECIFIED) Meera Alvarezer PA-C Work Phone: [facility] 10-10-2020 COVID-19 Vaccine Mod lizy - Documentation Purposes Only Annie Kuns Other [facility] 09-12-2020 COVID-19 vaccine (UNSPECIFIED) Meera Alvarezer PA-C Work Phone: [facility] 09-12-2020 COVID-19 Vaccine Mod lizy - Documentation Purposes Only Annie Kuns Other [facility] 05-07-2020 influenza, injectabl e, quadrivalent, preservative free Annie Kuns Other [facility] 05-07-2020 novel influenza-H1N1 -09, injectable Meera Samantha PA-C Work Phone: [facility] 04-19-2020 influenza, seasonal, injectable Meera Samantha PA-C Work Phone: [facility] 05-11-2019 pneumococcal polysaccharide vaccine, 23 valent Annie Kuns Other [facility] 05-11-2019 influenza, seasonal, injectable Annie Kuns Other [facility] 05-11-2019 AS03 adjuvant Maki Aguirre RN Work Phone: [facility] 05-11-2019 influenza, high dose seasonal, preservative-free Meera Samantha PA-C Work Phone: [facility] 05-11-2019 Seasonal trivalent influenza vaccine, adjuvanted, preservative free Meera Samantha PA-C Work Phone: [facility] 04-19-2019 influenza nasal, unspecified formulation Maki Aguirre RN Work Phone: [facility] 04-19-2019 influenza virus vacc ine, unspecified formulation Annie R Jonelle Work Phone: [facility] [place] DO Work Phone: 07-20-2018 pneumococcal polysaccharide vaccine, 23 valent Meera Samantha PA-C Work Phone: [facility] 05-04-2018 AS03 adjuvant Maki Aguirre RN Work Phone: [facility] 05-04-2018 influenza, high dose seasonal, preservative-free Meera Samantha PA-C Work Phone: [facility] 05-04-2018 Seasonal trivalent influenza vaccine, adjuvanted, preservative free Meera Samantha PA-C Work Phone: [facility] 05-04-2018 influenza, seasonal, injectable Annie Kuns Other [facility] 05-04-2018 pneumococcal conjuga te vaccine, 13 valent Annie Kuns Other [facility] 04-19-2018 influenza nasal, unspecified formulation Maki Aguirre RN Work Phone: [facility] 04-19-2018 influenza virus vacc ine, unspecified formulation Annie R Kunhortensia Work Phone: [facility] 250 DO Work Phone: 07-20-2017 pneumococcal conjuga te vaccine, 13 valent Annie R Kuns Work Phone: [facility] 05-21-2017 influenza, high dose seasonal, preservative-free Annie Kuns Other [facility] 05-21-2017 influenza virus vacc ine, unspecified formulation DO Annie Kuns Work Phone: [facility] 05-21-2017 influenza, seasonal, injectable Meera Samantha PA-C Work Phone: [facility] 05-20-2017 influenza nasal, unspecified formulation Maki Aguirre RN Work Phone: [facility] 05-20-2017 influenza virus vacc ine, unspecified formulation Annie R Kuns Work Phone: [facility] 250 DO Work Phone: 09-25-2016 tetanus toxoid, redu roslyn diphtheria toxoid, and acellular pertussis vaccine, adsorbed Annie Kuns Other [facility] 06-09-2016 influenza virus vacc ine, unspecified formulation DO Annie Kuns Work Phone: [facility] 06-09-2016 influenza, seasonal, injectable Meera Samantha PA-C Work Phone: [facility] 06-09-2016 influenza, high dose seasonal, preservative-free Annie Kuns Other [facility] 05-03-2015 influenza virus vacc ine, unspecified formulation DO Annie Kuns Work Phone: [facility] 05-03-2015 influenza, seasonal, injectable Meera Samantha PA-C Work Phone: [facility] 05-03-2015 influenza, high dose seasonal, preservative-free Annie Kuns Other [facility] 05-21-2008 pneumococcal polysaccharide vaccine, 23 valent Meera Samantha PA-C Work Phone: [facility] 01-01-2008 pneumococcal vaccine , unspecified formulation Annie R Kuns Work Phone: [facility] Payers Date Payer Category Payer Self-pay [id number] 2019 Medicare HUMANA MEDICARE HUMANA MEDICARE PPO [id number] 2019-Present [phone] [address] [address] [place] [address] PPO [id number] 2019 Medicare [id number] 1959 Private Health Insurance [id number] 1945 Unknown [id number] 1945 Unknown [id number] 1945 Unknown [id number] 1945 Unknown [id number] 1945 Unknown [id number] 1946 Unknown [id number] 1945 Unknown [id number] Unknown Unknown [id number] Unknown [id number] Unknown [id number] Social History Date Type Detail Facility Start: 09-27-2019 End: 12-09-2023 Tobacco smoking status NHIS Smoker (finding) [facility] Start: 1945 Sex Assigned At Female [facility] Start: 04-17-2020 End: 12-10-2022 Sex Assigned At [facility] Start: 09-12-2019 End: 12-26-2022 Tobacco smoking status NHIS Smokes tobacco daily [facility] History of tobacco use Cigarette Smoker [facility] Start: 09-12-2019 End: 12-26-2022 Tobacco use and exposure Smokeless tobacco non-user [facility] Start: 02-04-2022 End: 04-15-2023 Alcohol intake Lifetime non-drinker (finding) [facility] Start: 04-17-2020 History SDOH Alcohol Frequency 1 [facility] Start: 01-25-2022 End: 04-22-2023 Exposure to SARS-CoV-2 (event) Not sure [facility] Start: 04-17-2020 End: 12-10-2022 Current every day smoker Current every day smoker [facility] Comment on above: 5 cigarettes per day ; Diet Pepsi - 5 glass es per day; Start: 12-26-2022 Tobacco Comment Pt smokes 4-6 a day [facility] How often to you hav e a drink containing alcohol? Never [facility] Average Number of Drinks Not on file [facility] Start: 09-03-2021 Gender identity Identifies as female gender (finding) [facility] Start: 09-03-2021 Sexual orientation Heterosexual (fin angelika) [facility] History of tobacco use Passive smoker [facility] Work Phone: Start: 1945 Sex Assigned At Not on file [facility] Work Phone: Medical Equipment Procedure Code Equipment Code Equipment Origin al Text Equipment Identifier Dates Insertion of central venous catheter (CVC) with subcutaneous port for chemotherapy [id number] [facility] Start: 09-27-2019 Goals Date Patient Goal Desired Activity /State Clinical Notes 02-17-2018 to 09-17-2023 Telephone Encounter - Nora Cerda - 09/17/2023 1:53 PM ESTTelephone Encounter - Maki Aguirre RN - 09/17/2023 1:43 PM Yvonne Mart MD - 04/22/2023 1:10 PM EDTPatient Instructions Note Date & Type Note [facility] 09-17-2023 Miscellaneous Notes Patients appointments have been cancelled. Nora Ray Pss Call received from pt stating she would like to cancel all of her upcoming appointments. Pt states she'd just like to ride it out from here and not do any more treatments. PSS: please cancel appointments Maki Aguirre RN documented in this encounter [facility] 04-22-2023 History of Presen t illness Narrative Subjective Daylin Burton is a 77 y.o. female Chief Complaint Follow-up Patient returns in follow-up of problems as noted. In the interim she has had no angina or anginal equivalent symptomatology. Detailed questioning reveals she does not remember the signs or symptoms of coronary disease that preceded her original diagnosis and because of this she is somewhat difficult to manage based upon the presence or absence of symptoms. Nonetheless it appears that risk factors including blood pressure and cholesterol are adequately treated. She continues to smoke and she was counseled in this regard. I did advocate the merits of diet and lifestyle modification including smoking cessation. I also pointed out to her that doing so would improve her propensity to worsening COPD. She states she understands. Review of Systems All other systems reviewed and are negative. Objective Physical Exam Constitutional: Appearance: Normal appearance. She is normal weight. HENT: Nose: Nose normal. Neck: Vascular: No carotid bruit. Cardiovascular: Rate and Rhythm: Normal rate. Pulses: Normal pulses. Heart sounds: Normal heart sounds. Pulmonary: Effort: Pulmonary effort is normal. Abdominal: General: Bowel sounds are normal. Palpations: Abdomen is soft. Genitourinary: Rectum: Normal. Musculoskeletal: General: Normal range of motion. Cervical back: Normal range of motion. Right lower leg: No edema. Left lower leg: No edema. Skin: General: Skin is warm and dry. Neurological: General: No focal deficit present. Mental Status: She is alert. Psychiatric: Mood and Affect: Mood normal. Behavior: Behavior normal. Thought Content: Thought content normal. Judgment: Judgment normal. Visit Vitals BP 118/70 (BP Location: Left arm, Patient Position: Sitting) Pulse 80 Ht 1.6 m (5' 3 ) Wt 70.8 kg (156 lb) BMI 27.63 kg/m Smoking Status Every Day BSA 1.77 m Assessment/Plan No diagnosis found. 1. Coronary artery disease involving [place] coronary artery of [place] heart without angina pectoris 2. Essential hypertension 3. Current every day smoker 4. Other emphysema (CMS/HCC) 5. Mixed hyperlipidemia 6. History of PTCA No orders of the defined types were placed in this encounter. documented in this encounter [facility] Work Phone: 04-22-2023 Instructions Madison Ramirez LPN - 04/22/2023 1:10 PM EDT Please bring all medicines, vitamins, and herbal supplements with you when you come to the office. Prescriptions will not be filled unless you are compliant with your follow up appointments or have a follow up appointment scheduled as per instruction of your physician. Refills should be requested at the time of your visit. documented in this encounter [facility] Work Phone: 04-15-2023 Note HNO ID: [id number] Author: Mckenna Waldrop MD Service: ? Author Type: Physician Type: Progress Notes Filed: 04/16/2023 3:04 PM Note Text: PATIENT NAME: Daylin Burton [facility] NO.: [id number] ATTENDING PHYSICIAN: Mckenna Waldrop MD DATE OF SERVICE: April 15, 2023 Some of the elements of this note have been copied from my previous progress note dated 12/10/2022. All the information has been reviewed carefully. Dear Dr. Law, 0 here is an update on a follow up visit on female Daylin Burton at the clinic April 15, 2023 Diagnosis: 1. Limited stage small cell lung cancer diagnosed September 06, 2019 Treatment History: 1. Concurrent chemotherapy with carboplatin plus etoposide and radiation. Chemotherapy started October 03, 2019. Radiation started October 24, 2019 to December 06, 2019. Total 4 cycles of carboplatin and etoposide last on December 08, 2019. HPI: Daylin Burton is a 77 year old year old female here for follow up. Doing ok but baseline SOB and ongoing cough. Denies any hemoptysis. 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 PAST MEDICAL HISTORY Diagnosis Date COPD (chronic obstructive pulmonary disease) (HCC) Hypertension Lung cancer (HCC) 08/[address] Law Lung mass 08/2019 Port-A-Cath in place 09/27/2019 Social History Tobacco Use Smoking status: Every Day Years: 56 Types: Cigarettes Smokeless tobacco: Never Tobacco comments: Pt smokes 4-6 a day Vaping Use Vaping Use: Never used Substance Use Topics Alcohol use: Never Drug use: Never FAMILY HISTORY Problem Relation Age of Onset Hypertension Mother Hypertension Father Stroke Father Breast Cancer Sister breast cancer at 50's other (Bladder Cancer) Sister other (Lung cancer) Brother Breast Cancer Sister breast cancer at 70's Cancer Sister Cervical Cancer Sister Cervical Cancer Sister other (Lymphoma) Brother Past medical, social and family history reviewed without any changes. REVIEW OF SYSTEMS GENERAL: No weight loss, malaise or fevers. No night sweats. HEENT: Negative for headaches, No changes in hearing or vision, no nose bleeds or other nasal problems. RESPIRATORY: Negative for cough, wheezing and shortness of breath CARDIOVASCULAR: Negative for chest pain, leg swelling and palpitations GI: Negative for abdominal discomfort, blood in stools or black stools and change in bowel habits : Negative for dysuria, frequency and incontinence MUSCULOSKELETAL: Negative for joint pain or swelling, back pain, and muscle pain. SKIN: Negative for lesions, rash, and itching. HEMATOLOGY/LYMPHOLOGY Negative for prolonged bleeding, bruising easily, and swollen nodes. NEURO: Negative for numbness or tingling of hands/feet. No weakness. PHYSICAL EXAMINATION: BP 145/66 Pulse 92 Temp (Src) 98.1 (Temporal) Resp 22 Ht 5' 2.992 (1.60m) Wt 155 lb 12.8 oz (70.7kg) SpO2 100% BMI 27.61 kg/(m2). Wt 68.5 kg (151 lb) BMI 25.91 kg/m2 Last 3 Encounter Wt Readings: Date: Wt: 09/28/2019 68.9 kg (151 lb 12.8 oz) 09/28/2019 68.5 kg (151 lb) 09/19/2019 68 kg (150 lb) General appearance:ECOG PERFORMANCE STATUS: 0- Fully active, able to carry on all pre-disease performance w/o restriction. Patient in NAD. Skin: Skin color, texture, turgor normal. No rashes or lesions. Eyes: Anicteric sclera. Pupils are equally round and reactive to light. Extraocular movements are intact. Lymph Nodes: No cervical, supraclavicular, axillary or inguinal adenopathy. Oropharynx: Lips, mucosa, and tongue normal. Back: No pain to percussion. Negative SLR test Lungs clear to auscultation, No wheezing or rhonchi Heart: RRR without murmur, gallop, or rubs. Abdomen soft, non-tender. No masses, organomegaly Extremities: No deformities. No edema Neuro: Gait and speech normal. Reflexes normal and symmetric. Muscular strength intact. Sensation grossly intact. Rectal: Deferred : Deferred LABS: Glucose (mg/dL) Date Value 12/03/2022 224 05/28/2021 126 Potassium (mmol/L) Date Value 12/03/2022 3.0 05/28/2021 4.2 Sodium (mmol/L) Date Value 12/03/2022 138 05/28/2021 137 Chloride (mmol/L) Date Value 12/03/2022 95 05/28/2021 102 CO2 (mmol/L) Date Value 12/03/2022 32 05/28/2021 25 Creatinine (mg/dL) Date Value 12/03/2022 0.47 05/28/2021 0.48 BUN (mg/dL) Date Value 12/03/2022 12 05/28/2021 11 Anion Gap (mmol/L) Date Value 12/03/2022 11 05/28/2021 10 Calcium (mg/dL) Date Value 05/28/2021 9.2 Calcium, Total (mg/dL) Date Value 12/03/2022 9.4 Protein, Total (g/dL) Date Value 12/03/2022 6.6 05/28/2021 7.0 Albumin (g/dL) Date Value 12/03/2022 4.0 05/28/2021 4.3 Bilirubin, Total (mg/dL) Date Value 12/03/2022 0.4 05/28/2021 0.2 Alkaline Phosphatase (U/L) Date Value 12/03/2022 129 05/28/2021 135 AST (U/L) Date Value 12/03/2022 17 11 (more content not included)... [facility] 04-15-2023 History of Presen t illness Narrative PATIENT NAME: Daylin Burton [facility] NO.: [id number] ATTENDING PHYSICIAN: Mckenna Waldrop MD DATE OF SERVICE: April 15, 2023 Some of the elements of this note have been copied from my previous progress note dated 12/10/2022. All the information has been reviewed carefully. Dear Dr. Law, 0 here is an update on a follow up visit on female Daylin Burton at the clinic April 15, 2023 Diagnosis: 1. Limited stage small cell lung cancer diagnosed September 06, 2019 Treatment History: 1. Concurrent chemotherapy with carboplatin plus etoposide and radiation. Chemotherapy started October 03, 2019. Radiation started October 24, 2019 to December 06, 2019. Total 4 cycles of carboplatin and etoposide last on December 08, 2019. HPI: Daylin Burton is a 77 year old year old female here for follow up. Doing ok but baseline SOB and ongoing cough. Denies any hemoptysis. 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 PAST MEDICAL HISTORY Diagnosis Date COPD (chronic obstructive pulmonary disease) (HCC) Hypertension Lung cancer (HCC) 08/[address] Law Lung mass 08/2019 Port-A-Cath in place 09/27/2019 Social History Tobacco Use Smoking status: Every Day Years: 56 Types: Cigarettes Smokeless tobacco: Never Tobacco comments: Pt smokes 4-6 a day Vaping Use Vaping Use: Never used Substance Use Topics Alcohol use: Never Drug use: Never FAMILY HISTORY Problem Relation Age of Onset Hypertension Mother Hypertension Father Stroke Father Breast Cancer Sister breast cancer at 50's other (Bladder Cancer) Sister other (Lung cancer) Brother Breast Cancer Sister breast cancer at 70's Cancer Sister Cervical Cancer Sister Cervical Cancer Sister other (Lymphoma) Brother Past medical, social and family history reviewed without any changes. REVIEW OF SYSTEMS GENERAL: No weight loss, malaise or fevers. No night sweats. HEENT: Negative for headaches, No changes in hearing or vision, no nose bleeds or other nasal problems. RESPIRATORY: Negative for cough, wheezing and shortness of breath CARDIOVASCULAR: Negative for chest pain, leg swelling and palpitations GI: Negative for abdominal discomfort, blood in stools or black stools and change in bowel habits : Negative for dysuria, frequency and incontinence MUSCULOSKELETAL: Negative for joint pain or swelling, back pain, and muscle pain. SKIN: Negative for lesions, rash, and itching. HEMATOLOGY/LYMPHOLOGY Negative for prolonged bleeding, bruising easily, and swollen nodes. NEURO: Negative for numbness or tingling of hands/feet. No weakness. PHYSICAL EXAMINATION: BP 145/66 Pulse 92 Temp (Src) 98.1 (Temporal) Resp 22 Ht 5' 2.992 (1.60m) Wt 155 lb 12.8 oz (70.7kg) SpO2 100% BMI 27.61 kg/(m^2). Wt 68.5 kg (151 lb) BMI 25.91 kg/m2 Last 3 Encounter Wt Readings: Date: Wt: 09/28/2019 68.9 kg (151 lb 12.8 oz) 09/28/2019 68.5 kg (151 lb) 09/19/2019 68 kg (150 lb) General appearance:ECOG PERFORMANCE STATUS: 0- Fully active, able to carry on all pre-disease performance w/o restriction. Patient in NAD. Skin: Skin color, texture, turgor normal. No rashes or lesions. Eyes: Anicteric sclera. Pupils are equally round and reactive to light. Extraocular movements are intact. Lymph Nodes: No cervical, supraclavicular, axillary or inguinal adenopathy. Oropharynx: Lips, mucosa, and tongue normal. Back: No pain to percussion. Negative SLR test Lungs clear to auscultation, No wheezing or rhonchi Heart: RRR without murmur, gallop, or rubs. Abdomen soft, non-tender. No masses, organomegaly Extremities: No deformities. No edema Neuro: Gait and speech normal. Reflexes normal and symmetric. Muscular strength intact. Sensation grossly intact. Rectal: Deferred : Deferred LABS: Glucose (mg/dL) Date Value 12/03/2022 224 05/28/2021 126 Potassium (mmol/L) Date Value 12/03/2022 3.0 05/28/2021 4.2 Sodium (mmol/L) Date Value 12/03/2022 138 05/28/2021 137 Chloride (mmol/L) Date Value 12/03/2022 95 05/28/2021 102 CO2 (mmol/L) Date Value 12/03/2022 32 05/28/2021 25 Creatinine (mg/dL) Date Value 12/03/2022 0.47 05/28/2021 0.48 BUN (mg/dL) Date Value 12/03/2022 12 05/28/2021 11 Anion Gap (mmol/L) Date Value 12/03/2022 11 05/28/2021 10 Calcium (mg/dL) Date Value 05/28/2021 9.2 Calcium, Total (mg/dL) Date Value 12/03/2022 9.4 Protein, Total (g/dL) Date Value 12/03/2022 6.6 05/28/2021 7.0 Albumin (g/dL) Date Value 12/03/2022 4.0 05/28/2021 4.3 Bilirubin, Total (mg/dL) Date Value 12/03/2022 0.4 05/28/2021 0.2 Alkaline Phosphatase (U/L) Date Value 12/03/2022 129 05/28/2021 135 AST (U/L) Date Value 12/03/2022 17 05/28/2021 12 ALT (U/L) Date Value 12/03/2022 20 05/28/2021 10 WBC Date Value Ref Range Status 12/03/2022 15.65 (H) 3.70 - 11.00 k/uL Final RBC Date Value Ref Range Status 12/03/2022 4.38 3.90 - 5.20 m/uL Final Hemoglobin Date Value Ref Range Status 12/03/2022 12.1 11.5 - 15.5 g/dL Final Hematocrit Date Value Ref Range Status 12/03/2022 38.2 36.0 - 46.0 % Final MCV Date Value Ref Range Status 12/03/2022 87.2 80.0 - 100.0 fL Final MCH Date Value Ref Range Status 12/03/2022 27.6 26.0 - 34.0 pg Final MCHC Date Value Ref Range Status 12/03/2022 31.7 30.5 - 36.0 g/dL Final RDW-CV Date Value Ref Range Status 12/03/2022 15.2 (H) 11.5 - 15.0 % Final Platelet Count Date Value Ref Range Status 12/03/2022 319 150 - 400 k/uL Final MPV Date Value Ref Range Status 12/03/2022 10.2 9.0 - 12.7 fL Final Abs Neut Date Value Ref Range Status 12/03/2022 12.79 (H) 1.45 - 7.50 k/uL Final Lymphocytes % Date Value Ref Range Status 12/03/2022 11.2 % Final Abs Lymph Date Value Ref Range Status 12/03/2022 1.76 1.00 - 4.00 k/uL Final Monocytes % Date Value Ref Range Status 12/03/2022 5.4 % Final Abs [place] Date Value Ref Range Status 12/03/2022 0.85 <0.87 k/uL Final Eosinophils % Date Value Ref Range Status 12/03/2022 0.5 % Final Abs Eosin Date Value Ref Range Status 12/03/2022 0.08 <0.46 k/uL Final Basophils % Date Value Ref Range Status 12/03/2022 0.4 % Final Abs Baso Date Value Ref Range Status 12/03/2022 0.07 <0.11 k/uL Final PATH: As per HPI Imaging: PET scan September 26, 2019: 1. NECK: No FDG avid neoplastic process. No hypermetabolic mass, adenopathy, or fluid collection. 2. CHEST: Metabolic progression of hypermetabolic left suprahilar pulmonary malignancy since 07/01/2019. New mildly FDG avid cluster of small pulmonary nodules in right lower lobe, favoring inflammation/infection. No hypermetabolic adenopathy, or fluid collection. 3. ABDOMEN/PELVIS: No FDG avid neoplastic process. No hypermetabolic mass, adenopathy, or fluid collection. 4. EXTREMITIES/SKELETON: No suspicious FDG avid osseous Process. MRI of the brain September 2019: No evidence of intracranial metastasis CT scan of the chest abdomen and pelvis January 10, 2020: 1. Interval decrease in size of left upper lobe mass. 2. Previously visualized right lower lobe nodular opacities have resolved, likely infectious or inflammatory in nature. 3. Stable appearance of right lower lobe 6 mm nodule. No new or enlarging nodules are seen. 4. No evidence of bulky intrathoracic lymphadenopathy. 1. Interval increase in size of left adrenal nodule. Metastatic disease is not excluded. 2. More mild thickening of the right adrenal gland, also slightly more prominent than on prior study. 3. Otherwise stable CT of the abdomen and pelvis. MRI of the brain January 05, 2020: No evidence of intracranial metastasis. Mild diffuse age-related cortical atrophy. CT scan of the chest and Abdomen and Pelvis 04/10/2020: 1. Stable appearance of left upper lobe nodular opacity. Stable surrounding consolidation/scarring. 2. Previously visualized right lower lobe nodule appears slightly decreased in size when compared to prior. No new or enlarging nodules are seen. 3. No evidence of bulky intrathoracic lymphadenopathy. Stable CT of the abdomen and pelvis. Left adrenal nodule appears unchanged. Stable mild right adrenal thickening CT scan of the chest abdomen pelvis July 03, 2020: Stable CT examination of the chest as detailed above. Stable CT examination of the abdomen and pelvis. 3.6 cm left adrenal gland nodule, unchanged. CT of the Chest and Abdomen and Pelvis : 1. 5-6 mm nodule at the posterior aspect of left lingula appears slightly more conspicuous from the prior study of 06/23/20. Correlation with continued examinations is recommended. 2. Stable appearance to left upper lobe nodular opacity and adjacent left perihilar scarring. Additional subcentimeter right-sided pulmonary nodules, stable. 3. Mild soft tissue prominence at the molly bilaterally, stable. 1. Stable appearance to intrahepatic and extrahepatic biliary dilatation, as above 2. 3.6 cm left adrenal gland nodule, stable. CT of the Chest and Abdomen and Pelvis 01/22/2021: 1. 6 mm nodule within the posterior left lingula stable to slightly more conspicuous in size from the prior study. 2. Mild soft tissue prominence at the molly bilaterally, stable. 3. Left upper lobe consolidation, associated bronchiectasis and partially loculated pleural effusion, progressed from the prior study, likely on the basis of interval radiation therapy. 1. Low-attenuation thickening of the right adrenal gland, left adrenal gland nodularity, stable. 2. Moderate intrahepatic and extrahepatic biliary dilatation, stable. 3. No substantial intra-abdominal or pelvic lymphadenopathy is Appreciated. MRI of the Brain 12/2020 ([facility]): Negative for Mets CT of the Chest and Abdomen and Pelvis 05/2021: 1. No evidence of intra-abdominal/pelvic metastases. 2. No interval change since 01/22/21. 3. Left adrenal adenoma and nodular thickening of the right adrenal gland, stable since 08/25/19. 1. Cavitary consolidative opacities in the left lung apex, most likely a combination of post radiation change, other infectious/inflammatory etiologies and neoplasm, slightly decreased since 01/22/21. 2. Subcentimeter nodular opacities measuring up to 5 mm, stable. 3. No evidence of new intrathoracic abnormalities. 4. Moderately severe emphysematous changes of the lungs. CT of the Chest 09/2021: 1. Stable CT of the chest. Unchanged appearance of consolidation with areas of cavitation in the left apex, likely representing a combination of postradiation change, infection, and possibly neoplasm. 2. Stable appearance of bilateral nodular opacities measuring up to 5 mm. No new or enlarging nodules are seen. 3. No evidence of bulky intrathoracic lymphadenopathy. CT of the Chest and Abdomen and Pelvis 05/2022: 1. Cavitary consolidative opacities in the left lung apex, most likely a combination of post radiation change, other infectious/inflammatory etiologies and neoplasm, stable in overall size since 01/28/22. Increased heterogeneous opacities within the cavitary area may represent debris or aspergilloma. 2. Subcentimeter nodular opacities measuring up to 7 mm, stable. 3. Moderately severe emphysematous changes of the lungs. 1. No evidence of intra-abdominal/pelvic metastases. 2. No interval change since 01/28/22. CT of the Chest 08/2022: 1. Overall stable appearance of left apical consolidative opacity with central cavitation, likely relating to a combination of postradiation change, infection, and neoplasm. 2. A previously described nodular opacity in the left upper lobe is more prominent when compared to prior study. 3. Other bilateral nodular opacities appear unchanged. 4. No evidence of intrathoracic lymphadenopathy. CT Chest 11/2022: 1. Consolidative opacities in the left lung apex, most likely a combination of post radiation change, other infectious/inflammatory etiologies and neoplasm, stable in overall size since 08/26/22. The cavitary component has increased in size. Persistent heterogeneous opacities within the cavitary component may represent debris or aspergilloma. 2. Nodular opacities measuring up to 1 cm, stable. 3. Moderately severe emphysematous changes of the lungs. CT Scan of the Chest and Abdomen and Pelvis 03/2023: 1. Stable-appearing posttreatment changes in the left upper lobe. Within the treated area of lung, there is again a 5.2 x 3.6 cm area of cavitation that contains nonspecific lobulated intermediate density material within it. The possibility of superinfection including fungal infection would remain a consideration. 2. A few solid nodules in the lungs measuring up to 1 cm in size are unchanged from November 2022. No new pulmonary nodules or masses are identified. 3. No CT evidence of new metastatic disease in the chest. 1. No CT evidence of metastatic disease in the abdomen or pelvis. Assessment and Plan: Daylin Burton is a 77 year old year old female here for follow up. 1. Limited stage small cell lung cancer. Patient completed concurrent chemotherapy with carboplatin and etoposide, last cycle of chemotherapy December 08, 2019. Doing well and continued remission CT 03/2023 with post radiation changes and Aspergilloma . She has decided to stop the antifungal therapy and also has elected against surgical resection of the aspergilloma. She had met Dr. Harding [facility] 2. COPD -stable 3. 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 If there are any questions and or concerns please do not hesitate to contact me at [phone]. Mckenna Waldrop MD Hematology/Medical Oncology [facility] CC: MD Ollie Copeland, DO I spent a total of 30 minutes on the date of the service which included preparing to see the patient, [id number] patient care, completing clinical documentation, obtaining and/or reviewing separately obtained history, performing a medically appropriate examination, counseling and educating the patient/family/caregiver, ordering medications, tests, or procedures and independently interpreting results (not separately reported). documented in this encounter [facility] 04-08-2023 Note HNO ID: [id number] Author: Lucy Degroot RT(R) Service: ? Author Type: Technologist Type: Progress Notes Filed: 04/08/2023 2:36 PM Note Text: Radiology Service Progress Note PATIENT NAME: Daylin Burton DATE OF SERVICE: April 08, 2023 TIME: 2:36 PM PATIENT IDENTITY VERIFICATION COMPLETED USING TWO (2) IDENTIFIERS: Name and Date of confirmed by patient verbally. FALL SCREENING: Has the patient had 2 falls in the last year or 1 fall with injury or currently using an Ambulatory Assistive Device (Walker, Cane, Wheelchair, Crutches, etc.)? No PATIENT GENDER DATA: Female. status: : No status: NO. PATIENT RELEVANT IMPLANT DATA REVIEWED: Not Applicable RADIOLOGY DEPARTMENT: CT; Exam(s) Completed: Chest Abdomen Pelvis With IV and Oral contrast PERIPHERAL IV DATA: Site assessment: Clean,Dry and Intact, Site disposition Discontinued SIGNED BY: RT Aide(R) April 08, 2023 2:36 PM [facility] 04-08-2023 Note HNO ID: [id number] Author: Amara Hughes RN Service: ? Author Type: Registered Nurse Type: Progress Notes Filed: 04/08/2023 12:23 PM Note Text: Radiology Service Progress Note DATE OF SERVICE: April 08, 2023 TIME: 12:23 PM PATIENT WEIGHT: 156LBS PATIENT IDENTITY VERIFICATION COMPLETED USING TWO (2) STANDARD IDENTIFIERS: Name and Date of confirmed by patient verbally. FALL SCREENING: Has the patient had 2 falls in the last year or 1 fall with injury or currently using an Ambulatory Assistive Device (Walker, Cane, Wheelchair, Crutches, etc.)? No PATIENT GENDER DATA: Female. status: : No status: NO. ALLERGIES: Reviewed and unchanged CONTRAST ALLERGY: No EXAM: CT -CONTRAST INDUCED NEPHROPATHY RISK FACTORS: Patient age > 60 years CREATININE: Creatinine Date Value Ref Range Status 12/03/2022 0.47 (L) 0.58 - 0.96 mg/dL Final 08/26/2022 0.49 (L) 0.58 - 0.96 mg/dL Final 06/10/2022 0.54 (L) 0.58 - 0.96 mg/dL Final Estimated Glomerular Filtration Rate Date Value Ref Range Status 12/03/2022 99 >=60 mL/min/1.73m? Final Comment: Estimated Glomerular Filtration Rate (eGFR) is calculated using the 2020 CKD-EPI creatinine equation. This equation utilizes serum creatinine, sex, and age as parameters. The creatinine assay has traceable calibration to isotope dilution-mass spectrometry. Refer to KDIGO guidelines for clinical interpretation. In patients with unstable renal function, e.g. those with acute kidney injury, the eGFR may not accurately reflect actual GFR. eGFR- Date Value Ref Range Status 05/28/2021 >60 Final P.O.C.T. RESULTS: N/A April 08, 2023 TREATMENT: N/A IV SITE: Ambulatory: A power injectable Mediport was accessed in the Right chest with a .75 inch 20 gauge needle. Blood Return, Flushed easily with normal saline, Good Blood Return Post Injection, Flushed with 20 cc saline followed by Heparin 500 units/5 cc, and No Complications IV SITE APPEARANCE: Clean,Dry and Intact SIGNATURE: Amara Hughes RN PATIENT NAME: Daylin Burton DATE: April 08, 2023 TIME: 12:23 PM [facility] 2022 Note HNO ID: [id number] Author: Lucy Wheeler RN Service: ? Author Type: Registered Nurse Type: Progress Notes Filed: 2022 2:59 PM Note Text: 2022 2:52 PM - called and spoke with patietn to start planning for thoracic surgery , pt noted I tried sending you all a message but I have decided to NOT undergo that surgery, I will just let it go and cotninue to follow with Dr Morin at [place] . will update clinical team Lucy Wheeler RN [facility] 12-26-2022 Note HNO ID: [id number] Author: Domenico Harding MD Service: ? Author Type: Physician Type: Progress Notes Filed: 2022 11:31 AM Note Text: [facility] THORACIC SURGERY OUTPATIENT CONSULT NOTE Daylin Burton [id number] Requesting Provider: Dr. 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 She unfortunately has fairly severe underlying lung disease, (FEV1=0.62; 31%) and thus surgical options for addressing her OBIE are limited. I do not think she would be an acceptable candidate for resection thus we are left with the possibility of a Clagett window. Unfortunately her cavity is in a challenging location, adjacent, to the scapula and thus there is a very narrow window for access through the axilla to manage this problem. We have discussed the conduct of a Clagett window formation, the risks/benefits and the expected postop course. We have discussed the lifetime nature of the wound and the need for daily dressing changes for management. We have further discussed the risks of resp failure after surgery. This is a lesser surgery than a formal lung resection but still carries risk of pulmonary complications given her borderline status. I have further spoken with her Electrical Engineering Intern who agrees that her medical therapy options have been exhausted at this point. PLAN: 1) TCI 2) Cards clearance 3) left axillary open thoracostomy I have reviewed the documentation obtained and documented by the Resident and I have personally performed a face to face assessment of the patient and have personally participated in the briones components of the visit which includes medical decision making.. I have discussed the case and management of the patient's care. 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 Sal for an opinion regarding management of Aspergillosis. 1. Limited stage small cell lung cancer. Patient completed concurrent chemotherapy with carboplatin and etoposide, last cycle of chemotherapy December 08, 2019. Doing well and continued remission CT with post radiation vs inflammatory changes in the OBIE, ? Debris vs. Aspergilloma . 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 COPD -stable 3. 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 Started antifungal in July stopped 2 weeks ago (5 months of tx) Chemo and radiation in 09/25/[address] morin (document at least 4 of these elements) Location: left Quality: chronic Severity: moderate Duration: 1 time per day ECOG Score: 0 Living arrangement: Lives with family/friend Functional status: Independent Unintentional weight loss over last 3 months: No PAST MEDICAL HISTORY: PAST MEDICAL HISTORY Diagnosis Date COPD (chronic obstructive pulmonary disease) (HCC) Hypertension Lung cancer (HCC) 08/[address] Law Lung mass 08/2019 Port-A-Cath in place 09/27/2019 PAST SURGICAL HISTORY: PAST SURGICAL HISTORY Procedure Laterality Date BRONCHOSCOPY 08/2019 CATARACT EXTRACTION HX 2009 CHOLECYSTECTOMY 1980 PAST SURGICAL HISTORY OF 05/2018 right coronary artery stent placement (4) S PORT-A-CATH [id number] 09/27/2019 FAMILY HISTORY: FAMILY HISTORY Problem Relation Age of Onset Hypertension Mother Hypertension Father Stroke Father Breast Cancer Sister breast cancer at 50's other (Bladder Cancer) Sister other (Lung cancer) Brother Breast Cancer Sister breast cancer at 70's Cancer Sister Cervical Cancer Sister Cervical Cancer Sister other (Lymphoma) Brother SOCIAL HISTORY: Social History Tobacco Use Smoking status: Every Day Years: 55.00 Types: Cigarettes Smokeless tobacco: Never Vaping Use Vaping Use: Never used Substance Use Topics Alcohol use: Never Drug use: Never MEDICATIONS: Prior to Admission Medications: itraconazole (SPORANOX) 100 mg capsule aspirin, enteric coated (ASPIRIN, ENTERIC COATED) 81 mg EC tablet Take by mouth at bedtime as needed. budesonide-formoterol (SYMBICORT) 160-4 (more content not included)... [facility] 12-26-2022 Note HNO ID: [id number] Author: Stephanie Dickens BAG HANGER Service: ? Author Type: Field Technical Support Consultant Type: Progress Notes Filed: 12/26/2022 10:05 AM Note Text: PULM FUNCTION SMARTBLOCK: Provider: Domenico Harding MD Spirometry: 1 DLCO: 1 [facility] 12-16-2022 Miscellaneous Notes Duplicate entry Disregard documented in this encounter [facility] 12-10-2022 Note HNO ID: [id number] Author: Mckenna Waldrop MD Service: ? Author Type: Physician Type: Progress Notes Filed: 12/10/2022 3:39 PM Note Text: PATIENT NAME: Daylin Burton [facility] NO.: [id number] ATTENDING PHYSICIAN: Mckenna Waldrop MD DATE OF SERVICE: December 10, 2022 Some of the elements of this note have been copied from my previous progress note dated 09/02/2022. All the information has been reviewed carefully. Dear Dr. Law, 0 here is an update on a follow up visit on female Daylin Burton at the clinic December 10, 2022 Diagnosis: 1. Limited stage small cell lung cancer diagnosed September 06, 2019 Treatment History: 1. Concurrent chemotherapy with carboplatin plus etoposide and radiation. Chemotherapy started October 03, 2019. Radiation started October 24, 2019 to December 06, 2019. Total 4 cycles of carboplatin and etoposide last on December 08, 2019. HPI: Daylin Burton is a 76 year old year old female here for follow up. Doing ok but baseline SOB and ongoing cough. Denies any hemoptysis. Continues on the Itraconazole based on Pulm and also steroids for her COPD. Denies any fevers and or weight loss PAST MEDICAL HISTORY Diagnosis Date COPD (chronic obstructive pulmonary disease) (HCC) Hypertension Lung cancer (HCC) 08/[address] Law Lung mass 08/2019 Port-A-Cath in place 09/27/2019 Social History Tobacco Use Smoking status: Every Day Years: 55.00 Types: Cigarettes Smokeless tobacco: Never Vaping Use Vaping Use: Never used Substance Use Topics Alcohol use: Never Drug use: Never FAMILY HISTORY Problem Relation Age of Onset Hypertension Mother Hypertension Father Stroke Father Breast Cancer Sister breast cancer at 50's other (Bladder Cancer) Sister other (Lung cancer) Brother Breast Cancer Sister breast cancer at 70's Cancer Sister Cervical Cancer Sister Cervical Cancer Sister other (Lymphoma) Brother Past medical, social and family history reviewed without any changes. REVIEW OF SYSTEMS GENERAL: No weight loss, malaise or fevers. No night sweats. HEENT: Negative for headaches, No changes in hearing or vision, no nose bleeds or other nasal problems. RESPIRATORY: Negative for cough, wheezing and shortness of breath CARDIOVASCULAR: Negative for chest pain, leg swelling and palpitations GI: Negative for abdominal discomfort, blood in stools or black stools and change in bowel habits : Negative for dysuria, frequency and incontinence MUSCULOSKELETAL: Negative for joint pain or swelling, back pain, and muscle pain. SKIN: Negative for lesions, rash, and itching. HEMATOLOGY/LYMPHOLOGY Negative for prolonged bleeding, bruising easily, and swollen nodes. NEURO: Negative for numbness or tingling of hands/feet. No weakness. PHYSICAL EXAMINATION: BP 142/67 Pulse 81 Temp (Src) 97.4 (Temporal) Resp 20 Ht 5' 2.992 (1.60m) Wt 157 lb (71.2kg) SpO2 100% BMI 27.82 kg/(m2). Wt 68.5 kg (151 lb) BMI 25.91 kg/m2 Last 3 Encounter Wt Readings: Date: Wt: 09/28/2019 68.9 kg (151 lb 12.8 oz) 09/28/2019 68.5 kg (151 lb) 09/19/2019 68 kg (150 lb) General appearance:ECOG PERFORMANCE STATUS: 0- Fully active, able to carry on all pre-disease performance w/o restriction. Patient in NAD. Skin: Skin color, texture, turgor normal. No rashes or lesions. Eyes: Anicteric sclera. Pupils are equally round and reactive to light. Extraocular movements are intact. Lymph Nodes: No cervical, supraclavicular, axillary or inguinal adenopathy. Oropharynx: Lips, mucosa, and tongue normal. Back: No pain to percussion. Negative SLR test Lungs clear to auscultation, No wheezing or rhonchi Heart: RRR without murmur, gallop, or rubs. Abdomen soft, non-tender. No masses, organomegaly Extremities: No deformities. No edema Neuro: Gait and speech normal. Reflexes normal and symmetric. Muscular strength intact. Sensation grossly intact. Rectal: Deferred : Deferred LABS: Glucose (mg/dL) Date Value 12/03/2022 224 05/28/2021 126 Potassium (mmol/L) Date Value 12/03/2022 3.0 05/28/2021 4.2 Sodium (mmol/L) Date Value 12/03/2022 138 05/28/2021 137 Chloride (mmol/L) Date Value 12/03/2022 95 05/28/2021 102 CO2 (mmol/L) Date Value 12/03/2022 32 05/28/2021 25 Creatinine (mg/dL) Date Value 12/03/2022 0.47 05/28/2021 0.48 BUN (mg/dL) Date Value 12/03/2022 12 05/28/2021 11 Anion Gap (mmol/L) Date Value 12/03/2022 11 05/28/2021 10 Calcium (mg/dL) Date Value 05/28/2021 9.2 Calcium, Total (mg/dL) Date Value 12/03/2022 9.4 Protein, Total (g/dL) Date Value 12/03/2022 6.6 05/28/2021 7.0 Albumin (g/dL) Date Value 12/03/2022 4.0 05/28/2021 4.3 Bilirubin, Total (mg/dL) Date Value 12/03/2022 0.4 05/28/2021 0.2 Alkaline Phosphatase (U/L) Date Value 12/03/2022 129 05/28/2021 135 AST (U/L) Date Value 12/03/2022 17 05/28/2021 12 ALT (U/L) Date Value 12/03/2022 20 11/ (more content not included)... [facility] 12-03-2022 Note HNO ID: [id number] Author: Leana Garvey RN Service: ? Author Type: Registered Nurse Type: Progress Notes Filed: 12/03/2022 2:13 PM Note Text: Radiology Service Progress Note DATE OF SERVICE: December 03, 2022 TIME: 2:12 PM PATIENT WEIGHT: 156 LBS PATIENT IDENTITY VERIFICATION COMPLETED USING TWO (2) STANDARD IDENTIFIERS: Name and Date of confirmed by patient verbally. FALL SCREENING: Has the patient had 2 falls in the last year or 1 fall with injury or currently using an Ambulatory Assistive Device (Walker, Cane, Wheelchair, Crutches, etc.)? No PATIENT GENDER DATA: Female. status: : No status: NO. ALLERGIES: Reviewed and unchanged CONTRAST ALLERGY: No EXAM: CT -CONTRAST INDUCED NEPHROPATHY RISK FACTORS: Patient age > 60 years CREATININE: Creatinine Date Value Ref Range Status 12/03/2022 0.47 (L) 0.58 - 0.96 mg/dL Final 08/26/2022 0.49 (L) 0.58 - 0.96 mg/dL Final 06/10/2022 0.54 (L) 0.58 - 0.96 mg/dL Final Estimated Glomerular Filtration Rate Date Value Ref Range Status 12/03/2022 99 >=60 mL/min/1.73m? Final Comment: Estimated Glomerular Filtration Rate (eGFR) is calculated using the 2020 CKD-EPI creatinine equation. This equation utilizes serum creatinine, sex, and age as parameters. The creatinine assay has traceable calibration to isotope dilution-mass spectrometry. Refer to KDIGO guidelines for clinical interpretation. In patients with unstable renal function, e.g. those with acute kidney injury, the eGFR may not accurately reflect actual GFR. eGFR- Date Value Ref Range Status 05/28/2021 >60 Final P.O.C.T. RESULTS: POC done: Yes, See Lab Tab December 03, 2022 TREATMENT: No Hydration needed. IV SITE: Ambulatory: A power injectable Mediport was accessed in the Right chest with a 0.75 inch 20 gauge needle. Blood Return, Flushed easily with normal saline, Good Blood Return Post Injection, Flushed with 20 cc saline followed by Heparin 500 units/5 cc, Needle Removed, and No Complications IV SITE APPEARANCE: Clean,Dry and Intact SIGNATURE: Leana Garvey RN PATIENT NAME: Daylin Burton DATE: December 03, 2022 TIME: 2:12 PM [facility] 12-03-2022 Note HNO ID: [id number] Author: RT Aide(R) Service: ? Author Type: Technologist Type: Progress Notes Filed: 12/03/2022 2:45 PM Note Text: Radiology Service Progress Note PATIENT NAME: Daylin Burton DATE OF SERVICE: December 03, 2022 TIME: 2:44 PM PATIENT IDENTITY VERIFICATION COMPLETED USING TWO (2) IDENTIFIERS: Name and Date of confirmed by patient verbally. FALL SCREENING: Has the patient had 2 falls in the last year or 1 fall with injury or currently using an Ambulatory Assistive Device (Walker, Cane, Wheelchair, Crutches, etc.)? No PATIENT GENDER DATA: Female. status: : No status: NO. PATIENT RELEVANT IMPLANT DATA REVIEWED: Not Applicable RADIOLOGY DEPARTMENT: CT; Exam(s) Completed: Chest PERIPHERAL IV DATA: Not applicable SIGNED BY: Lucy Degroot RT(R) December 03, 2022 2:44 PM POWER port scanned 01/10/2020-HEP [facility] 09-02-2022 History of Presen t illness Narrative PATIENT NAME: Daylin Burton [facility] NO.: [id number] ATTENDING PHYSICIAN: Mckenna Waldrop MD DATE OF SERVICE: September 02, 2022 Some of the elements of this note have been copied from my previous progress note dated 06/10/2022. All the information has been reviewed carefully. Dear Dr. Law, 0 here is an update on a follow up visit on female Daylin Burton at the clinic September 02, 2022 Diagnosis: 1. Limited stage small cell lung cancer diagnosed September 06, 2019 Treatment History: 1. Concurrent chemotherapy with carboplatin plus etoposide and radiation. Chemotherapy started October 03, 2019. Radiation started October 24, 2019 to December 06, 2019. Total 4 cycles of carboplatin and etoposide last on December 08, 2019. HPI: Daylin Burton is a 76 year old year old female here for follow up. She actually feels well. She states that her cough has improved and she did have a bronch by Dr. Morin and was diagnosed with aspergillosis and has been started on Itraconazole. She denies any diarrhea and or abdominal pain PAST MEDICAL HISTORY Diagnosis Date COPD (chronic obstructive pulmonary disease) (HCC) Hypertension Lung cancer (HCC) 08/[address] Law Lung mass 08/2019 Port-A-Cath in place 09/27/2019 Social History Tobacco Use Smoking status: Every Day Years: 55.00 Types: Cigarettes Smokeless tobacco: Never Vaping Use Vaping Use: Never used Substance Use Topics Alcohol use: Never Drug use: Never FAMILY HISTORY Problem Relation Age of Onset Hypertension Mother Hypertension Father Stroke Father Breast Cancer Sister breast cancer at 50's other (Bladder Cancer) Sister other (Lung cancer) Brother Breast Cancer Sister breast cancer at 70's Cancer Sister Cervical Cancer Sister Cervical Cancer Sister other (Lymphoma) Brother Past medical, social and family history reviewed without any changes. REVIEW OF SYSTEMS GENERAL: No weight loss, malaise or fevers. No night sweats. HEENT: Negative for headaches, No changes in hearing or vision, no nose bleeds or other nasal problems. RESPIRATORY: Negative for cough, wheezing and shortness of breath CARDIOVASCULAR: Negative for chest pain, leg swelling and palpitations GI: Negative for abdominal discomfort, blood in stools or black stools and change in bowel habits : Negative for dysuria, frequency and incontinence MUSCULOSKELETAL: Negative for joint pain or swelling, back pain, and muscle pain. SKIN: Negative for lesions, rash, and itching. HEMATOLOGY/LYMPHOLOGY Negative for prolonged bleeding, bruising easily, and swollen nodes. NEURO: Negative for numbness or tingling of hands/feet. No weakness. PHYSICAL EXAMINATION: BP 131/66 Pulse 84 Temp 97.5 Wt 156 lb 3.2 oz (70.9kg) SpO2 94% Wt 68.5 kg (151 lb) BMI 25.91 kg/m2 Last 3 Encounter Wt Readings: Date: Wt: 09/28/2019 68.9 kg (151 lb 12.8 oz) 09/28/2019 68.5 kg (151 lb) 09/19/2019 68 kg (150 lb) General appearance:ECOG PERFORMANCE STATUS: 0- Fully active, able to carry on all pre-disease performance w/o restriction. Patient in NAD. Skin: Skin color, texture, turgor normal. No rashes or lesions. Eyes: Anicteric sclera. Pupils are equally round and reactive to light. Extraocular movements are intact. Lymph Nodes: No cervical, supraclavicular, axillary or inguinal adenopathy. Oropharynx: Lips, mucosa, and tongue normal. Back: No pain to percussion. Negative SLR test Lungs clear to auscultation, No wheezing or rhonchi Heart: RRR without murmur, gallop, or rubs. Abdomen soft, non-tender. No masses, organomegaly Extremities: No deformities. No edema Neuro: Gait and speech normal. Reflexes normal and symmetric. Muscular strength intact. Sensation grossly intact. Rectal: Deferred : Deferred LABS: Glucose (mg/dL) Date Value 08/26/2022 138 05/28/2021 126 Potassium (mmol/L) Date Value 08/26/2022 2.9 05/28/2021 4.2 Sodium (mmol/L) Date Value 08/26/2022 138 05/28/2021 137 Chloride (mmol/L) Date Value 08/26/2022 96 05/28/2021 102 CO2 (mmol/L) Date Value 08/26/2022 31 05/28/2021 25 Creatinine (mg/dL) Date Value 08/26/2022 0.49 05/28/2021 0.48 BUN (mg/dL) Date Value 08/26/2022 10 05/28/2021 11 Anion Gap (mmol/L) Date Value 08/26/2022 11 05/28/2021 10 Calcium (mg/dL) Date Value 05/28/2021 9.2 Calcium, Total (mg/dL) Date Value 08/26/2022 9.5 Protein, Total (g/dL) Date Value 08/26/2022 7.5 05/28/2021 7.0 Albumin (g/dL) Date Value 08/26/2022 4.4 05/28/2021 4.3 Bilirubin, Total (mg/dL) Date Value 08/26/2022 0.2 05/28/2021 0.2 Alkaline Phosphatase (U/L) Date Value 08/26/2022 142 05/28/2021 135 AST (U/L) Date Value 08/26/2022 17 05/28/2021 12 ALT (U/L) Date Value 08/26/2022 15 05/28/2021 10 WBC Date Value Ref Range Status 08/26/2022 12.45 (H) 3.70 - 11.00 k/uL Final RBC Date Value Ref Range Status 08/26/2022 4.44 3.90 - 5.20 m/uL Final Hemoglobin Date Value Ref Range Status 08/26/2022 12.3 11.5 - 15.5 g/dL Final Hematocrit Date Value Ref Range Status 08/26/2022 39.2 36.0 - 46.0 % Final MCV Date Value Ref Range Status 08/26/2022 88.3 80.0 - 100.0 fL Final MCH Date Value Ref Range Status 08/26/2022 27.7 26.0 - 34.0 pg Final MCHC Date Value Ref Range Status 08/26/2022 31.4 30.5 - 36.0 g/dL Final RDW-CV Date Value Ref Range Status 08/26/2022 14.5 11.5 - 15.0 % Final Platelet Count Date Value Ref Range Status 08/26/2022 362 150 - 400 k/uL Final MPV Date Value Ref Range Status 08/26/2022 9.6 9.0 - 12.7 fL Final Abs Neut Date Value Ref Range Status 08/26/2022 10.13 (H) 1.45 - 7.50 k/uL Final Lymph% Date Value Ref Range Status 08/26/2022 12.3 % Final Abs Lymph Date Value Ref Range Status 08/26/2022 1.53 1.00 - 4.00 k/uL Final [place]% Date Value Ref Range Status 08/26/2022 4.8 % Final Abs [place] Date Value Ref Range Status 08/26/2022 0.60 <0.87 k/uL Final Eosin% Date Value Ref Range Status 08/26/2022 0.6 % Final Abs Eosin Date Value Ref Range Status 08/26/2022 0.07 <0.46 k/uL Final Baso% Date Value Ref Range Status 08/26/2022 0.6 % Final Abs Baso Date Value Ref Range Status 08/26/2022 0.07 <0.11 k/uL Final PATH: As per HPI Imaging: PET scan September 26, 2019: 1. NECK: No FDG avid neoplastic process. No hypermetabolic mass, adenopathy, or fluid collection. 2. CHEST: Metabolic progression of hypermetabolic left suprahilar pulmonary malignancy since 07/01/2019. New mildly FDG avid cluster of small pulmonary nodules in right lower lobe, favoring inflammation/infection. No hypermetabolic adenopathy, or fluid collection. 3. ABDOMEN/PELVIS: No FDG avid neoplastic process. No hypermetabolic mass, adenopathy, or fluid collection. 4. EXTREMITIES/SKELETON: No suspicious FDG avid osseous Process. MRI of the brain September 2019: No evidence of intracranial metastasis CT scan of the chest abdomen and pelvis January 10, 2020: 1. Interval decrease in size of left upper lobe mass. 2. Previously visualized right lower lobe nodular opacities have resolved, likely infectious or inflammatory in nature. 3. Stable appearance of right lower lobe 6 mm nodule. No new or enlarging nodules are seen. 4. No evidence of bulky intrathoracic lymphadenopathy. 1. Interval increase in size of left adrenal nodule. Metastatic disease is not excluded. 2. More mild thickening of the right adrenal gland, also slightly more prominent than on prior study. 3. Otherwise stable CT of the abdomen and pelvis. MRI of the brain January 05, 2020: No evidence of intracranial metastasis. Mild diffuse age-related cortical atrophy. CT scan of the chest and Abdomen and Pelvis 04/10/2020: 1. Stable appearance of left upper lobe nodular opacity. Stable surrounding consolidation/scarring. 2. Previously visualized right lower lobe nodule appears slightly decreased in size when compared to prior. No new or enlarging nodules are seen. 3. No evidence of bulky intrathoracic lymphadenopathy. Stable CT of the abdomen and pelvis. Left adrenal nodule appears unchanged. Stable mild right adrenal thickening CT scan of the chest abdomen pelvis July 03, 2020: Stable CT examination of the chest as detailed above. Stable CT examination of the abdomen and pelvis. 3.6 cm left adrenal gland nodule, unchanged. CT of the Chest and Abdomen and Pelvis : 1. 5-6 mm nodule at the posterior aspect of left lingula appears slightly more conspicuous from the prior study of 06/23/20. Correlation with continued examinations is recommended. 2. Stable appearance to left upper lobe nodular opacity and adjacent left perihilar scarring. Additional subcentimeter right-sided pulmonary nodules, stable. 3. Mild soft tissue prominence at the molly bilaterally, stable. 1. Stable appearance to intrahepatic and extrahepatic biliary dilatation, as above 2. 3.6 cm left adrenal gland nodule, stable. CT of the Chest and Abdomen and Pelvis 01/22/2021: 1. 6 mm nodule within the posterior left lingula stable to slightly more conspicuous in size from the prior study. 2. Mild soft tissue prominence at the molly bilaterally, stable. 3. Left upper lobe consolidation, associated bronchiectasis and partially loculated pleural effusion, progressed from the prior study, likely on the basis of interval radiation therapy. 1. Low-attenuation thickening of the right adrenal gland, left adrenal gland nodularity, stable. 2. Moderate intrahepatic and extrahepatic biliary dilatation, stable. 3. No substantial intra-abdominal or pelvic lymphadenopathy is Appreciated. MRI of the Brain 12/2020 ([facility]): Negative for Mets CT of the Chest and Abdomen and Pelvis 05/2021: 1. No evidence of intra-abdominal/pelvic metastases. 2. No interval change since 01/22/21. 3. Left adrenal adenoma and nodular thickening of the right adrenal gland, stable since 08/25/19. 1. Cavitary consolidative opacities in the left lung apex, most likely a combination of post radiation change, other infectious/inflammatory etiologies and neoplasm, slightly decreased since 01/22/21. 2. Subcentimeter nodular opacities measuring up to 5 mm, stable. 3. No evidence of new intrathoracic abnormalities. 4. Moderately severe emphysematous changes of the lungs. CT of the Chest 09/2021: 1. Stable CT of the chest. Unchanged appearance of consolidation with areas of cavitation in the left apex, likely representing a combination of postradiation change, infection, and possibly neoplasm. 2. Stable appearance of bilateral nodular opacities measuring up to 5 mm. No new or enlarging nodules are seen. 3. No evidence of bulky intrathoracic lymphadenopathy. CT of the Chest and Abdomen and Pelvis 05/2022: 1. Cavitary consolidative opacities in the left lung apex, most likely a combination of post radiation change, other infectious/inflammatory etiologies and neoplasm, stable in overall size since 01/28/22. Increased heterogeneous opacities within the cavitary area may represent debris or aspergilloma. 2. Subcentimeter nodular opacities measuring up to 7 mm, stable. 3. Moderately severe emphysematous changes of the lungs. 1. No evidence of intra-abdominal/pelvic metastases. 2. No interval change since 01/28/22. CT of the Chest 08/2022: 1. Overall stable appearance of left apical consolidative opacity with central cavitation, likely relating to a combination of postradiation change, infection, and neoplasm. 2. A previously described nodular opacity in the left upper lobe is more prominent when compared to prior study. 3. Other bilateral nodular opacities appear unchanged. 4. No evidence of intrathoracic lymphadenopathy. Assessment and Plan: Daylin Burton is a 76 year old year old female here for follow up. 1. Limited stage small cell lung cancer. Patient completed concurrent chemotherapy with carboplatin and etoposide, last cycle of chemotherapy December 08, 2019. Doing well and continued remission CT with post radiation vs inflammatory changes in the OBIE, ? Debris vs. Aspergilloma . Had a bronch and likely aspergilloma and she has been on Itraconazole for 1 month and feels better. No evidence of recurrence. See back in clinic in 3 months with follow-up and imaging studies of the chest as well. 2. COPD -stable 3. 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 Thank you for the kind referral. If there are any questions and or concerns please do not hesitate to contact me at [phone]. Mckenna Waldrop MD Hematology/Medical Oncology [facility] CC: MD Ollie Copeland, I spent a total of 30 minutes on the date of the service which included preparing to see the patient, [id number] patient care, completing clinical documentation, obtaining and/or reviewing separately obtained history, performing a medically appropriate examination, counseling and educating the patient/family/caregiver, ordering medications, tests, or procedures and independently interpreting results (not separately reported). documented in this encounter [facility] 07-24-2022 Evaluation note Encounter Date Diagnosis Assessment Notes Jul, COPD (chronic obstructive pulmonary disease) (ICD-10 - J44.9) Patient does follow with Dr. Morin and I encourage her to continue. She is scheduled for quick follow up in August. She recently has been diagnosed with aspergillus. She is to continue with current medication regimen. Jul, Aspergillus (ICD-10 - B44.9) Patient is under the care of Dr. Morin and was just recently dx with aspergillus. He will be treating this with a fungal medication as soon as patient can get it at the pharmacy. She recently had a respiratory illness back in June that I am sure did not help. She is in remission of lung cancer and does follow with Dr. Heaton at the [facility]. [facility] [employer] [facility] Other 11-23-2022 Miscellaneous Notes* Telephone Encounter - Belen Hayes [facility] - 06/11/2022 8:54 AM EST Images are being pushed to [facility]. I let [email or web address] know to look for them. * Telephone Encounter - Maki Aguirre RN - 06/10/2022 4:40 PM EST ----- Message from Mckenna Waldrop MD sent at 06/10/2022 2:52 PM EST ----- Regarding: CT Can you have the films sent to Dr. Morin for review. Her latest Chest CT the actual images. Thanks documented in this [facility]11-11-2022 Miscellaneous Notes* Telephone Encounter - Maki Aguirre RN - 05/30/2022 4:46 PM EST Pt notified of results Maki Aguirre RN * Telephone Encounter - Maki Aguirre RN - 05/30/2022 4:46 PM EST ----- Message from Mckenna Waldrop MD sent at 05/30/2022 10:21 AM EST ----- Call with ongoingh response documented in this [facility]10-12-2022 Miscellaneous Notes* Telephone Encounter - Ciara Rivera RN - 04/30/2022 2:48 PM EDT Please sign pending Cre order on Daylin Burton for upcoming CT with contrast on 05/27/22. Thank you. Ciara Rivera RN documented in this [facility]09-06-2022 Evaluation note* Encounter Date Diagnosis Assessment Notes Treatment Notes Treatment Clinical Notes Mar, Sinus pressure (ICD-10 - J34.89) In house covid test obtained with negative results. [facility] [employer] [facility] Other 08-04-2022 Miscellaneous Notes* Telephone Encounter - Mckenna Waldrop MD - 02/20/2022 2:02 PM EDT ok * Telephone Encounter - Maki Aguirre RN - 02/20/2022 12:18 PM EDT Pt calls stating she's thought about the endocrinology referral and would like to cancel this for now. Pt states the nodule on the adrenal gland has been there for 2 years and hasn't changed at all. She would like to continue to monitor for now. Maki Aguirre RN [facility] Miscellaneous Notes* Telephone Encounter - Nora Godfrey - 02/13/2022 11:[address] Long office spoke with Shona. She states they have made several attempts to call patient and have not been able to reach her to get her scheduled. I called patient she states she does not remember receiving any messages from their office but she will call there sometime this afternoon to schedule an appointment. Gave patient Dr Long office phone number to call [phone]. Nora Godfrey * Telephone Encounter - Nora Godfrey - 02/10/2022 2:[address] Long office spoke with Shona. They have received this referral and have called and left patient two messages to have patient call their office to schedule. They have not yet heard back from patient. Shona states they will be calling try to reach patient again later today. oNra Godfrey * Telephone Encounter - Nora Ray [facility] - 02/05/2022 1:[address] Long office spoke with Ana. She states they are very behind in their referrals and has asked me to call their office back on Thursday to check status of this referral. Nora Godfrey * Telephone Encounter - Belen Hayes [facility] - 02/05/2022 8:02 AM EDT Records faxed to Dr. Long. * Telephone Encounter - Nora Ray [facility] - 02/05/2022 7:39 AM EDT Marita: Information ready for you. Nora Godfrey * Telephone Encounter - Malou Olson - 02/04/2022 3:26 PM EDT Patient to be referred to Dr. Long, Endocrinology in [place]. Marita/Jack: Can you please refer patient and follow up? Thank you! Malou Olson [facility] History of Present illness Narrative* Meera Singh PA-C - 02/04/2022 3:00 PM EDT PATIENT NAME: [facility] NO.: [id number] ATTENDING PHYSICIAN: Mckenna Waldrop MD DATE OF SERVICE: February 04, 2022 (Elements copied from Dr. Waldrop's note dated October 01, 2021, have been reviewed and updated where appropriate, and all reflect current assessment and medical decision making during today's encounter, February 04, 2022) CC: Follow up Diagnosis: 1. Limited stage small cell lung cancer diagnosed September 06, 2019 Treatment History: 1. Concurrent chemotherapy with carboplatin plus etoposide and radiation. Chemotherapy started October 03, 2019. Radiation started October 24, 2019 to December 06, 2019. Total 4 cycles of carboplatin and etoposide last on December 08, 2019. HPI: Merissa returns for follow up. Overall she feels well. Her shortness of breath remains at baseline. Pulmonology put her on Prednisone 5mg daily to try to prevent flares . She is eating and drinking well and denies any pain, headaches, or vision issues. PAST MEDICAL HISTORY Diagnosis Date COPD (chronic obstructive pulmonary disease) (HCC) Hypertension Lung cancer (HCC) 08/[address] Law Lung mass 08/2019 Port-A-Cath in place 09/27/2019 Social History Tobacco Use Smoking status: Current Every Day Smoker Packs/day: 1.50 Years: 55.00 Pack years: 82.50 Types: Cigarettes Smokeless tobacco: Never Used Vaping Use Vaping Use: Never used Substance Use Topics Alcohol use: Never Drug use: Never FAMILY HISTORY Problem Relation Age of Onset Hypertension Mother Hypertension Father Stroke Father Breast Cancer Sister breast cancer at 50's other (Bladder Cancer) Sister other (Lung cancer) Brother Breast Cancer Sister breast cancer at 70's Cancer Sister Cervical Cancer Sister Cervical Cancer Sister other (Lymphoma) Brother Past medical, social and family history reviewed without any changes. REVIEW OF SYSTEMS GENERAL: No weight loss, malaise or fevers. No night sweats. HEENT: Negative for headaches, No changes in hearing or vision, no nose bleeds or other nasal problems. RESPIRATORY: Negative for cough, wheezing +chronic SOB, unchanged CARDIOVASCULAR: Negative for chest pain, leg swelling and palpitations GI: Negative for abdominal discomfort, blood in stools or black stools and change in bowel habits : Negative for dysuria, frequency and incontinence MUSCULOSKELETAL: Negative for joint pain or swelling, back pain, and muscle pain. SKIN: Negative for lesions, rash, and itching. HEMATOLOGY/LYMPHOLOGY Negative for prolonged bleeding, bruising easily, and swollen nodes. NEURO: Negative for numbness or tingling of hands/feet. No weakness. PHYSICAL EXAMINATION: BP 151/70 Pulse 103 Temp (Src) 98.2 (Temporal) Resp 16 Ht 5' 2.992 (1.60m) Wt 156 lb 12.8 oz (71.1kg) SpO2 91% BMI 27.78 kg/(m^2). :ECOG PERFORMANCE STATUS: 0- Fully active, able to carry on all pre-disease performance w/o restriction. General: Alert and oriented, no distress, pleasant and cooperative. Heart: Regular, normal S1 and S2, no murmurs, rubs, or gallops Lungs: Clear to auscultation bilaterally Abdomen: Benign Extremities: Feet/ankles without edema, posterior tibial pulses full and symmetrical LABS: Glucose (mg/dL) Date Value 01/28/2022 119 05/28/2021 126 Potassium (mmol/L) Date Value 01/28/2022 3.9 05/28/2021 4.2 Sodium (mmol/L) Date Value 01/28/2022 135 05/28/2021 137 Chloride (mmol/L) Date Value 01/28/2022 98 05/28/2021 102 CO2 (mmol/L) Date Value 01/28/2022 28 05/28/2021 25 Creatinine (mg/dL) Date Value 01/28/2022 0.47 05/28/2021 0.48 BUN (mg/dL) Date Value 01/28/2022 12 05/28/2021 11 Anion Gap (mmol/L) Date Value 01/28/2022 9 05/28/2021 10 Calcium (mg/dL) Date Value 05/28/2021 9.2 Calcium, Total (mg/dL) Date Value 01/28/2022 9.3 Protein, Total (g/dL) Date Value 01/28/2022 7.0 05/28/2021 7.0 Albumin (g/dL) Date Value 01/28/2022 4.1 05/28/2021 4.3 Bilirubin, Total (mg/dL) Date Value 01/28/2022 <0.2 05/28/2021 0.2 Alkaline Phosphatase (U/L) Date Value 01/28/2022 152 05/28/2021 135 AST (U/L) Date Value 01/28/2022 14 05/28/2021 12 ALT (U/L) Date Value 01/28/2022 13 05/28/2021 10 WBC Date Value Ref Range Status 01/28/2022 11.01 (H) 3.70 - 11.00 k/uL Final RBC Date Value Ref Range Status 01/28/2022 4.13 3.90 - 5.20 m/uL Final Hemoglobin Date Value Ref Range Status 01/28/2022 11.8 11.5 - 15.5 g/dL Final Hematocrit Date Value Ref Range Status 01/28/2022 36.8 36.0 - 46.0 % Final MCV Date Value Ref Range Status 01/28/2022 89.1 80.0 - 100.0 fL Final MCH Date Value Ref Range Status 01/28/2022 28.6 26.0 - 34.0 pg Final MCHC Date Value Ref Range Status 01/28/2022 32.1 30.5 - 36.0 g/dL Final RDW-CV Date Value Ref Range Status 01/28/2022 12.5 11.5 - 15.0 % Final Platelet Count Date Value Ref Range Status 01/28/2022 360 150 - 400 k/uL Final MPV Date Value Ref Range Status 01/28/2022 9.0 9.0 - 12.7 fL Final Abs Neut Date Value Ref Range Status 01/28/2022 8.94 (H) 1.45 - 7.50 k/uL Final Lymph% Date Value Ref Range Status 01/28/2022 12.4 % Final Abs Lymph Date Value Ref Range Status 01/28/2022 1.37 1.00 - 4.00 k/uL Final [place]% Date Value Ref Range Status 01/28/2022 5.2 % Final Abs [place] Date Value Ref Range Status 01/28/2022 0.57 <0.87 k/uL Final Eosin% Date Value Ref Range Status 01/28/2022 0.4 % Final Abs Eosin Date Value Ref Range Status 01/28/2022 0.04 <0.46 k/uL Final Baso% Date Value Ref Range Status 01/28/2022 0.5 % Final Abs Baso Date Value Ref Range Status 01/28/2022 0.06 <0.11 k/uL Final PATH: As per HPI Imaging: PET scan September 26, 2019: 1. NECK: No FDG avid neoplastic process. No hypermetabolic mass, adenopathy, or fluid collection. 2. CHEST: Metabolic progression of hypermetabolic left suprahilar pulmonary malignancy since 07/01/2019. New mildly FDG avid cluster of small pulmonary nodules in right lower lobe, favoring inflammation/infection. No hypermetabolic adenopathy, or fluid collection. 3. ABDOMEN/PELVIS: No FDG avid neoplastic process. No hypermetabolic mass, adenopathy, or fluid collection. 4. EXTREMITIES/SKELETON: No suspicious FDG avid osseous Process. MRI of the brain September 2019: No evidence of intracranial metastasis CT scan of the chest abdomen and pelvis January 10, 2020: 1. Interval decrease in size of left upper lobe mass. 2. Previously visualized right lower lobe nodular opacities have resolved, likely infectious or inflammatory in nature. 3. Stable appearance of right lower lobe 6 mm nodule. No new or enlarging nodules are seen. 4. No evidence of bulky intrathoracic lymphadenopathy. 1. Interval increase in size of left adrenal nodule. Metastatic disease is not excluded. 2. More mild thickening of the right adrenal gland, also slightly more prominent than on prior study. 3. Otherwise stable CT of the abdomen and pelvis. MRI of the brain January 05, 2020: No evidence of intracranial metastasis. Mild diffuse age-related cortical atrophy. CT scan of the chest and Abdomen and Pelvis 04/10/2020: 1. Stable appearance of left upper lobe nodular opacity. Stable surrounding consolidation/scarring. 2. Previously visualized right lower lobe nodule appears slightly decreased in size when compared to prior. No new or enlarging nodules are seen. 3. No evidence of bulky intrathoracic lymphadenopathy. Stable CT of the abdomen and pelvis. Left adrenal nodule appears unchanged. Stable mild right adrenal thickening CT scan of the chest abdomen pelvis July 03, 2020: Stable CT examination of the chest as detailed above. Stable CT examination of the abdomen and pelvis. 3.6 cm left adrenal gland nodule, unchanged. CT of the Chest and Abdomen and Pelvis : 1. 5-6 mm nodule at the posterior aspect of left lingula appears slightly more conspicuous from the prior study of 06/23/20. Correlation with continued examinations is recommended. 2. Stable appearance to left upper lobe nodular opacity and adjacent left perihilar scarring. Additional subcentimeter right-sided pulmonary nodules, stable. 3. Mild soft tissue prominence at the molly bilaterally, stable. 1. Stable appearance to intrahepatic and extrahepatic biliary dilatation, as above 2. 3.6 cm left adrenal gland nodule, stable. CT of the Chest and Abdomen and Pelvis 01/22/2021: 1. 6 mm nodule within the posterior left lingula stable to slightly more conspicuous in size from the prior study. 2. Mild soft tissue prominence at the molly bilaterally, stable. 3. Left upper lobe consolidation, associated bronchiectasis and partially loculated pleural effusion, progressed from the prior study, likely on the basis of interval radiation therapy. 1. Low-attenuation thickening of the right adrenal gland, left adrenal gland nodularity, stable. 2. Moderate intrahepatic and extrahepatic biliary dilatation, stable. 3. No substantial intra-abdominal or pelvic lymphadenopathy is Appreciated. MRI of the Brain 12/2020 ([facility]): Negative for Mets CT of the Chest and Abdomen and Pelvis 05/2021: 1. No evidence of intra-abdominal/pelvic metastases. 2. No interval change since 01/22/21. 3. Left adrenal adenoma and nodular thickening of the right adrenal gland, stable since 08/25/19. 1. Cavitary consolidative opacities in the left lung apex, most likely a combination of post radiation change, other infectious/inflammatory etiologies and neoplasm, slightly decreased since 01/22/21. 2. Subcentimeter nodular opacities measuring up to 5 mm, stable. 3. No evidence of new intrathoracic abnormalities. 4. Moderately severe emphysematous changes of the lungs. CT of the Chest 09/2021: 1. Stable CT of the chest. Unchanged appearance of consolidation with areas of cavitation in the left apex, likely representing a combination of postradiation change, infection, and possibly neoplasm. 2. Stable appearance of bilateral nodular opacities measuring up to 5 mm. No new or enlarging nodules are seen. 3. No evidence of bulky intrathoracic lymphadenopathy. CT chest, abdomen, pelvis 01/28/2022 1. Slight interval increase in consolidation within the left apex. Findings again likely represent a combination of postradiation change, infection, and possibly neoplasm. 2. Stable appearance of bilateral pulmonary nodules measuring up to 5 mm. No new or enlarging nodules are noted. 3. No evidence of intrathoracic adenopathy. 1. Stable CT of the abdomen and pelvis. No evidence of abdominal or pelvic metastatic disease. 2. Stable appearance of left adrenal adenoma. Stable thickening of the right adrenal gland. Consider serum biochemical evaluation to evaluate for a functioning adenoma, particularly if there are any symptoms which may be attributable to adrenal hyperfunction. Assessment and Plan: Daylin Burton is a 75 year old year old female here for follow up. 1. Limited stage small cell lung cancer. Patient completed concurrent chemotherapy with carboplatinand etoposide, last cycle of chemotherapy December 08, 2019. Doing well overall. CTs from January 2022 reviewed with patient and overall appear stable. Will repeatimagine gin 4 months and see her back. 2. COPD -stable, sees pulmonology 3. Hypertension-stable 4. Adrenal adenoma--stable on imaging, asymptomatic, refer to endocrine for further follow up Meera Singh PA-C CC: DO Ollie Cordero DO [facility]* Encounter Date Diagnosis Assessment Notes Treatment Notes Treatment Clinical Notes Dec, Medicare annual wellness visit, initial (ICD-10 - Z00.00) Personalized health advice was given to the beneficiary including a written plan for screenings discussed and provided. Advanced care planning reviewed and/or information given as requested. The above visit was performed by Landy Yi LPN, under direct supervision of Dr. Annie Sal. Document reviewed and amended by provider signed below. Dec, Screening for breast cancer (ICD-10 - Z12.39) Mammogram ordered. Dec, Post menopausal syndrome (ICD-10 - Z78.0) Dexa scan ordered. Dec, COPD (chronic obstructive pulmonary disease) (ICD-10 - J44.9) The lungs do sound clear upon auscultation. Patient is to continue with the above. Dec, Hyperlipidemia (ICD-10 - E78.5) HDL cholesterol has increased from last check. Patient is to continue with the above medication. Dec, Carotid stenosis (ICD-10 - I65.29) Patient is to continue to follow with cartridge maker as scheduled. [employer] Other 09-30-2018 History of Present illness NarrativePatient returns in follow-up of problems as noted. In the interim she is done well. She has some baseline and her chronic shortness of breath which appears to be on the basis of her COPD. She states this is constant and unchanging. Its different than the symptoms she had 4 years ago prior to her angioplasty and stenting. That was a different symptom complex and she believes she can tell the symptoms of coronary disease that preceded her diagnosis and subsequent PTCA. Management and control of her lipids and blood pressure is reviewed and felt to be adequate and appropriate. She was counseled on the importance of smoking cessation as well as diet exercise and weight loss.-[facility]-Edgar Espino DO Work Phone: [phone] 280-656708-01-2018 History general Narrative - Reported* Type Description Date Medical History 2008 pelvic exam Medical History 2008 , 02/2018 mammogram Medical History 02/2006 colonoscopy - Dr Contreras normal Medical History 2005 stress test Medical History 2008 ansar Medical History refused colonoscopy 08/12/16 Medical History refuses colonoscopy 09/15/17, 10/22 Medical History refuses stress test 09/15/17 Medical History refuses low dose CT 09/15/17 Medical History cardiac CTA 05/25/18 Medical History stress test 04/21/18 [facility] Medical History 05/25/2018 Cardiac cath and sten t placement Medical History 11/29/18 COLONOSCOPY WITH POLYPS Medical History heart disease Medical History HTN Medical History COPD Medical History Lung Cancer- follows with Dr. Colleen smith [facility] Medical History 01/11/20- Refused Dexa Surgical History cataract removed 2008 Surgical History Right coronary artery stent faizan cement ( 4) 05/2018 Surgical History cholecystectomy Surgical History bronchoscopy with bx and washin gs 08/2019 Hospitalization History See Above Hospitalization History [facility]-pneumo chanell and sepsis 10/28- Hospitalization [place] [facility] [place] cath and sten t placement 05/2018 Hospitalization History Pneumonia [facility] 1 [facility] [employer] [facility] Other 08-01-2018 History general Narrative - Reported* Type Description Date Medical History 2008 pelvic exam Medical History 2008 , 02/2018 mammogram Medical History 02/2006 colonoscopy - Dr Contreras normal Medical History 2005 stress test Medical History 2008 ansar Medical History refused colonoscopy 08/12/16 Medical History refuses colonoscopy 09/15/17, 10/22 Medical History refuses stress test 09/15/17 Medical History refuses low dose CT 09/15/17 Medical History cardiac CTA 05/25/18 Medical History stress test 04/21/18 [facility] Medical History 05/25/2018 Cardiac cath and sten t placement Medical History 11/29/18 COLONOSCOPY WITH POLYPS Medical History heart disease Medical History HTN Medical History COPD Medical History Lung Cancer- follows with Dr. Colleen DUNN Medical History 01/11/20- Refused Dexa Medical History Dexa scan and mammogram 02/2022 Surgical History cataract removed 2008 Surgical History Right coronary artery stent faizan cement ( 4) 05/2018 Surgical History cholecystectomy Surgical History bronchoscopy with bx and washin gs 08/2019 Hospitalization History See Above Hospitalization History [facility]-pneumo chanell and sepsis 10/28- Hospitalization History [facility] [place] cath and sten t placement 05/2018 Hospitalization History Pneumonia [facility] 1 [place] Poll Everywhere Other Evaluation noteNo assessment information available [facility]* Diagnosis Adenoma- Primary Benign neoplasm of unspecified site Adrenal adenoma, left Malignant neoplasm of unspecified part of unspecified bronchus or lung (HCC) Small cell lung cancer in adult (HCC) [facility] noteNo InformationNortEncompass Health [facility] Other Evaluation note* Diagnosis Malignant neoplasm of unspecified part of unspecified bronchus or lung (HCC)- Primary [facility]* Diagnosis Malignant neoplasm of unspecified part of unspecified bronchus or lung (HCC)- Primary [facility]* Diagnosis Malignant neoplasm of unspecified part of unspecified bronchus or lung (HCC)- Primary [facility]* Diagnosis History of lung cancer- Primary Personal history of malignant neoplasm of bronchus and lung Malignant neoplasm of unspecified part of unspecified bronchus or lung (HCC) Aspergilloma (HCC) Aspergillosis documented [facility]* Diagnosis Coronary artery disease involving [place] coronary artery of [place] heart without angina pectoris- Primary Essential hypertension Unspecified essential hypertension Current every day smoker Other emphysema (CMS/HCC) Other emphysema Mixed hyperlipidemia History of PTCA Postsurgical percutaneous transluminal coronary angioplasty status documented in this encounter [facility] Work Phone: Evaluation note* Diagnosis Onset Date Resolution Status Anemia acute Anxiety acute COPD (chronic obstructive pulmonary disease) acute Lung cancer acute Oxygen dependent acute [facility] Work Phone: Evaluation note* Author Amara Maldonado [facility] Authored December 09, 2023 1:32p m The above note written by DEANN Trujillo acting as human recorder, note dictated by Dr. Annie Sal. [facility] Work Phone: Reason for referral (narrative)* Consultation (Routine) - Authorized Specialty Diagnoses / Procedures Referred By Contac t Referred To Contact Cardiology Diagnoses Coronary artery disease involving [place] coronary artery of [place] heart without angina pectoris Procedures Follow Up In Cardiology Von Mart MD [address] [facility] [address], [place] [id number] Referral ID Status Reason Start Date Expiration Date V isits Requested Visits Authorized [id number] Authorized 04/22/2023 10/19/2023 1 1 [facility] Work Phone: Summary Purpose Family History Relationship Condition Age at Onset Recorded Date/T regan brother Malignant neoplasm of lung Unknown sister Malignant neoplasm of breast Unknown sister Malignant neoplasm of urinary bladder Unk nown Malignant neoplasm of breast Unknown father Hypertension Unknown Cerebrovascular accident (CVA) Unknown Not Specified Hypertension Unknown Unknown Family Member Name Dates Details No pertinent family history: Mother, Father(V49.89, Z78.9) Status:Active Unknown Family Member Name Dates Details No pertinent family history: Mother, Father(V49.89, Z78.9) Status:Active Unknown Family Member Name Dates Details No pertinent family history: Mother, Father(V49.89, Z78.9) Status:Active Unknown Family Member Name Dates Details No pertinent family history: Mother, Father(V49.89, Z78.9) Status:Active Unknown Family Member Name Dates Details No pertinent family history: Mother, Father(V49.89, Z78.9) Status:Active Relationship Condition Age at Onset Recorded Date/T regan brother Malignant neoplasm of lung Unknown sister Malignant neoplasm of breast Unknown sister Malignant neoplasm of urinary bladder Unk nown Malignant neoplasm of breast Unknown father Hypertension Unknown Cerebrovascular accident (CVA) Unknown Not Specified Hypertension Unknown brother Malignant neoplasm Unknown Unknown History of stroke Unknown grandparent Unknown Not Specified Unknown Hypertension Unknown sister Malignant neoplasm Unknown Relationship Condition Age at Onset Recorded Date/T regan brother Malignant neoplasm of lung Unknown sister Malignant neoplasm of breast Unknown sister Malignant neoplasm of urinary bladder Unk nown Malignant neoplasm of breast Unknown Not Specified Hypertension Unknown Unknown father Hypertension Unknown History of stroke Unknown grandparent Unknown sister Malignant neoplasm Unknown Hypertension Unknown Advance Directives Advance Directive Response Recorded Date/ Time Advance Directives No August 12:02pm Advance Directive Response Recorded Date/ Time Advance Directives No August 1:02pm Chief Complaint and Reason for Visit Chief Complaint c34.90 c34.90 Chief Complaint E78.5 Chief Complaint E78.5 c34.90 Chief Complaint e78.5 e03.9 Z12.39 Z78.0 Chief Complaint e78.5 Chief Complaint E78.5 N28.9 Chief Complaint E78.5 N28.9 6 month f/u & hospital f/u Reason for Visit Anemia Anxiety COPD (chronic obstructive pulmonary disease) Lung cancer Oxygen dependent Chief Complaint E78.5 N28.9 6 month f/u & hospital f/u d64.9 C34.90 D64.9 Reason for Visit Anemia Anxiety COPD (chronic obstructive pulmonary disease) Lung cancer Oxygen dependent Chief Complaint 6 month f/u & hospit al f/u d64.9 C34.90 D64.9 2 month f/u Reason for Visit Anemia Anxiety COPD (chronic obstructive pulmonary disease) Lung cancer Oxygen dependent Anemia COPD (chronic obstructive pulmonary disease) Heart disease Oxygen dependent Assessments No Assessments Information Available Reason for Referral Specialty Diagnoses / Procedures Referred By Pedro juarez Referred To Contact CT IMAGING Diagnoses History of lung cancer Aspergilloma (HCC) Procedures CT CHEST W IVCON DIAGNOSTIC COMPUTED TOMOGRAPHY THORAX W/CONTRAST Mckenna Waldrop MD [address] [place] [address] [address] [place] [address] Referral ID Status Reason Start Date Expiration Date Visits Requested Visits Authorized [id number] Pending Review Auto-Generat ed Referral 10/14/2023 05/14/2024 1 1 Specialty Diagnoses / Procedures Referred By Pedro juarez Referred To Contact CT IMAGING Diagnoses Malignant neoplasm of unspecified part of unspecified bronchus or lung (HCC) Procedures CT CHEST W IVCON DIAGNOSTIC COMPUTED TOMOGRAPHY THORAX W/CONTRAST Meera Singh PA-C [address] [place] [address] Ct Imaging Referral ID Status Reason Start Date Expiration Date Visits Requested Visits Authorized [id number] Pending Review Auto-Generat ed Referral 2 03/06/2023 1 1 Specialty Diagnoses / Procedures Referred By Contac t Referred To Contact CT IMAGING Diagnoses Malignant neoplasm of unspecified part of unspecified bronchus or lung (HCC) Procedures CT ABD/PEL W IVCON CT ABD & PELVIS W/CONTRAST Meera Singh PA-C [address] [place] [address] Ct Imaging Referral ID Status Reason Start Date Expiration Date Visits Requested Visits Authorized [id number] Pending Review Auto-Generat ed Referral 2 03/06/2023 1 1 Specialty Diagnoses / Procedures Referred By Contac t Referred To Contact Endocrinology Diagnoses Adenoma Adrenal adenoma, left Malignant neoplasm of unspecified part of unspecified bronchus or lung (HCC) Small cell lung cancer in adult (HCC) Procedures CONSULT TO ENDOCRINOLOGY OFFICE/OUTPATIENT NEW HIGH MDM 60-74 MINUTES Meera Singh PA-C [address] [place] [address] [address] [place] [address] Referral ID Status Reason Start Date Expiration Date Visits Requested Visits Authorized [id number] Authorized PCP Requested Referral 02/04/2022 02/04/2023 1 1 Chief Complaint DAYLIN BURTON is being seen for an annual follow-up of. Additional Source Comments INFORMATION SOURCE (unrecogn ized section and content) DATE CREATED AUTHOR 01/07/2018 [facility] DATE CREATED AUTHOR AUTHOR'S ORGANIZ ATION 06/26/2018 [facility] DATE CREATED AUTHOR AUTHOR'S ORGANIZ ATION 04/19/2022 [facility] [place] DATE CREATED AUTHOR AUTHOR'S ORGANIZ ATION 04/19/2022 [employer] DATE CREATED AUTHOR AUTHOR'S ORGANIZ ATION 10/10/[address] [facility] DATE CREATED AUTHOR AUTHOR'S ORGANIZ ATION 04/27/[address] [place] [address] DATE CREATED AUTHOR AUTHOR'S ORGANIZ ATION 09/30/2023 [facility] DATE CREATED AUTHOR AUTHOR'S ORGANIZ ATION 10/08/2023 [facility] Goals (unrecognized section and content) Goals may be documented in a n alternate sectionGoals may be documented in an alternate sectionNo InformationGoals may be documented in an alternate sectionNo InformationNo InformationNo InformationGoals may be documented in an alternate sectionGoals may be documented in an alternate sectionGoals may be documented in an alternate sectionGoals may be documented in an alternate sectionGoals may be documented in an alternate section REASON FOR VISIT (unrecogniz ed section and content) Reason Comments Lung Cancer Reason Comments Referral Information Endocrinology Reason Comments Care Coordination endocrinology cancel lation Reason Comments Orders Reason Comments Care Coordination CT results Reason Comments Care Coordination Image request Reason Comments Lung Cancer Follow up Reason Comments Consult Specialty Diagnoses / Procedures Referred By Contac t Referred To Contact Hematology / HEMATOLOGY/ONCOLOGY Diagnoses lab/port Procedures LAB/PORT Mckenna Waldrop MD [address] [place] [address] [facility] [address] [place] [address] Referral ID Status Reason Start Date Expiration Date V isits Requested Visits Authorized [id number] Authorized 01/12/2023 07/19/2023 99 99 Reason Comments Follow-up 1 year Reason Comments Care Coordination Clinical update Source Comments (unrecognize d section and content) In the event this informatio n is protected by the Federal Confidentiality of Alcohol and Drug Abuse Patient Records regulations: The Federal rules restrict any use of the information to criminally investigate or prosecute any alcohol or drug abuse patient.[facility] the event this information is protected by the Federal Confidentiality of Alcohol and Drug Abuse Patient Records regulations: The Federal rules restrict any use of the information to criminally investigate or prosecute any alcohol or drug abuse patient.[facility] HospitalIn the event this information is protected by the Federal Confidentiality of Alcohol and Drug Abuse Patient Records regulations: The Federal rules restrict any use of the information to criminally investigate or prosecute any alcohol or drug abuse patient.[facility] HospitalIn the event this information is protected by the Federal Confidentiality of Alcohol and Drug Abuse Patient Records regulations: The Federal rules restrict any use of the information to criminally investigate or prosecute any alcohol or drug abuse patient.[facility] HospitalIn the event this information is protected by the Federal Confidentiality of Alcohol and Drug Abuse Patient Records regulations: The Federal rules restrict any use of the information to criminally investigate or prosecute any alcohol or drug abuse patient.[facility] HospitalIn the event this information is protected by the Federal Confidentiality of Alcohol and Drug Abuse Patient Records regulations: The Federal rules restrict any use of the information to criminally investigate or prosecute any alcohol or drug abuse patient.[facility] Hospital[facility] the event this information is protected by the Federal Confidentiality of Alcohol and Drug Abuse Patient Records regulations: The Federal rules restrict any use of the information to criminally investigate or prosecute any alcohol or drug abuse patient.[facility] HospitalIn the event this information is protected by the Federal Confidentiality of Alcohol and Drug Abuse Patient Records regulations: The Federal rules restrict any use of the information to criminally investigate or prosecute any alcohol or drug abuse patient.[facility] HospitalIn the event this information is protected by the Federal Confidentiality of Alcohol and Drug Abuse Patient Records regulations: The Federal rules restrict any use of the information to criminally investigate or prosecute any alcohol or drug abuse patient.[facility] HospitalIn the event this information is protected by the Federal Confidentiality of Alcohol and Drug Abuse Patient Records regulations: The Federal rules restrict any use of the information to criminally investigate or prosecute any alcohol or drug abuse patient.[facility] HospitalIn the event this information is protected by the Federal Confidentiality of Alcohol and Drug Abuse Patient Records regulations: The Federal rules restrict any use of the information to criminally investigate or prosecute any alcohol or drug abuse patient.[facility] Care Teams (unrecognized sec tion and content) Team Status: Active Member Role Status Dates Annie Sal DO Primary Care Provider Active Team Status: Inactive Member Role Status Dates Annie Sal DO Primary Care Provider, Attending Provi michelle Active Charge Nurse Relationship Specialty Start Date End Date Annie Sal [address] [place] [phone] PCP - General Family Practice 02/04/22 Maki Aguirre RN [facility] [address] [place] [address] [place] [address] Specialty Mop Man Hematology/Oncology 09/30/19 Mckenna Waldrop MD [address] [place] [address] [place] [address] Physician Hematology/Oncology 09/30/19 Meera Singh, PA-C [facility] [address] [place] [address] [place] [address] Physician Welding Machine Operator Resistance Hematology/Oncology 09/30/19 Charge Nurse Relationship Specialty Start Date End Date Annie Sal [address] [place] [phone] PCP - General Family Practice 02/04/22 Maki Aguirre, RN [address] [facility] [place] [address] [place] [address] Specialty Mop Man Hematology/Oncology 09/30/19 Mckenna Waldrop MD [address] [place] [address] Physician Hematology/Oncology 09/30/19 Meera Singh, PA-C [address] [facility] [place] [address] [place] [address] Physician Welding Machine Operator Resistance Hematology/Oncology 09/30/19 Charge Nurse Relationship Specialty Start Date End Date Annie Sal [address] [place], [place] [phone] PCP - General Family Practice 02/04/22 Maki Aguirre, RN [address] [facility] [place] [address] [place] [address] Specialty Mop Man Hematology/Oncology 09/30/19 Mckenna Waldrop MD [address] [place] [address] Physician Hematology/Oncology 09/30/19 Meera Singh, PA-C [address] [facility] [place] [address] [place] [address] Physician Welding Machine Operator Resistance Hematology/Oncology 09/30/19 Charge Nurse Relationship Specialty Start Date End Date Annie Sal [address] [place] [phone] PCP - General Family Medicine 02/04/22 Maki Aguirre, RN [address] [facility] [place] [address] [place] [address] Specialty Mop Man Hematology/Oncology 09/30/19 Mckenna Waldrop MD [address] [place] [address] Physician Hematology/Oncology 09/30/19 Meera Singh, PA-C [address] [facility] [place] [address] [place] [address] Physician Welding Machine Operator Resistance Hematology/Oncology 09/30/19 Charge Nurse Relationship Specialty Start Date End Date Jonelle Annie Dasilva [address] [place] [phone] PCP - General Family Medicine 02/04/22 Maki Aguirre RN [address] [facility] [place] [address] [place] [address] Specialty Mop Man Hematology/Oncology 09/30/19 Mckenna Waldrop MD [address] [place] [address] Physician Hematology/Oncology 09/30/19 Meera Singh, PA-C [address] [facility] [place] [address] [place] [address] Physician Welding Machine Operator Resistance Hematology/Oncology 09/30/19 Charge Nurse Relationship Specialty Start Date End Date Farahortensia Annie Leoner [address] [place] [address] [phone] PCP - General Family Medicine 02/04/22 Maki Aguirre RN [address] [facility] [place] [address] [place] [address] Specialty Mop Man Hematology/Oncology 09/30/19 Mckenna Waldrop MD [address] [place] [address] Physician Hematology/Oncology 09/30/19 Meera Singh PA-C [address] [facility] [address] [place] [address] Physician Welding Machine Operator Resistance Hematology/Oncology 09/30/19 Ollie Morin, DO [address] [place] [address] Internal Medicine 06/11/22 06/11/22 Antwon Law [address] [address] Pulmonary and Critical Care Medicine 06/11/22 Charge Nurse Relationship Specialty Start Date End Date Annie Sal [address] [place] [address] [phone] PCP - General Family Medicine 02/04/22 Maki Aguirre RN [address] [facility] [address] [place] [address] Specialty Mop Man Hematology/Oncology 09/30/19 Mckenna Waldrop MD [address] [place] [address] Physician Hematology/Oncology 09/30/19 Meera Singh PA-C [facility] [address] [place] [address] Physician Welding Machine Operator Resistance Hematology/Oncology 09/30/19 Antwon Law [address] [address] Pulmonary and Critical Care Medicine 06/11/22 Charge Nurse Relationship Specialty Start Date End Date Farahortensia Annie Dasilva [address] [place] [phone] PCP - General Family Medicine 02/04/22 Maki Aguirre RN [address] [place] [address] [place] [address] Specialty Mop Man Hematology/Oncology 09/30/19 Mckenna Waldrop MD [address] [place] [address] Physician Hematology/Oncology 09/30/19 Meera Singh, MARISELC [address] [place] [address] [address] [place] [address] Physician Welding Machine Operator Resistance Hematology/Oncology 09/30/19 Antwon Law [address] [place] [address] Pulmonary and Critical Care Medicine 06/11/22 Charge Nurse Relationship Specialty Start Date End Date Jonelle Annie Dasilva [address] [place] [phone] PCP - General Family Medicine 02/04/22 Maki Aguirre, KRISTEN [address] [place] [address] [address] [place] [address] Specialty Mop Man Hematology/Oncology 09/30/19 Mckenna Waldrop MD [address] [place] [address] Physician Hematology/Oncology 09/30/19 Meera Singh PA-C [address] [place] [address] [address] [place] [address] Physician Welding Machine Operator Resistance Hematology/Oncology 09/30/19 Antwon Law [address] [address] Pulmonary and Critical Care Medicine 06/11/22 Ollie Morin, DO [address] [place] [address] Internal Medicine 12/30/22 Charge Nurse Relationship Specialty Start Date End Date Annie Sal [address] [place] [address] [phone] PCP - General Family Medicine 02/04/22 Maki Aguirre RN [address] [place] [address] [address] [place] [address] Specialty Mop Man Hematology/Oncology 09/30/19 Mckenna Waldrop MD [address] [place] [address] [place] [place] [address] Physician Hematology/Oncology 09/30/19 Meera Singh PAMariselaC [address] [place] [address] [address] [place] [address] Physician Welding Machine Operator Resistance Hematology/Oncology 09/30/19 Antwon Law MD [address] [place] [address] Pulmonary and Critical Care Medicine 06/11/22 Ollie Morin DO [address] [place] [address] Internal Medicine 12/30/22 Charge Nurse Relationship Specialty Start Date End Date Annie Sal DO [address] [place] [phone] PCP - General 06/19/18 Team Status: Inactive Member Role Status Dates Annie Sal DO Primary Care Provide r, Attending Provider Active Start: August 13, 2023 End: August 13, 2023 Charge Nurse Relationship Specialty Start Date End Date Annie Sal [address] [place] [phone] PCP - General Family Medicine 02/04/22 Maki Aguirre, RN [address] [facility] [address] [place] [address] Specialty Mop Man Hematology/Oncology 09/30/19 Mckenna Waldrop MD [address] [place] [address] [place] [address] Physician Hematology/Oncology 09/30/19 Meera Singh, PA-C [address] [facility] [place] [address] [place] [address] Physician Welding Machine Operator Resistance Hematology/Oncology 09/30/19 Antwon Law MD [address] [place] [address] Pulmonary and Critical Care Medicine 06/11/22 Ollie Morin DO [address] [place] [address] Internal Medicine 12/30/22 Team Status: Active Member Role Status Tyrese Sal , DO Primary Care Provide r, Attending Provider Active Start: September 01, 2023 Team Status: Active Member Role Status Tyrese Sal DO Primary Care Provide r, Attending Provider Active Start: September 02, 2023 Team Status: Active Member Role Status Tyrese Sal DO Primary Care Provide r, Attending Provider Active Start: September 03, 2023 Team Status: Active Member Role Status Tyrese Sal DO Primary Care Provide r, Attending Provider Active Start: September 04, 2023 Team Status: Active Member Role Status Tyrese Sal DO Primary Care Provide r, Attending Provider Active Start: September 05, 2023 Team Status: Active Member Role Status Tyrese Sal DO Primary Care Provide r, Attending Provider Active Start: September 06, 2023 Team Status: Inactive Member Role Status Tyrese Sal DO Primary Care Provide r, Attending Provider Active Start: October 06, 2023 End: October 06, 2023 Team Status: Inactive Member Role Status Dates Annie Jonelle , DO Primary Care Provide r, Attending Provider Active Start: October 07, 2023 End: October 07, 2023 Team Status: Inactive Member Role Status Dates Annie Jonelle , DO Primary Care Provide r, Attending Provider Active Start: December 09, 2023 End: December 09, 2023 FOR RECORDS PERTAINING TO PATIENTS WHO ARE OR HAVE BEEN ENROLLED IN A CHEMICAL DEPENDENCY/SUBSTANCEABUSE PROGRAM, SOME INFORMATION MAY BE OMITTED. This clinical summary was aggregated from multiple sources. Caution should be exercised in using it in the provision of clinical care. This summary normalizes information from multiple sources, and as a consequence, information in this document may materially change the coding, format and clinical context of patient data. In addition, data may be omitted in some cases. CLINICAL DECISIONS SHOULD BE BASED ON THE PRIMARY CLINICAL RECORDS. [facility] [employer] [facility]. provides no warranty or guarantee of the accuracy or completeness of information in this document.
[2024-01-05] MEDS: ENOXAPARIN SODIUM 40 MG/0.4 ML SYRINGE SUBQ (21:21)
[2024-01-05] MEDS: AZITHROMYCIN 500 MG in 0.9 % SODIUM CHLORIDE 250 ML 250 MG IV (21:21)
[2024-01-05] MEDS: METOPROLOL TARTRATE 25 MG TABLET 12.5 MG PO (21:22)
[2024-01-05] MEDS: ATORVASTATIN CALCIUM 10 MG TABLET PO (21:22)
[2024-01-05] MEDS: METHYLPREDNISOLONE SOD SUCC PF 40 MG/ML VIAL IVP (21:22)
[2024-01-05 21:23] LABS: Glucometer 292 mg/dL (74-106)
[2024-01-05] MEDS: BUDESONIDE 0.5 MG/2 ML AMPULE NEB IH (23:12)
[2024-01-06] VITALS (20 sets, daily range): BP systolic 111–136; BP diastolic 65–78; PULSE 92–121; TEMP 36.6; O2SAT 90–96
[2024-01-06 05:00] LABS: Basophils Percent Auto 0.1 % (0.2-2.0); Hematocrit 33.7 % (36.0-48.0); Hemoglobin 10.4 g/dL (12.0-16.0); Immature Granulocytes Pct Auto 0.5 % (0.0-0.5); Lymphocytes Absolute Auto 1.1 10^3/uL (1.2-3.8); Mean Corpuscular HGB Conc 30.9 g/dL (29.9-35.2); Mean Corpuscular Hemoglobin 27.8 pg (26.7-34.0); Mean Corpuscular Volume 90.1 fL (81.0-99.0); Mean Platelet Volume 10.2 fL (9.5-13.5); Monocytes Absolute Auto 0.2 10^3/uL (0.3-0.8); Monocytes Percent Auto 1.3 % (1.7-12.0); Neutrophils Percent Auto 92.1 % (43.0-75.0); Platelet Count 346 10^3/uL (150-450); Red Blood Count 3.74 10^6/uL (4.20-5.40); Red Cell Distribution Width 13.8 % (11.0-15.0); White Blood Count 18.5 10^3/uL (4.0-11.0)
[2024-01-06 05:21] LABS: Alanine Aminotransferase 18 U/L (14-59); Albumin Globulin Ratio 0.7; Albumin Level 2.7 g/dL (3.4-5.0); Alkaline Phosphatase 103 U/L (46-116); Anion Gap 9.6; Aspartate Amino Transferase 11 U/L (15-37); BUN Creatinine Ratio 32.3; Bilirubin Total 0.3 mg/dL (0.2-1.0); Calcium 9.1 mg/dL (8.5-10.1); Carbon Dioxide 31.4 mmol/L (21.0-32.0); Chloride 104 mmol/L (98-107); Estimated GFR (African America >60 (>=60); Estimated GFR (Non-African Ame >60 (>=60); Globulin 4.1 g/dL; Glucose 163 mg/dL (74-106); Magnesium 2.3 mg/dL (1.8-2.4); Sodium 141 mmol/L (136-145); Total Protein 6.8 g/dL (6.4-8.2)
[2024-01-06] MEDS: IPRATROPIUM/ALBUTEROL SULFATE 3 ML AMPUL.NEB IH ×4 (05:27→22:57)
[2024-01-06] MEDS: METHYLPREDNISOLONE SOD SUCC PF 40 MG/ML VIAL IVP (05:32)
[2024-01-06] MEDS: AMLODIPINE BESYLATE 5 MG TABLET PO (08:13)
[2024-01-06] MEDS: METOPROLOL TARTRATE 25 MG TABLET 12.5 MG PO ×2 (08:14→21:41)
[2024-01-06] MEDS: CLOPIDOGREL BISULFATE 75 MG TABLET PO (08:14)
[2024-01-06] MEDS: GUAIFENESIN 600 MG TAB.ER.12H PO ×2 (08:14→21:41)
[2024-01-06] MEDS: ASPIRIN 81 MG TABLET.DR PO (08:14)
[2024-01-06] MEDS: 0.9 % SODIUM CHLORIDE 250 ML 10 ML IV (10:18)
[2024-01-06] MEDS: MAGNESIUM SULFATE IN WATER 2 GM/50 ML PREMIX IV (10:18)
--- NOTE | 2024-01-06 10:18 | SWNOTE1 ---
SW met with pt to discuss dc needs. Pt lives at home with her and other family members. Pt has home oxygen thru [employer] and wears 2 liters. Pt does not usually use a walker at home, but she has her sister's at home that she can use if needed. SW discussed pt going home with home health and explained to pt what HH is. She was offered HH on last admission, but told them not to come in. She stated she will think about HH. KESHAWN advised pt that for her safety it would be beneficial for HH to come in for a few visits after discharge. Pt again expresed she will think about it. SW to check back tomorrow. Important Message from Medicare reviewed and discussed with patient. Pt. verbalized understanding and signed the form. Original given to patient and copy placed in patient?s chart.
[2024-01-06] MEDS: BUDESONIDE 0.5 MG/2 ML AMPULE NEB IH ×2 (10:37→22:57)
--- NOTE | 2024-01-06 10:47 | P.HP_ITS ---
<Statement entered by Darlene Garcia, - 01/06/24 14:50> This documentation has been reviewed and approved.I have also seen and evaluated patient and agree with the above assessments and plan of care. 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 The patient reports onset of mild worsening shortness of breath in the middle of last week. On Thursday (4 days ago), the patient began to experience pleuritic chest pain with pain across the left thorax and left chest wall. As her shortness of breath and painful inspiration were continued to worsen she presented to the ED yesterday for further evaluation. Workup in the ED leukocytosis (21.9), hyperglycemia (159), and an elevated D- dimer (1.75). Chest x-ray noted new moderate bilateral pulmonary infiltrates, edema versus atelectasis versus pneumonia. CTA of the chest was obtained due to the elevated D-dimer and this was negative for PE. It did note mild bilateral atelectasis versus pulmonary edema, but no suggestion of infectious infiltrates. As the patient's work of breathing was notably increased, she was admitted last night as an inpatient to the hospitalist service for COPD exacerbation. At the time of my exam the patient reports feeling slightly improved, but she continues to exhibit pursed lip breathing at rest in bed. Patient reports that she had increased her home O2 to 3 L several days ago and was initially on 3 L on arrival to the ED. After breathing treatments and steroids nursing was able to wean her O2 back to her baseline 2 L. The patient follows closely with Dr. Morin and he has not made any changes to her chronic management recently. The patient states she had been doing well after discharge in August until this most recent exacerbation. She denies any increased cough until this morning and it is productive of clear sputum. The patient has notable inspiratory wheezes especially on the left which is clinically concerning for reactive airway in addition to her baseline COPD/emphysema. Will increase her Solu-Medrol dosing and give mag sulfate for bronchodilation. Opioid HPI Opioid Management Most Recent Pain and Opioid Data: Last Pain Scale 2 01/06/24 08:00 Last Pain Intensity 2 01/06/24 07:23 Last Pain Assessment 01/06/24 10:00 Last ORT Total Score 1 01/05/24 18:20 Last ORT Risk Category Low Risk 01/05/24 18:20 Review of Systems ROS Status of ROS 10 or more systems reviewed and unremark able except as noted in history and below PFSH PFS Medical History (Updated 01/06/24 @ 11:23 by Laura Barros NP) CAD (coronary artery disease) ?I25.10 - Atherosclerotic heart disease of [place] coronary artery without angina pectoris (ICD-10) Hypertension ?I10 - Essential (primary) hypertension (ICD-10) Anemia ?D64.9 - Anemia, unspecified (ICD-10) Sinus tachycardia ?R00.0 - Tachycardia, unspecified (ICD-10) Steroid-dependent chronic obstructive pulmonary disease ?J44.9 - Chronic obstructive pulmonary disease, unspecified (ICD-10) ?Z92.241 - Personal history of systemic steroid therapy (ICD-10) Dextroscoliosis ?M41.80 - Other forms of scoliosis, site unspecified (ICD-10) Tobacco abuse ?Z72.0 - Tobacco use (ICD-10) Bronchiectasis ?J47.9 - Bronchiectasis, uncomplicated (ICD-10) 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 - Other pulmonary aspergillosis (ICD-10) Pulmonary cavitary lesion ?J98.4 - Other disorders of lung (ICD-10) Cataract ?H26.9 - Unspecified cataract (ICD-10) Hyperlipidemia ?E78.5 - Hyperlipidemia, unspecified (ICD-10) Surgical History (Updated 09/01/23 @ 18:45 by Daja Chacko RN) Hx of cholecystectomy ?Z90.49 - Acquired absence of other specified parts of digestive tract (ICD- 10) History of heart artery stent ?Z95.5 - Presence of coronary angioplasty implant and graft (ICD-10) Family History (Updated 09/01/23 @ 18:46 by Daja Chacko RN) Grandfather Family history of cancer Grandmother Family history of diabetes mellitus Father Family history of hypertension Family history of stroke Social History (Updated 09/01/23 @ 18:47 by Daja Chacko RN) Within the past year, how often did you have a drink containing alcohol: never Score interpretation: A score less than 3 is consistent with normal alcohol consumption. Smoking status: Heavy tobacco smoker Non-prescribed substance use: denies use Highest level of school completed/degree received: Associate degree: occupational, technical, vocational program Do you think of yourself as: straight/heterosexual Gender Identity: female Meds Home Medications and Allergies Home Medications ?Medication ?Instructions ?Recorded ?Confirmed ?Type albuterol sulfate 2.5 mg/3 mL 2.5 mg inhalation Q6H PRN 09/01/23 01/05/24 History (0.083 %) solution for nebulization shortness of breath or wheezing albuterol sulfate 90 mcg/actuation 2 puff inhalation Q4H PRN 09/01/23 01/05/24 History aerosol inhaler shortness of breath or wheezing amlodipine 5 mg tablet 5 mg PO DAILY 09/01/23 01/05/24 History aspirin 81 mg tablet,delayed 81 mg PO DAILY 09/01/23 01/05/24 History release (Adult Low Dose Aspirin) budesonide 160 mcg-glycopyr 9 2 inh inhalation BID 09/01/23 01/05/24 History mcg-formot 4.8 mcg/actuation HFA inhaler (Breztri Aerosphere) clopidogrel 75 mg tablet 75 mg PO DAILY 09/01/23 01/05/24 History fexofenadine 180 mg tablet 180 mg PO DAILY PRN allergy 09/01/23 01/05/24 History (Marcie Allergy) symptoms metoprolol tartrate 25 mg tablet 12.5 mg PO BID 09/01/23 01/05/24 History exbvqafl-vpv-cvmtz acid 0.4 1 tab PO DAILY 09/01/23 01/05/24 History mg-lycopene 300 mcg-lutein 250 mcg tablet (Centrum Silver) prednisone 10 mg tablet 10 mg PO DAILY 09/01/23 01/05/24 History simvastatin 20 mg tablet 20 mg PO .QHS 09/01/23 01/05/24 History Allergies Allergy/AdvReac Type Severity Reaction Status Date / Time No Known Drug Allergies Allergy Verified 09/01/23 14:30 Exam Constitutional Vital Signs, click to edit/add: Last Vital Signs Temp 98 F 01/06/24 09:24 Pulse 103 H 01/06/24 10:40 Resp 18 01/06/24 10:40 BP 123/72 01/06/24 09:24 Pulse Ox 96 01/06/24 10:40 O2 Del Method Nasal Cannula 01/06/24 10:40 O2 Flow Rate 2 01/06/24 10:40 Common normals: no apparent distress, oriented x3, alert and well nourished General appearance: cooperative Orientation/consciousness: Yes awake HENMT Common normals: normocephalic, head/scalp atraumatic, hearing grossly normal bilaterally, external nose normal and moist oral mucous membranes Eye Common normals: PERRL, EOMs intact bilaterally, conjunctivae normal and no scleral icterus Alignment: alignment normal Eyelid: eyelids normal Neck & C-Spine Common normals: full ROM, supple and no JVD Chest Common normals: inspection of chest normal Chest: symmetrical chest wall rise Respiratory Common normals: no retractions Effort & inspection: pursed lip breathing (Mild PLB at rest) and uses accessory muscles; not able to speak in complete sentences (5-7 word sentences) Auscultation: wheezes inspiratory wheezes (Entire L side) and diminished lung sounds on the right (Very tight R side, poor air exchange) Cardio Common normals: no JVD, regular rate, regular rhythm, S1 normal heart sound, S2 normal heart sound, no gallops, no clicks, no murmurs, no rub and peripheral pulses 2+ throughout GI Common normals: Normal to inspection, nondistended, normoactive bowel sounds present, soft to palpation, non-tender, no hepatosplenomegaly, no masses and no bruits Bladder/kidney exam: bladder normal to palpation Back & Pelvis Common normals: thoracic and lumbar spine normal to inspection Extremity Common normals: normal capillary refill and no pedal edema General: normal exam except as noted; no cyanosis Neuro Larissa Coma Scale: GCS not evaluated Common normals: CN's II-XII intact bilaterally, moves all extremities, no focal motor deficits and no sensory deficits noted Speech: speech normal Motor exam: strength 5/5 throughout Psych Common normals: mental status grossly normal, thought process normal, affect normal and activity/motor behavior normal Results Labs Labs: Short CBC 01/05/24 01/06/24 Range/Units 14:08 04:04 WBC 21.9 H 18.5 H (4.0-11.0) 10^3/uL Hgb 11.7 L 10.4 L (12.0-16.0) g/dL Hct 37.5 33.7 L (36.0-48.0) % Plt Count 364 346 (150-450) 10^3/uL BMP 01/05/24 01/06/24 14:08 04:04 Sodium 141 141 Potassium 3.8 4.0 Chloride 103 104 Carbon Dioxide 32.2 H 31.4 BUN 18.0 20.0 H Creatinine 0.61 0.62 Glucose 154 H 163 H Calcium 9.7 9.1 Liver Function 01/05/24 01/06/24 Range/Units 14:08 04:04 Total Bilirubin 0.3 0.3 (0.2-1.0) mg/dL AST 12 L 11 L (15-37) U/L ALT 21 18 (14-59) U/L Alkaline Phosphatase 120 H 103 (46-116) U/L Albumin 3.3 L 2.7 L (3.4-5.0) g/dL ABG ABG results: 01/05/24 14:08 VBG pH 7.481 H VBG pCO2 42.4 Pulse Oximetry Attestation: I have reviewed the pertinent pulse oximetry results. Assessment and Plan Assessment and Plan (1) Acute infective exacerbation of chronic obstructive airway disease: Assessment and Plan: Acute * Adm inpatient * We expect greater than a 2 midnight stay for medically necessary hospital care including IV steroids, oaxmg-nnj-zhlzu breathing treatments, IV antibiotics, close monitoring of the pt's respiratory status and sPO2 * Increased WOB still noted despite treatment overnight * Solumedrol 125 mg IVP x 1, then 80 mg q8h (originally ordered 40 mg q8h from the ED) * Pt is steroid dependent at baseline on Prednisone 10 mg daily * Duonebs scheduled q6h, Albuterol nebs q4h PRN, Pulmicort nebs BID * O2 as needed to keep sats above 90% * Currently 91% on 2L * IVPB Rocephin and Levaquin for suspected underlying bronchitis vs pneumonia on CXR in setting of leukocytosis and dyspnea * Sputum culture if able to obtain * Guaifenesin and OPEP for sputum mobilization * Consider Pulmonology consult pending clinical course * CBC, CMP daily (2) Reactive airway disease: Assessment and Plan: Acute * Suspected w/ inspiratory wheezing on entire left side * Mag Sulfate 2gm IVPB x 1 for bronchodilation - monitor response * Check mag level in AM (3) Acute on chronic hypoxic respiratory failure: Assessment and Plan: Acute * Pt usually uses 2L home O2 supplementation, primarily with activity * Required 3L O2 on arrival to the ED * Nursing was able to wean back to 2L continuously after Nebs and steroid administration * Improved (4) Hyperlipidemia: Assessment and Plan: Chronic * Continue home statin (5) Hypertension: Assessment and Plan: Chronic * Continue home metoprolol and amlodipine (6) CAD (coronary artery disease): Assessment and Plan: Chronic * Continue home plavix, ASA, BB, statin
--- NOTE | 2024-01-06 12:09 | CM.NOTE ---
Rounds made with Dr. Garcia. Discussed lab results, treatment plan w IV steroids, resp treatments. no discharge today.
[2024-01-06] MEDS: METHYLPREDNISOLONE SOD SUCC PF 125 MG/2 ML VIAL 80 MG IVP ×2 (13:23→21:42)
[2024-01-06] MEDS: ACETAMINOPHEN 325 MG TABLET 650 MG PO ×2 (13:24→21:47)
[2024-01-06] MEDS: CEFTRIAXONE 1,000 MG in 0.9 % SODIUM CHLORIDE 50 ML 100 MG IV (17:01)
[2024-01-06] MEDS: AZITHROMYCIN 500 MG in 0.9 % SODIUM CHLORIDE 250 ML 250 MG IV (19:31)
[2024-01-06] MEDS: ATORVASTATIN CALCIUM 10 MG TABLET PO (21:41)
[2024-01-06] MEDS: ENOXAPARIN SODIUM 40 MG/0.4 ML SYRINGE SUBQ (21:41)
[2024-01-07] VITALS (26 sets, daily range): BP systolic 120–162; BP diastolic 63–94; PULSE 82–154; TEMP 36.3–36.7; O2SAT 74–96
[2024-01-07 05:22] LABS: Basophils Percent Auto 0.1 % (0.2-2.0); Hematocrit 33.1 % (36.0-48.0); Hemoglobin 10.3 g/dL (12.0-16.0); Immature Granulocytes Abs Auto 0.12 10^3/uL (0.00-0.03); Immature Granulocytes Pct Auto 0.8 % (0.0-0.5); Lymphocytes Absolute Auto 0.8 10^3/uL (1.2-3.8); Lymphocytes Percent Auto 4.7 % (20.5-60.0); Mean Corpuscular HGB Conc 31.1 g/dL (29.9-35.2); Mean Corpuscular Hemoglobin 28.2 pg (26.7-34.0); Mean Corpuscular Volume 90.7 fL (81.0-99.0); Mean Platelet Volume 10.1 fL (9.5-13.5); Monocytes Absolute Auto 0.4 10^3/uL (0.3-0.8); Monocytes Percent Auto 2.2 % (1.7-12.0); Neutrophils Absolute Auto 14.6 10^3/uL (1.4-6.5); Neutrophils Percent Auto 92.2 % (43.0-75.0); Platelet Count 345 10^3/uL (150-450); Red Blood Count 3.65 10^6/uL (4.20-5.40); Red Cell Distribution Width 13.7 % (11.0-15.0); White Blood Count 15.8 10^3/uL (4.0-11.0)
[2024-01-07] MEDS: IPRATROPIUM/ALBUTEROL SULFATE 3 ML AMPUL.NEB IH (05:22)
[2024-01-07 05:41] LABS: Alanine Aminotransferase 19 U/L (14-59); Albumin Globulin Ratio 0.7; Albumin Level 2.8 g/dL (3.4-5.0); Alkaline Phosphatase 99 U/L (46-116); Anion Gap 7.6; Aspartate Amino Transferase 14 U/L (15-37); BUN Creatinine Ratio 50.9; Bilirubin Total 0.1 mg/dL (0.2-1.0); Calcium 8.8 mg/dL (8.5-10.1); Carbon Dioxide 32.1 mmol/L (21.0-32.0); Chloride 107 mmol/L (98-107); Estimated GFR (African America >60 (>=60); Estimated GFR (Non-African Ame >60 (>=60); Globulin 3.8 g/dL; Glucose 182 mg/dL (74-106); Magnesium 2.4 mg/dL (1.8-2.4); Potassium 3.7 mmol/L (3.5-5.1); Sodium 143 mmol/L (136-145); Total Protein 6.6 g/dL (6.4-8.2)
[2024-01-07] MEDS: METHYLPREDNISOLONE SOD SUCC PF 125 MG/2 ML VIAL 80 MG IVP (05:47)
--- NOTE | 2024-01-07 06:53 | XR_ITS ---
The [address] [address] Patient Name: ADRIENNE MORALEZ MRN: [id number] date: 1945 Sex: F Assigned Patient Location: [place] Current Patient Location: [place] Accession/Order Number: [id number] Exam Date: 01/07/2024 07:08 Report Date: 01/07/2024 07:29 At the request of: LADARIUS SCHULTE Procedure: XR chest 1V EXAMINATION: XR chest 1V HISTORY: chest pain/SOB COMPARISON: XR chest 01/06/2024, 09/06/2023 FINDINGS: LUNGS: Stable bilateral chronic changes most notably within the left upper lobe. Persistent mild opacities and stranding within lung bases. VASCULATURE: No increased pulmonary vasculature. PLEURA: No pneumothorax, effusion, or pleural thickening. CARDIAC: No cardiomegaly or cardiac silhouette abnormality. MEDIASTINUM: No visible mass or adenopathy. BONES: Grossly stable marked scoliosis. OTHER: Negative. XR/XR chest 1V IMPRESSION: 1. Stable chronic changes. 2. Trace amount of residual bibasilar infiltrates versus atelectasis. Electronically authenticated by: LOU STYLES Date: 01/07/2024 07:29
[2024-01-07] MEDS: ALBUTEROL SULFATE 2.5 MG/3 ML VIAL NEB IH (06:55)
[2024-01-07] MEDS: AMLODIPINE BESYLATE 5 MG TABLET PO (06:59)
[2024-01-07] MEDS: ASPIRIN 81 MG TABLET.DR PO (07:00)
[2024-01-07] MEDS: METOPROLOL TARTRATE 25 MG TABLET 12.5 MG PO ×2 (07:01→20:47)
[2024-01-07] MEDS: CLOPIDOGREL BISULFATE 75 MG TABLET PO (07:01)
[2024-01-07 07:22] LABS: Troponin I High Sensitivity 12.2 pg/mL (4.0-51.3)
--- NOTE | 2024-01-07 07:28 | PC.NURSE ---
0640 RN saw on monitor the pt heart rate jump to 154. RNs Michelle and Alisha went in room to assess patient. pt was short of breath with labored, pursed lip, abdominal breathing and tachypnea. RN messaged Dr. Garcia at this time. BP 162/94 HR 154, RR 28, spo2 74% on 2 L nasal cannula. RN increased oxygen to 4 L nasal cannula and patient came up to 83%. RN continued to increase the pt supplemental oxygen to 6 L nasal cannula and the patient came up to 93%. The patient had inspiratory and expiratory wheezes throughout bilaterally and diminished lung sounds in the bases bilaterally upon auscultation. pt was asked if she had any chest pain and she responded by stating, I have this pain in the left side of my chest. When RN asked pt to describe the pain she stated it was a sharp pain. RN called respiratory therapy to come to room and assess the patient and give PRN breathing treatment. Physician called the desk to talk to RN. Doctor gave orders for troponin, BNP, and Chest x-ray. She also stated to give aspirin, Lopressor, amlodipine, and Plavix early. RN placed the orders for the labs and x-rays. Then administered those medications early per physician order. After medications were given respiratory therapist administered breathing treatment. Pt was then decreased to 3L nasal cannula per RT. JUAN JOSÉ Sanchez was then in the room to assess the patient. Pt states she is not as short of breath at this time and HR is down to 110. Pt is resting in bed with head elevated at this time with call light in reach.
--- NOTE | 2024-01-07 08:23 | PM.PLCN ---
History of Present Illness History of Present Illness Consult date: 01/07/24 Requesting physician: Laura Barros Reason for consult: COPD Chief complaint: Dyspnea/Pleuritic pain Narrative: 78yo female, very well known to me whom I see outpatient with last visit 12/15/2023. 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 States over the past weekend, she had increased left-sided pain which was positional and exacerbated with deep breathing. She also had increased dyspnea. Came to [facility] ER on 01/05/2024 and had leukocytosis. CTA done which showed no increase in size of cavitary lesion (though it had increased from 6.6cm 08/26/2022 to 8.5 on 09/02/2023). No new infiltrates were seen. She was admitted. She states she feels okay, but any activity is exhausting. She is short of breath with conversation - markedly worse than when I saw her 12/15/2023. No hemoptysis. Denies sweats and fevers. No pain currently. Review of Systems ROS Status of ROS 10 or more systems reviewed and unremarkable except as noted in history and below [facility] Medical History (Updated 01/07/24 @ 08:31 by Jose De Jesus Morin DO) CAD (coronary artery disease) ?I25.10 - Atherosclerotic heart disease of [place] coronary artery without angina pectoris (ICD-10) Hypertension ?I10 - Essential (primary) hypertension (ICD-10) Anemia ?D64.9 - Anemia, unspecified (ICD-10) Sinus tachycardia ?R00.0 - Tachycardia, unspecified (ICD-10) Steroid-dependent chronic obstructive pulmonary disease ?J44.9 - Chronic obstructive pulmonary disease, unspecified (ICD-10) ?Z92.241 - Personal history of systemic steroid therapy (ICD-10) Dextroscoliosis ?M41.80 - Other forms of scoliosis, site unspecified (ICD-10) Tobacco abuse ?Z72.0 - Tobacco use (ICD-10) Bronchiectasis ?J47.9 - Bronchiectasis, uncomplicated (ICD-10) 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 - Other pulmonary aspergillosis (ICD-10) Pulmonary cavitary lesion ?J98.4 - Other disorders of lung (ICD-10) Cataract ?H26.9 - Unspecified cataract (ICD-10) Hyperlipidemia ?E78.5 - Hyperlipidemia, unspecified (ICD-10) Surgical History (Updated 09/01/23 @ 18:45 by Daja Chacko RN) Hx of cholecystectomy ?Z90.49 - Acquired absence of other specified parts of digestive tract (ICD-10) History of heart artery stent ?Z95.5 - Presence of coronary angioplasty implant and graft (ICD-10) Family History (Updated 09/01/23 @ 18:46 by Daja Chacko RN) Grandfather Family history of cancer Grandmother Family history of diabetes mellitus Father Family history of hypertension Family history of stroke Social History (Updated 09/01/23 @ 18:47 by Daja Chacko RN) Within the past year, how often did you have a drink containing alcohol: never Score interpretation: A score less than 3 is consistent with normal alcohol consumption. Smoking status: Heavy tobacco smoker Non-prescribed substance use: denies use Highest level of school completed/degree received: Associate degree: occupational, technical, vocational program Do you think of yourself as: straight/heterosexual Gender Identity: female Meds Home Medications and Allergies Home Medications ?Medication ?Instructions ?Recorded ?Confirmed ?Type albuterol sulfate 2.5 mg/3 mL 2.5 mg inhalation Q6H PRN 09/01/23 01/05/24 History (0.083 %) solution for nebulization shortness of breath or wheezing albuterol sulfate 90 mcg/actuation 2 puff inhalation Q4H PRN 09/01/23 01/05/24 History aerosol inhaler shortness of breath or wheezing amlodipine 5 mg tablet 5 mg PO DAILY 09/01/23 01/05/24 History aspirin 81 mg tablet,delayed 81 mg PO DAILY 09/01/23 01/05/24 History release (Adult Low Dose Aspirin) budesonide 160 mcg-glycopyr 9 2 inh inhalation BID 09/01/23 01/05/24 History mcg-formot 4.8 mcg/actuation HFA inhaler (Breztri Aerosphere) clopidogrel 75 mg tablet 75 mg PO DAILY 09/01/23 01/05/24 History fexofenadine 180 mg tablet 180 mg PO DAILY PRN allergy 09/01/23 01/05/24 History (Marcie Allergy) symptoms metoprolol tartrate 25 mg tablet 12.5 mg PO BID 09/01/23 01/05/24 History traogrkx-pmn-kzpyc acid 0.4 1 tab PO DAILY 09/01/23 01/05/24 History mg-lycopene 300 mcg-lutein 250 mcg tablet (Centrum Silver) prednisone 10 mg tablet 10 mg PO DAILY 09/01/23 01/05/24 History simvastatin 20 mg tablet 20 mg PO .QHS 09/01/23 01/05/24 History Allergies Allergy/AdvReac Type Severity Reaction Status Date / Time No Known Drug Allergies Allergy Verified 09/01/23 14:30 Exam Constitutional Vital Signs, click to edit/add: Last Vital Signs Temp 98.0 F 01/07/24 07:47 Pulse 98 H 01/07/24 07:48 Resp 26 H 01/07/24 07:47 BP 130/76 01/07/24 07:47 Pulse Ox 96 01/07/24 07:47 O2 Del Method Nasal Cannula 01/07/24 07:47 O2 Flow Rate 3 01/07/24 07:47 Other: Appears chronically ill. 4-5 word conversational dyspnea HENMT Other: Lee facies Wearing nasal cannula Upper dentures No candidiasis Mucous membranes mildly dry Chest Other: Moderately severe kyphodextroscoliosis Respiratory Other: Diminished breath sounds. Mild scattered inspiratory and expiratory wheezes, somewhat similar to outpatient exam on 12/15/2023. No rhonchi or crackles Cardio Other: RRR GI Other: Normal appearance Extremity Other: Trace BLE edema Neuro Other: No tremors Psych Other: A&O x 3. Pleasant Results Laboratory Findings ABG, PT/INR, D-dimer: PT/INR, D-dimer D-Dimer 1.75 mg/L FEU (<=0.59) H* 01/05/24 14:08 Abnormal lab findings: Abnormal Labs 01/05/24 01/05/24 01/06/24 14:08 21:22 04:04 WBC 21.9 H 18.5 H RBC 3.74 L Hgb 11.7 L 10.4 L Hct 33.7 L Neut % (Auto) 87.2 H 92.1 H Lymph % (Auto) 6.2 L 6.0 L [place] % (Auto) 1.3 L Eos % (Auto) 0.1 L 0.0 L Baso % (Auto) 0.1 L Neut # (Auto) 19.1 H 17.0 H Lymph # (Auto) 1.1 L [place] # (Auto) 1.3 H 0.2 L Abs Immat Gran (auto) 0.10 H 0.10 H Imm/Tot Granulo (auto) D-Dimer 1.75 H* VBG pH 7.481 H Carbon Dioxide 32.2 H BUN 20.0 H Creatinine Glucose 154 H 163 H Total Bilirubin AST 12 L 11 L Alkaline Phosphatase 120 H Albumin 3.3 L 2.7 L POC Glucose 292 H 01/07/24 04:44 WBC 15.8 H RBC 3.65 L Hgb 10.3 L Hct 33.1 L Neut % (Auto) 92.2 H Lymph % (Auto) 4.7 L [place] % (Auto) Eos % (Auto) 0.0 L Baso % (Auto) 0.1 L Neut # (Auto) 14.6 H Lymph # (Auto) 0.8 L [place] # (Auto) Abs Immat Gran (auto) 0.12 H Imm/Tot Granulo (auto) 0.8 H D-Dimer VBG pH Carbon Dioxide 32.1 H BUN 27.0 H Creatinine 0.53 L Glucose 182 H Total Bilirubin 0.1 L AST 14 L Alkaline Phosphatase Albumin 2.8 L POC Glucose Diagnostic Findings Chest x-ray: report reviewed CT scan - chest: report reviewed Assessment and Plan Assessment and Plan (1) COPD exacerbation: Assessment and Plan: 1. Acute exacerbation of COPD. Not unexpected given end-stage COPD and continued smoking. Unclear if leukocytosis is associated with chronic prednisone use vs. other. No evidence of pneumonia on CTA. Would continue with current therapy. I do not have any further outpatient options to assist with symptom control outside theophylline; she is already on O2 and prednisone. She is a DNR-CCA NO INTUBATION. She is not ready for Hospice yet - palliative care is appropriate. 2. Cavitary lesion of lung. 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 Failed antifungals. Operative approach had severe morbidity and patient elected not to proceed with surgery. This may be source of pleuritic pain. NSAIDs can have good response to treating pleuritic pain. Will try Celebrex. She is on Plavix; as Celebrex is ROSE-2 selective, bleeding risk is lower than traditional NSAIDs. Regarding cancer monitoring, she states she does not want any further chemo, radiation, or surgery, so she elected to stop seeing oncology. Consider pain management referral. 3. Chronic hypoxic respiratory failure. Her baseline is 3L/min. Do not arbitrarily karthik up the flow. No history of hypercapnia, but do not want to risk it either. 4. Tobacco abuse. Patient does not want to quit. I have had multiple discussions with her about this. She voiced understanding that she will continue to deteriorate, but this is her decision, so I will not harp on her about it further. We can give the minimum required information on smoking cessation to her, but do not press the issue. Plan Options are limited - goals mainly are supportive care, symptom control. She can keep her February appointment - no need for sooner F/U.
[2024-01-07] MEDS: CELECOXIB 200 MG CAPSULE PO (08:51)
[2024-01-07] MEDS: GUAIFENESIN 600 MG TAB.ER.12H PO ×2 (08:51→20:47)
[2024-01-07] MEDS: LIDOCAINE 5% PATCH 1 PATCH TOPICAL (08:52)
[2024-01-07] MEDS: METHYLPREDNISOLONE SOD SUCC PF 40 MG/ML VIAL IVP (08:52)
--- NOTE | 2024-01-07 09:47 | P.PN_ITS ---
<Statement entered by Darlene Garcia, DO - 01/07/24 13:24> This documentation has been reviewed and approved. I have also seen and evaluated patient, trop and proBNP in normal limits, chest X-ray improved today. Agree with plan and changes stated above. Progress Note: Subjective Subjective Interval history: 01/07/24 0900 The pt is sitting up in high fowlers position in bed, tripod position w/ pursed lip breathing. I saw her immediately after my arrival today (0710) as nursing was reporting significant desaturation (74%), dyspnea (RR 28), and tachycardia (HR 154) this morning (0640) after the pt ambulated to the bathroom. Nursing had increased her O2 delivery to 6L before her O2 sats recovered. By the time of my arrival in the room her O2 was back to 3L with a sat of 96% and her HR was right around 100 bpm. She continued to be quite dyspneic and was able to complete 2-3 word sentences only. Her Solu-medrol dosing was increased to 125 mg q8hrs and her scheduled breathing treatments were converted from Duonebs to Xopenex/Ipratropium to reduce cardiac stimulation. I returned to her room at 0900 and the pt was more comfortable and reports feeling better. She able to complete 4-5 word sentences, and although still using pursed lip breathing and in tripod position, is not working quite as hard to breathe. We have consulted Dr Morin, rail switchman, for assistance with managing this pt w/ chronic respiratory failure. The pt continues to c/o L posterolateral chest wall pain that is pleuritic in nature, but also reproducible w/ palpation on exam. We have added a lidoderm patch and Dr Morin has started daily Celebrex dosing. Dr Morin believes her pleuritic pain may be 2/2 her known Aspergilloma of the OBIE. Percocet has been ordered for breakthrough pain not controlled by these measures. Exam Constitutional Vital Signs, click to edit/add: Last Vital Signs Temp 98.0 F 01/07/24 07:47 Pulse 98 H 01/07/24 07:48 Resp 26 H 01/07/24 07:47 BP 130/76 01/07/24 07:47 Pulse Ox 96 01/07/24 07:47 O2 Del Method Nasal Cannula 01/07/24 07:47 O2 Flow Rate 3 01/07/24 07:47 Common normals: no apparent distress, oriented x3 and alert General appearance: cooperative Orientation/consciousness: Yes awake HENIN Common normals: normocephalic, head/scalp atraumatic and hearing grossly normal bilaterally Eye Common normals: PERRL, EOMs intact bilaterally, conjunctivae normal and no scleral icterus General eye: normal appearance of both eyes Chest Common normals: inspection of chest normal Chest: symmetrical chest wall rise Respiratory Effort & inspection: pursed lip breathing, labored, uses accessory muscles and tripod positioning; not able to speak in complete sentences (4-5 word sentences only) Auscultation: wheezes (Very faint EI L side. Faint EE R side) and diminished lung sounds (Tight R side, poor air exchange) Cardio Common normals: regular rate (Borderline tachycardia), regular rhythm, S1 normal heart sound, S2 normal heart sound, no murmurs and peripheral pulses 2+ throughout GI Common normals: Normal to inspection, nondistended, normoactive bowel sounds present, soft to palpation, non-tender and no hepatosplenomegaly Bladder/kidney exam: bladder normal to palpation Extremity Common normals: normal to inspection and no calf tenderness General: no clubbing, no cyanosis and no edema Neuro Common normals: CN's II-XII intact bilaterally, moves all extremities, no focal motor deficits and no sensory deficits noted Psych Common normals: mental status grossly normal Progress Note: Objective Labs Labs: Short CBC 01/07/24 Range/Units 04:44 WBC 15.8 H (4.0-11.0) 10^3/uL Hgb 10.3 L (12.0-16.0) g/dL Hct 33.1 L (36.0-48.0) % Plt Count 345 (150-450) 10^3/uL BMP 01/07/24 04:44 Sodium 143 Potassium 3.7 Chloride 107 Carbon Dioxide 32.1 H BUN 27.0 H Creatinine 0.53 L Glucose 182 H Calcium 8.8 Liver Function 01/07/24 Range/Units 04:44 Total Bilirubin 0.1 L (0.2-1.0) mg/dL AST 14 L (15-37) U/L ALT 19 (14-59) U/L Alkaline Phosphatase 99 (46-116) U/L Albumin 2.8 L (3.4-5.0) g/dL Progress Note: A&P Assessment and Plan (1) COPD exacerbation: Assessment and Plan: Acute * Improved yesterday afternoon, but acute desaturation/dyspnea/tachycardia noted after ambulation to the bathroom early this morning * Resolving after breathing treatment, increased solumedrol dosing, and brief increase in O2 supplementation to 6L * Dyspnea/pursed lip breathing/tripod positioning persist but improving * Increase Solumedrol to 125 mg IVP q8h * Pt is steroid dependent at baseline on Prednisone 10 mg daily * Consult Pulmonology - we appreciate Dr Morin's assistance with this pt's care * Stop scheduled Duonebs 2/2 tachycardia * Start Xopenex/Ipratropium scheduled q6h * Continue Albuterol nebs q4h PRN, Pulmicort nebs BID * O2 as needed to keep sats above 90% * Currently 96% on 3L * Dr Morin documents that the pt's baseline O2 supplementation is 3L at home (Not 2L as reported by the pt) * Continue IVPB Rocephin and Levaquin for suspected underlying bronchitis vs pneumonia on CXR in setting of leukocytosis and dyspnea * Sputum culture if able to obtain - still pending collection * Likely underlying bronchitis rather than pneumonia based on CTA chest imaging * Leukocytosis is improving and may reflect chronic steroid dependence at least in part * Guaifenesin and OPEP for sputum mobilization * CBC, CMP daily (2) Left-sided chest wall pain: Assessment and Plan: Acute * Persistent - possibly 2/2 known Aspergilloma of the OBIE (per Dr Morin) and/or MSK irritation from dyspnea/increased WOB * Pleuritic and reproducible w/ palpation on exam to L posterolateral chest wall * CTA chest neg for PE * Continue Solu-medrol as it will likely improve MSK pain * Celebrex daily added per Dr Morin - we appreciate his recommendations for this pt * Lidoderm patch added to assist w/ MSK irritation/spasm (3) Acute on chronic hypoxic respiratory failure: Assessment and Plan: Acute * Recurrent hypoxia (74%) early this morning requiring brief increase in O2 delivery to 6L * Per Dr Morin - Pt usually uses 3L home O2 supplementation at baseline, (not 2L as previously reported) * O2 delivery * Nursing was able to wean back to 3L this morning after Nebs and additional steroid administration * Improved - currently 96% on 3L after the above measures, but dyspnea persists - see COPD exacerbation (4) Reactive airway disease: Assessment and Plan: Acute (Suspected) * Resolved yesterday after Mag Sulfate administration * Very faint EI wheeze on L side on exam today (5) Hypertension: Assessment and Plan: Chronic * Continue home metoprolol and amlodipine (6) Hyperlipidemia: Assessment and Plan: Chronic * Continue home statin (7) CAD (coronary artery disease): Assessment and Plan: Chronic * Continue home plavix, ASA, BB, statin
[2024-01-07] MEDS: IPRATROPIUM BROMIDE 0.5 MG/2.5 ML VIAL.NEB IH ×3 (10:40→22:50)
[2024-01-07] MEDS: LEVALBUTEROL HCL 1.25 MG/3 ML VIAL NEB IH ×3 (10:40→22:50)
[2024-01-07] MEDS: BUDESONIDE 0.5 MG/2 ML AMPULE NEB IH ×2 (10:41→22:50)
--- NOTE | 2024-01-07 11:00 | CM.NOTE ---
Rounds made with Dr. Garcia. Ms. Burton discusses early am events leading to increased shortness of breath and increase in oxygen. Dr. Garcia discusses additional testing ordered results and medication adjustment. No discharge today.
--- NOTE | 2024-01-07 11:18 | REH.PTDLY ---
Physical Therapy Daily Note PT Daily Note/Assess Start: 01/07/24 11:15 Freq: Status: Active Protocol: Document 01/07/24 11:15 NAVEED (Rec: 01/07/24 11:18 NAVEED [id number]) Physical Therapy Daily Note/Assessment Time In 10:23 Time Out 10:34 Subjective Pt alert and willing to participate in therapy this morning. Therapeutic Exercise Minutes (minutes) 5 Therapeutic Exercise Units 0 Therapeutic Exercise Treatment Instructed in seated B LE exs sitting bedside 10x with exs including AP, LAQ, hip abd slides and hip add squeezes for strength. Therapeutic Activity Minutes (minutes) 6 Therapeutic Activity Units 1 Therapeutic Activity Comments Pt is ind with bed mobility and sit to stand transfers. Gait training on 3 L of O2 with RW CGA with help of O2 line. Pt ambulates 45 feet with fatigue and SOB noted. Pts O2 sats are at 87% upon sitting and rise to 91% after 2 min seated rest break. Total Therapy Minutes 11 Total Physical Therapy Units 1 Daily Note Summary Pt very SOB during rx, cues to slow down with gait as pt tends to rea at end to sit to recover. Pt does recover to low 90's for O2 sats after about 2 min rest break. Pt would benefit from HH at [facility].
--- NOTE | 2024-01-07 11:29 | SWNOTE1 ---
SW stopped in to speak with pt. Pt's was sitting in the chair, pt was sleeping in the bed. SW to check back later today or tomorrow to offer pt home health services at discharge.
[2024-01-07] MEDS: OXYCODONE HCL/ACETAMINOPHEN 5MG/325MG 1 TAB PO (12:08)
[2024-01-07] MEDS: METHYLPREDNISOLONE SOD SUCC PF 125 MG/2 ML VIAL IVP ×2 (14:13→21:23)
[2024-01-07] MEDS: TIZANIDINE HCL 4 MG TABLET PO ×2 (16:05→23:29)
[2024-01-07] MEDS: 0.9 % SODIUM CHLORIDE 250 ML 10 ML IV (16:07)
[2024-01-07] MEDS: CEFTRIAXONE 1,000 MG in 0.9 % SODIUM CHLORIDE 50 ML 100 MG IV (16:07)
[2024-01-07] MEDS: AZITHROMYCIN 500 MG in 0.9 % SODIUM CHLORIDE 250 ML 250 MG IV (20:46)
[2024-01-07] MEDS: ENOXAPARIN SODIUM 40 MG/0.4 ML SYRINGE SUBQ (20:47)
[2024-01-07] MEDS: ACETAMINOPHEN 325 MG TABLET 650 MG PO (21:22)
[2024-01-07] MEDS: ATORVASTATIN CALCIUM 10 MG TABLET PO (21:22)
[2024-01-08] VITALS (19 sets, daily range): BP systolic 116–159; BP diastolic 79–92; PULSE 79–132; TEMP 36.5–36.7; O2SAT 91–95
[2024-01-08] MEDS: IPRATROPIUM BROMIDE 0.5 MG/2.5 ML VIAL.NEB IH ×4 (04:39→23:16)
[2024-01-08] MEDS: LEVALBUTEROL HCL 1.25 MG/3 ML VIAL NEB IH ×4 (04:39→23:16)
[2024-01-08] MEDS: METHYLPREDNISOLONE SOD SUCC PF 125 MG/2 ML VIAL IVP ×3 (05:27→21:13)
[2024-01-08 05:29] LABS: Basophils Percent Auto 0.1 % (0.2-2.0); Hematocrit 33.7 % (36.0-48.0); Hemoglobin 10.7 g/dL (12.0-16.0); Immature Granulocytes Abs Auto 0.11 10^3/uL (0.00-0.03); Immature Granulocytes Pct Auto 0.9 % (0.0-0.5); Lymphocytes Absolute Auto 0.7 10^3/uL (1.2-3.8); Lymphocytes Percent Auto 5.6 % (20.5-60.0); Mean Corpuscular HGB Conc 31.8 g/dL (29.9-35.2); Mean Corpuscular Hemoglobin 28.6 pg (26.7-34.0); Mean Corpuscular Volume 90.1 fL (81.0-99.0); Monocytes Absolute Auto 0.4 10^3/uL (0.3-0.8); Monocytes Percent Auto 3.2 % (1.7-12.0); Neutrophils Absolute Auto 11.5 10^3/uL (1.4-6.5); Neutrophils Percent Auto 90.2 % (43.0-75.0); Platelet Count 348 10^3/uL (150-450); Red Blood Count 3.74 10^6/uL (4.20-5.40); Red Cell Distribution Width 13.8 % (11.0-15.0); White Blood Count 12.7 10^3/uL (4.0-11.0)
[2024-01-08 05:51] LABS: Alanine Aminotransferase 23 U/L (14-59); Albumin Globulin Ratio 0.7; Albumin Level 2.9 g/dL (3.4-5.0); Alkaline Phosphatase 95 U/L (46-116); Anion Gap 9.7; Aspartate Amino Transferase 13 U/L (15-37); BUN Creatinine Ratio 55.4; Bilirubin Total 0.2 mg/dL (0.2-1.0); Calcium 8.9 mg/dL (8.5-10.1); Carbon Dioxide 29.8 mmol/L (21.0-32.0); Chloride 106 mmol/L (98-107); Estimated GFR (African America >60 (>=60); Estimated GFR (Non-African Ame >60 (>=60); Globulin 3.9 g/dL; Glucose 182 mg/dL (74-106); Potassium 3.5 mmol/L (3.5-5.1); Sodium 142 mmol/L (136-145); Total Protein 6.8 g/dL (6.4-8.2)
[2024-01-08] MEDS: ASPIRIN 81 MG TABLET.DR PO (10:09)
[2024-01-08] MEDS: CELECOXIB 200 MG CAPSULE PO (10:09)
[2024-01-08] MEDS: AMLODIPINE BESYLATE 5 MG TABLET PO (10:09)
[2024-01-08] MEDS: TIZANIDINE HCL 4 MG TABLET PO ×2 (10:09→21:13)
[2024-01-08] MEDS: METOPROLOL TARTRATE 25 MG TABLET 12.5 MG PO ×2 (10:10→21:12)
[2024-01-08] MEDS: CLOPIDOGREL BISULFATE 75 MG TABLET PO (10:10)
[2024-01-08] MEDS: GUAIFENESIN 600 MG TAB.ER.12H PO ×2 (10:10→21:13)
--- NOTE | 2024-01-08 10:11 | P.PN_ITS ---
<Statement entered by Darlene Garcia, - 01/08/24 13:03> This documentation has been reviewed and approved. I have also seen and evaluated patient today, back pain improved with muscle relaxer, breathing improved today but agree that 1-2 more days to get patient back to baseline. Progress Note: Subjective Subjective Interval history: 01/08/24 0830 The pt is sitting up in high fowlers position in bed, tripod position w/ pursed lip breathing, but improved overall WOB from yesterday and appears more relaxed. She is stable on her home O2 delivery of 3L. She reports that her chest wall pain significantly improved after a muscle relaxer was added to her med profile yesterday. This has also helped her breathing as it is not as painful to take a deep breath today. She reports feeling much improved at rest, but is still dyspneic with minimal activity or prolonged conversation. She is able to complete 5-7 word sentences today. DISPOSITION: Discharge likely in 24-48 hrs pending continued improvement in respiratory effort. Exam Constitutional Vital Signs, click to edit/add: Last Vital Signs Temp 98.0 F 01/08/24 08:09 Pulse 114 H 01/08/24 10:00 Resp 18 01/08/24 08:09 BP 159/92 H 01/08/24 08:09 Pulse Ox 92 L 01/08/24 08:09 O2 Del Method Nasal Cannula 01/08/24 08:09 O2 Flow Rate 3 01/08/24 08:09 Common normals: no apparent distress, oriented x3 and alert General appearance: cooperative Orientation/consciousness: Yes awake HENME Common normals: normocephalic, head/scalp atraumatic and hearing grossly normal bilaterally Eye Common normals: PERRL, EOMs intact bilaterally, conjunctivae normal and no scleral icterus General eye: normal appearance of both eyes Chest Common normals: inspection of chest normal Chest: symmetrical chest wall rise Respiratory Effort & inspection: pursed lip breathing, labored (mildly), uses accessory muscles, tripod positioning and prolonged expiratory phase; not able to speak in complete sentences (Improving. 5-7 word sentences) Auscultation: wheezes (Insp on L, faint EE on R. ) and diminished lung sounds on the right Cardio Common normals: regular rhythm, S1 normal heart sound, S2 normal heart sound, no murmurs and peripheral pulses 2+ throughout Rate: tachycardic (Mild - 100-115) GI Common normals: Normal to inspection, nondistended, normoactive bowel sounds present, soft to palpation, non-tender and no hepatosplenomegaly Bladder/kidney exam: bladder normal to palpation Extremity Common normals: normal to inspection and no calf tenderness General: no clubbing, no cyanosis and no edema Neuro Common normals: CN's II-XII intact bilaterally, moves all extremities, no focal motor deficits and no sensory deficits noted Psych Common normals: mental status grossly normal Progress Note: Objective Labs Labs: Short CBC 01/08/24 Range/Units 04:46 WBC 12.7 H (4.0-11.0) 10^3/uL Hgb 10.7 L (12.0-16.0) g/dL Hct 33.7 L (36.0-48.0) % Plt Count 348 (150-450) 10^3/uL BMP 01/08/24 04:46 Sodium 142 Potassium 3.5 Chloride 106 Carbon Dioxide 29.8 BUN 31.0 H Creatinine 0.56 Glucose 182 H Calcium 8.9 Liver Function 01/08/24 Range/Units 04:46 Total Bilirubin 0.2 (0.2-1.0) mg/dL AST 13 L (15-37) U/L ALT 23 (14-59) U/L Alkaline Phosphatase 95 (46-116) U/L Albumin 2.9 L (3.4-5.0) g/dL Progress Note: A&P Assessment and Plan (1) COPD exacerbation: Assessment and Plan: Acute * Improved today, but still dyspneic w/ minimal activity or prolonged conversation * Continue Solumedrol at 125 mg IVP q8h * Pt is steroid dependent at baseline on Prednisone 10 mg daily * Plan long prednisone taper at d/c * Consult Pulmonology - we appreciate Dr Morin's assistance with this pt's care * Continue scheduled Xopenex/Ipratropium scheduled q6h - Xopenex use to reduce cardiac stimulation * Continue Albuterol nebs q4h PRN, Pulmicort nebs BID * O2 as needed to keep sats above 90% * Currently 93% on 3L - stable at baseline * Dr Morin documents that the pt's baseline O2 supplementation is 3L at home (Not 2L as reported by the pt on admission) * Continue IVPB Rocephin and Levaquin for suspected underlying bronchitis vs pneumonia on CXR in setting of leukocytosis and dyspnea * Sputum culture if able to obtain - still pending collection * Likely underlying bronchitis rather than pneumonia based on CTA chest imaging * Leukocytosis continues improving but may reflect chronic steroid dependence at least in part * Guaifenesin and OPEP for sputum mobilization * CBC, CMP daily (2) Left-sided chest wall pain: Assessment and Plan: Acute * Improving * Pleuritic and reproducible w/ palpation on exam to L posterolateral chest wall * Possibly 2/2 known Aspergilloma of the OBIE (per Dr Morin) and/or MSK irritation/spasm from dyspnea/increased WOB * CTA chest neg for PE * Continue Solu-medrol as it will likely improve MSK pain * Continue Celebrex daily per Dr Morin - we appreciate his recommendations for this pt * Continue Lidoderm patch added to assist w/ MSK irritation/spasm * Continue PRN Tizanidine - provided significant relief of pain (3) Acute on chronic hypoxic respiratory failure: Assessment and Plan: Acute * Resolving * Stable on 3L (home O2 rate) today * Per Dr Morin - Pt usually uses 3L home O2 supplementation at baseline, (not 2L as previously reported) (4) Reactive airway disease: Assessment and Plan: Acute (Suspected) * Improved 01/05 after Mag Sulfate administration * Moderate recurrent inspiratory wheezing on L side today * Consider repeat Mag sulfate dosing pending clinical course - watch and wait for now as overall respiratory status is improving (5) Anemia: Assessment and Plan: Chronic * Stable at baseline * CBC daily (6) Hypertension: Assessment and Plan: Chronic * Continue home metoprolol and amlodipine (7) Hyperlipidemia: Assessment and Plan: Chronic * Continue home statin (8) CAD (coronary artery disease): Assessment and Plan: Chronic * Continue home plavix, ASA, BB, statin
[2024-01-08] MEDS: LIDOCAINE 5% PATCH 1 PATCH TOPICAL (10:14)
[2024-01-08] MEDS: BUDESONIDE 0.5 MG/2 ML AMPULE NEB IH ×2 (10:25→23:16)
--- NOTE | 2024-01-08 11:27 | CM.NOTE ---
Rounds made with Dr. Garcia. No plan for discharge today.
--- NOTE | 2024-01-08 11:58 | REH.PTDLY ---
Physical Therapy Daily Note PT Daily Note/Assess Start: 01/07/24 11:15 Freq: Status: Active Protocol: Document 01/08/24 11:13 [email or web address] (Rec: 01/08/24 11:58 [email or web address] [id number]) Physical Therapy Daily Note/Assessment Time In 10:49 Time Out 11:00 Subjective Attempted rx earlier this morning, but pt waiting on muscle relaxer due to pain. went back and pt has received muscle relaxer, but now getting breathing rx. Pt ready for therapy once this is complete Therapeutic Activity Minutes (minutes) 9 Therapeutic Activity Units 1 Bed Mobility Ability Independent Chair Transfer Ability Independent Therapeutic Activity Comments Ind with transfers. Gait training with RW CGA as pt tends to push RW too far out in front, pt is wearing 3 L of O2. Pt ambulates 25 feet and into restroom. CGA with toilet transfers for safety as pt reports she has to get back to bed, she feels like she can't breathe. Cues for deep breathing techniques to help calm pt. Pt ambulates 15 feet back to bed with CGA and help with O2 line for safety. once pt is sitting her O2 sats are at 80%, rises to 90% after 3 mins sitting bedside focusing on breathing. Total Therapy Minutes 9 Total Physical Therapy Units 1 Daily Note Summary Pt very SOB today and stating she needs to get back to the bed due to feeling as though she cannot breathe. SpO2 does drop to 80% with activity and rises back to 90% after 3 mins of rest and breathing. Nursing notified.
[2024-01-08] MEDS: OXYCODONE HCL/ACETAMINOPHEN 5MG/325MG 1 TAB PO ×2 (13:53→21:13)
--- NOTE | 2024-01-08 14:38 | DIETREC ---
Recommend Heart Healthy diet (low salt, low fat, low caffeine). Encourage fluids.
--- NOTE | 2024-01-08 15:06 | SWNOTE1 ---
SW spoke with pt again to see if she was open to home health coming in? Pt voiced she is feeling better and does not feel she needs home health at this time. SW advised pt if she gets home and feels she needs it to reach out to PCP and they can set it up. Pt voiced understanding.
[2024-01-08] MEDS: CEFTRIAXONE 1,000 MG in 0.9 % SODIUM CHLORIDE 50 ML 100 MG IV (16:43)
[2024-01-08] MEDS: ENOXAPARIN SODIUM 40 MG/0.4 ML SYRINGE SUBQ (21:12)
[2024-01-08] MEDS: ATORVASTATIN CALCIUM 10 MG TABLET PO (21:13)
[2024-01-08] MEDS: AZITHROMYCIN 500 MG in 0.9 % SODIUM CHLORIDE 250 ML 250 MG IV (21:15)
[2024-01-09] VITALS (8 sets, daily range): BP systolic 129–131; BP diastolic 77–94; PULSE 82–122; TEMP 36.4–36.5; O2SAT 90–95
[2024-01-09] MEDS: OXYCODONE HCL/ACETAMINOPHEN 5MG/325MG 1 TAB PO (03:38)
[2024-01-09 05:02] LABS: Basophils Percent Auto 0.2 % (0.2-2.0); Hematocrit 34.8 % (36.0-48.0); Hemoglobin 10.8 g/dL (12.0-16.0); Immature Granulocytes Abs Auto 0.19 10^3/uL (0.00-0.03); Immature Granulocytes Pct Auto 1.5 % (0.0-0.5); Lymphocytes Absolute Auto 0.7 10^3/uL (1.2-3.8); Lymphocytes Percent Auto 5.4 % (20.5-60.0); Mean Corpuscular Hemoglobin 27.8 pg (26.7-34.0); Mean Corpuscular Volume 89.5 fL (81.0-99.0); Mean Platelet Volume 10.2 fL (9.5-13.5); Monocytes Absolute Auto 0.4 10^3/uL (0.3-0.8); Monocytes Percent Auto 3.6 % (1.7-12.0); Neutrophils Percent Auto 89.3 % (43.0-75.0); Platelet Count 348 10^3/uL (150-450); Red Blood Count 3.89 10^6/uL (4.20-5.40); Red Cell Distribution Width 13.6 % (11.0-15.0); White Blood Count 12.3 10^3/uL (4.0-11.0)
[2024-01-09] MEDS: METHYLPREDNISOLONE SOD SUCC PF 125 MG/2 ML VIAL IVP (05:05)
[2024-01-09 05:19] LABS: Alanine Aminotransferase 25 U/L (14-59); Albumin Globulin Ratio 0.8; Alkaline Phosphatase 97 U/L (46-116); Anion Gap 9.9; Aspartate Amino Transferase 11 U/L (15-37); BUN Creatinine Ratio 50.9; Bilirubin Total 0.2 mg/dL (0.2-1.0); Calcium 8.9 mg/dL (8.5-10.1); Carbon Dioxide 30.8 mmol/L (21.0-32.0); Chloride 106 mmol/L (98-107); Estimated GFR (African America >60 (>=60); Estimated GFR (Non-African Ame >60 (>=60); Globulin 3.7 g/dL; Glucose 190 mg/dL (74-106); Potassium 3.7 mmol/L (3.5-5.1); Sodium 143 mmol/L (136-145); Total Protein 6.7 g/dL (6.4-8.2)
[2024-01-09] MEDS: IPRATROPIUM BROMIDE 0.5 MG/2.5 ML VIAL.NEB IH (05:26)
[2024-01-09] MEDS: LEVALBUTEROL HCL 1.25 MG/3 ML VIAL NEB IH (05:26)
--- NOTE | 2024-01-09 07:48 | P.DS_ITS ---
DS: Providers Provider Date of admission: 01/05/24 18:05 Primary care physician: ANNIE GÓMEZ Consults: 01/05/24 17:25 Occupational Therapy Eval and Treat Routine Reason for consultation: weakness Has provider been notified: No Physical Therapy Eval and Treat Routine Reason for consultation: weakness Has provider been notified: No 01/07/24 07:07 Consult to Pulmonology Routine Consulting Provider: Jose De Jesus Morin Reason for consultation: Ac on Chronic resp failure/COPD exac Has provider been notified: No DS: Diagnosis Discharge Diagnosis (1) COPD exacerbation: (2) Left-sided chest wall pain: (3) Acute on chronic hypoxic respiratory failure: (4) Reactive airway disease: (5) Anemia: (6) Hypertension: (7) Hyperlipidemia: (8) CAD (coronary artery disease): DS: Summary Hospital Course Hospital Course: Patient was seen and evaluated in the emergency room with increasing shortness of breath. Found to have acute exacerbation of COPD she was also describing chest pain. Seem to be reproducible and worse with moving but not necessarily with activity. Treated with antibiotics and steroids, patient improved daily. At this point if she can ambulate this morning without significant dyspnea, she will be discharged home in improving condition. Medications see list. Follow- up with PCP within the next week. Status at Discharge Overall status at discharge: patient is not back to baseline Time Spent with Patient Time attestation: Total time spent providing and/or coordinating discharge services: Time spent: greater than 30 minutes Exam Constitutional Vital Signs, click to edit/add: Last Vital Signs Temp 97.7 F 01/09/24 07:40 Pulse 122 H 01/09/24 08:00 Resp 20 01/09/24 07:44 BP 131/94 H 01/09/24 07:40 Pulse Ox 90 L 01/09/24 07:40 O2 Del Method Nasal Cannula 01/09/24 07:40 O2 Flow Rate 2 01/09/24 07:40 Common normals: no apparent distress, oriented x3 and alert General appearance: cooperative Orientation/consciousness: Yes awake HENNM Common normals: normocephalic, head/scalp atraumatic and hearing grossly normal bilaterally Eye Common normals: PERRL, EOMs intact bilaterally, conjunctivae normal and no scleral icterus General eye: normal appearance of both eyes Chest Common normals: inspection of chest normal Chest: symmetrical chest wall rise Respiratory Effort & inspection: able to speak in complete sentences (Improving. 5-7 word sentences) and pursed lip breathing; not labored (Resolved) and does not use accessory muscles Auscultation: wheezes (Insp on L, faint EE on R. ) and diminished lung sounds on the right Cardio Common normals: regular rhythm, S1 normal heart sound, S2 normal heart sound, no murmurs and peripheral pulses 2+ throughout Rate: tachycardic (Mild - 100-115) GI Common normals: Normal to inspection, nondistended, normoactive bowel sounds present, soft to palpation, non-tender and no hepatosplenomegaly Bladder/kidney exam: bladder normal to palpation Extremity Common normals: normal to inspection and no calf tenderness General: no clubbing, no cyanosis and no edema Neuro Common normals: CN's II-XII intact bilaterally, moves all extremities, no focal motor deficits and no sensory deficits noted Psych Common normals: mental status grossly normal Discharge Plan Discharge Disposition: Home, Self-Care Condition: Fair Discharge Medications: New oxycodone-acetaminophen 5-325 mg Tablet 1 tab PO Q8H PRN (Reason: Pain Scale 7-10) 7 Days Qty: 20 0RF prednisone 10 mg tablet 50 mg PO DAILY Qty: 47 0RF Rx Instructions: 5/day for 3 days. 4/day for 3 days, 3/day for 3 days, 2/day for 3 days, 1/day for 3 days, 1/2 /day for 4 days levofloxacin 750 mg tablet 750 mg PO DAILY 10 Days Qty: 10 0RF tizanidine 4 mg Tablet 4 mg PO Q8H PRN (Reason: Muscle Pain) Qty: 60 2RF Continued metoprolol tartrate 25 mg tablet 12.5 mg PO BID prednisone 10 mg tablet 10 mg PO DAILY Hold Instructions: Hold until prednisone taper is completed, then resume daily albuterol sulfate 2.5 mg /3 mL (0.083 %) solution for nebulization 2.5 mg inhalation Q6H PRN (Reason: shortness of breath or wheezing) clopidogrel 75 mg tablet 75 mg PO DAILY amlodipine 5 mg tablet 5 mg PO DAILY albuterol sulfate 90 mcg/actuation HFA aerosol inhaler 2 puff INHALATION Q4H PRN (Reason: shortness of breath or wheezing) Breztri Aerosphere 160-9-4.8 mcg/actuation HFA aerosol inhaler 2 inh INHALATION BID simvastatin 20 mg tablet 20 mg PO .QHS aspirin [Adult Low Dose Aspirin] 81 mg tablet,delayed release (DR/EC) 81 mg PO DAILY fexofenadine [Marcie Allergy] 180 mg tablet 180 mg PO DAILY PRN (Reason: allergy symptoms) Centrum Silver 0.4 mg-300 mcg- 250 mcg tablet 1 tab PO DAILY Activity: increase activity as tolerated and wear oxygen at all times Diet: advance to your usual diet Print Language: Croatian Patient Instructions: Oxycodone/Acetaminophen (By mouth), Levofloxacin (By mouth), COPD (Chronic Obstructive Pulmonary Disease) (DC) Forms: Portal Instructions Follow Up Appointments: Please call and schedule follow up with PCP, Dr. Annie Gómez, in 5-10 days after discharge. Discharge Date/Time: 01/09/24 09:45
[2024-01-09] MEDS: LIDOCAINE 5% PATCH 1 PATCH TOPICAL (08:03)
[2024-01-09] MEDS: CLOPIDOGREL BISULFATE 75 MG TABLET PO (08:04)
[2024-01-09] MEDS: ASPIRIN 81 MG TABLET.DR PO (08:04)
[2024-01-09] MEDS: TIZANIDINE HCL 4 MG TABLET PO (08:04)
[2024-01-09] MEDS: METOPROLOL TARTRATE 25 MG TABLET 12.5 MG PO (08:04)
[2024-01-09] MEDS: CELECOXIB 200 MG CAPSULE PO (08:04)
[2024-01-09] MEDS: AMLODIPINE BESYLATE 5 MG TABLET PO (08:04)
[2024-01-09] MEDS: GUAIFENESIN 600 MG TAB.ER.12H PO (08:04)
--- NOTE | 2024-01-09 08:41 | PM.DS1 ---
DS: Providers Provider Date of admission: 01/05/24 18:05 Primary care physician: ANNIE GÓMEZ Consults: 01/05/24 17:25 Occupational Therapy Eval and Treat Routine Reason for consultation: weakness Has provider been notified: No Physical Therapy Eval and Treat Routine Reason for consultation: weakness Has provider been notified: No 01/07/24 07:07 Consult to Pulmonology Routine Consulting Provider: Jose De Jesus Morin Reason for consultation: Ac on Chronic resp failure/COPD exac Has provider been notified: No DS: Diagnosis Discharge Diagnosis (1) COPD exacerbation: (2) Left-sided chest wall pain: (3) Acute on chronic hypoxic respiratory failure: (4) Reactive airway disease: (5) Anemia: (6) Hypertension: (7) Hyperlipidemia: (8) CAD (coronary artery disease): Plan (1) LLL pneumonia: Assessment and Plan: as seen on cxr L>R opacities. monitor oxygen saturations closely to maintain >90%. Duonebs scheduled q6 hours, pulmicort inh BID, as needed albuterol and OPEP.continue on levaquin 750mg daily and rocephin 1gram daily. Patient with leukocytosis and elevated lactate, tachycardia. Sputum culture ordered and pending, blood cultures ordered and pending. UA negative. I discussed with patient low threshold of checking chest CT given his history and severity of previous symptoms. WBC's 9.1 today, lactate still elevated. Qualifiers: Pneumonia type: due to unspecified organism Qualified Code(s): J18.9 - Pneumonia, unspecified organism (2) Acute respiratory failure with hypoxia: Assessment and Plan: continue oxygen to maintain stats >90%, not on oxygen chronically, dropped to 88% per nursing although i see nothing documented. (3) Severe sepsis: Assessment and Plan: secondary to #1: leukocytosis 14.5, Tachycardia >100, elevated lactate 3.0. Given fluids in the ER, continue with IVF hydration. blood, sputum and UA obtained and cultures pending. Afebrile currently. continue Levaquin and Rocephin. 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 (4) Allergic asthma: Assessment and Plan: continue Solumedrol 40mg q6 hours Qualifiers: Asthma complication type: with acute exacerbation Asthma persistence: persistent Asthma severity: moderate Qualified Code(s): J45.41 - Moderate persistent asthma with (acute) exacerbation (5) Aspergillosis, allergic bronchopulmonary: Assessment and Plan: treat pneumonia and asthma symptoms Plan patient is a full code Lovenox for DVT prophylaxis Given hypoxia episode, patient still needs 1-2 more days of hospital necessary care. DS: Summary Hospital Course Hospital Course: Patient was seen and evaluated in the emergency room, she has a history of end-stage COPD, presented and was found to have leukocytosis 14.5, Tachycardia >100, elevated lactate 3.0. Resulting in severe sepsis. An acute exacerbation of her COPD. Patient with significant hypoxia. Over the last 24 hours has been able to be weaned back down to her normal O2 of 3 L. She has not ambulated yet this morning but the plan is when she is ambulated if she has no further desaturations. She can be discharged home in improving condition. Medications see list. Follow-up with Dr. Morin and her PCP within the next week. Status at Discharge Overall status at discharge: patient is not back to baseline Time Spent with Patient Time attestation: Total time spent providing and/or coordinating discharge services: Time spent: greater than 30 minutes Exam Constitutional Vital Signs, click to edit/add: Last Vital Signs Temp 97.7 F 01/09/24 07:40 Pulse 122 H 01/09/24 08:00 Resp 20 01/09/24 07:44 BP 131/94 H 01/09/24 07:40 Pulse Ox 90 L 01/09/24 07:40 O2 Del Method Nasal Cannula 01/09/24 07:40 O2 Flow Rate 2 01/09/24 07:40 Common normals: no apparent distress, oriented x3 and alert General appearance: cooperative Orientation/consciousness: Yes awake HENNE Common normals: normocephalic, head/scalp atraumatic and hearing grossly normal bilaterally Eye Common normals: PERRL, EOMs intact bilaterally, conjunctivae normal and no scleral icterus General eye: normal appearance of both eyes Chest Common normals: inspection of chest normal Chest: symmetrical chest wall rise Respiratory Effort & inspection: pursed lip breathing, labored (mildly), uses accessory muscles, tripod positioning and prolonged expiratory phase; not able to speak in complete sentences (Improving. 5-7 word sentences) Auscultation: wheezes (Insp on L, faint EE on R. ) and diminished lung sounds on the right Cardio Common normals: regular rhythm, S1 normal heart sound, S2 normal heart sound, no murmurs and peripheral pulses 2+ throughout Rate: tachycardic (Mild - 100-115) GI Common normals: Normal to inspection, nondistended, normoactive bowel sounds present, soft to palpation, non-tender and no hepatosplenomegaly Bladder/kidney exam: bladder normal to palpation Extremity Common normals: normal to inspection and no calf tenderness General: no clubbing, no cyanosis and no edema Neuro Common normals: CN's II-XII intact bilaterally, moves all extremities, no focal motor deficits and no sensory deficits noted Psych Common normals: mental status grossly normal DS: Data Data Completed and Pending Labs on day of discharge: Labs from last 24 hours 01/09/24 04:14 WBC 12.3 H RBC 3.89 L Hgb 10.8 L Hct 34.8 L MCV 89.5 MCH 27.8 MCHC 31.0 RDW 13.6 Plt Count 348 MPV 10.2 Neut % (Auto) 89.3 H Lymph % (Auto) 5.4 L [place] % (Auto) 3.6 Eos % (Auto) 0.0 L Baso % (Auto) 0.2 Neut # (Auto) 11.0 H Lymph # (Auto) 0.7 L [place] # (Auto) 0.4 Eos # (Auto) 0.0 Baso # (Auto) 0.0 Abs Immat Gran (auto) 0.19 H Imm/Tot Granulo (auto) 1.5 H Sodium 143 Potassium 3.7 Chloride 106 Carbon Dioxide 30.8 Anion Gap 9.9 BUN 28.0 H Creatinine 0.55 Est GFR ( Amer) >60 Est GFR (Non-Af Amer) >60 BUN/Creatinine Ratio 50.9 Glucose 190 H Calcium 8.9 Total Bilirubin 0.2 AST 11 L ALT 25 Alkaline Phosphatase 97 Total Protein 6.7 Albumin 3.0 L Globulin 3.7 Albumin/Globulin Ratio 0.8 Preliminary micro results at discharge 01/05/24 16:07 - Preliminary Blood NO GROWTH AT 36-48 HOURS. FINAL TO FOLLOW. 01/05/24 16:03 Blood Culture Result 1 - Preliminary Blood NO GROWTH AT 36-48 HOURS. FINAL TO FOLLOW. Discharge Plan Discharge Disposition: Home, Self-Care Condition: Fair Discharge Medications: New oxycodone-acetaminophen 5-325 mg Tablet 1 tab PO Q8H PRN (Reason: Pain Scale 7-10) 7 Days Qty: 20 0RF prednisone 10 mg tablet 50 mg PO DAILY Qty: 47 0RF Rx Instructions: 5/day for 3 days. 4/day for 3 days, 3/day for 3 days, 2/day for 3 days, 1/day for 3 days, 1/2 /day for 4 days levofloxacin 750 mg tablet 750 mg PO DAILY 10 Days Qty: 10 0RF tizanidine 4 mg Tablet 4 mg PO Q8H PRN (Reason: Muscle Pain) Qty: 60 2RF Continued metoprolol tartrate 25 mg tablet 12.5 mg PO BID prednisone 10 mg tablet 10 mg PO DAILY Hold Instructions: Hold until prednisone taper is completed, then resume daily albuterol sulfate 2.5 mg /3 mL (0.083 %) solution for nebulization 2.5 mg inhalation Q6H PRN (Reason: shortness of breath or wheezing) clopidogrel 75 mg tablet 75 mg PO DAILY amlodipine 5 mg tablet 5 mg PO DAILY albuterol sulfate 90 mcg/actuation HFA aerosol inhaler 2 puff INHALATION Q4H PRN (Reason: shortness of breath or wheezing) Breztri Aerosphere 160-9-4.8 mcg/actuation HFA aerosol inhaler 2 inh INHALATION BID simvastatin 20 mg tablet 20 mg PO .QHS aspirin [Adult Low Dose Aspirin] 81 mg tablet,delayed release (DR/EC) 81 mg PO DAILY fexofenadine [Marcie Allergy] 180 mg tablet 180 mg PO DAILY PRN (Reason: allergy symptoms) Centrum Silver 0.4 mg-300 mcg- 250 mcg tablet 1 tab PO DAILY Activity: increase activity as tolerated and wear oxygen at all times Diet: advance to your usual diet Print Language: Australian Patient Instructions: Oxycodone/Acetaminophen (By mouth), Levofloxacin (By mouth), COPD (Chronic Obstructive Pulmonary Disease) (DC) Forms: Portal Instructions Follow Up Appointments: Please call and schedule follow up with PCP, Dr. Annie Gómez, in 5-10 days after discharge. Discharge Date/Time: 01/09/24 09:45
--- NOTE | 2024-01-09 08:52 | PT.DAILY ---
Physical Therapy Daily Note PT Daily Note/Assess Start: 01/07/24 11:15 Freq: Status: Active Protocol: Document 01/09/24 08:50 FIFI (Rec: 01/09/24 08:51 FIFI [id number]) Visit Not Completed Visit Not Completed Visit Not Completed Due to: Pt refusing Other Reason Visit Not Completed Pt being dc shortly. Pt reports she wants to save her energy for dc. Pt reports having RW, cane and help at home from daughter. Physical Therapy Daily Note/Assessment Time In/Time Out Time In 08:30 Time Out 08:32 Pain In Pain N/A Pain Out Pain N/A GG. Functional Abilities and Goals-Complete for Swing Bed Patients Only [id number]. Self-Care [id number]. Mobility
--- NOTE | 2024-01-12 15:10 | CM.DCFOLLOWU ---
Person spoke with: Daylin How are you feeling? Much better How is your pain? minimal Did you understand your discharge instructions? yes Do you have any questions about your discharge instructions? no Were you given any prescriptions at discharge? yes Were you able to get your prescriptions filled? yes Do you understand how to take your medications as ordered? yes Do you have any questions about your follow up appointment and do you plan to keep your follow up appointment? Will make one soon. Is there anything else that you would like to discuss? No Questions/Comments/Concerns/Other:
== END 2024-01-09 09:45 | disposition home or self-care (01) | DRG 190 ==
LOC: ER 16:55 → MS 01-06 08:08
PROVIDERS: Nurse Practitioner; Admitting Provider Family Medicine; Emergency Provider Emergency Medicine Emergency Medical Services; PCP Family Medicine; Visit Provider Family Medicine
DX: J44.1 Chronic obstructive pulmonary disease with (acute) exacerbation (principal); J96.21 Acute and chronic respiratory failure with hypoxia; J45.41 Moderate persistent asthma with (acute) exacerbation; B44.1 Other pulmonary aspergillosis; J44.0 Chronic obstructive pulmonary disease with (acute) lower respiratory infection; J47.9 Bronchiectasis, uncomplicated; R07.89 Other chest pain; J43.9 Emphysema, unspecified; Z66 Do not resuscitate; I25.10 Atherosclerotic heart disease of native coronary artery without angina pectoris; I10 Essential (primary) hypertension; E78.5 Hyperlipidemia, unspecified; R79.89 Other specified abnormal findings of blood chemistry; F17.200 Nicotine dependence, unspecified, uncomplicated; D64.9 Anemia, unspecified; M41.80 Other forms of scoliosis, site unspecified; Z99.81 Dependence on supplemental oxygen; Z79.51 Long term (current) use of inhaled steroids; Z79.52 Long term (current) use of systemic steroids; Z79.02 Long term (current) use of antithrombotics/antiplatelets; Z85.118 Personal history of other malignant neoplasm of bronchus and lung; Z95.5 Presence of coronary angioplasty implant and graft; Z87.01 Personal history of pneumonia (recurrent); Z79.899 Other long term (current) drug therapy
CPT/HCPCS: 36415; 71045; 71275; 80053; 82800; 83605; 83735; 83880; 84484; 85025; 85378; 87040; 87070; 93005; 94640; 94667; 94668; 94761; 96365; 96366; 96367; 96372; 96375; 96376; 97161; 97165; 97530; 99285; J0456; J0696; J1650; J2919; J3475; Q9967